=== PATIENT | male | born 1955 | race Caucasian/White ===

== ENCOUNTER 2023-06-17 10:13 | Outpatient (AMB) | payer MEDICARE, SELFPAY ==
[2023-06-17 10:18] VITALS: BP 140/80; O2SAT 84; BMI 25.9
--- NOTE | 2023-06-17 10:18 | A.OFFVIS_ITS ---
Intake Vital Signs 06/17/23 10:18 Height 5 ft 11 in Weight 186 lb BMI 25.9 BP 140/80 H Blood Pressure Location Rt brachial Position Sitting Pulse Oximetry (%) 84 L Oxygen Delivery Method Room Air Intake Visit Reasons: Shortness of breath Intake Note: O2 applied at 2L with O2 saturation returned to 96%. Baler Required: No Meat Packer: Meat Packer offered & declined Accompanied by: Sister Allergies No Known Allergies Allergy (Verified 06/17/23 10:27) Medication List - Last Reconciled 06/17/23 by Raysa Ramirez LPN aspirin 81 mg PO DAILY ropfltjsrj-mbivamhp-qjwhoppujs 160-9-4.8 mcg/actuation (Breztri Aerosphere) 2 inhalations inhalation BID clonazepam 0.25 mg PO BID lisinopril 20 mg PO DAILY metoprolol succinate ER 50 mg PO DAILY quetiapine 50 mg PO BID HPI Shortness of breath HPI Details Freedom is a pleasant 68-year-old male, former smoker quit 3 year ago, 40pyh with underlying COPD on supplemental oxygen, HTN, s/p aortic valve replacement 2022 and h/o hepatitis C. He was referred by PCP for pulmonary evaluation. He has been maintained on Breztri and duoneb PRN with suboptimal control. Of note, he recently came to [place] to stay with sister due to worsening respiratory status, as he lives in [place], so has been without nebulizer. He reports persistent dyspnea on minimal exertion, wheezing and productive cough with tenacious everett sputum. He has been using supplemental oxygen for the past few years, currently using Inogen. He reports at rest on room air, O2 remains around 92, however with ambulation patient uses inogen at 6L and O2 is around 91-92%. He has not used his supplemental O2 at night. He denies any pertinent family history. He denies prior history of asthma. He reports likely occupational exposures to unknown chemicals. He does report history of sleep apnea however unable to use CPAP therapy due to issues with increased pressure. He was evaluated a few months ago with chest CT which reportedly revealed nodules and recommendation for [address] to evaluate was ordered. unfortunately due to difficulites coordinating care, patient was unable to schedule. He has chest CT at [facility] scheduled 06/24/23. Will request this. He also has an upcoming evaluation with cardiology to establish care. [facility] Social History (Updated 06/17/23 @ 10:32 by Raysa Ramirez LPN) Patient Tobacco Use Status: Former Tobacco user Tobacco use type: Cigarette Cigarette Packs Per Day: 1 Years Smoked: 40 Review of Systems Const Denies chills, Denies excessive sweating, Denies fever(s), Denies headache(s) and Denies night sweats Eyes Denies dry eyes, Denies irritation and Denies itchy eyes ENT Reports Normal hearing present, Denies headache(s), Denies nasal congestion, Denies nasal discharge, Denies post nasal drip and Denies sore throat Card Denies chest pain, Denies chest pain at rest, Denies chest pain with activity, Denies claudication, Denies leg edema, Reports dyspnea, Reports dyspnea on exertion, Denies orthopnea and Denies paroxysmal nocturnal dyspnea Resp Denies chest congestion, Reports cough, Denies excessive phlegm production, Denies pain on inspiration, Denies pain with cough, Reports dyspnea, Reports dyspnea on exertion, Denies stridor and Reports wheezing Musc Denies myalgias Neuro Reports Normal hearing present and Denies headache(s) Endo Denies excessive sweating Jessee/Lymph Denies lymphadenopathy Aller/Immun Denies itchy eyes, Denies seasonal rhinorrhea and Reports wheezing Physical Exam Vital Signs: Last Vital Signs BP 140/80 H 06/17/23 10:18 Pulse Ox 84 L 06/17/23 10:18 Oxygen Delivery Method Room Air 06/17/23 10:18 BMI result Body Mass Index 25.9 Const General: cooperative, no acute distress, well developed and alert Orientation/consciousness: patient oriented x3 Limitations: no limitations HEENT Head: Yes normal to inspection, Yes normocephalic and Yes atraumatic Ears: hearing grossly normal bilaterally and external ears normal Eyes General: appearance normal, both eyes and all related structures Eyelids: Yes eyelids normal Sclerae: sclerae normal EOM: EOMs intact bilaterally Neck Neck: Yes normal visual inspection and Yes no lymphadenopathy Lymphatic: no lymphadenopathy noted Chest Chest palpation & inspection: normal inspection of the chest Resp Other: moderate faint expiratory wheezing throughout, mildly improved with duoneb Effort & Inspection: able to speak in complete sentences, no audible wheezes, no cough, no stridor, not tachypneic, no tripod positioning and no use of accessory muscles Auscultation: no crackles, no rales, no rhonchi, wheezes and diminished lung sounds Cardio Jugular venous distension: no JVD Rate: regular rate Rhythm: regular rhythm Skin Other: warm, dry General skin exam: no rashes or lesions noted Neuro General: patient oriented x3 Cranial nerves: Yes Normal hearing present Cognition (Neuro): normal cognition Gait exam (Neuro): Normal gait present Extrem General: Yes normal to inspection, Yes capillary refill normal, Yes no clubbing, cyanosis or edema and Yes no pedal edema Psych Appearance: grossly normal and well kempt Speech and movement: Normal speech and movement present and Clear speech present Affect: normal affect Attitude: cooperative Thought process: Normal thought process present Thought content: Normal thought content present Insight: Good insight present (Psych) Judgement: Good judgement present (Psych) Office Procedures Nebulizer Treatment Nebulizer Treatment 27978-[place]/MDI RX initial, or Nebulizer Subsequent Treatment Office Meds ipratropium 0.5 mg-albuterol 3 mg (2.5 mg base)/3 mL nebulization soln Performing Provider: Cristiana Woodard NP Performing Location: [facility] Administered by: Raysa Ramirez LPN on 06/17/23 11:14 Dose Route Admin Location Dispensed Lot Number Expiration Date [facility] Paper Twister Tender 3 mL inhalation 3 mL [id number] 02/10/25 64164-555-89 [employer] Assessment & Plan Assessment & Plan (1) COPD (chronic obstructive pulmonary disease): Code(s): J44.9 - Chronic obstructive pulmonary disease, unspecified (2) Multiple pulmonary nodules: Code(s): R91.8 - Other nonspecific abnormal finding of lung field (3) Personal history of tobacco use: Code(s): Z87.891 - Personal history of nicotine dependence (4) Nocturnal hypoxemia: Code(s): G47.34 - Idiopathic sleep related nonobstructive alveolar hypoventilation Plan Freedom's symptoms are likely related to underlying COPD previously noted as moderate to severe. Will send for PFT to evaluate. Patient noted prior chest CT from February required 3 month follow-up, unfortunately had to be postponed and will have chest CT performed next week at [facility]. Will have patient sign release to obtain both chest CTs. On exam patient with moderate wheezing, mildly improve after DuoNeb. He also reported productive cough with tenacious everett sputum. Will send in azithromycin for bronchitic symptoms and prednisone. He is aware to call the office if symptoms do not improve. When patient was ambulating from the waiting room to exam room approximately 20 yd, his oxygen saturation was 84% on room air. 2 L of supplemental oxygen was placed and saturation increased to 92%. He does have an Inogen device at home, but does not have a concentrator. Will send in prescription for 2 L of continuous supplemental oxygen to [place], along with nebulizer and DuoNeb. Recommended patient keep oxygen saturation between 92-94%. Patient reports prior sleep studies revealing obstructive sleep apnea, however was unable to use CPAP therapy. Will send for overnight oximetry to assess for nocturnal hypoxemia on room air. All questions were answered and patient is in agreement of plan. Will follow-up in 4 weeks or sooner if needed. Orders: Orders PFT pulmonary function test Today G47.34 - Idiopathic sleep related nonobstructive alveolar hypoventilation AMB Nebulizer Treatment Today J44.9 - Chronic obstructive pulmonary disease, unspecified Overnight Pulse Oximetry Today G47.34 - Idiopathic sleep related nonobstructive alveolar hypoventilation, J44.9 - Chronic obstructive pulmonary disease, unspecified Medications: New azithromycin For 250 mg dose pack: take 500 mg today (day 1), then 250 mg for 4 days (days 2-5) PO 6 tabs 0RF prednisone see taper instructions; 40 mg Daily x3 days, 30 mg daily x3 days, 20 mg daily x3 days, 10 mg daily x3 days 10 mg PO DIRECTED 30 tabs 0RF Coding Level of Care Code New Pt Level 4 (00287) Diagnoses COPD (chronic obstructive pulmonary disease) J44.9 Multiple pulmonary nodules R91.8 Personal history of tobacco use Z87.891 Nocturnal hypoxemia G47.34 CPT Codes Nebulizer Treatment - Nebulizer Treatment, initial or subsequent: 33028- Nebulizer/MDI RX initial, or Nebulizer Subsequent Treatment ([id number])
== END 2023-06-17 11:42 | disposition home or self-care (01) ==
PROVIDERS: PCP Physician Assistant Medical; Visit Provider Nurse Practitioner Family
DX: J44.9 Chronic obstructive pulmonary disease, unspecified (principal); R91.8 Other nonspecific abnormal finding of lung field; Z87.891 Personal history of nicotine dependence; G47.34 Idiopathic sleep related nonobstructive alveolar hypoventilation
CPT/HCPCS: 99204

== ENCOUNTER → 2023-06-17 10:13 | Outpatient (BNVA) | payer MEDICARE, SELFPAY | PROVIDERS: PCP Physician Assistant Medical; Visit Provider Nurse Practitioner Family | DX: J44.9 Chronic obstructive pulmonary disease, unspecified (principal); R91.8 Other nonspecific abnormal finding of lung field; G47.34 Idiopathic sleep related nonobstructive alveolar hypoventilation; Z87.891 Personal history of nicotine dependence | CPT/HCPCS: 94640; 99202 ==

== ENCOUNTER 2023-06-23 14:45 | Outpatient (AMB) | payer MEDICARE, SELFPAY ==
--- NOTE | 2023-06-23 14:50 | MHC.OFFVIS ---
Intake Vital Signs 06/23/23 14:54 Height 5 ft 11 in Weight 181 lb BMI 25.2 BP 171/91 H Blood Pressure Location Lt brachial Position Sitting Pulse 88 Pulse Source Pulse Oximeter Pulse Oximetry (%) 95 Oxygen Delivery Method Room Air Intake Visit Reasons: RT SHOULDER PAIN,BACK PAIN, BILATERAL HIP PAIN Intake Note: Pain today 08/[address] Required: No Accompanied by: Family/Other Allergies No Known Allergies Allergy (Verified 06/23/23 14:54) HPI RT SHOULDER PAIN,BACK PAIN, BILATERAL HIP PAIN HPI Details Patient is a pleasant 68 years old male with prior history of asthma/COPD/emphysema with former smoker 40pyh, on supplemental oxygen, s/p aortic valve replacement 2022, lumbar discectomy, chronic pain syndrome, presents today for initial evaluation chronic right shoulder, bilateral hip and lower back pain. Denies any recent trauma, injury or falls. He is temporary relocated to [place] from [place] to stay with his sister for cardiac rehab following open heart surgery and valve replacement on 09/02/2022 in [place], [place]. Patient denies previous shoulder injections or physical therapy. He states recent x-rays showed significant degeneration and osteoarthritis of his shoulder and lower back. Patient reports multiple back injections in the past at [facility] in [place]. He is on Suboxone for collateral benefit of pain. Patient also takes Tylenol, NSAIDs, and marijuana with continued symptoms. Patient sleeps in recliner due to COPD/emphysema. Pain affects his daily activities, mobility, sleep and quality of life. Patient is unable to participate in formal physical therapy or daily exercise due to COPD/asthma exacerbation with any exertion. Patient establish care with our Pulmonology provider with pending chest CT scan tomorrow and also will be establishing care with [facility] Cardiology provider as well. Patient denies any fever, chills, unintentional weight loss, weakness, bladder or bowel dysfunction, or saddle anesthesia. Location Bilateral hip, back and right shoulder Duration Chronic pain, worsening for 3-4 months for hips/back, 3 month for shoulder Characteristics of symptom or complaint Aching, sharp, stabbing, burning, tiring Aggravating or associated factors Movements, pulling, reaching, walking, weight-bearing Relieving factors Sitting still, heating pad, Suboxone, Tylenol, NSAIDs, marijuana Treatment H/o 4 spinal injections prior back surgery in [facility] Medical History (Updated 06/24/23 @ 20:04 by MARLON Polk) Basal cell carcinoma Vitamin D deficiency Major depressive disorder Alcohol dependence Mixed hyperlipidemia Emphysema/COPD Dupuytren's contracture of both hands Chest pain BPH (benign prostatic hyperplasia) Chronic pain syndrome Asbestos exposure Hepatitis C Sleep apnea Insomnia Hemoptysis Marijuana use Hypertension Osteoarthritis of right shoulder Nocturnal hypoxemia Multiple pulmonary nodules COPD (chronic obstructive pulmonary disease) Surgical History (Updated 06/24/23 @ 20:04 by MARLON Polk) H/O colonoscopy (~2017) History of back surgery (~2007) History of appendectomy History of aortic valve replacement (~08/2022) Social History Patient Tobacco Use Status: Former Tobacco user Tobacco use type: Cigarette Cigarette Packs Per Day: 1 Years Smoked: 40 Review of Systems Const All systems reviewed & are unremarkable except as noted in HPI and below Physical Exam Vital Signs: Last Vital Signs Pulse 88 06/23/23 14:54 BP 171/91 H 06/23/23 14:54 Pulse Ox 95 06/23/23 14:54 Oxygen Delivery Method Room Air 06/23/23 14:54 BMI result Body Mass Index 25.2 General: Appears afebrile. Alert and oriented. Mood and affect appropriate. Follows and participates in conversation appropriately. Respiratory effort is unlabored. No cough. Able to transition from sit to stand unassisted. Ambulates with bilaterally normal heel strike and toe off. Back/Spine/Pelvis Cervical Spine: cervical ROM normal, cervical muscular tenderness and No Cervical spine tenderness Thoracic/Lumbar Spine: thoracic and lumbar spine normal to inspection, Thoracic/lumbar spine scar(s), Lasegue's sign negative, straight leg raise negative bilaterally, pain with thoraco-lumbar ROM, paraspinal muscle tenderness, thoraco-lumbar ROM limited, No thoracic spinal tenderness and lumbar spinal tenderness at L4 and at L5 Sacroiliac joints: bilaterally tender to palpation Extrem General: Yes capillary refill normal, Yes no clubbing, cyanosis or edema and Yes no calf tenderness Right upper extremity: shoulder/upper arm (Limited ROM due to pain. Increased pain with overhead reach activities.) Details: tenderness Location: of the A-C joint and over the subacromial bursa; no swelling, no ecchymosis, no crepitus and no unusual warmth Assessment & Plan Assessment & Plan (1) Chronic right shoulder pain: Code(s): M25.511 - Pain in right shoulder; G89.29 - Other chronic pain (2) Osteoarthritis of right shoulder: Code(s): M19.011 - Primary osteoarthritis, right shoulder (3) Lumbar post-laminectomy syndrome: Code(s): M96.1 - Postlaminectomy syndrome, not elsewhere classified (4) Bilateral hip pain: Code(s): M25.551 - Pain in right hip; M25.552 - Pain in left hip (5) Lumbar degenerative disc disease: Code(s): M51.36 - Other intervertebral disc degeneration, lumbar region (6) Chronic pain syndrome: Code(s): G89.4 - Chronic pain syndrome Plan Medical release request sent to [facility] for recent shoulder, low back and hip xray. Discussed interventional for chronic low back pain, postlaminectomy syndrome, and bilateral hip pain, including diagnostic versus therapeutic injections, neuromodulation with SCS/ITDD trial vs implant, RFA and BVN ablation. Informational pamphlets provided to patient and family. Patient plans to relocate back to [place] this year but reports his plans might change. Patient will notify our office if he is interested in any procedures for his low back and hip pain. Schedule Right intra-articular shoulder steroid injection with local and fluoroscopy. Expectations, risks and benefits were reviewed. Patient is aware he will be contacted to schedule this procedure. All questions were answered and the patient is in agreement of plan. Follow-up after injections and sooner as needed. Justification for interventional therapy: ? Patient with average pain > 6/10 ? Patient has exhausted conservative therapy, Tylenol, NSAIDs, cardiac rehab ? Patient is unable to participate in physical therapy due to significant pain and COPD exacerbation with any exertion The risks, consequences, alternatives, and benefits of various treatment options were discussed with the patient in great detail, including conservative management, injections and procedures. Patient is aware of hyperglycemic effects of steroids. Coding Level of Care Code New Pt Level 4 (80629) Diagnoses Chronic right shoulder pain M25.511; G89.29 Osteoarthritis of right shoulder M19.011 Lumbar post-laminectomy syndrome M96.1 Bilateral hip pain M25.551; M25.552 Lumbar degenerative disc disease M51.36 Chronic pain syndrome G89.4
[2023-06-23 14:54] VITALS: BP 171/91; PULSE 88; O2SAT 95; BMI 25.2
== END 2023-06-23 15:25 | disposition home or self-care (01) ==
PROVIDERS: PCP Physician Assistant Medical; Visit Provider Nurse Practitioner Family
DX: M25.511 Pain in right shoulder (principal); M19.011 Primary osteoarthritis, right shoulder; M96.1 Postlaminectomy syndrome, not elsewhere classified; M25.551 Pain in right hip; M25.552 Pain in left hip; M51.36 Other intervertebral disc degeneration, lumbar region; G89.4 Chronic pain syndrome
CPT/HCPCS: 99204; 99214

== ENCOUNTER → 2023-06-23 14:45 | Outpatient (BNVA) | payer MEDICARE, SELFPAY | PROVIDERS: PCP Physician Assistant Medical; Visit Provider Nurse Practitioner Family | DX: M25.511 Pain in right shoulder (principal); M19.011 Primary osteoarthritis, right shoulder; M96.1 Postlaminectomy syndrome, not elsewhere classified; M25.551 Pain in right hip; M25.552 Pain in left hip; M51.36 Other intervertebral disc degeneration, lumbar region; G89.29 Other chronic pain | CPT/HCPCS: 99202 ==

== ENCOUNTER 2023-06-24 16:04 | Outpatient (REF) | payer SELFPAY | END 2023-06-24 16:05 | disposition home or self-care (01) | LOC: CF 16:04 | DX: Z13.89 Encounter for screening for other disorder (principal) ==

== ENCOUNTER 2023-07-13 13:46 | Outpatient (REF) | payer MEDICARE, SELFPAY ==
[2023-07-13 10:16] VITALS: PULSE 91; RESP 16; O2SAT 96
--- NOTE | 2023-07-13 15:58 | PFT_ITS ---
Indication: COPD Spirometry [FEV1 to FVC 43%; FEV1 0.9 L; FVC 2.3 L. no significant response to bronchodilators noted. Maximum voluntary ventilation 29% predicted] Lung Volumes [Total lung capacity 94% predicted; residual volume 152% predicted] Diffusion Capacity [DLCO 44% predicted] Comparisons [none] Interpretation [There has an obstructive ventilatory defect consistent with very severe COPD. No significant response to bronchodilators noted. Severe decreasing the maximum voluntary ventilation secondary to deconditioning and also worsening dynamic inspiratory capacity. Lung volumes with significant air trapping due to the COPD. The patient does have severe diffusion impairment likely secondary to emphysematous changes and or other parenchymal lung conditions should be considered.] MTDD
== END 2023-07-13 13:47 | disposition home or self-care (01) ==
LOC: HO.RESP 13:46
PROVIDERS: PCP Physician Assistant Medical; Visit Provider Nurse Practitioner Family
DX: G47.34 Idiopathic sleep related nonobstructive alveolar hypoventilation (principal)
CPT/HCPCS: 94010; 94640; 94727; 94729

== ENCOUNTER → 2023-07-13 15:58 | Outpatient (BNV) | payer MEDICARE, SELFPAY | PROVIDERS: PCP Physician Assistant Medical; Visit Provider Hospitalist | DX: J44.9 Chronic obstructive pulmonary disease, unspecified (principal) | CPT/HCPCS: 94060; 94727; 94729 ==

== ENCOUNTER 2023-07-14 07:10 | Outpatient (REF) | payer MEDICARE, SELFPAY ==
--- NOTE | ~2023-07-14 | FL_ITS ---
EXAMINATION: XR FLUOROSCOPY WITH IMAGES CLINICAL INFORMATION: Right shoulder injection; primary osteoarthritis. COMPARISON: None available. TECHNIQUE: Fluoroscopy Supervised By: Dr. Luis Peck. Fluoroscopy Time: 0.2. Cumulative Dose: 1.11 mGy. DAP: 0.303 Gycm2. Images: 2. FINDINGS: The submitted images show an injection needle and injected contrast directed into the upper right glenohumeral joint space. FL/FL guidance in treatment room IMPRESSION: Intraoperative fluoroscopic guidance is provided during right shoulder pain management procedure. Please see the patient's Operative Report for full procedural details.
== END 2023-07-14 07:11 | disposition home or self-care (01) ==
LOC: CF 07:10
PROVIDERS: Visit Provider Anesthesiology
DX: M19.011 Primary osteoarthritis, right shoulder (principal); M96.1 Postlaminectomy syndrome, not elsewhere classified; M25.551 Pain in right hip; M25.552 Pain in left hip; M51.36 Other intervertebral disc degeneration, lumbar region; G89.4 Chronic pain syndrome
CPT/HCPCS: 20610; J2795; J3301; Q9967

== ENCOUNTER 2023-07-14 13:56 | Outpatient (AMB) | payer MEDICARE, SELFPAY ==
[2023-07-14 14:22] VITALS: BP 156/98; PULSE 94; RESP 18; O2SAT 96; BMI 25.2
--- NOTE | 2023-07-14 14:22 | MHC.OFFVIS ---
Intake Vital Signs 07/14/23 14:22 07/14/23 14:23 Height 5 ft 11 in Weight 181 lb BMI 25.2 BP 156/98 H 158/88 H Blood Pressure Location Lt brachial Lt brachial Position Sitting Sitting Respiration 18 18 Pulse 94 86 Pulse Source Pulse Oximeter Pulse Oximeter Pulse Oximetry (%) 96 95 Oxygen Delivery Method Room Air Room Air Comment Pre-Op Post-Op Intake Visit Reasons: RIGHT INTRA-ARTICULAR SHOULDER INJECTION Allergies No Known Allergies Allergy (Verified 06/23/23 14:54) [facility] Medical History (Updated 06/24/23 @ 20:04 by MARLON Polk) Basal cell carcinoma Vitamin D deficiency Major depressive disorder Alcohol dependence Mixed hyperlipidemia Emphysema/COPD Dupuytren's contracture of both hands Chest pain BPH (benign prostatic hyperplasia) Chronic pain syndrome Asbestos exposure Hepatitis C Sleep apnea Insomnia Hemoptysis Marijuana use Hypertension Osteoarthritis of right shoulder Nocturnal hypoxemia Multiple pulmonary nodules COPD (chronic obstructive pulmonary disease) Surgical History (Updated 06/24/23 @ 20:04 by MARLON Polk) H/O colonoscopy (~2017) History of back surgery (~2007) History of appendectomy History of aortic valve replacement (~08/2022) Social History Patient Tobacco Use Status: Former Tobacco user Tobacco use type: Cigarette Cigarette Packs Per Day: 1 Years Smoked: 40 Physical Exam Vital Signs: Last Vital Signs Pulse 86 07/14/23 14:23 Resp 18 07/14/23 14:23 BP 158/88 H 07/14/23 14:23 Pulse Ox 95 07/14/23 14:23 Oxygen Delivery Method Room Air 07/14/23 14:23 BMI result Body Mass Index 25.2 Assessment & Plan Assessment & Plan (1) Chronic right shoulder pain: Code(s): M25.511 - Pain in right shoulder; G89.29 - Other chronic pain Plan: Therapeutic right shoulder glenohumeral joint injection. Informed consent was explained thoroughly to the patient. All questions about benefits and risks for the procedure were answered. Patient came to the operating room and was positioned prone on the operating table with the pillow under the chest and right shoulder. Time-out was performed delineating site and side of the procedure name minute of of the patient. The right shoulder , right side of the neck and right upper back of the patient were prepped with ChloraPrep and draped with sterile utility self adhesive towels. C-arm was brought over the operating field and the picture of patient's glenohumeral joint was demonstrated on the screen. Superior medial portion of the joint was chosen as the target of the injection. Projection of the target to the skin was injected with small amount of lidocaine 2% 2 mL. After that 22 gauge 3 and 1/2 inch needle was driven to the left joint in tunnel vision fashion. When needle entered the joint capsule injection of the contrast was performed demonstrating intra-articular r spread of the contrast. After that 4 cc. of ropivacaine 0.5% mixed with Kenalog 40 mg was injected into the left joint. Upon completion of the injections the needle was removed . Sterile dressing was applied. Upon completion of the injection patient was taken outside of the operating room to the recovery room where recovered uneventfully. (2) Osteoarthritis of right shoulder: Code(s): M19.011 - Primary osteoarthritis, right shoulder (3) Lumbar post-laminectomy syndrome: Code(s): M96.1 - Postlaminectomy syndrome, not elsewhere classified (4) Bilateral hip pain: Code(s): M25.551 - Pain in right hip; M25.552 - Pain in left hip (5) Lumbar degenerative disc disease: Code(s): M51.36 - Other intervertebral disc degeneration, lumbar region (6) Chronic pain syndrome: Code(s): G89.4 - Chronic pain syndrome Plan Medical release request sent to [facility] for recent shoulder, low back and hip xray. Discussed interventional for chronic low back pain, postlaminectomy syndrome, and bilateral hip pain, including diagnostic versus therapeutic injections, neuromodulation with SCS/ITDD trial vs implant, RFA and BVN ablation. Informational pamphlets provided to patient and family. Patient plans to relocate back to [place] this year but reports his plans might change. Patient will notify our office if he is interested in any procedures for his low back and hip pain. Schedule Right intra-articular shoulder steroid injection with local and fluoroscopy. Expectations, risks and benefits were reviewed. Patient is aware he will be contacted to schedule this procedure. All questions were answered and the patient is in agreement of plan. Follow-up after injections and sooner as needed. Justification for interventional therapy: ? Patient with average pain > 6/10 ? Patient has exhausted conservative therapy, Tylenol, NSAIDs, cardiac rehab ? Patient is unable to participate in physical therapy due to significant pain and COPD exacerbation with any exertion The risks, consequences, alternatives, and benefits of various treatment options were discussed with the patient in great detail, including conservative management, injections and procedures. Patient is aware of hyperglycemic effects of steroids. Orders: Orders FL guidance in treatment room Today M19.011 - Primary osteoarthritis, right shoulder Coding Level of Care Code Procedure Only Diagnoses Chronic right shoulder pain M25.511; G89.29 Osteoarthritis of right shoulder M19.011 Lumbar post-laminectomy syndrome M96.1 Bilateral hip pain M25.551; M25.552 Lumbar degenerative disc disease M51.36 Chronic pain syndrome G89.4
[2023-07-14 14:23] VITALS: BP 158/88; PULSE 86; RESP 18; O2SAT 95
== END 2023-07-14 15:01 | disposition home or self-care (01) ==
LOC: HO.PMCPRC 13:56
PROVIDERS: PCP Physician Assistant Medical; Visit Provider Anesthesiology
DX: M25.511 Pain in right shoulder (principal); G89.29 Other chronic pain; M19.011 Primary osteoarthritis, right shoulder; M96.1 Postlaminectomy syndrome, not elsewhere classified; M25.551 Pain in right hip; M25.552 Pain in left hip; M51.36 Other intervertebral disc degeneration, lumbar region; G89.4 Chronic pain syndrome
CPT/HCPCS: 20610; 77002

== ENCOUNTER 2023-07-15 14:46 | Outpatient (AMB) | payer MEDICARE, SELFPAY ==
--- NOTE | 2023-07-15 14:54 | A.OFFVIS_ITS ---
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: Railroad Track Mechanic offered & declined Accompanied by: Self / Same As Patient Allergies No Known Allergies Allergy (Verified 07/15/23 14:56) Medication List - Last Reconciled 07/15/23 by Raysa Ramirez LPN aspirin 81 mg PO DAILY ebidfqjbha-dtxypbab-cixcmjvfva 160-9-4.8 mcg/actuation (Breztri Aerosphere) 2 inhalations inhalation BID buprenorphine-naloxone 4-1 mg 5 mg sublingual DAILY clonazepam 0.25 mg PO BID lisinopril 20 mg PO DAILY metoprolol succinate ER 50 mg PO DAILY quetiapine 50 mg PO BID HPI 4 week f/u/ pft results 2 HPI0 Dilia Loja is a pleasant 68-year-old male, former smoker with 40pyh, quit 3 years ago, with underlying COPD on supplemental oxygen, HTN, s/p aortic valve replacement 2022 and h/o hepatitis C. At the last visit, he was treated for COPD exacerbation with a zpak and prednisone with significant improvement in symptoms. His resting oxygen saturation has maintained >92% on room air and has been using supplemental oxygen with exertion. Although, notes he does not use consistently. He feels symptoms are moderately controlled on Breztri and is awaiting nebulizer. He recently received call that it will be delivered in the next week. He did receive the concentrator and tanks. He continues to report dyspnea with moderate exertion, he does note deconditioning, as he has been more sedentary due to pain and dyspnea. He alsp reports significant improvement in cough since zpak/prednisone. He denies wheezing, chest tightness. Today he presents to review PFT and chest CT. [facility] Medical History (Updated 06/24/23 @ 20:04 by MARLON Polk) Basal cell carcinoma Vitamin D deficiency Major depressive disorder Alcohol dependence Mixed hyperlipidemia Emphysema/COPD Dupuytren's contracture of both hands Chest pain BPH (benign prostatic hyperplasia) Chronic pain syndrome Asbestos exposure Hepatitis C Sleep apnea Insomnia Hemoptysis Marijuana use Hypertension Osteoarthritis of right shoulder Nocturnal hypoxemia Multiple pulmonary nodules COPD (chronic obstructive pulmonary disease) Surgical History (Updated 06/24/23 @ 20:04 by MARLON Polk) H/O colonoscopy (~2017) History of back surgery (~2007) History of appendectomy History of aortic valve replacement (~08/2022) Family History (Updated 07/15/23 @ 14:15 by Elena Tony [facility]) Sister Skin cancer Other Family history of cerebrovascular accident Social History (Updated 07/15/23 @ 15:02 by Raysa Ramirez LPN) Patient Tobacco Use Status: Former Tobacco user Tobacco use type: Cigarette Cigarette Packs Per Day: 1 Years Smoked: 40 Smoked in Last 30 Days: No Review of Systems Const Denies chills, Denies excessive sweating, Denies fever(s), Denies headache(s) and Denies night sweats Eyes Denies dry eyes, Denies irritation and Denies itchy eyes ENT Reports Normal hearing present, Denies headache(s), Denies nasal congestion, Denies nasal discharge, Denies post nasal drip and Denies sore throat Card Denies chest pain, Denies chest pain at rest, Denies chest pain with activity, Denies claudication, Denies leg edema, Denies orthopnea and Denies paroxysmal nocturnal dyspnea Resp Denies chest congestion, Denies excessive phlegm production, Denies pain on inspiration, Denies pain with cough, Denies stridor and Denies wheezing Musc Denies myalgias Neuro Reports Normal hearing present and Denies headache(s) Endo Denies excessive sweating Jessee/Lymph Denies lymphadenopathy Aller/Immun Denies itchy eyes, Denies seasonal rhinorrhea and Denies wheezing Physical Exam Vital Signs: Last Vital Signs Pulse 88 07/15/23 15:00 Pulse Ox 96 07/15/23 15:00 Oxygen Delivery Method Room Air 07/15/23 15:00 BMI result Body Mass Index 26.1 Const General: cooperative, healthy appearing, comfortable, no acute distress, well developed and alert Orientation/consciousness: patient oriented x3 Limitations: no limitations HEENT Head: Yes normal to inspection, Yes normocephalic and Yes atraumatic Ears: hearing grossly normal bilaterally and external ears normal Eyes General: appearance normal, both eyes and all related structures Eyelids: Yes eyelids normal Sclerae: sclerae normal EOM: EOMs intact bilaterally Neck Neck: Yes normal visual inspection and Yes no lymphadenopathy Lymphatic: no lymphadenopathy noted Chest Chest palpation & inspection: normal inspection of the chest Resp Effort & Inspection: normal respiratory effort, able to speak in complete sentences, no audible wheezes, no cough, no stridor, not tachypneic, no tripod positioning and no use of accessory muscles Auscultation: wheezes expiratory wheezes and scattered wheezes and diminished lung sounds Cardio Jugular venous distension: no JVD Rate: regular rate Rhythm: regular rhythm Skin Other: warm, dry General skin exam: no rashes or lesions noted Neuro General: patient oriented x3 Cranial nerves: Yes Normal hearing present Cognition (Neuro): normal cognition Gait exam (Neuro): Normal gait present Extrem General: Yes normal to inspection, Yes capillary refill normal, Yes no clubbing, cyanosis or edema and Yes no pedal edema Psych Appearance: grossly normal and well kempt Speech and movement: Normal speech and movement present and Clear speech present Affect: normal affect Attitude: cooperative Thought process: Normal thought process present Thought content: Normal thought content present Insight: Good insight present (Psych) Judgement: Good judgement present (Psych) Results Reviewed Results Reviewed: Assessment & Plan Assessment & Plan (1) COPD (chronic obstructive pulmonary disease): Code(s): J44.9 - Chronic obstructive pulmonary disease, unspecified (2) Multiple pulmonary nodules: Code(s): R91.8 - Other nonspecific abnormal finding of lung field (3) Personal history of tobacco use: Code(s): Z87.891 - Personal history of nicotine dependence (4) Nocturnal hypoxemia: Code(s): G47.34 - Idiopathic sleep related nonobstructive alveolar hypoventilation Plan Reviewed PFT which revealed an obstructive ventilatory defect consistent with very severe COPD. No significant response to bronchodilators noted. Severe decreasing the maximum voluntary ventilation secondary to deconditioning and also worsening dynamic inspiratory capacity. Lung volumes with significant air trapping due to the COPD. The patient does have severe diffusion impairment likely secondary to emphysematous changes. Reviewed recent chest CT which revealed multiple stable nodules, he will have a repeat chest CT scheduled at [facility], ordered by PCP. On exam patient with mild expiratory wheezes, will send prednisone. Advised patient to continue breztri and start duoneb BID, once he obtains nebulizer. He is aware to call office if symptoms do not improve. Encouraged patient to use supplemental oxygen with exertion at all times. At the last visit order was placed for overnight oximetry to assess for nocturnal hypoxemia on room air. He is awaiting this test. All questions were answered and patient is in agreement of plan. Will follow-up in 3 months or sooner if needed. Medications: New 2 prednisone 40 mg x 5 days then 20 mg x 5 days 40 mg (2 x 20 mg) PO DAILY 10 tabs 0RF ipratropium-albuterol 0.5 mg-3 mg(2.5 mg base)/3 mL 3 mL inhalation BID PRN 180 mL 6RF wheezing Coding Level of Care Code Est Pt Level 4 (62318) Diagnoses COPD (chronic obstructive pulmonary disease) J44.9 Multiple pulmonary nodules R91.8 Personal history of tobacco use Z87.891 Nocturnal hypoxemia G47.34
[2023-07-15 15:00] VITALS: PULSE 88; O2SAT 96; BMI 26.1
== END 2023-07-15 15:31 | disposition home or self-care (01) ==
PROVIDERS: PCP Physician Assistant Medical; Visit Provider Nurse Practitioner Family
DX: J44.9 Chronic obstructive pulmonary disease, unspecified (principal); R91.8 Other nonspecific abnormal finding of lung field; Z87.891 Personal history of nicotine dependence; G47.34 Idiopathic sleep related nonobstructive alveolar hypoventilation
CPT/HCPCS: 99214

== ENCOUNTER → 2023-07-15 14:46 | Outpatient (BNVA) | payer MEDICARE, SELFPAY | PROVIDERS: PCP Physician Assistant Medical; Visit Provider Nurse Practitioner Family | DX: J44.9 Chronic obstructive pulmonary disease, unspecified (principal); R91.8 Other nonspecific abnormal finding of lung field; G47.34 Idiopathic sleep related nonobstructive alveolar hypoventilation; Z87.891 Personal history of nicotine dependence | CPT/HCPCS: 99212 ==

== ENCOUNTER 2023-07-22 12:51 | Outpatient (AMB) | payer MEDICARE, SELFPAY ==
[2023-07-22 12:58] VITALS: BP 160/58; PULSE 98; O2SAT 93; BMI 25.1
--- NOTE | 2023-07-22 12:58 | MHC.OFFVIS ---
Intake Vital Signs 07/22/23 12:58 Height 5 ft 11 in Weight 180 lb 5.41 oz BMI 25.1 BP 160/58 H Blood Pressure Location Rt brachial Position Sitting Pulse 98 Pulse Source Pulse Oximeter Pulse Oximetry (%) 93 Oxygen Delivery Method Room Air Intake Visit Reasons: Elev.RF Intake Note: New pt presents today for consult, referred by pcp Chepe Barker. Patient is originally from [place]. He is recovering from open heart surgery and is staying with his sister. C/o pain in multiple joints. 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 Required: No Accompanied by: Sister Allergies No Known Allergies Allergy (Verified 07/22/23 12:59) Medication List - Last Reconciled 07/22/23 by Trisha Brown MD wzdoepmpoe-pznfneaf-iqhsagxaoh 160-9-4.8 mcg/actuation (Breztri Aerosphere) 2 inhalations inhalation BID buprenorphine-naloxone 4-1 mg 5 mg sublingual DAILY clonazepam 0.25 mg PO BID ipratropium-albuterol 0.5 mg-3 mg(2.5 mg base)/3 mL 3 mL inhalation BID PRN lisinopril 20 mg PO DAILY metoprolol succinate ER 50 mg PO DAILY prednisone 40 mg (2 x 20 mg) PO DAILY quetiapine 25 mg PO BEDTIME HPI HPI Comments History of Present Illness Details This is a 68-year-old male who presents for evaluation of a positive rheumatoid factor. Patient lives in [place] and has been living with his sister in [place] since his aortic valve replacement August of 2022. Patient states that he has neck pain stiffness as well as low back pain and stiffness. He has history of L-spine surgery in the past. States that he has had neck x-rays and it showed degeneration. Most recent x-rays were done over the last few months. He does not recall ever seeing a rail technician. He has history of hepatitis-C was treated with interferon in the past and treated again in 2013. As far as he knows he has cleared the infection. He is unaware of any family history of an autoimmune rheumatic disease. Denies any history of DVT/PE. Denies any new skin rashes. Denies any weight loss. Denies any swollen joints. There is no history suggestive of uveitis. No history suggestive of IBD [facility] Medical History Basal cell carcinoma Vitamin D deficiency Major depressive disorder Alcohol dependence Mixed hyperlipidemia Emphysema/COPD Dupuytren's contracture of both hands Chest pain BPH (benign prostatic hyperplasia) Chronic pain syndrome Asbestos exposure Hepatitis C Sleep apnea Insomnia Hemoptysis Marijuana use Hypertension Osteoarthritis of right shoulder Nocturnal hypoxemia Multiple pulmonary nodules COPD (chronic obstructive pulmonary disease) Surgical History H/O colonoscopy (~2017) History of back surgery (~2007) History of appendectomy History of aortic valve replacement (~08/2022) Family History Sister Skin cancer Mother Arthritis Polio Other Family history of cerebrovascular accident Social History Alcohol intake: current Alcohol intake frequency: a few times a week Patient Tobacco Use Status: Former Tobacco user Tobacco use type: Cigarette Cigarette Packs Per Day: 1 Years Smoked: 40 Review of Systems Const Denies fever(s), Reports headache(s) and Denies weight loss ENT Reports headache(s) GI Reports constipation Skin/Breast Denies new lesions Neuro Reports headache(s) Psych Reports abnormal sleep pattern and Reports anxiety Physical Exam Vital Signs: Last Vital Signs Pulse 98 07/22/23 12:58 BP 160/58 H 07/22/23 12:58 Pulse Ox 93 07/22/23 12:58 Oxygen Delivery Method Room Air 07/22/23 12:58 BMI result Body Mass Index 25.1 Const General: cooperative, healthy appearing and comfortable Nutritional Appearance: average body habitus Orientation/consciousness: patient oriented x3 Limitations: no limitations HEENT Head: Yes normocephalic and Yes atraumatic Mouth: moist mucous membranes Resp Effort & Inspection: normal respiratory effort and able to speak in complete sentences Auscultation: rhonchi, wheezes and diminished lung sounds Cardio Rate: regular rate Skin General skin exam: no rashes or lesions noted Neuro General: patient oriented x3 Extrem Other: Mild osteoarthritic changes of both hands Significant Dupuytren's contracture right ring finger, as well as mild flexion contracture of right hand MCPs Mild left hand Dupuytren's contracture No active synovitis both hands Normal nailfold capillaroscopy Significantly limited range of motion of neck Jesusita test 10-13.1 cm Negative straight leg raise test bilaterally Negative NAMAN test bilaterally Results Reviewed Results Reviewed: Labs 05/2023 CRAIG negative HCV viral load negative Free T4 1.13 normal TSH 1.5 to BMP unremarkable Hepatic function panel unremarkable CBC unremarkable Rheumatoid factor 77 (<14) Hepatitis-C antibody positive ESR 37 Assessment & Plan Assessment & Plan (1) Rheumatoid factor positive: Code(s): R76.8 - Other specified abnormal immunological findings in serum Plan: This is a 68-year-old male who presents for evaluation of a positive rheumatoid factor. This was in the context of diffuse stiffness. On exam he he does not have any peripheral synovitis however patient was just prescribe a prednisone course for COPD by Pulmonary. The majority of his complaints are axial. Given history of treated hepatitis-C as well as COPD/emphysema, he can have a positive rheumatoid factor without rheumatoid arthritis. Patient stated that he had numerous x-rays done over the last few months. Will request records. Will review the x-rays and consider adding further x-rays . Will order comprehensive serology to screen for underlying autoimmune rheumatic disease Follow-up in 6 weeks Plan I spent 48 minutes reviewing patient's chart, evaluating patient, ordering diagnostic workup, counseling patient and documenting in the chart Orders: Orders Complete Blood Count Auto Diff Today M06.9 - Rheumatoid arthritis, unspecified C Reactive Protein Today M06.9 - Rheumatoid arthritis, unspecified Hepatitis A,B,C Profile Today Z11.59 - Encounter for screening for other viral diseases Anti Extractable Nuclear Ag Today M32.9 - Systemic lupus erythematosus, unspecified CRAIG Reflex Titer and Pattern Today M32.9 - Systemic lupus erythematosus, unspecified Anti DNA DS Antibody Today M32.9 - Systemic lupus erythematosus, unspecified DNA Double Stranded-Crithidia Today M32.9 - Systemic lupus erythematosus, unspecified Protein Creatinine Ratio, Ur Today M32.9 - Systemic lupus erythematosus, unspecified UA w Microscopic Today M32.9 - Systemic lupus erythematosus, unspecified Cardiolipin Antibodies Today D68.61 - Antiphospholipid syndrome Lupus Anticoagulant Panel Today D68.61 - Antiphospholipid syndrome Comprehensive Met. Panel Today M06.9 - Rheumatoid arthritis, unspecified Erythrocyte Sedimentation Rate Today M06.9 - Rheumatoid arthritis, unspecified Immunofixation Pnl, Serum Today M06.9 - Rheumatoid arthritis, unspecified T Spot TB Today Z11.7 - Encounter for testing for latent tuberculosis infection Protein Electrophoresis, Serum Today M06.9 - Rheumatoid arthritis, unspecified Cyclic Citrullinated Peptide Today M06.9 - Rheumatoid arthritis, unspecified Complement C3 Today M32.9 - Systemic lupus erythematosus, unspecified Complement C4 Today M32.9 - Systemic lupus erythematosus, unspecified Sjogren's Antibodies Today M32.9 - Systemic lupus erythematosus, unspecified Beta-2 Glycoprotein Antibody Today D68.61 - Antiphospholipid syndrome HLA B27 Today M45.9 - Ankylosing spondylitis of unspecified sites in spine Coding Level of Care Code Est Pt Level 4 (38884) Diagnoses Rheumatoid factor positive R76.8
== END 2023-07-22 13:30 | disposition home or self-care (01) ==
PROVIDERS: PCP Physician Assistant Medical; Visit Provider Student in an Organized Health Care Education/Training Program
DX: R76.8 Other specified abnormal immunological findings in serum (principal)
CPT/HCPCS: 99214

== ENCOUNTER 2023-07-22 12:51 | Outpatient (REF) | payer MEDICARE, SELFPAY ==
[2023-07-22 14:03] LABS: MANUAL DIFF FLAG NO
[2023-07-22 14:29] LABS: Appearance Urine Clear; Color Urine Yellow; Glucose Urine UA Negative (Negative); Leukocyte Esterase Urine Negative (Negative); Nitrite Urine Negative (Negative); PH 5.5 (5.0-9.0); Specific Gravity - Urine 1.025 (1.005-1.025); Urine Blood Negative (Negative); Urine Ketones Negative (Negative); Urine Protein Negative (Neg-Trace)
[2023-07-22 14:31] LABS: Basophils Percent Auto 0.3 % (0-2); Eosinophils Percent Auto 0.2 % (0-4); Hematocrit 42.2 % (42.0-52.0); Hemoglobin 14.5 g/dl (14.0-18.0); Imm Gran Abs Auto 0.11 X10*3/uL (0.00-0.03); Imm Gran Pct Auto 1.7 % (0.0-0.4); Lymphocytes Absolute Auto 1.5 X10*3/uL (1.2-4.9); Lymphocytes Percent Auto 22.7 % (20-40); Mean Corpuscular HGB Conc 34.4 g/dl (31.0-36.0); Mean Corpuscular Hemoglobin 33.6 pg (27.0-33.0); Mean Corpuscular Volume 97.9 fL (80.0-98.0); Mean Platelet Volume 10.3 fL (9.4-12.4); Monocytes Absolute Auto 0.5 X10*3/uL (0.1-1.2); Monocytes Percent Auto 7.9 % (2-11); Neutrophils Absolute Auto 4.3 x10*3/uL (2.0-8.3); Neutrophils Percent Auto 67.2 % (45-73); Platelet Count 184 X10*3/uL (160-400); Red Blood Count 4.31 X10*6/uL (4.60-5.80); Red Cell Distribution Width 13.6 % (11.0-16.0); White Blood Count 6.4 X10*3/uL (4.8-10.8)
[2023-07-22 14:35] LABS: Bacteria Urine None Seen (None Seen); Hyaline Casts Urine 0-2 /LPF (0-2); RBC Urine 0-2 /HPF (0-2); Squamous Epithelial Cell Urine 0-2 /HPF (0-2); WBC Urine 0-5 /HPF (0-5)
[2023-07-22 15:06] LABS: Erythrocyte Sedimentation Rate 8 MM/HR (0-15)
[2023-07-22 15:09] LABS: Alanine Aminotransferase 29 U/L (0-40); Albumin Level 4.4 g/dL (3.5-5.0); Alkaline Phosphatase 69 U/L (39-117); Anion Gap 16 (12-20); Aspartate Amino Transferase 25 U/L (5-37); Bilirubin Total 0.5 mg/dL (0.0-1.0); Blood Urea Nitrogen 35 mg/dL (9-16); C Reactive Protein 0.35 mg/dL (< or = 0.50); Calcium 9.5 mg/dL (8.4-10.2); Carbon Dioxide 26 mmol/L (22-29); Chloride 106 mmol/L (96-108); Estimated Glomerular Filt Rate > 60; Glucose Random 107 mg/dL (60-115); Sodium 144 mmol/L (135-145); Total Protein 7.6 g/dL (6.5-8.0)
[2023-07-22 15:14] LABS: Creatinine Urine 138.94 mg/dL; Protein/Creatinine Ratio, Ur 0.07 (<0.2); Total Protein Urine Random 10 mg/dL (<12)
[2023-07-23 04:57] LABS: HBS Num1 0.59 mIU/mL (0-7.99); HBc Num1 5.59 S/CO (0.00-0.79); HBsAGNum1 0.29 S/CO (0.00-0.99); Hepatitis A Antibody IgM 0.15 Index (0-0.79); Hepatitis B Surface Antigen Negative (Negative); ~HepC Num1 14.53 S/CO (0.00-0.79); ~Hepatitis A Antibody IgM Nonreactive (Nonreactive); ~Hepatitis B Surface Antibody NONREACTIVE (Nonreactive); ~Hepatitis C Antibody Reactive (Nonreactive)
[2023-07-23 06:01] LABS: HBc Num3 5.16 S/CO; Hepatitis B Core Antibody Reactive (Nonreactive)
[2023-07-23 09:28] LABS: Complement C3 93 mg/dL (82-185)
[2023-07-23 14:43] LABS: Cyclic Citrullinated Peptide <16 UNITS
[2023-07-23 20:37] LABS: Anti DNA DS Antibody <1 IU/mL; Antibody to SS-A Antigen <1.0 NEG AI (<1.0 NEG); Antibody to SS-B Antigen <1.0 NEG AI (<1.0 NEG); Cardiolipin IgG Ab <2.0 GPL-U/mL; Cardiolipin IgM Ab 5.1 MPL-U/mL; SM/Ribonucleoprotein Ab <1.0 NEG AI (<1.0 NEG); Smith Protein <1.0 NEG AI (<1.0 NEG)
[2023-07-23 22:08] LABS: Prot Elec - Albumin 4.5 g/dL (3.8-4.8); Prot Elec - Alpha1 0.3 g/dL (0.2-0.3); Prot Elec - Alpha2 0.8 g/dL (0.5-0.9); Prot Elec - Beta 1 0.4 g/dL (0.4-0.6); Prot Elec - Beta 2 0.4 g/dL (0.2-0.5); Prot Elec - Total Protein 7.4 g/dL (6.1-8.1)
[2023-07-24 07:48] LABS: Hepatitis B Core Antibody IgM NON-REACTIVE (NON-REACTIVE)
[2023-07-24 11:34] LABS: IgA 192 mg/dL (70-320); IgG 1034 mg/dL (600-1540); IgM 154 mg/dL (50-300)
[2023-07-24 22:18] LABS: TS Negative Control Passed; TS Panel A 1; TS Panel B 1; TS Positive Control Passed; TSpotTB Negative (Negative)
[2023-07-26 14:58] LABS: HLA B27 Negative (Negative)
[2023-07-26 15:34] LABS: Anti Nuclear Antibody Screen POSITIVE (NEGATIVE); Anti Nuclear Antibody Titer 1:40 titer
[2023-07-26 16:13] LABS: DNAds, Crithidia Antibody Negative (Negative)
[2023-07-26 22:54] LABS: PTT (LAC) Screen 31 sec (<=40)
[2023-07-27 06:13] LABS: Beta-2 Glycoprotein IgA 2.4 U/mL (<20.0); Beta-2 Glycoprotein IgG <2.0 U/mL (<20.0); Beta-2 Glycoprotein IgM 7.9 U/mL (<20.0)
== END 2023-07-22 12:52 | disposition home or self-care (01) ==
LOC: HO.LAB 12:51
PROVIDERS: PCP Physician Assistant Medical; Visit Provider Student in an Organized Health Care Education/Training Program
DX: Z11.7 Encounter for testing for latent tuberculosis infection (principal); Z11.59 Encounter for screening for other viral diseases; M06.9 Rheumatoid arthritis, unspecified; R76.8 Other specified abnormal immunological findings in serum; D68.61 Antiphospholipid syndrome; M32.9 Systemic lupus erythematosus, unspecified; M45.9 Ankylosing spondylitis of unspecified sites in spine; Z72.89 Other problems related to lifestyle
CPT/HCPCS: 36415; 80053; 81001; 82570; 82784; 84156; 84165; 85025; 85597; 85598; 85613; 85652; 85730; 86038; 86039; 86140; 86146; 86147; 86160; 86200; 86225; 86235; 86255; 86334; 86481; 86704; 86705; 86706; 86709; 86803; 86812; 87340; 99212

== ENCOUNTER 2023-08-12 14:11 | Outpatient (AMB) | payer MEDICARE, SELFPAY ==
[2023-08-12 14:15] VITALS: BP 138/80; PULSE 110; O2SAT 93; BMI 25.7
--- NOTE | 2023-08-12 14:15 | MHC.OFFVIS ---
Vital Signs 08/12/23 14:15 Height 5 ft 11 in Weight 184 lb 8 oz BMI 25.7 BP 138/80 Blood Pressure Location Lt brachial Position Sitting Pulse 110 H Pulse Source Pulse Oximeter Pulse Oximetry (%) 93 Oxygen Delivery Method Room Air Intake Visit Reasons: sick visit Allergies No Known Allergies Allergy (Verified 08/12/23 14:17) HPI HPI sick visit: Details: Freedom is a pleasant 68-year-old male, former smoker with 40pyh, quit 3 years ago, with underlying COPD on supplemental oxygen, HTN, s/p aortic valve replacement 2022 and h/o hepatitis C. His resting oxygen saturation has maintained >92% on room air and has been using supplemental oxygen with exertion. He continues to report moderate control on Breztri and is still awaiting nebulizer. Today he presents for an acute visit. He reports three days of worsening dyspnea, productive cough with white sputum, pleuritc chest pain, fever 100.5 and wheezing. He denies any chills or sick contacts. [facility] Medical History Basal cell carcinoma Vitamin D deficiency Major depressive disorder Alcohol dependence Mixed hyperlipidemia Emphysema/COPD Dupuytren's contracture of both hands Chest pain BPH (benign prostatic hyperplasia) Chronic pain syndrome Asbestos exposure Hepatitis C Sleep apnea Insomnia Hemoptysis Marijuana use Hypertension Osteoarthritis of right shoulder Nocturnal hypoxemia Multiple pulmonary nodules COPD (chronic obstructive pulmonary disease) Surgical History H/O colonoscopy (~2017) History of back surgery (~2007) History of appendectomy History of aortic valve replacement (~08/2022) Family History Sister Skin cancer Mother Arthritis Polio Other Family history of cerebrovascular accident Social History Alcohol intake: current Alcohol intake frequency: a few times a week Patient Tobacco Use Status: Former Tobacco user Tobacco use type: Cigarette Cigarette Packs Per Day: 1 Years Smoked: 40 Review of Systems Const Denies chills, Denies excessive sweating, Denies headache(s) and Denies night sweats Eyes Denies dry eyes, Denies irritation and Denies itchy eyes ENT Reports Normal hearing present, Denies headache(s), Denies nasal congestion, Denies nasal discharge, Denies post nasal drip and Denies sore throat Card Denies claudication, Denies leg edema, Reports dyspnea on exertion, Denies orthopnea and Denies paroxysmal nocturnal dyspnea Resp Reports chest congestion, Reports cough, Denies hemoptysis, Denies excessive phlegm production, Denies pain on inspiration, Reports pain with cough, Reports dyspnea on exertion, Denies stridor and Reports wheezing Musc Denies myalgias Neuro Reports Normal hearing present and Denies headache(s) Endo Denies excessive sweating Jessee/Lymph Denies lymphadenopathy Aller/Immun Denies itchy eyes, Denies seasonal rhinorrhea and Reports wheezing Physical Exam Vital Signs: Last Vital Signs Pulse 110 H 08/12/23 14:15 BP 138/80 08/12/23 14:15 Pulse Ox 93 08/12/23 14:15 Oxygen Delivery Method Room Air 08/12/23 14:15 BMI result Body Mass Index 25.7 Const General: cooperative, well developed and alert Orientation/consciousness: patient oriented x3 Limitations: no limitations HEENT Head: Yes normal to inspection, Yes normocephalic and Yes atraumatic Ears: hearing grossly normal bilaterally and external ears normal Eyes General: appearance normal, both eyes and all related structures Eyelids: Yes eyelids normal Sclerae: sclerae normal EOM: EOMs intact bilaterally Neck Neck: Yes normal visual inspection and Yes no lymphadenopathy Lymphatic: no lymphadenopathy noted Chest Chest palpation & inspection: normal inspection of the chest Resp Effort & Inspection: able to speak in complete sentences, audible wheezes, Actively coughing, labored, no stridor, tachypneic, tripod positioning and uses accessory muscles Auscultation: crackles on the left in the lower lung castillo, wheezes expiratory wheezes and throughout and diminished lung sounds Cardio Jugular venous distension: no JVD Rate: regular rate Rhythm: regular rhythm Skin Other: warm, dry General skin exam: no rashes or lesions noted Neuro General: patient oriented x3 Cranial nerves: Yes Normal hearing present Cognition (Neuro): normal cognition Gait exam (Neuro): Normal gait present Extrem General: Yes normal to inspection, Yes capillary refill normal, Yes no clubbing, cyanosis or edema and Yes no pedal edema Psych Appearance: grossly normal and well kempt Speech and movement: Normal speech and movement present and Clear speech present Affect: normal affect Attitude: cooperative Thought process: Normal thought process present Thought content: Normal thought content present Insight: Good insight present (Psych) Judgement: Good judgement present (Psych) Office Procedures Nebulizer Treatment Nebulizer Treatment [id number]/[id number] RX initial, or Nebulizer Subsequent Treatment Office Meds ipratropium 0.5 mg-albuterol 3 mg (2.5 mg base)/3 mL nebulization soln Performing Provider: Cristiana Woodard NP Performing Location: [facility] Administered by: Raysa Ramirez LPN on 08/12/23 14:36 Dose Route Admin Location Dispensed Lot Number Expiration Date ND 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 Assessment & Plan Assessment & Plan (1) COPD (chronic obstructive pulmonary disease): Code(s): J44.9 - Chronic obstructive pulmonary disease, unspecified Category: Medical (2) Multiple pulmonary nodules: Code(s): R91.8 - Other nonspecific abnormal finding of lung field Category: Medical (3) Personal history of tobacco use: Code(s): Z87.891 - Personal history of nicotine dependence Category: Social Hx (4) Nocturnal hypoxemia: Code(s): G47.34 - Idiopathic sleep related nonobstructive alveolar hypoventilation Category: Medical Plan Patient with audible wheezes, diaphoretic, using accessory muscles and breathing in tripod positioning. Nebulizer given in office with minimal improvement. On exam after nebulizer patient with moderate expiratory wheezing throughout and inspiratory crackles of LLL. Symptoms suggestive of pneumonia. Given patient's severity of COPD, lack of response to nebulizer and physical exam, advised to go to ED for further evaluation. Patient was agreeable to this and [facility] notified of patient's anticipated arrival. All questions were answered and patient is in agreement of plan. Will have close follow up after ED discharge. Orders: Orders AMB Nebulizer Treatment Today J44.9 - Chronic obstructive pulmonary disease, unspecified Coding Level of Care Code Est Pt Level 4 (78562) Diagnoses COPD (chronic obstructive pulmonary disease) J44.9 Multiple pulmonary nodules R91.8 Personal history of tobacco use Z87.891 Nocturnal hypoxemia G47.34 CPT Codes Nebulizer Treatment - Nebulizer Treatment, initial or subsequent: [id number]/MDI RX initial, or Nebulizer Subsequent Treatment ([id number])
== END 2023-08-12 14:48 | disposition home or self-care (01) ==
PROVIDERS: PCP Physician Assistant Medical; Visit Provider Nurse Practitioner Family
DX: J44.9 Chronic obstructive pulmonary disease, unspecified (principal); R91.8 Other nonspecific abnormal finding of lung field; Z87.891 Personal history of nicotine dependence; G47.34 Idiopathic sleep related nonobstructive alveolar hypoventilation
CPT/HCPCS: 99214

== ENCOUNTER → 2023-08-12 14:11 | Outpatient (BNVA) | payer MEDICARE, SELFPAY | PROVIDERS: PCP Physician Assistant Medical; Visit Provider Nurse Practitioner Family | DX: J44.9 Chronic obstructive pulmonary disease, unspecified (principal); R91.8 Other nonspecific abnormal finding of lung field; G47.34 Idiopathic sleep related nonobstructive alveolar hypoventilation; Z87.891 Personal history of nicotine dependence; Z99.81 Dependence on supplemental oxygen | CPT/HCPCS: 94640; 99212 ==

== ENCOUNTER 2024-02-19 10:58 | Outpatient (AMB) | payer MEDICARE, SELFPAY ==
--- NOTE | 2024-02-19 11:13 | MHC.OFFVIS ---
Vital Signs 02/19/24 11:16 Height 5 ft 11 in Weight 172 lb 6 oz BMI 24.0 BP 110/68 Blood Pressure Location Lt brachial Position Sitting Pulse 75 Pulse Source Pulse Oximeter Pulse Oximetry (%) 96 Oxygen Delivery Method Room Air Intake Visit Reasons: F/U Allergies No Known Allergies Allergy (Verified 02/19/24 11:22) HPI HPI F/U: Details: Freedom is a pleasant 68-year-old male, former smoker with 40pyh, quit 3 years ago, with underlying severe COPD, HTN, s/p aortic valve replacement 2022 and h/o hepatitis C. Since his last visit, he had moved back to [place] and was admitted x 1 month in October for COPD exacerbation secondary to a viral infection and again in [place] 02/06-02/13 secondary to Haemophilus influenza. He was discharged without requiring supplemental oxygen and prescribed Augmentin and is currently on a prednisone taper. During this admission he did require BiPAP therapy and was recommended to use outpatient. He reports symptoms are back to baseline and has been using both flutter valve and incentive spirometer with good effect. He has been using Breztri as well as DuoNeb and albuterol with good effect. His prior chest CT noted multiple pulmonary nodules, largest measuring 9-10 mm of the right upper lobe and has been stable since 2022. He has a repeat chest CT scheduled for March as there was note of mediastinal lymphadenopathy on prior chest CT in January. [facility] Medical History Basal cell carcinoma Vitamin D deficiency Major depressive disorder Alcohol dependence Mixed hyperlipidemia Emphysema/COPD Dupuytren's contracture of both hands Chest pain BPH (benign prostatic hyperplasia) Chronic pain syndrome Asbestos exposure Hepatitis C Sleep apnea Insomnia Hemoptysis Marijuana use Hypertension Osteoarthritis of right shoulder Nocturnal hypoxemia Multiple pulmonary nodules COPD (chronic obstructive pulmonary disease) Surgical History H/O colonoscopy (~2017) History of back surgery (~2007) History of appendectomy History of aortic valve replacement (~08/2022) Family History Sister Skin cancer Mother Arthritis Polio Other Family history of cerebrovascular accident Social History Alcohol intake: current Alcohol intake frequency: a few times a week Patient Tobacco Use Status: Former Tobacco user Tobacco use type: Cigarette Cigarette Packs Per Day: 1 Years Smoked: 40 Review of Systems Const Denies chills, Denies excessive sweating, Denies headache(s) and Denies night sweats Eyes Denies dry eyes, Denies irritation and Denies itchy eyes ENT Reports Normal hearing present, Denies headache(s), Denies nasal congestion, Denies nasal discharge, Denies post nasal drip and Denies sore throat Card Denies claudication, Denies leg edema, Reports dyspnea on exertion, Denies orthopnea and Denies paroxysmal nocturnal dyspnea Resp Reports chest congestion, Reports cough, Denies hemoptysis, Denies excessive phlegm production, Denies pain on inspiration, Reports pain with cough, Reports dyspnea on exertion, Denies stridor and Reports wheezing Musc Denies myalgias Neuro Reports Normal hearing present and Denies headache(s) Endo Denies excessive sweating Jessee/Lymph Denies lymphadenopathy Aller/Immun Denies itchy eyes, Denies seasonal rhinorrhea and Reports wheezing Physical Exam Vital Signs: Last Vital Signs Pulse 75 02/19/24 11:16 BP 110/68 02/19/24 11:16 Pulse Ox 96 02/19/24 11:16 Oxygen Delivery Method Room Air 02/19/24 11:16 BMI result Body Mass Index 24.0 Const General: cooperative, healthy appearing, comfortable, no acute distress, well developed and alert Orientation/consciousness: patient oriented x3 Limitations: no limitations HEENT Head: Yes normal to inspection, Yes normocephalic and Yes atraumatic Ears: hearing grossly normal bilaterally and external ears normal Eyes General: appearance normal, both eyes and all related structures Eyelids: Yes eyelids normal Sclerae: sclerae normal EOM: EOMs intact bilaterally Neck Neck: Yes normal visual inspection and Yes no lymphadenopathy Lymphatic: no lymphadenopathy noted Chest Chest palpation & inspection: normal inspection of the chest Resp Effort & Inspection: normal respiratory effort, able to speak in complete sentences, no audible wheezes, no cough, no stridor, not tachypneic, no tripod positioning and no use of accessory muscles Auscultation: diminished lung sounds Cardio Jugular venous distension: no JVD Rate: regular rate Rhythm: regular rhythm Skin Other: warm, dry General skin exam: no rashes or lesions noted Neuro General: patient oriented x3 Cranial nerves: Yes Normal hearing present Cognition (Neuro): normal cognition Gait exam (Neuro): Normal gait present Extrem General: Yes normal to inspection, Yes capillary refill normal, Yes no clubbing, cyanosis or edema and Yes no pedal edema Psych Appearance: grossly normal and well kempt Speech and movement: Normal speech and movement present and Clear speech present Affect: normal affect Attitude: cooperative Thought process: Normal thought process present Thought content: Normal thought content present Insight: Good insight present (Psych) Judgement: Good judgement present (Psych) Assessment & Plan Assessment & Plan (1) COPD (chronic obstructive pulmonary disease): Code(s): J44.9 - Chronic obstructive pulmonary disease, unspecified Category: Medical (2) Multiple pulmonary nodules: Code(s): R91.8 - Other nonspecific abnormal finding of lung field Category: Medical (3) Personal history of tobacco use: Code(s): Z87.891 - Personal history of nicotine dependence Category: Social Hx (4) Nocturnal hypoxemia: Code(s): G47.34 - Idiopathic sleep related nonobstructive alveolar hypoventilation Category: Medical Plan At this time Freedom reports moderate control of symptoms on current regimen. Advised to continue, will refill DuoNeb. He is aware to call the office if symptoms worsen as he tapers prednisone. Encouraged continued use of flutter valve and incentive spirometer. Will follow-up after chest CT to review results, or sooner if needed. He did note that his PCP in [place] was CHAYITO Pate phone?[phone] fax [phone]. He is hopeful that he will move back to [place], however given the degree of COPD, he may reside here indefinitely. We did discuss an in lab sleep study to to assess candidacy for BiPAP given severity of COPD however he would like to defer at this time. He currently is not on supplemental oxygen during the day, will send for overnight oximetry to assess for nocturnal hypoxemia. All questions were answered and patient is in agreement of plan. Will follow-up in 4-6 weeks or sooner if needed. Orders: Orders Overnight Pulse Oximetry Today G47.34 - Idiopathic sleep related nonobstructive alveolar hypoventilation Medications: Refilled ipratropium-albuterol 0.5 mg-3 mg(2.5 mg base)/3 mL 3 mL inhalation BID PRN 180 mL 6RF wheezing J44.9 - Chronic obstructive pulmonary disease, unspecified Coding Level of Care Code Est Pt Level 4 (80035) Complex EM visit Add On G2211 Diagnoses COPD (chronic obstructive pulmonary disease) J44.9 Multiple pulmonary nodules R91.8 Personal history of tobacco use Z87.891 Nocturnal hypoxemia G47.34
[2024-02-19 11:16] VITALS: BP 110/68; PULSE 75; O2SAT 96; BMI 24.0
== END 2024-02-19 12:05 | disposition home or self-care (01) ==
PROVIDERS: PCP Physician Assistant Medical; Visit Provider Nurse Practitioner Family
DX: J44.9 Chronic obstructive pulmonary disease, unspecified (principal); R91.8 Other nonspecific abnormal finding of lung field; Z87.891 Personal history of nicotine dependence; G47.34 Idiopathic sleep related nonobstructive alveolar hypoventilation
CPT/HCPCS: 99214; G2211

== ENCOUNTER → 2024-02-19 10:58 | Outpatient (BNVA) | payer MEDICARE, SELFPAY | PROVIDERS: PCP Physician Assistant Medical; Visit Provider Nurse Practitioner Family | DX: J44.9 Chronic obstructive pulmonary disease, unspecified (principal); R91.8 Other nonspecific abnormal finding of lung field; G47.34 Idiopathic sleep related nonobstructive alveolar hypoventilation; Z87.891 Personal history of nicotine dependence | CPT/HCPCS: 99212 ==

== ENCOUNTER 2024-03-03 10:51 | Outpatient (REF) | payer MEDICARE, SELFPAY | END 2024-03-03 10:52 | disposition home or self-care (01) | LOC: CF 10:51 | DX: Z13.89 Encounter for screening for other disorder (principal) ==

== ENCOUNTER 2024-03-31 10:27 | Outpatient (REF) | payer MEDICARE, SELFPAY ==
--- OUTSIDE RECORDS SUMMARY | 2024-03-31 10:31 | XMS_ITS | Patient Health Record ---
Author Organization [facility] Address [address] [address] Care Team Providers Care Permastone Installer Name Role Phone July Unavailable [phone] DAYSI ARREDONDO Unavailable [phone] BRAULIO FITZGERALD Unavailable [phone] Allergies No Known Allergies Results Component Value Reference Range Notes MARIA GUADALUPE w Bilat Lower Extremity Arterial Duplex Reviewed date:09/10/2023 02:03:58 PM Interpretation: Performing Lab: Notes/Report: History: Coronary Artery Disease, Hypertension, Peripheral Vascular Disease, Hyperlipidemia, Former Smoker Procedure: Multiple carter scale, color and Doppler ultrasound was performed of bilateral lower extremity arterial system with multilevel blood pressure determination for ankle brachial index evaluation. Previous: 08/18/23 CTA ABD/PELV ([facility]) Bilateral: Bilateral lower extremity arterial stenoses likely underestimated due to known more proximal iliac disease. Right: 30-49% stenosis of the right common femoral artery and proximal superficial femoral artery. Left: 50-74% stenosis of the left common femoral artery and proximal superficial femoral artery. Conclusions: Peripheral vascular disease. Abnormal ankle brachial indices. FINDINGS History: Coronary Ar damian Disease, Hypertension, Peripheral Vascular Disease, Hyperlipidemia, Former Smoker FINDINGS Procedure: Multiple carter scale, color and Doppler ultrasound was performed of bilateral lower extremity arterial system with multilevel blood pressure determination for ankle brachial index evaluation. FINDINGS Previous: 08/18/23 CTA ABD/PELV ([facility]) FINDINGS Bilateral: Bilateral lower extremity arterial stenoses likely underestimated due to known more proximal iliac disease. FINDINGS See Below For Report FINDINGS Left: 50-74% stenosi s of the left common femoral artery and proximal superficial femoral artery. FINDINGS Conclusions: Periphe ral vascular disease. Abnormal ankle brachial indices. Aorta Iliac Duplex Reviewed date:09/10/2023 02:03:58 PM Interpretation: Performing Lab: Notes/Report: History: Coronary Artery Disease, Hypertension, Peripheral Vascular Disease, Hyperlipidemia, Former Smoker Procedure: Real-time, simpson-scale, and Doppler imaging of the aorta and iliac vessels are obtained. Previous: 08/18/23 CTA ABD PELVIS ([facility]) Aorta: Limited visualization of the abdominal aorta due to heavy bowel gas Right: 30-49% stenosis of the right proximal common iliac artery, internal iliac artery, & proximal external iliac artery Left: 30-49% stenosis of the left proximal & mid common iliac artery and distal external iliac artery Conclusions: Aortoiliac atherosclerosis. FINDINGS History: Coronary Ar damian Disease, Hypertension, Peripheral Vascular Disease, Hyperlipidemia, Former Smoker FINDINGS Procedure: Real-time , simpson-scale, and Doppler imaging of the aorta and iliac vessels are obtained. FINDINGS Previous: 08/18/23 CTA ABD PELVIS ([facility]) FINDINGS Aorta: Limited visua lization of the abdominal aorta due to heavy bowel gas FINDINGS See Below For Report FINDINGS See Below For Report FINDINGS Conclusions: Aortoil iac atherosclerosis. Reason For Referral Reason Severe PAD Diagnosis 1 PAD (peripheral adria ry disease) (I73.9) Referral Organization [facility] Referring Provider First Name LESLI Referring Provider Last Name ART Referring Provider Speciality Cardiology Referred Organization [facility] Referred Provider July Referred Address [address],[place], [place],[address], Referred Provider Specialty Vascular Isabel rene General Notes CHRISTOPHER MCGHEE 08/27 03:29:52 PM >requested CTA images, WILY SANTANA 08/31/2023 07:18:04 AM > no images yetRome Katy 08/31/2023 10:39:34 AM > Patient verified Demos and [facility] 12:10:48 PM > The patient called and wondered if we had everything that we needed in order to schedule him at [facility]. He is anxious to get an appointment because his referring provider stated that this was an urgent matter.ESTHER KAYLIN R 08/31/2023 12:28:50 PM > not sure on getting these images stat can someone review since pt is worried?, WILY SANTANA 09/01/2023 11:23:30 AM > PT IS VERY WORRIED AND DOES NOT WANT TO WAIT FOR LIA. THERE WAS AN OPEN SPOT ON [facility] 09/08. HE IS AWARE TO FAST THAT DAY, Christopher Cruz 09/04/2023 09:52:33 AM > We still do not have images, can we re request?, WILY SANTANA 09/08/2023 08:34:30 AM > we have req a lot of times and no luck. and it would be on disk becuase its an out of state facility. sorry!!, KEITH MAYA 09/10/2023 10:05:53 PM > Incorrect F/U DI orders, Christopher Cruz 09/15/2023 03:53:33 PM > Order corrected. Clinical Notes DUSTIN MAYA 09/01/2023 09:57:44 AM > SCHEDULE MARIA GUADALUPE W BLEA, AORTA ILIAC DUPLEX AND CONSULT WITH DR. FITZGERALD. DI ORDERS IN, TRY AND SCHEDULE APPTS SEPERATELY Referral Priority Stat Reason Abdomen pain, decrea sed appetite and weight loss. We will send progress note once complete. Diagnosis 1 Peripheral vascular disease, unspecified (I73.9) [facility] Referring Provider First Name JULY Referring Provider Last Name PILI Referring Provider Speciality Vascular S urgery Referred Organization [facility] Referred Address [address] [facility] [facility], [place],[address], Referred Provider Specialty Gastroentero logy Referral Priority Routine Medications Medication SIG (Take, Route, Frequency, Duration) Notes Start Date End Date Status QUEtiapine Fumarate 25 MG 1 tablet at be dtime Orally Once a day Active Metoprolol Succinate ER 50 MG 1 tablet Orally Once a day Active Buprenorphine HCl-Naloxone HCl 4-1 MG 1 film under the tongue and allow to dissolve Sublingual Once a day Active Breztri Aerosphere 160-9-4.8 MCG/ACT 2 puffs Inhalation Twice a day Active clonazePAM 0.5 MG 1 tablet Orally Once a day Active Lisinopril 20 MG 1 tablet Orally Once a day Active Crestor Active Aspirin 81 MG 1 tablet Orally Once a day Active Social History Tobacco Use: Social History Observation Description Date Details (start date - stop date) Former Smoker NA - NA Tobacco Use/Smoking Question Answer Notes Are you a former smoker How long has it been since you last smoked? 1-5 years Problems Problem Type SNOMED Code ICD Code Onset Dates Problem Status W/U Status Risk Notes Problem Inflammatory disease of liver (324063874) Unspecified hepatitis (573.3) Active confirmed Problem Major depression, single episode (35376965) Major depressive disorder, single episode, unspecified (F32.9) Active confirmed Problem Sleep apnea (92943654) Sleep apnea, unspecified (G47.30) Active confirmed Problem Essential hypertension (73924258) Essential (primary) hypertension (I10) Active confirmed Problem Atherosclerotic heart disease of [place] coronary artery without angina pectoris (402230467035447) Atherosclerotic heart disease of [place] coronary artery without angina pectoris (I25.10) Active confirmed Problem Peripheral vascular disease (816388058) Peripheral vascular disease, unspecified (I73.9) Active confirmed Problem Chronic obstructive pulmonary disease (20682046) Chronic obstructive pulmonary disease, unspecified (J44.9) Active confirmed Problem Dyspnea (379119366) Dyspnea, unspecified (R06.00) Active confirmed Problem Abnormal findings on diagnostic imaging of heart and coronary circulation (563867030) Abnormal findings on diagnostic imaging of heart and coronary circulation (R93.1) Active confirmed Problem History of heart valve repair with prosthesis (969998411599397) 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) Active confirmed Problem Peripheral vascular disease (350229799) PAD (peripheral artery disease) (I73.9) Active confirmed Vital Signs Heart Rate 95 /min 09/09/2023 Oximetry 90 % 09/09/2023 Blood pressure diastolic 76 mm Hg 09/09/2023 Weight-kg 80.75 kg 09/09/2023 Blood pressure systolic 146 mm Hg 09/09/2023 Encounters Encounter Location Date Provider Diagnosis [facility] [address] [place] [address] 09/04/2023 [facility] [address] [place] [address] 09/09/2023 [facility] [address] [place] [address] 09/09/2023 DAYSI ARREDONDO PAD (peripheral artery disease) I73.9 ; Presence of prosthetic heart valve Z95.2 ; Dyspnea, unspecified R06.00 and Chronic obstructive pulmonary disease, unspecified J44.9 [facility] [address] [place] [address] 09/07/2023July PILI Assessments Encounter Date Diagnosis (ICD Code) Assessment Notes Treatment Notes Treatment Clinical Notes Section Notes 09/09/2023 PAD (peripheral artery disease) (ICD-10 - I73.9) 09/09/2023 Presence of prosthetic heart valve (ICD-10 - Z95.2) 09/09/2023 Dyspnea, unspecified (ICD-10 - R06.00) 09/09/2023 Chronic obstructive pulmonary disease, unspecified (ICD-10 - J44.9) 09/09/2023 Other Patient was seen and examined with Dr. Hunt. Chart, medications, available imaging and records reviewed. Unfortunately patient CTA abdomen pelvis that was done at outside facility was not available for review today. Per read patient with severe iliac disease bilaterally. Aorta iliac done in our office with mild to moderate aortic iliac disease and bilateral lower extremity arterial stenosis likely underestimated due to known more proximal iliac disease. Patient's primary complaint today is his persistent abdominal pain with reported weight loss and no appetite. Additionally primary restriction to his activity is his shortness of breath due to his COPD w/o reports of ischemic rest pain or nonhealing wounds to his lower extremities. Given these findings would like to obtain additional imaging with a CTA abdomen pelvis with runoff to evaluate extent of his atherosclerotic disease. Additionally would like to place a referral to GI for workup of his abdominal pain. Once his imaging is done we will plan to review and call with results. Otherwise, with a 6-month follow-up f/u aortoiliac and bilateral ABIs. Today all questions and concerns were addressed. Patient understands and is in agreement. Patient was instructed to contact our office should additional questions or concerns arise. A total of 46 minutes were spent in consultation with the patient, reviewing films and studies and coordinating care with the patient's other providers. Greater than 50% of that time was spent counseling the patient. Plan Of Treatment Pending Test Test Name Order Date MARIA GUADALUPE With Aorta Iliac Duplex 09/15/2023 CTA ABD/PEL [facility] 09/09/2023 Insurance Providers Payer Name Payer Address Payer Phone Subscriber Number Group Number Insured Name Patient Relationship to Insured Coverage Start Date Coverage End Date [place] [address] [id number] INGRIDAbel DARRIAN Self - patient is the insured Medical (General) History Medical History History ICD Code Peripheral vascular disease, unspecified I73.9 Atherosclerotic heart diseas e of [place] coronary artery without angina pectoris I25.10 Presence of prosthetic heart valve Z95.2 Unspecified hepatitis 573.3 Major depressive disorder, single episod e, unspecified F32.9 Essential (primary) hypertension I10 Sleep apnea, unspecified G47.30 Chronic obstructive pulmonary disease, u nspecified J44.9 Dyspnea, unspecified R06.00 Abnormal findings on diagnostic imaging of heart and coronary circulation R93.1 Surgical History Surgery Date(Month/Year) appendectomy colonoscopy lumbar discectomy MOHS surgery tonsilletomy Open heart surgery
--- OUTSIDE RECORDS SUMMARY | 2024-03-31 10:31 | XMS_ITS ---
Author Organization [facility] Address [address] [facility] [address] [place] [address] Care Team Providers Care Laundry Bag Punch Operator Name Role Phone PILIJuly Unavailable [phone] REASON FOR VISIT Update [employer] Demographics Encounters Encounter Location Date Provider Diagnosis [facility] [address] [place] [address] 09/07/2023July PILI Plan Of Treatment No Information Progress Notes * CALLY DARRIANDOB:1955 (68 yo M)Acc No.[id number]:09/07/2023 Patient:?DARRIAN ALAMO :1955???Age:68 Y???Sex:Male Address:[address], [place] [address] * true * Date:? Generated for Gersoni cecy/Leoncio/eTransmitting on:?03/31/2024 06:31 AM ZEENAT
--- OUTSIDE RECORDS SUMMARY | 2024-03-31 10:31 | XMS_ITS ---
Author Organization [facility] Address [address] [address] Care Team Providers Care Ship'S Engineer Name Role Phone July Unavailable [phone] DAYSI ARREDONDO Unavailable [phone] Allergies No Known Allergies REASON FOR VISIT PAD Medications Medication SIG (Take, Route, Frequency, Duration) [...] Problem Status W/U Status Risk Notes Problem Peripheral vascular disease (550483627) Peripheral vascular disease, unspecified (I73.9) Active confirmed Problem Atherosclerotic heart disease of [place] coronary artery without angina pectoris (119733764350093) Atherosclerotic heart disease of [place] coronary artery without angina pectoris (I25.10) Active confirmed Problem History of heart valve repair with prosthesis (993602306229292) 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) Active confirmed Problem Inflammatory disease of liver (779265464) Unspecified hepatitis (573.3) Active confirmed Problem Major depression, single episode (83442869) Major depressive disorder, single episode, unspecified (F32.9) Active confirmed Problem Essential hypertension (52156073) Essential (primary) hypertension (I10) Active confirmed Problem Sleep apnea (03352733) Sleep apnea, unspecified (G47.30) Active confirmed Problem Chronic obstructive pulmonary disease (64254576) Chronic obstructive pulmonary disease, unspecified (J44.9) Active confirmed Problem Dyspnea (321164596) Dyspnea, unspecified (R06.00) Active confirmed Problem Abnormal findings on diagnostic imaging of heart and coronary circulation (804154314) Abnormal findings on diagnostic imaging of heart and coronary circulation (R93.1) Active confirmed Vital Signs Blood pressure systolic 146 mm Hg 09/09/19 24 Blood pressure diastolic 76 mm Hg 024 Heart Rate 95 /min 09/09/2023 Oximetry 90 % 09/09/2023 Weight-kg 80.75 kg 09/09/2023 Encounters Encounter Location Date Provider Diagnosis [facility] [address] [place] [address] 09/09/2023 DAYSI ARREDONDO PAD (peripheral artery disease) I73.9 ; Presence of prosthetic heart valve Z95.2 ; Dyspnea, unspecified R06.00 and Chronic obstructive pulmonary disease, unspecified J44.9 Assessments Encounter Date Diagnosis (ICD Code) Assessment [...] spent counseling the patient. Plan Of Treatment Treatment Notes Assessment Notes Other Patient was seen and examined with [...] that time was spent counseling the patient. Next Appt Details Follow Up: 6 Months, Reason: Progress Notes * SAROJ ALAMO:1955 (68 yo M)Acc No.[id number]:09/09/2023 Patient:?DARRIAN ALAMO Provider:?DAYSI ARREDONDO PA-C :1955???Age:68 Y???Sex:Male Louie e:09/09/2023 [address]:[place] [address], [place] [facility] Subjective: * Chief Complaints: * ???PAD * HPI: ???Consult:? 68-year-old male being referred to our office by [facility] for consultation and evaluation of peripheral arterial disease. Patient has a past medical history CAD, aortic valve replacement (last year per patient), HTN, COPD, dyspnea. He was recently seen at [facility] 08/25/2023 where he was found to have severe atherosclerotic disease of iliac arteries on CTA abdomen pelvis. His primary concern today is abdominal pain and weight loss with no appetite for the past 2 to 3 months. Otherwise, he states his only limitation with walking is his shortness of breath secondary to his severe COPD. Additionally he reports occasionally his feet will feel cold. Otherwise no ischemic rest pain or nonhealing wounds to his lower extremities/feet. No new onset chest pain, shortness of breath other than baseline, fevers, chills, nausea vomiting. CT abdomen pelvis done at outside facility on 08/18/2023 note severe atherosclerosis of the upper/proximal common iliac arteries through the mid to distal greater than 90% at the proximal right common iliac artery and greater than 75% bilateral narrowing at the mid common iliac arteries, per read. Additionally notes mild to moderate atherosclerosis in the proximal SMA with less than 25% luminal narrowing. Aorta iliac duplex done in our office 09/09/2023 moderate stenosis to right CHRISTINE with peak systolic velocity of 240 cm/s and EIA with peak systolic velocity of 300 cm/s moderate stenosis to the left CHRISTINE peak systolic velocity 276 cm/s and EIA peak systolic velocity 211 cm/s. Bilateral lower extremity arterial duplex with atherosclerotic disease likely underestimated due to known more proximal iliac disease predominantly biphasic waveforms on the right and biphasic to monophasic on the left. ABIs right 0.8 and left 0.64. See reports for full details. Patient takes ASA 81 mg daily and Crestor. He is a former smoker. * ROS:?All Other Systems:?Review of Systems (ROS)?All other systems reviewed and negative except those mentioned in HPI..? * Medical History:? * Surgical History:?appendecto my colonoscopy lumbar discectomy MOHS surgery tonsilletomy Open heart surgery * Hospitalization/Major Diagno stic Procedure:?Denies Past Hospitalization * Social History:?Tobacco Use:?Tobacco Use/Smoking?Are you a?former smoker,?How long has it been since you last smoked??1-5 years.?Drugs/Alcohol:?Do you smoke marijuana?: Denies. Do you drink alcohol?: Daily. * Medications:?TakingAspirin 8 1 MG Tablet Chewable 1 tablet Orally Once a day Crestor Lisinopril 20 MG Tablet 1 tablet Orally Once a day Breztri Aerosphere 160-9-4.8 MCG/ACT Aerosol 2 puffs Inhalation Twice a day Buprenorphine HCl-Naloxone HCl 4- 1 MG Film 1 film under the tongue and allow to dissolve Sublingual Once a day Metoprolol Succinate ER 50 MG Tablet Extended Release 24 Hour 1 tablet Orally Once a day QUEtiapine Fumarate 25 MG Tablet 1 tablet at bedtime Orally Once a day clonazePAM 0.5 MG Tablet 1 tablet Orally Once a day Medication List reviewed and reconciled with the patientTaking Aspirin 81 MG Tablet Chewable 1 tablet Orally Once a day Taking Crestor Taking Lisinopril 20 MG Tablet 1 tablet Orally Once a day Taking Breztri Aerosphere 160-9-4.8 MCG/ACT Aerosol 2 puffs Inhalation Twice a day Taking Buprenorphine HCl-Naloxone HCl 4-1 MG Film 1 film under the tongue and allow to dissolve Sublingual Once a day Taking Metoprolol Succinate ER 50 MG Tablet Extended Release 24 Hour 1 tablet Orally Once a day Taking QUEtiapine Fumarate 25 MG Tablet 1 tablet at bedtime Orally Once a day Taking clonazePAM 0.5 MG Tablet 1 tablet Orally Once a day Medication List reviewed and reconciled with the patient * Allergies:?N.K.D.A.no[Allerg ies Verified] Objective: * Vitals:?HR:95/min, BP RIGHT ARM: 151/77 mm HG, BP LEFT ARM:146/76mm Hg, Wt-k.75 kg, Oxygen sat %:90%. * Examination: ???EXAM: ???General Examination: ?GENERAL APPEARANCE: NAD, alert and oriented, no acute distress. ?HEAD: normocephalic, atraumatic. ?HEART: RRR. ?LUNGS: good air movement without labor. ?ABDOMEN: Soft, nontender, nondistended. ?EXTREMITIES: no visualized clubbing, no cyanosis, no nonhealing wounds. ?NEUROLOGIC: cranial nerves 2-12 grossly intact. ?PSYCH: alert, oriented , cooperative with exam , good eye contact , normal , speech clear. ?SKIN: no suspicious lesions, warm and dry. Assessment: * Assessment: 1.?PAD (peripheral artery di sease) - I73.9 (Primary)?2.?Presence of prosthetic heart valve - Z95.2?3.?Dyspnea, unspecified - R06.00?4.?Chronic obstructive pulmonary disease, unspecified - J44.9? Plan: * Treatment: * Procedure Codes:? * Follow Up:?6 Months * * Sign off status: Completed true * Provider:?DAYSI ARREDONDO PA-C Date: ?09/09/2023 Generated for Luc sam/Leoncio/Leesmitting on:?03/31/2024 06:30 AM AKST History and Physical Notes * Examination Category Sub-Category Detail Notes Category Not es EXAM General Examination: GENERAL APPEARANCE: NAD, alert and oriented, no acute distress. HEAD: normocephalic, atraumatic. HEART: RRR. LUNGS: good air movement without labor. ABDOMEN: Soft, nontender, nondistended. EXTREMITIES: no visualized clubbing, no cyanosis, no nonhealing wounds. NEUROLOGIC: cranial nerves 2-12 grossly intact. PSYCH: alert, oriented , cooperative with exam , good eye contact , normal , speech clear. SKIN: no suspicious lesions, warm and dry.
--- OUTSIDE RECORDS SUMMARY | 2024-03-31 10:31 | XMS_ITS ---
Author Organization [facility] Address [address] [place] [address] Care Team Providers Care Engagement Quality Consultant Name Role Phone PILIJuly Unavailable [phone] REASON FOR VISIT PAD Encounters Encounter Location Date Provider Diagnosis [facility] [address] [place] [address] 09/09/2023 MARGARET ALEJANDRE Plan Of Treatment No Information Progress Notes * DARRIAN ALAMODOB:1955 (68 yo M)Acc No.[id number]:09/09/2023 Aorta Iliac Duplex Patient:?DARRIAN ALAMO Provider:?MARGARET ALEJANDRE MD :1955???Age:68 Y???Sex:Male Louie e:09/09/2023 Address[place] [address] [place] [facility] Subjective: * Chief Complaints: * ???1. PAD. * Medical History:? Objective: * Vitals:? Assessment: Plan: * Treatment: * * Electronic signature of JUANJO ALEJANDRE MD on 03/31/2024 at 06:31 AM AKST Sign off status: Pending * Provider:?MARGARET ALEJANDRE MD Date:?08/12 Generated for Luc sam/Leoncio/eTransmitting on:?03/31/2024 06:31 AM AKST
--- OUTSIDE RECORDS SUMMARY | 2024-03-31 10:32 | XMS_ITS | Clinical Summary ---
Author Organization Unknown Care Team Providers Care Catcher Filter Tip Name Role Phone ROGELIO PATTON DO Unavailable Unavailable DONAVAN PT, LIC# [id number], FRANCI Unavailable Unavailable YANA OT. LIC#[id number], JAMEY Unavailable Unavailable [facility] Unavailable Unavailable Payers Payer Name Policy Type Policy Number Effective Date Expira tion Date MEDICARE CGS - EPISODIC [id number] Problems Condition Name Condition Details Condition Category Status Onset Date Resolution Date Last Treatment Date Treating Clinician Comments ENCNTR FOR SURGICAL AFTCR FOLLOWING SURGERY ON THE CIRC SYS Active 09-19 00:00: 00 PRESENCE OF OTHER HEART-VALVE REPLACEMENT Active 09-19 00:00: 00 ESSENTIAL (PRIMARY) HYPERTENSION Active 09-19 00:00: 00 PNEUMONIA, UNSPECIFIED ORGANISM Active 09-19 00:00: 00 EMPHYSEMA, UNSPECIFIED Active 09-19 00:00: 00 CHRONIC RESPIRATORY FAILURE WITH HYPOXIA Active 09-19 00:00: 00 NUTRITIONAL ANEMIA, UNSPECIFIED Active 09-19 00:00: 00 DEPRESSION, UNSPECIFIED Active 09-19 00:00: 00 ANXIETY DISORDER, UNSPECIFIED Active 09-19 00:00: 00 CHRONIC PAIN SYNDROME Active 09-19 00:00: 00 OPIOID USE, UNSPECIFIED, UNCOMPLICATE D Active 09-19 00:00: 00 SLEEP DISORDER, UNSPECIFIED Active 09-19 00:00: 00 VITAMIN D DEFICIENCY, UNSPECIFIED Active 09-19 00:00: 00 CONSTIPATION , UNSPECIFIED Active 09-19 00:00: 00 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 Active 09-19 00:00: 00 DEPENDENCE ON SUPPLEMENTAL OXYGEN Active 09-19 00:00: 00 GENERAL LABORER (CURRENT) USE OF INHALED STEROIDS Active 09-19 00:00: 00 PERSONAL HISTORY OF NICOTINE DEPENDENCE Active 09-19 00:00: 00 Allergies, Adverse Reactions, Alerts Allergy Name Allergy Type Status Severity Reaction(s) Onset Date Inactive Date Treating Clinician Comments NO KNOWN ALLERGIES Propensity to adverse reactions Inactive 09-17 14:00: 20 9 00:00:00 NO KNOWN ALLERGIES Propensity to adverse reactions Active 09-19 09:41: 57 Medications Ordered Medication Name Filled Medication Name Start Date Stop Date Current Medication? Ordering Clinician Indication Dosage Frequency Signature (SIG) Comments Components lisinopril 20 mg tablet 09-17 00:00: 00 Yes [id number] LOWERS BP 1 tablet ONCE DAILY 1 tablet ONCE DAILY (route: oral) Med Classific ation: Cardiovas cular Therapy Agents Trelegy Ellipta 200 mcg-62.5 mcg-25 mcg powder for inhalation 09-17 00:00: 00 Yes [id number] STOPS COPD EXACERBATIO NS 1 inhalat ion ONCE DAILY 1 inhalation ONCE DAILY (route: inhalation ) Med Classific ation: Respirato ry Therapy Agents buprenorphi ne 4 mg-naloxone 1 mg sublingual film 09-16 00:00: 00 09-26 23:59 :00 No [id number] STOPS NARCOTIC CRAVINGS 0.5 film ONCE DAILY 0.5 film ONCE DAILY (route: sublingual ) Med Classific ation: Chemical Dependenc y, Agents to Treat Acetaminoph en Extra Strength 500 mg tablet 09-19 00:00: 00 Yes [id number] PAIN 2 tablet EVERY 8 HOURS 2 tablet EVERY 8 HOURS (route: oral) Med Classific ation: Analgesic , Anti-infl ammatory or Antipyret ic albuterol sulfate 2.5 mg/3 mL (0.083 %) solution for nebulizatio n 09-19 00:00: 00 Yes [id number] IF SOB OR WHEEZING 3 mL 4 TIMES DAILY 3 mL 4 TIMES DAILY (route: inhalation ) Med Classific ation: Respirato ry Therapy Agents albuterol sulfate HFA 90 mcg/actuati on aerosol inhaler 09-19 00:00: 00 Yes [id number] SHORT OF BREATHE OR WHEEZING 2 puff EVERY 4 HOURS 2 puff EVERY 4 HOURS (route: inhalation ) Med Classific ation: Respirato ry Therapy Agents aspirin 81 mg tablet,susan yed release 09-19 00:00: 00 Yes [id number] BLOOD THINNER 1 tablet ONCE DAILY 1 tablet ONCE DAILY (route: oral) Med Classific ation: Hematolog ical Agents ergocalcife rol (vitamin D2) 1,250 mcg (50,000 unit) capsule 09-19 00:00: 00 Yes [id number] VIT D2 SUPPLEMENT 1 capsule WEEKLY 1 capsule WEEKLY (route: oral) Med Classific ation: Electroly te Balance-N utritiona l Products ferrous sulfate 325 mg (65 mg iron) tablet 09-19 00:00: 00 Yes [id number] IRON 1 tablet ONCE DAILY 1 tablet ONCE DAILY (route: oral) Med Classific ation: Electroly te Balance-N utritiona l Products naloxone 4 mg/actuatio n nasal spray 09-19 00:00: 00 Yes [id number] IF WITH NARCOTIC OD 1 spray DIRECTED 1 spray DIRECTED (route: nasal) Med Classific ation: Antidotes and other Reversal Agents olanzapine 10 mg tablet 09-19 00:00: 00 Yes [id number] HELPS SLEEP 1 tablet AT BEDTIME 1 tablet AT BEDTIME (route: oral) Med Classific ation: Central Nervous System Agents OXYGEN 09-19 00:00: 00 Yes [id number] IF SOB 2 Liter NEEDED 2 Liter A S NEEDED (route: Oxygen) Med Classific ation: Medical Oxygen metoprolol succinate ER 25 mg tablet,exte nded release 24 hr 10-10 00:00: 00 Yes [id number] HEART. LOWER HR 1 tablet ONCE DAILY 1 tablet ONCE DAILY (route: oral) Med Classific ation: Cardiovas cular Therapy Agents Immunizations Ordered Immunization Name Filled Immunization Name Date Status Comments Refusal Reason COVID-19 DOSE 4 (BOOSTER), MRNA 2022-01-22 00:00:00 PNEUMOCOCCAL (PPV), PPV 2020-12-26 00:00:00 Vital Signs Vital Name Observation Time Observation Value Commen ts Temperature 2022-10-17 12:13:00.000 98 [degF] Temperature 2022-10-15 14:32:00.000 97.2 [degF] Temperature 2022-10-10 16:42:00.000 97.9 [degF] Temperature 2022-10-03 12:15:00.000 98 [degF] Temperature 2022-10-01 16:16:00.000 97.8 [degF] Temperature 2022-09-29 13:50:00.000 98.2 [degF] Temperature 2022-09-26 13:27:00.000 98.1 [degF] Temperature 2022-09-25 10:36:00.000 98.1 [degF] Temperature 2022-09-24 11:01:00.000 97.7 [degF] Temperature 2022-09-23 14:50:00.000 98.1 [degF] Temperature 2022-09-19 10:00:00.000 97 [degF] BMI (%) 2022-09-19 10:00:00.000 23 kg/m2 Height 2022-09-19 10:00:00.000 73 [in_us] Pulse 2022-10-17 12:13:00.000 80 /min Pulse 2022-10-15 14:32:00.000 98 /min Pulse 2022-10-10 16:42:00.000 78 /min Pulse 2022-10-03 12:15:00.000 110 /min Pulse 2022-10-01 16:16:00.000 88 /min Pulse 2022-09-29 13:50:00.000 99 /min Pulse 2022-09-26 13:27:00.000 99 /min Pulse 2022-09-25 11:10:00.000 99 /min Pulse 2022-09-24 11:01:00.000 100 /min Pulse 2022-09-23 14:50:00.000 78 /min Pulse 2022-09-19 10:00:00.000 99 /min O2 Saturation (%) 2022-10-17 12:13:00.000 97 % O2 Saturation (%) 2022-10-15 14:32:00.000 99 % O2 Saturation (%) 2022-10-10 16:42:00.000 98 % O2 Saturation (%) 2022-10-03 12:15:00.000 95 % O2 Saturation (%) 2022-10-01 16:16:00.000 96 % O2 Saturation (%) 2022-09-29 13:50:00.000 96 % O2 Saturation (%) 2022-09-26 13:27:00.000 94 % O2 Saturation (%) 2022-09-25 10:36:00.000 98 % O2 Saturation (%) 2022-09-24 11:01:00.000 97 % O2 Saturation (%) 2022-09-23 14:50:00.000 98 % O2 Saturation (%) 2022-09-19 10:02:00.000 93 % Respirations 2022-10-17 12:13:00.000 18 /min Respirations 2022-10-15 14:32:00.000 18 /min Respirations 2022-10-10 16:42:00.000 19 /min Respirations 2022-10-03 12:15:00.000 20 /min Respirations 2022-10-01 16:16:00.000 18 /min Respirations 2022-09-29 13:50:00.000 20 /min Respirations 2022-09-26 13:27:00.000 20 /min Respirations 2022-09-25 10:36:00.000 18 /min Respirations 2022-09-24 11:01:00.000 20 /min Respirations 2022-09-23 14:50:00.000 19 /min Respirations 2022-09-19 10:00:00.000 24 /min Weight (lbs) 2022-10-15 14:34:00.000 173 [lb_av] Weight (lbs) 2022-10-10 16:49:00.000 173.9 [lb_av] Weight (lbs) 2022-10-01 16:16:00.000 173.4 [lb_av] Weight (lbs) 2022-09-26 13:27:00.000 175.2 [lb_av] Weight (lbs) 2022-09-24 11:01:00.000 173.8 [lb_av] Weight (lbs) 2022-09-23 15:25:00.000 175.2 [lb_av] Weight (lbs) 2022-09-19 10:00:00.000 177.8 [lb_av] Systolic Blood Pressure 2022-10-17 12:13:00.000 140 mm [Hg] Systolic Blood Pressure 2022-10-15 14:32:00.000 138 mm [Hg] Systolic Blood Pressure 2022-10-10 16:42:00.000 122 mm [Hg] Systolic Blood Pressure 2022-10-03 12:15:00.000 140 mm [Hg] Systolic Blood Pressure 2022-10-01 16:16:00.000 126 mm [Hg] Systolic Blood Pressure 2022-09-29 13:50:00.000 134 mm [Hg] Systolic Blood Pressure 2022-09-26 13:27:00.000 132 mm [Hg] Systolic Blood Pressure 2022-09-25 11:10:00.000 112 mm [Hg] Systolic Blood Pressure 2022-09-24 11:01:00.000 140 mm [Hg] Systolic Blood Pressure 2022-09-23 14:50:00.000 124 mm [Hg] Systolic Blood Pressure 2022-09-19 10:00:00.000 112 mm [Hg] Diastolic Blood Pressure 2022-10-17 12:13:00.000 84 mm [Hg] Diastolic Blood Pressure 2022-10-15 14:32:00.000 72 mm [Hg] Diastolic Blood Pressure 2022-10-10 16:42:00.000 68 mm [Hg] Diastolic Blood Pressure 2022-10-03 12:15:00.000 80 mm [Hg] Diastolic Blood Pressure 2022-10-01 16:16:00.000 62 mm [Hg] Diastolic Blood Pressure 2022-09-29 13:50:00.000 70 mm [Hg] Diastolic Blood Pressure 2022-09-26 13:27:00.000 72 mm [Hg] Diastolic Blood Pressure 2022-09-25 11:10:00.000 74 mm [Hg] Diastolic Blood Pressure 2022-09-24 11:01:00.000 70 mm [Hg] Diastolic Blood Pressure 2022-09-23 14:50:00.000 80 mm [Hg] Diastolic Blood Pressure 2022-09-19 10:00:00.000 68 mm [Hg] Plan of Treatment Planned Activity Planned Date Details Comments Future Scheduled Test FOR EACH O RDERED, IN-HOME OR TELEHEALTH VISIT, THE PHYSICAL THERAPIST WILL EVALUATE AND TREAT PATIENTS FUNCTIONAL DEFICITS. PHYSICAL THERAPIST WILL ASSESS AND INSTRUCT ON PAIN, FALL PREVENTION AND SAFETY, MENTAL/COGNITIVE/PSYCHOSOCIAL STATUS, MED MANAGEMENT, SKIN INTEGRITY, PRESSURE ULCER PREVENTION, AND INFECTION CONTROL/PREVENTION RELATED TO THE PRIMARY MEDICAL DIAGNOSIS AND ACTIVE CO-MORBIDITIES THAT MAY IMPACT THE PATIENTS OUTCOME. [code = FOR EACH ORDERED, IN-HOME OR TELEHEALTH VISIT, THE PHYSICAL THERAPIST WILL EVALUATE AND TREAT PATIENTS FUNCTIONAL DEFICITS. PHYSICAL THERAPIST WILL ASSESS AND INSTRUCT ON PAIN, FALL PREVENTION AND SAFETY, MENTAL/COGNITIVE/PSYCHOSOCIAL STATUS, MED MANAGEMENT, SKIN INTEGRITY, PRESSURE ULCER PREVENTION, AND INFECTION CONTROL/PREVENTION RELATED TO THE PRIMARY MEDICAL DIAGNOSIS AND ACTIVE CO-MORBIDITIES THAT MAY IMPACT THE PATIENTS OUTCOME.] Future Scheduled Test THE CER TIFYING PHYSICIAN, ASSOCIATED PHYSICIAN, NPP OR PA WITHIN THE SAME GROUP MAY APPROVE AND SIGN THE ORDER (ON ANY PAGE) ATTESTING THAT THE COMPREHENSIVE OUTCOME ASSESSMENTS, EVALUATIONS, AND HOME HEALTH CERTIFICATION PLANS SUPPORT HOMEBOUND STATUS. HOME HEALTH WEB-PORTAL DOCUMENTATION ACCESSED BY THE PHYSICIAN MUST BE INCORPORATED INTO THE MEDICAL RECORD TO CORROBORATE THE PHYSICIAN, NPP, OR PAS F2F ENCOUNTER TO SUPPORT ELIGIBILITY FOR HOME HEALTH SERVICES. [code = THE CERTIFYING PHYSICIAN, ASSOCIATED PHYSICIAN, NPP OR PA WITHIN THE SAME GROUP MAY APPROVE AND SIGN THE ORDER (ON ANY PAGE) ATTESTING THAT THE COMPREHENSIVE OUTCOME ASSESSMENTS, EVALUATIONS, AND HOME HEALTH CERTIFICATION PLANS SUPPORT HOMEBOUND STATUS. HOME HEALTH WEB-PORTAL DOCUMENTATION ACCESSED BY THE PHYSICIAN MUST BE INCORPORATED INTO THE MEDICAL RECORD TO CORROBORATE THE PHYSICIAN, NPP, OR PAS F2F ENCOUNTER TO SUPPORT ELIGIBILITY FOR HOME HEALTH SERVICES.] Future Scheduled Test FOR EACH O RDERED, IN-HOME OR TELEHEALTH VISIT, THE OCCUPATIONAL THERAPIST WILL EVALUATE AND TREAT PATIENT'S FUNCTIONAL DEFICITS. OCCUPATIONAL THERAPIST WILL ASSESS AND INSTRUCT ON PAIN, FALL PREVENTION AND SAFETY, MENTAL/COGNITIVE/PSCHOSOCIAL STATUS, MED MANAGEMENT, SKIN INTEGRITY, PRESSURE ULCER PREVENTION AND INFECTION CONTROL/PREVENTION RELATED TO THE PRIMARY MEDICAL DIAGNOSIS S/P AORTIC VALVE REPLACEMENT AND ACTIVE CO-MORBIDITIES THAT MAY IMPACT THE PATIENT'S OUTCOME. [code = FOR EACH ORDERED, IN-HOME OR TELEHEALTH VISIT, THE OCCUPATIONAL THERAPIST WILL EVALUATE AND TREAT PATIENT'S FUNCTIONAL DEFICITS. OCCUPATIONAL THERAPIST WILL ASSESS AND INSTRUCT ON PAIN, FALL PREVENTION AND SAFETY, MENTAL/COGNITIVE/PSCHOSOCIAL STATUS, MED MANAGEMENT, SKIN INTEGRITY, PRESSURE ULCER PREVENTION AND INFECTION CONTROL/PREVENTION RELATED TO THE PRIMARY MEDICAL DIAGNOSIS S/P AORTIC VALVE REPLACEMENT AND ACTIVE CO-MORBIDITIES THAT MAY IMPACT THE PATIENT'S OUTCOME.] Future Scheduled Test EACH ORDER ED IN-HOME OR TELEHEALTH VISIT, THE SKILLED NURSE WILL CONDUCT A COMPREHENSIVE ASSESSMENT INCLUDING VITAL SIGNS, PAIN, SAFETY, MENTAL/COGNITIVE/PSYCHOSOCIAL STATUS, MED MANAGEMENT, NUTRITION, SKIN INTEGRITY, PRESSURE ULCER PREVENTION, AND PATIENT/CAREGIVER ABILITY TO SUPPORT ORDERED CARE. SKILLED NURSE WILL INSTRUCT ON DISEASE PROCESS, MED MGMT., FALL PREVENTION AND SAFETY, INFECTION CONTROL AND PREVENTION, WARNING SIGNS, ADDRESS RESULTS OUTSIDE OF ORDERED PARAMETERS LISTED ON CARE PLAN, AND COORDINATE DISCHARGE WITH THE TREATING PROVIDER. MAY ACCEPT ORDERS FROM THE FOLLOWING PROVIDER(S) WHO WILL BE CONSULTING ON THE CERTIFIED CARE PLAN: DR ROGELIO PATTON, DARIO WOODS AND CHAYITO LOPEZ, DR Leni LESTER AND ANY/ALL ASSOCIATES INVOLVED IN THIS PATIENT'S CARE. [code = EACH ORDERED IN-HOME OR TELEHEALTH VISIT, THE SKILLED NURSE WILL CONDUCT A COMPREHENSIVE ASSESSMENT INCLUDING VITAL SIGNS, PAIN, SAFETY, MENTAL/COGNITIVE/PSYCHOSOCIAL STATUS, MED MANAGEMENT, NUTRITION, SKIN INTEGRITY, PRESSURE ULCER PREVENTION, AND PATIENT/CAREGIVER ABILITY TO SUPPORT ORDERED CARE. SKILLED NURSE WILL INSTRUCT ON DISEASE PROCESS, MED MGMT., FALL PREVENTION AND SAFETY, INFECTION CONTROL AND PREVENTION, WARNING SIGNS, ADDRESS RESULTS OUTSIDE OF ORDERED PARAMETERS LISTED ON CARE PLAN, AND COORDINATE DISCHARGE WITH THE TREATING PROVIDER. MAY ACCEPT ORDERS FROM THE FOLLOWING PROVIDER(S) WHO WILL BE CONSULTING ON THE CERTIFIED CARE PLAN: DR ROGELIO PATTON, DARIO WOODS AND CHAYITO LOPEZ, DR Leni LESTER AND ANY/ALL ASSOCIATES INVOLVED IN THIS PATIENT'S CARE.] Future Scheduled Test HOME HEALT H NURSE WILL TEACH PATIENT/CAREGIVER ABOUT AORTIC VALVE REPLACEMENT HOW TO TAKE OWN PULSE AND BP TO TRACK ON A LOG, WHAT STRATEGIES TO USE TO AVOID RE-HOSPITALIZATIONS, AND WARNING SIGNS TO CALL THE AGENCY, PHYSICIAN, OR 911. [code = HOME HEALTH NURSE WILL TEACH PATIENT/CAREGIVER ABOUT AORTIC VALVE REPLACEMENT HOW TO TAKE OWN PULSE AND BP TO TRACK ON A LOG, WHAT STRATEGIES TO USE TO AVOID RE-HOSPITALIZATIONS, AND WARNING SIGNS TO CALL THE AGENCY, PHYSICIAN, OR 911.] Future Scheduled Test HOME HEALT H NURSE TO INSTRUCT PATIENT/CAREGIVER AND ADMINISTER WOUND CARE TO STERNAL, UPPER ABOMINAL, RIGHT GROIN CLOSED INCISIONS: DAILY CLEANSE WITH SOAP AND WATER. PAT DRY WITH A CLEAN TOWEL. LEAVE OPEN TO AIR. DISCONTINUE WHEN WOUND IS HEALED. MAY ADD 2 PRN VISITS PER MONTH FOR WOUND COMPLICATIONS SUCH REDNESS, INCREASE IN DRAINAGE AND OR PAIN OR COMPROMISED DRESSING. CAREGIVER MAY PERFORM INCISIONAL AND WOUND CARE, IN ABSENCE OF HOME HEALTH STAFF ONCE ABLE TO ACCURATELY RETURN DEMONSTRATE. PHYSICAL THERAPIST MAY ASSIST WITH WOUND CARE. [code = HOME HEALTH NURSE TO INSTRUCT PATIENT/CAREGIVER AND ADMINISTER WOUND CARE TO STERNAL, UPPER ABOMINAL, RIGHT GROIN CLOSED INCISIONS: DAILY CLEANSE WITH SOAP AND WATER. PAT DRY WITH A CLEAN TOWEL. LEAVE OPEN TO AIR. DISCONTINUE WHEN WOUND IS HEALED. MAY ADD 2 PRN VISITS PER MONTH FOR WOUND COMPLICATIONS SUCH REDNESS, INCREASE IN DRAINAGE AND OR PAIN OR COMPROMISED DRESSING. CAREGIVER MAY PERFORM INCISIONAL AND WOUND CARE, IN ABSENCE OF HOME HEALTH STAFF ONCE ABLE TO ACCURATELY RETURN DEMONSTRATE. PHYSICAL THERAPIST MAY ASSIST WITH WOUND CARE. ] Future Scheduled Test HOME HEALT H NURSE WILL INSTRUCT ABOUT COPD, APPROPRIATE BREATHING TECHNIQUES, STRATEGIES TO MANAGE COPD TO PREVENT EXACERBATIONS, STRATEGIES TO PROMOTE SLEEP, USE OF A COPD ACTION PLAN, AND WARNING SIGNS TO CALL THE AGENCY, TREATING PROVIDER, OR 911. [code = HOME HEALTH NURSE WILL INSTRUCT ABOUT COPD, APPROPRIATE BREATHING TECHNIQUES, STRATEGIES TO MANAGE COPD TO PREVENT EXACERBATIONS, STRATEGIES TO PROMOTE SLEEP, USE OF A COPD ACTION PLAN, AND WARNING SIGNS TO CALL THE AGENCY, TREATING PROVIDER, OR 911.] Future Scheduled Test SKILLED NU RSE TO OBSERVE AND ASSESS PATIENT WITH GENERALIZED DEPRESSION AND TEACH DEPRESSIVE SYMPTOMS. [code = SKILLED NURSE TO OBSERVE AND ASSESS PATIENT WITH GENERALIZED DEPRESSION AND TEACH DEPRESSIVE SYMPTOMS.] Future Scheduled Test SKILLED NU RSE TO ASSESS PATIENT WITH ANXIETY DISORDER AND TEACH SYMPTOMS OF ANXIETY. [code = SKILLED NURSE TO ASSESS PATIENT WITH ANXIETY DISORDER AND TEACH SYMPTOMS OF ANXIETY.] Future Scheduled Test HOME HEALT H NURSE TO INSTRUCT PATIENT/CAREGIVER ON THE TYPE OF OXYGEN SUPPLY SYSTEM, BREATHING DEVICE, OXYGEN SAFETY, CLEANING OF OXYGEN SUPPLIES, EMERGENCY PREPAREDNESS TIPS WHEN MANAGING OXYGEN NEEDS, SIGNS OR SYMPTOMS TO CONTACT THE AGENCY OR PHYSICIAN. [code = HOME HEALTH NURSE TO INSTRUCT PATIENT/CAREGIVER ON THE TYPE OF OXYGEN SUPPLY SYSTEM, BREATHING DEVICE, OXYGEN SAFETY, CLEANING OF OXYGEN SUPPLIES, EMERGENCY PREPAREDNESS TIPS WHEN MANAGING OXYGEN NEEDS, SIGNS OR SYMPTOMS TO CONTACT THE AGENCY OR PHYSICIAN.] Future Scheduled Test SKILLED NU RSE TO INSTRUCT PATIENT/CAREGIVER ON WHAT IS HYPERTENSION, HOW TO CHECK HIS/HER BLOOD PRESSURE, AND STRATEGIES TO USE TO CONTROL BLOOD PRESSURE SUCH MONITORING BP, MONITORING WEIGHTS, ENGAGING IN PHYSICAL ACTIVITY AIMING FOR 150 MINUTES SPREAD THROUGHOUT THE WEEK. [code = SKILLED NURSE TO INSTRUCT PATIENT/CAREGIVER ON WHAT IS HYPERTENSION, HOW TO CHECK HIS/HER BLOOD PRESSURE, AND STRATEGIES TO USE TO CONTROL BLOOD PRESSURE SUCH MONITORING BP, MONITORING WEIGHTS, ENGAGING IN PHYSICAL ACTIVITY AIMING FOR 150 MINUTES SPREAD THROUGHOUT THE WEEK.] Future Scheduled Test HOME HEALT H NURSE WILL ASSESS FOR COMPLICATIONS RELATED TO ANEMIA AND INSTRUCT PATIENT/CAREGIVER ABOUT CAUSES, PRESCRIBED TREATMENT, AND SIGNS/SYMPTOMS TO REPORT. [code = HOME HEALTH NURSE WILL ASSESS FOR COMPLICATIONS RELATED TO ANEMIA AND INSTRUCT PATIENT/CAREGIVER ABOUT CAUSES, PRESCRIBED TREATMENT, AND SIGNS/SYMPTOMS TO REPORT.] Future Scheduled Test HOME HEALT H NURSE WILL ASSESS FOR COMPLICATIONS RELATED TO ANTICOAGULATION/ANTITHROMBOTIC USE AND INSTRUCT PATIENT/CAREGIVER ABOUT PRECAUTIONS TO FOLLOW AND SIGNS/SYMPTOMS TO REPORT. [code = HOME HEALTH NURSE WILL ASSESS FOR COMPLICATIONS RELATED TO ANTICOAGULATION/ANTITHROMBOTIC USE AND INSTRUCT PATIENT/CAREGIVER ABOUT PRECAUTIONS TO FOLLOW AND SIGNS/SYMPTOMS TO REPORT.] Future Scheduled Test FOR EACH O RDERED, IN-HOME OR TELEHEALTH VISIT, THE PHYSICAL THERAPIST WILL EVALUATE AND TREAT PATIENTS FUNCTIONAL DEFICITS. PHYSICAL THERAPIST WILL ASSESS AND INSTRUCT ON PAIN, FALL PREVENTION AND SAFETY, MENTAL/COGNITIVE/PSYCHOSOCIAL STATUS, MED MANAGEMENT, SKIN INTEGRITY, PRESSURE ULCER PREVENTION, AND INFECTION CONTROL/PREVENTION RELATED TO THE PRIMARY MEDICAL DIAGNOSIS AND ACTIVE CO-MORBIDITIES THAT MAY IMPACT THE PATIENTS OUTCOME. PHYSICAL THERAPIST TO DEVELOP AND INSTRUCT ON HOME EXERCISE PROGRAM TO INCLUDE THERAPEUTIC EXERCISES DESIGNED TO RESTORE FUNCTIONAL RANGE OF MOTION, STRENGTH, BALANCE, NEUROMUSCULAR AND SENSORIMOTOR FUNCTION. PHYSICAL THERAPIST WILL INSTRUCT ON FUNCTIONAL TRANSFERS, BED MOBILITY AND FALL RISK REDUCTION STRATEGIES INCLUDING USE OF ADAPTIVE EQUIPMENT AND EDUCATION FOR HOME MODIFICATIONS TO MAXIMIZE SAFETY, IMPROVE FUNCTION AND DECREASE FALL RISK. PHYSICAL THERAPIST TO INSTRUCT ON GAIT TRAINING, BALANCE TRAINING, AND FALL RISK REDUCTION STRATEGIES INCLUDING USE OF ADAPTIVE EQUIPMENT AND EDUCATION FOR HOME MODIFICATIONS TO MAXIMIZE SAFETY, IMPROVE FUNCTION, AND DECREASED FALL RISK. PHYSICAL THERAPIST TO INSTRUCT ON ENERGY CONSERVATION TECHNIQUES INCLUDING STRATEGIES TO MINIMIZE MUSCULAR FATIGUE, JOINT STRESS, CARDIOPUMONARY DEMAND AND/OR PAIN DURING FUNCTIONAL ACTIVITIES. PHYSICAL THERAPIST TO ASSESS AND PROVIDE THERAPEUTIC TREATMENTS ADDRESS CLOSED INCISION/SUTURE LINE AND MAY PERFORM WOUND CARE TO SURGICAL INCISION PER HOME HEALTH RN POC/ORDERS PER CARDIAC SURGEON. [code = FOR EACH ORDERED, IN-HOME OR TELEHEALTH VISIT, THE PHYSICAL THERAPIST WILL EVALUATE AND TREAT PATIENTS FUNCTIONAL DEFICITS. PHYSICAL THERAPIST WILL ASSESS AND INSTRUCT ON PAIN, FALL PREVENTION AND SAFETY, MENTAL/COGNITIVE/PSYCHOSOCIAL STATUS, MED MANAGEMENT, SKIN INTEGRITY, PRESSURE ULCER PREVENTION, AND INFECTION CONTROL/PREVENTION RELATED TO THE PRIMARY MEDICAL DIAGNOSIS AND ACTIVE CO-MORBIDITIES THAT MAY IMPACT THE PATIENTS OUTCOME. PHYSICAL THERAPIST TO DEVELOP AND INSTRUCT ON HOME EXERCISE PROGRAM TO INCLUDE THERAPEUTIC EXERCISES DESIGNED TO RESTORE FUNCTIONAL RANGE OF MOTION, STRENGTH, BALANCE, NEUROMUSCULAR AND SENSORIMOTOR FUNCTION. PHYSICAL THERAPIST WILL INSTRUCT ON FUNCTIONAL TRANSFERS, BED MOBILITY AND FALL RISK REDUCTION STRATEGIES INCLUDING USE OF ADAPTIVE EQUIPMENT AND EDUCATION FOR HOME MODIFICATIONS TO MAXIMIZE SAFETY, IMPROVE FUNCTION AND DECREASE FALL RISK. PHYSICAL THERAPIST TO INSTRUCT ON GAIT TRAINING, BALANCE TRAINING, AND FALL RISK REDUCTION STRATEGIES INCLUDING USE OF ADAPTIVE EQUIPMENT AND EDUCATION FOR HOME MODIFICATIONS TO MAXIMIZE SAFETY, IMPROVE FUNCTION, AND DECREASED FALL RISK. PHYSICAL THERAPIST TO INSTRUCT ON ENERGY CONSERVATION TECHNIQUES INCLUDING STRATEGIES TO MINIMIZE MUSCULAR FATIGUE, JOINT STRESS, CARDIOPUMONARY DEMAND AND/OR PAIN DURING FUNCTIONAL ACTIVITIES. PHYSICAL THERAPIST TO ASSESS AND PROVIDE THERAPEUTIC TREATMENTS ADDRESS CLOSED INCISION/SUTURE LINE AND MAY PERFORM WOUND CARE TO SURGICAL INCISION PER HOME HEALTH RN POC/ORDERS PER CARDIAC SURGEON. ] Goal 2022-10-17 Patient Goal - I WANT TO HEAL UP SO I CAN TRAVEL HOME ([place]) Goal Provider Goal - PHYSICAL THERAPY EVALUATION WILL BE COMPLETED, AND A PLAN OF CARE WILL BE DEVELOPED FOR THE TREATMENT OF PATIENT DEFICITS RELATED TO PRIMARY DIAGNOSIS FOR HOME CARE EPISODE. PATIENT/CAREGIVER TO VERBALIZE AND DEMONSTRATE UNDERSTANDING OF ASSOCIATED DISEASE PROCESSES AND THEIR INFLUENCE ON FUNCTION IN THE HOME ENVIRONMENT AND MINIMIZE RISK OF HOSPITALIZATION. Goal Provider Goal - A PLAN OF CARE WILL BE ESTABLISHED THAT MEETS ALL PATIENT'S NURSING HOME NEEDS AND COUNTER SIGNED BY PHYSICIAN. Goal Provider Goal - OCCUPATIONAL THERAPY EVALUATION WILL BE COMPLETED, AND A PLAN OF CARE WILL BE DEVELOPED FOR THE TREATMENT OF PATIENT DEFICITS RELATED TO PRIMARY DIAGNOSIS FOR HOME CARE EPISODE. PATIENT/CAREGIVER TO VERBALIZE AND DEMONSTRATE UNDERSTANDING OF ASSOCIATED DISEASE PROCESSES AND THEIR INFLUENCE ON FUNCTION IN THE HOME ENVIRONMENT AND MINIMIZE RISK OF HOSPITALIZATION. Goal Provider Goal - PATIENT WILL BE FREE OF FALLS AND HOSPITALIZATIONS THROUGHOUT EPISODE OF CARE. PATIENT/CAREGIVER WILL UNDERSTAND AND ADHERE TO ORDERED DIET. PATIENT/CAREGIVER WILL INDEPENDENTLY MANAGE MEDICATIONS, UNDERSTAND ANY CHANGES, SIDE EFFECTS TO REPORT BY 2 WEEKS. PATIENT WILL BE FREE OF INFECTION AND UNDERSTAND MEASURES OF PREVENTION. PATIENT/CAREGIVER WILL COLLABORATE WITH SKILLED NURSE TO DEVELOP POC AT SOC AND ON AN ONGOING BASIS UPDATES ARE NEEDED. UNDERSTAND PROGRESS MADE/DISCHARGE PLANNING. ADDITIONAL ORDERS WILL BE RECEIVED FROM ALTERNATE PHYSICIANS IN A TIMELY MANNER. Goal Provider Goal - PATIENT/CAREGIVER WILL DEMONSTRATE HOW TO TAKE AND TRACK OWN PULSE AND BLOOD PRESSURE. PATIENT/CAREGIVER WILL VERBALIZE AN UNDERSTANDING OF THE CARDIAC PROCEDURE, WHAT POST-SURGERY STRATEGIES SHOULD BE FOLLOWED TO AVOID COMPLICATIONS, PROPER MD FOLLOW-UP, AND WARNING SIGNS TO CALL THE PHYSICIAN OR 911 BY THE END OF HOME HEALTH SERVICES. Goal Provider Goal - PATIENT/CAREGIVER WILL DEMONSTRATE APPROPRIATE INCISIONAL CARE. INCISION / SUTURE LINE IMPROVE EVIDENCED BY DECREASE IN SIZE / DRAINAGE OF WOUND, NO SIGNS AND SYMPTOMS OF INFECTION, DECREASED PAIN, HEALING IS PROGRESSING BY 2 WEEKS. Goal Provider Goal - PATIENT/CAREGIVER WILL DEMONSTRATE WILLINGNESS TO COLLABORATE AND CREATE A COPD ACTION PLAN, VERBALIZE UNDERSTANDING OF STRATEGIES TO PREVENT EXACERBATIONS, AND VERBALIZE WARNING SIGNS AND WHEN TO CONTACT THE TREATING PROVIDER OR 911 UPON THE END OF HOME HEALTH SERVICES. Goal Provider Goal - PATIENT/CAREGIVER WILL VERBALIZE UNDERSTANDING OF THE CONTRIBUTING FACTORS AND SYMPTOMS OF DEPRESSION. Goal Provider Goal - PATIENT/CAREGIVER WILL VERBALIZE UNDERSTANDING OF THE CONTRIBUTING FACTORS AND SYMPTOMS OF ANXIETY. Goal Provider Goal - PATIENT/CAREGIVER WILL VERBALIZE UNDERSTANDING ON HOW TO CLEAN OXYGEN SUPPLIES, OXYGEN SAFETY, AND KNOW WHEN TO CONTACT THE PHYSICIAN BY THE END OF HOME HEALTH SERVICES. Goal Provider Goal - PATIENT/CAREGIVER WILL INDEPENDENTLY DEMONSTRATE HOW TO CHECK HIS/HER OWN BP AND VERBALIZE WHAT STRATEGIES CAN ASSIST TO CONTROL BLOOD PRESSURE. Goal Provider Goal - PATIENT/CAREGIVER WILL VERBALIZE UNDERSTANDING OF THE CAUSES OF ANEMIA, SIGNS/SYMPTOMS TO REPORT, AND ADHERENCE TO PRESCRIBED TREATMENT BY END OF HOME HEALTH SERVICES. Goal Provider Goal - PATIENT/CAREGIVER WILL VERBALIZE UNDERSTANDING OF THE SIGNS/SYMPTOMS TO REPORT AND PRECAUTIONS TO FOLLOW BY END OF HOME HEALTH SERVICES. Goal Provider Goal - PHYSICAL THERAPY EVALUATION WILL BE COMPLETED, AND A PLAN OF CARE WILL BE DEVELOPED FOR THE TREATMENT OF PATIENT DEFICITS RELATED TO PRIMARY DIAGNOSIS FOR HOME CARE EPISODE. PATIENT/CAREGIVER TO VERBALIZE AND DEMONSTRATE UNDERSTANDING OF ASSOCIATED DISEASE PROCESSES AND THEIR INFLUENCE ON FUNCTION IN THE HOME ENVIRONMENT AND MINIMIZE RISK OF HOSPITALIZATION. PATIENT/CAREGIVER WILL RETURN DEMONSTRATE ACCURATE AND SAFE EXECUTION OF ESTABLISHED HOME EXERCISE PROGRAM TO IMPROVE ABILITY TO AMBULATE AND COMPLETE ADL. PATIENT WILL DEMONSTRATE IMPROVED SAFETY AND ABILITY WITH TRANSFERS AND BED MOBILITY. PATIENT WILL DEMONSTRATE IMPROVED SAFETY AND ABILITY WITH GAIT, BALANCE, AND REDUCED FALL RISK. PATIENT WILL RETURN DEMONSTRATE APPROPRIATE USE OF ENERGY CONSERVATION TECHNIQUES TO FACILITATE IMPROVED FUNCTIONAL INDEPENDENCE AND SAFETY EVIDENCED BY IMPROVED ABILITY TO COMPLETE INDOOR/OUTDOOR FUNCTIONS AND AMBULATION/STAIRS. PATIENT/CAREGIVER WILL DEMONSTRATE APPROPRIATE INCISIONAL CARE. INCISION / SUTURE LINE IMPROVE EVIDENCED BY DECREASE IN SIZE / DRAINAGE OF WOUND, NO SIGNS AND SYMPTOMS OF INFECTION, DECREASED PAIN, HEALING IS PROGRESSING BY END OF EPISODE. Reason for Visit INDEPENDENT IN THE HOME Encounters Start Date/Time End Date/Time Encounter Type Admission Type Attending [facility] Department Encounter ID Discharge Date Discharge Status Discharge Condition Discharge Reason Percent Goals Met 2022-09-19 00:00:00 2022-10-17 00:00:00 Outpatient NEW ADMISSION [facility] [place] [id number] 00:00:00 DISCHARGE TO HOME OR SELF CARE INDEPENDEN T IN THE HOME GOALS MET 67.31
--- OUTSIDE RECORDS SUMMARY | 2024-03-31 10:32 | XMS_ITS | Continuity of Care Document ---
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 Name Role Phone [facility] Unavailable Unavailable Problems Problem Status Onset Date Classification Date Reported Comments Source Chronic obstructive pulmonary disease wi Active 05/30/2021 [facility] Acute hypoxemic respiratory failure Active 2021 05/31/2021 05 [facility] Community acquired pneumonia Active 2021 05/31/[address] [place] [address] Medications Medication Details Route Status Patient Instructions Ordering Provider Order Date Source predniSONE 20 mg oral tablet = 3 Tab, ORAL, DAILY, Take in the morning starting 05/31/2021. Take with food or milk., # 9 Tab, 0 Refill(s), Acute, Pharmacy: [facility], 187.6, cm, 05/29/21 12:21:00 PST, Height/Length (cm), 73.48, kg, 05/29/21 8:38:00 PST, Dose calcu... Active [address] [place] [address] azithromycin 250 mg oral tablet = 2 Tab, ORAL, [id number], Take 2 tabs PO daily at 3PM., # 4 Tab, Indication= COPD exacerbation, 0 Refill(s), Acute, Pharmacy: [facility], 187.6, cm, 05/29/21 12:21:00 PST, Height/Length (cm), 73.48, kg, 05/29/21 8:38:00 PST, Dose c... Active [address] [place] [address] Tamsulosin hydrochloride 0.4 MG Oral Capsule [Flomax] = 1 Cap, ORAL, DAILY, 0 Refill(s), Maintenance Active [address] [place] [address] Albuterol 2 Puff, INH, Q6H, PRN Shortness of breath/wheezin g, 0 Refill(s), Maintenance Active [address] [place] [address] Paroxetine 30 MG Oral Tablet [Paxil] = 1 Tab, ORAL, DAILY, 0 Refill(s), Maintenance Active [facility] lisinopril 10 mg oral tablet = 1 Tab, ORAL, DAILY, 0 Refill(s), Maintenance Active [facility] Trelegy Ellipta 200 mcg-62.5 mcg-25 mcg/inh inhalation powder 1 Puff, INH, DAILY, 0 Refill(s), Maintenance Active 05 [facility] terazosin 2 mg oral capsule = 1 Cap, ORAL, QBedtime, 0 Refill(s), Maintenance Active [facility] Buprenorphine 8 MG / Naloxone 2 MG Oral Strip [Suboxone] 1 film, SUBLING, BID, 0 Refill(s), Maintenance Active [facility] Results Order Name Results Value Reference Range Date Interpretation Comments Source AutoDiff* Auto Neutrophil Percent 71.0 % 05/30 [facility] AutoDiff* Auto Neutrophil Absolute 5.3 K/MM3 2.0 - 7.3 05/30 [facility] AutoDiff* Auto Lymphocyte Percent 16.4 % 05/30 [facility] AutoDiff* Auto Lymphocyte Absolute 1.2 K/MM3 0.9 - 4.8 05/30 [facility] AutoDiff* Auto Monocyte Percent 12.5 % 05/30 [facility] AutoDiff* Auto Monocyte Absolute 0.9 K/MM3 0.2 - 1.0 05/30 [facility] AutoDiff* Auto Eosinophil Percent 0.0 % 05/30 [facility] AutoDiff* Auto Eosinophil Absolute 0.0 K/MM3 0.0 - 0.4 05/30 [facility] AutoDiff* Auto Basophil Percent 0.1 % 05/30 [facility] AutoDiff* Auto Basophil Absolute 0.0 K/MM3 0.0 - 0.1 05/30 [facility] AutoDiff* Sex assigned at Male 05/30 [facility] Sodium Level 141 mmol/L 136 - 144 05/30 NA [facility] Potassium Level 4.5 mmol/L 3.6 - 5.1 05/30 [facility] Chloride Level 102 mmol/L 101 - 111 05/30 [facility] CO2/Carbon Dioxide 30 mmol/L 22 - 32 05/30 [facility] Anion Gap 9 mmol/L 5 - 17 05/30 [facility] Glucose, Random 118 MG/DL 74 - 118 05/30 [facility] BUN 22 MG/DL 7 - 25 05/30 [facility] Creatinine 0.8 MG/DL 0.9 - 1.3 05/30 [facility] BUN/Creat Ratio 27.5 05/30 [facility] Osmolality, Calculated 296 mOsm/L 05/30 [facility] Calcium Level 9.3 MG/DL 8.6 - 10.3 05/30 [facility] GFR - Non 103 mL/min/1.7 3m2 >=60 05/30 NA Impaired kidney function is indicated by a GFR of <60 mL/min/1.73m2 . The equation used has not been validated for use with persons over 70 years of age, women, patients with serious co-morbid conditions, or persons with extremes of body size, muscle mass or nutritional status.This equation is not applicable to persons under 18 years of age. [facility] BMP GFR - 125 mL/min/1.7 3m2 >=60 05/30 [facility] Sex assigned at Male 05/30 [facility] CBC WBC 7.5 K/MM3 4.5 - 10.0 05/30 [facility] CBC RBC 3.59 M/MM3 4.40 - 6.00 05/30 L [facility] CBC HGB 11.2 G/DL 13.4 - 17.4 05/30 [facility] CBC HCT 32.7 % 38.9 - 51.5 05/30 [facility] CBC MCV 91 uM^3 80 - 100 05/30 [facility] CBC MCH 31.1 pg 26.0 - 34.0 05/30 [facility] CBC MCHC 34.2 ZZ 31.0 - 36.0 05/30 [facility] CBC RDW 14.4 % 11.6 - 14.6 05/30 [facility] CBC PLT 198 K/MM3 150 - 400 05/30 [facility] CBC MPV 8.6 uM^3 7.2 - 11.1 05/30 [facility] CBC Sex assigned at Male 05/30 [facility] PCT Procalcitonin Level <0.05 NG/ML 0.05 - 0.50 05/30 Clinical Procalcitonin BacterialDiag nosis Result (ng/ml) Infection No active infection < or = 0.05 Very unlikely----- C OPD and acuteexacerba tion ofchronic bronchitiswit h- Comorbidity (e.g. < 0.1 Very unlikely supplemental O2, 0.1 - 0.25 Possible heart failure)- No comorbidity < 0.25 Unlikely > or = 0.25 Likely------- Acu te bronchitis < 0.25 Unlikelyand no COPD > or = 0.25 Likely------- Pne umonia < 0.5 Unlikely &gt; or = 0.5 Likely------- Sep sis, severe < 0.25 Unlikelysepsi s, sepsis with 0.25 = 0.5 Possiblesepti c shock > 0.5 - 1 Likely > 1 Very LikelyNote: Non-infectiou s causes of an elevation in PCT include:cardi ac surgery, acute myocardial infarction, cardiogenic shock,rosa, and trauma.Procal citonin levels as a guide to duration of antibiotic therapyfor patients with Community-acq uired Pneumonia*:0. 1 - 0.25 ng/ml: Literature supports stopping antibiotic therapy.< 0.1 ng/ml: Continuation of antibiotic therapy strongly discouraged.* Level cut-offs are suggested guidance. Clinical judgement needed.Re-a ssess clinically: re-measure PCT in few hours if suspectbacter ial infection. [facility] PCT Sex assigned at Male 05/30 [facility] Trop Troponin I <0.03 NG/ML 0.00 - 0.04 05/30 NA <0.04ng/mL No evidence of myocardial cell injury (99th percentile upper reference limit at 10% CV). >0.04ng/mL May be associated with myocardial cell injury. A change of >/ .012ng/L (3 standard deviations) for any troponin value below or close to the 99th percentile (.04ng/L) around the initial value may be indicative of acute myocardial injury. [facility] Trop Sex assigned at Male 05/30 [facility] [id number] SARS-CoV-2 Source Melodylisa longoria 05/29 [facility] [id number] Patient From [facility]? No 05/29 [facility] [id number] Health Care Worker? No 05/29 [facility] [id number] SARS-CoV-2 Molecular Negative Negative 05/29 Negative results should be treated as presumptive and, if inconsistent with clinical signs and symptoms or necessary for patient management, should be tested with different authorized or cleared molecular tests. Negative results do not preclude SARS-CoV-2 infection and should not be used as the sole basis for patient management decisions. Negative results should be considered in the context of a patient?s recent exposures, history and the presence of clinical signs and symptoms consistent with COVID-19.Assa y performed by [employer] This test was performed under U.S. Food and Drug Administratio n (FDA) Emergency use Authorization (EUA). This test has been validated but the FDAs independent review of this validation is pending. [facility] [id number] Symptomatic per CDC? Symptomati c/PUI 05/[address] Serial Retesting? Unknown 05/[address] SARS-CoV-2 First test? Unknown 05/[address] SARS-CoV-2 Is the Patient Hospitalized? Unknown 05/[address] SARS-CoV-2 Is the Patient in ICU? Unknown 05/[address] SARS-CoV-2 Is the Patient ? Unknown 05/[address] Sex assigned at Male 05/29 [facility] BGVenLab VBG - pH 7.40 7.32 - 7.43 05/29 [facility]GVen[facility] VBG - pCO2 51 mmHg 41 - 51 05/29 [facility]GVen[facility] VBG - pO2 49 mmHg 38 - 42 05/29 H [facility] BGVenLab VBG - HCO3 31.6 mmol/L 05/29 NA [facility] BGVenLab VBG - BE 5.6 mmol/L 05/29 [facility] BGVenLab VBG - Oxyhemoglobin 80.1 % >=75.0 05/29 [facility] VBG - O2 Sat 82.3 % >=75.0 05/29 [facility]en[facility] VBG - Methemoglobin 0.0 % 05/29 [facility] VBG - Total Hemoglobin 12.3 G/DL 13.5 - 18.0 05/29 L [facility] BGVenLab VBG - O2 Content 13.8 mL/dL 05/29 [facility] BG - Modified Glenn Test N/A 05/29 [facility] BG - Site Vein 05/29 [facility] BG - Pt Temp 37.0 DegF 05/29 [facility] Sex assigned at Male 05/29 [facility] AutoDiff* Auto Neutrophil Percent 67.0 % 05/29 [facility] AutoDiff* Auto Neutrophil Absolute 5.3 K/MM3 2.0 - 7.3 05/29 [facility] AutoDiff* Auto Lymphocyte Percent 17.1 % 05/29 [facility] AutoDiff* Auto Lymphocyte Absolute 1.3 K/MM3 0.9 - 4.8 05/29 [facility] AutoDiff* Auto Monocyte Percent 14.5 % 05/29 [facility] AutoDiff* Auto Monocyte Absolute 1.1 K/MM3 0.2 - 1.0 05/29 H [facility] AutoDiff* Auto Eosinophil Percent 0.9 % 05/29 [facility] AutoDiff* Auto Eosinophil Absolute 0.1 K/MM3 0.0 - 0.4 05/29 [facility] AutoDiff* Auto Basophil Percent 0.5 % 05/29 [facility] AutoDiff* Auto Basophil Absolute 0.0 K/MM3 0.0 - 0.1 05/29 [facility] AutoDiff* Sex assigned at Male 05/29 [facility] BNPep BNP B-Natriuretic Peptide 48 pg/mL 0 - 46 05/29 H [facility] BNPep Sex assigned at Male 05/29 [facility] CBC WBC 7.9 K/MM3 4.5 - 10.0 05/29 [facility] CBC RBC 4.00 M/MM3 4.40 - 6.00 05/29 [facility] CBC HGB 12.3 G/DL 13.4 - 17.4 05/29 [facility] CBC HCT 36.5 % 38.9 - 51.5 05/29 [facility] CBC MCV 91 uM^3 80 - 100 05/29 [facility] CBC MCH 30.8 pg 26.0 - 34.0 05/29 [facility] CBC MCHC 33.7 ZZ 31.0 - 36.0 05/29 [facility] CBC RDW 14.6 % 11.6 - 14.6 05/29 [facility] CBC PLT 218 K/MM3 150 - 400 05/29 [facility] CBC MPV 8.3 uM^3 7.2 - 11.1 05/29 [facility] CBC Sex assigned at Male 05/29 [facility] CMP Sodium Level 137 mmol/L 136 - 144 05/29 [facility] CMP Potassium Level 3.7 mmol/L 3.6 - 5.1 05/29 [facility] CMP Chloride Level 98 mmol/L 101 - 111 05/29 [facility] CMP CO2/Carbon Dioxide 31 mmol/L 22 - 32 05/29 [facility] CMP Anion Gap 8 mmol/L 5 - 17 05/29 [facility] CMP Glucose, Random 99 MG/DL 74 - 118 05/29 [facility] CMP BUN 27 MG/DL 7 - 25 05/29 H [facility] CMP Creatinine 1.3 MG/DL 0.9 - 1.3 05/29 [facility] CMP BUN/Creat Ratio 20.8 05/29 [facility] CMP Osmolality, Calculated 289 mOsm/L 05/29 [facility] CMP Calcium Level 9.9 MG/DL 8.6 - 10.3 05/29 [facility] CMP Total Protein 7.5 G/DL 6.0 - 8.0 05/29 [facility] CMP Albumin Level 4.1 G/DL 3.5 - 5.0 05/29 [facility] CMP Globulin Level 3.4 G/DL 2.1 - 3.9 05/29 [facility] CMP A/G Ratio 1.21 1.00 - 2.50 05/29 [facility] CMP ALP 78 Units/L 38 - 126 05/29 [facility] CMP ALT 18 Units/L 8 - 40 05/29 [facility] CMP AST 27 Units/L 15 - 41 05/29 [facility] CMP Bilirubin, Total 0.4 MG/DL 0.3 - 1.2 05/29 [facility] CMP GFR - Non 59 mL/min/1.7 3m2 >=60 05/29 L Impaired kidney function is indicated by a GFR of <60 mL/min/1.73m2 . The equation used has not been validated for use with persons over 70 years of age, women, patients with serious co-morbid conditions, or persons with extremes of body size, muscle mass or nutritional status.This equation is not applicable to persons under 18 years of age. [facility] CMP GFR - 71 mL/min/1.7 3m2 >=60 05/29 [facility] CMP Sex assigned at Male 05/29 [facility] Trop Troponin I <0.03 NG/ML 0.00 - 0.04 05/29 NA <0.04ng/mL No evidence of myocardial cell injury (99th percentile upper reference limit at 10% CV). >0.04ng/mL May be associated with myocardial cell injury. A change of >/ .012ng/L (3 standard deviations) for any troponin value below or close to the 99th percentile (.04ng/L) around the initial value may be indicative of acute myocardial injury. [facility] Trop Sex assigned at Male 05/29 NA [facility] Diagnostic Reports Report Value Date Source CT Angio Chest W WO Contrast PROCEDURE: CT Angio Chest W WO Contrast REASON FOR EXAM: Shortness of breath TECHNIQUE: Following the uneventful intravenous administration of low osmolality contrast, thin section helical CT angiogram of the chest was performed from the lung apex through the lung bases during maximum pulmonary arterial opacification. Data was reconstructed into 2 mm contiguous axial sections for review. Source data was sent to an independent workstation and 3-D angiographic 3 mm MIP and MPR reconstructions were performed in bilateral oblique and coronal projections. Automated exposure control (CARE Dose) was used to minimize patient radiation dose. COMPARISON: None FINDINGS: Thoracic aorta: Normal in diameter. Pulmonary arteries: Normal. Heart: Normal. Lymph nodes: No significantly enlarged lymph nodes. Lungs: Interstitial and airspace opacities in the lingula and left lower lobe superimposed on centrilobular emphysema and chronic bronchitis. Pleura: No pleural effusion, thickening, or pneumothorax. Chest wall: Normal. Upper abdomen: Normal. IMPRESSION: 1. No evidence of pulmonary embolism. 2. Interstitial and airspace opacities lingula and left lower lobe. Viral pneumonia not excluded. 3. Underlying centrilobular emphysema, and chronic bronchitis. 2021 [facility] Chest 1 Vw Portable PROCEDURE: CHEST RAD IOGRAPH, 1 VIEW REASON FOR EXAM: Dyspnea. COMPARISON: None. TECHNIQUE: AP view of the chest was obtained. FINDINGS: There are mild pulmonary opacities in the left upper lobe and left lung base, concerning for pneumonia. There is a small right pleural effusion. Heart size is within normal limits. Thoracic aortic is atherosclerotic. There is no pneumothorax. IMPRESSION: Mild pulmonary opacities in the left upper lobe and left lung base, concerning for pneumonia. Small right pleural effusion. 2021 [facility] Consultation Notes Results Value Date Source Progress Note Patient: DARRIAN ALAMO Age: 66 years Legal Sex: Male : 1955 Author: MD Nicolas, Maurice Carias Discharge summary dictated with dictation number [id number] Male 05/31/2021 [facility] ED Physician Notes Patient: DARRIAN ALAMO Age: 66 years Legal Sex: Male : 1955 Author: MD Rob, Dalton Chaney Procedure Critical care note Total time: 35 minutes spent engaged in work directly related to patient care and/ or available for direct patient care. Critical condition(s) addressed for impending deterioration include: respiratory, cardiovascular, metabolic. Associated risk factors: hypoxia, dehydration, infection. Management: bedside assessment, Interpretation (chest x-ray, blood gases, electrocardiogram, blood pressure), Interventions (hemodynamic management, vascular access, Antibiotics, IV fluid, Oxygen), Case review (center medical specialist, nursing), Alternate history emergency medical services. Treatment response: Improved. Performed by: self. Notes: This time excludes time spent performing procedures but includes time spent on direct patient care, history retrieval, review of the chart, and discussions with patient, family, and senior application security consultant(s). . [id number] Male 2021 [facility] ED Physician Notes Patient: GIOVANY ALAMO Age: 66 years Legal Sex: MALE : 1955 Chief Complaint PT BIB[place] fro [place] for SOB on airplane. Upon EMS arrival pt tachypneic @ 40, 90% RA, wheezy. Pt able to self transfer in room, but visibly labored w/ exertion. Nebx2 and 10mg PO Dex enroute. PMH of COPD, HTN, Anxiety. Mode of Arrival [facility] History of Present Illness 66-year-old male reported history of COPD traveling from [place] to [place] presents from the airport with shortness of breath. Patient reports he developed difficulty breathing earlier this morning which continued on the plane flight from [place]. Has associated wheezing. Denies any cough, fever, chest pain, palpitations, passing out, leg swelling, or abdominal pain. EMS reports providing dexamethasone 10 mg orally in addition to bronchodilator. Review of Systems Constitutional: no generalized weakness, no fever Neck: no neck pain Respiratory: no cough, no shortness of breath Cardiovascular: no chest pain, no syncope Gastrointestinal: no vomiting, no abdominal pain Genitourinary: no dysuria, no hematuria Neurologic: no headaches Heme/Lymph: no history of blood clots All other review of systems were reviewed and are negative. Physical Exam Triage Vital Signs T: 97.9 F HR: 96 RR: 20 BP: 146/78 SPO2: 97% O2 Delivery: Nasal cannula O2 flow: 2 L/min WT: 73.48 kg(Dose Calc Wt.) WT: 73.48 kg Constitutional: mild acute distress. Not ill appearing. Head: No bleeding wounds. No bruising. Mouth: Moist oral mucosa. Eyes: EOMI. Neck: Supple. Nonpainful neck movement. Cardiovascular: Regular rate and regular rhythm. Equal 2+ radial pulses. No edema. Respiratory: Mildly tachypnea on arrival this improved with treatment. No stridor. Symmetrical chest rise. Scattered wheezes. No Rales. Gastrointestinal: Nondistended. Soft. Nontender. Musculoskeletal: No gross deformity. Neurological: Awake, alert, and oriented to person, place, time, situation. Able to hold a conversation. Answered questions appropriately. No dysarthria. No facial asymmetry. Moves extremities symmetrically. Skin: Warm. Dry. No cyanosis. Psychiatric: Calm and cooperative. ED Course Orders Augmentin 875 mg oral tablet, 1 Tab, ORAL, ONCE Lactated Ringers bolus, 1,000 mL, IV, ONCE doxycycline, 100 mg, 1 Cap, ORAL, ONCE Diagnostics General Diagnostic Result Type: Chest 1 Vw Portable Result Date: 2021 08:06 PST Reason For Exam: Dyspnea REPORT: PROCEDURE: CHEST RADIOGRAPH, 1 VIEWREASON FOR EXAM: Dyspnea.COMPARISON: None.TECHNIQUE: AP view of the chest was obtained. FINDINGS: There are mild pulmonary opacities in the left upper lobe and left lung base, concerning for pneumonia. There is a small right pleural effusion. Heart size is within normal limits. Thoracic aortic is atherosclerotic. There is no pneumothorax. IMPRESSION: Mild pulmonary opacities in the left upper lobe and left lung base, concerning for pneumonia. Small right pleural effusion. Computerized Tomography Result Type: CT Angio Chest W WO Contrast Result Date: 2021 10:51 PST Reason For Exam: Pulmonary Embolism REPORT: PROCEDURE: CT Angio Chest W WO ContrastREASON FOR EXAM: Shortness of breath TECHNIQUE: Following the uneventful intravenous administration of low osmolality contrast, thin section helical CT angiogram of the chest was performed from the lung apex through the lung bases during maximum pulmonary arterial opacification. Data was reconstructed into 2 mm contiguous axial sections for review. Source data was sent to an independent workstation and 3-D angiographic 3 mm MIP and MPR reconstructions were performed in bilateral oblique and coronal projections. Automated exposure control (CARE Dose) was used to minimize patient radiation dose.COMPARISON: None FINDINGS: Thoracic aorta: Normal in diameter.Pulmonary arteries: Normal.Heart: Normal.Lymph nodes: No significantly enlarged lymph nodes.Lungs: Interstitial and airspace opacities in the lingula and left lower lobe superimposed on centrilobular emphysema and chronic bronchitis. Pleura: No pleural effusion, thickening, or pneumothorax.Chest wall: Normal.Upper abdomen: Normal. IMPRESSION: 1. No evidence of pulmonary embolism.2. Interstitial and airspace opacities lingula and left lower lobe. Viral pneumonia not excluded.3. Underlying centrilobular emphysema, and chronic bronchitis. Order Name: ECG 12 Lead - CV (ED) Date Performed: 2021 08:04:00 PST Status: Signed Impression: SINUS RHYTHM RIGHT ATRIAL ENLARGEMENT POSSIBLE RIGHT VENTRICULAR CONDUCTION DELAY LEFT ANTERIOR FASCICULAR BLOCK ABNORMAL ECG Electronic Signature: MD Elen, Jaden 2021 08:14:28 Medical Decision Making I performed a review of nursing notes No records identified on chart review at [facility] Patient reports being from [place] with a known history of COPD DARRIAN ALAMO is a 66 Years old patient who presents for evaluation of difficulty breathing from the airport Vital signs reviewed by myself and are significant for the following: Afebrile, hypertensive on arrival, without significant tachycardia, patient was on oxygen when he presented via EMS however as well as turned off and he had appropriate oxygen saturation although this decompensated throughout visit when patient attempted to move and his oxygen dropped into the mid 80s The patient is well appearing overall The examination is pertinent for pulmonary wheezing EKG reviewed by myself shows sinus rhythm without significant ST changes Laboratory studies reviewed by myself shows: PH 7.4 without significant CO2 retention at 51, no leukocytosis, slight anemia likely not clinically significant, elevation and BUN with elevation in serum creatinine which may reflect of dehydration versus chronic kidney disease, no significant electrolyte disturbance, no liver enzyme or bilirubin elevation, and a troponin elevation, no significant BNP elevation at 48 Chest x-ray reviewed by myself concerning for pneumonia CT angiography of the chest shows no evidence of pulmonary embolism I have considered the following diagnoses and believe they are of lower likelihood based on this current presentation and evaluation: Pneumothorax, acute coronary syndrome, pulmonary embolism, acute heart failure with pulmonary edema The presentation is most concerning for COPD exacerbation with possibility of concomitant community-acquired pneumonia The patient was treated with bronchodilators EMS provided 10 mg of dexamethasone Also initiated antibiotics in the ER Oxygen provided for acute hypoxemia The hospitalist court collections officer was consulted and agreed to accept patient for admission and further management of acute hypoxemic respiratory failure including bronchodilators and oxygen I spent time with the patient at bedside providing feedback on testing and treatment, in addition to responding to their needs at this visit 2021 08:33 PST Oxygenation is normal on room air Without significant respiratory distress X-ray of chest shows concern for pneumonia, oral antibiotics ordered We'll continue bronchodilation 2021 10:10 PST Attempted ambulation trial with patient Patient went to put on his shoes and had oxygen desaturation to 87% with significant difficulty breathing I believe patient warrants admission at this time Discussed with patient and he is in agreement I believe the patient warrants admission for further management I had a discussion with Dr. Capone who has agreed to admit the patient for further medical management and continuity of care Diagnosis Acute hypoxemic respiratory failure (Acute respiratory failure with hypoxia, J96.01) Community acquired pneumonia (Pneumonia, unspecified organism, J18.9) Dehydration Condition Stable Disposition Admit MSEI Information JUSTICEI /AREA OPERATIONS MANAGER/PA Time Patient Seen face to face: Date and time 2021 07:37:26 Past Medical History COPD Past Surgical History Denies surgeries within the past 3 months Allergies No Known Medication Allergies Home Medications Albuterol Social History *Alcohol Screen How often do you have a drink containing alcohol? Monthly or less (1). How many standard drinks containing alcohol do you have on a typical day? Never (0). Previous treatment: None. *Substance Abuse Screen Do you have concerns about substance abuse for yourself or in your household? No. Current or past use? Never. *Tobacco Use Screen Is there a smoker in the household? No. Do you have concerns about tobacco use in household? No. Over the past 30 days, what and how much have you smoked? Former smoker, quit more than 30 days ago. Over the past 30 days, what has been your smokeless tobacco use? Never. Lab Results Labs All 24H Lab Results Date GFR - Non 59 mL/min/1.73m2 (LOW) 05/29/21 07:43 PST GFR - 71 mL/min/1.73m2 05/29/21 07:43 PST Auto Neutrophil Percent 67.0 % 05/29/21 07:43 PST Auto Neutrophil Absolute 5.3 K/mm3 05/29/21 07:43 PST Auto Lymphocyte Percent 17.1 % 05/29/21 07:43 PST Auto Lymphocyte Absolute 1.3 K/mm3 05/29/21 07:43 PST Auto Monocyte Percent 14.5 % 05/29/21 07:43 PST Auto Monocyte Absolute 1.1 K/mm3 (HIGH) 05/29/21 07:43 PST Auto Basophil Percent 0.5 % 05/29/21 07:43 PST Auto Basophil Absolute 0.0 K/mm3 05/29/21 07:43 PST Auto Eosinophil Percent 0.9 % 05/29/21 07:43 PST Auto Eosinophil Absolute 0.1 K/mm3 05/29/21 07:43 PST SARS-CoV-2 Molecular Negative 05/29/21 08:21 PST SARS-CoV-2 Source Nasopharyngeal 05/29/21 08:21 PST Health Care Worker? No 05/29/21 08:21 PST Patient From Congregate Area? No 05/29/21 08:21 PST Symptomatic per CDC? Symptomatic/PUI 05/29/21 08:21 PST SARS-CoV-2 First test? Unknown 05/29/21 08:21 PST SARS-CoV-2 Is the Patient Hosp Unknown 05/29/21 08:21 PST SARS-CoV-2 Is the Patient Preg Unknown 05/29/21 08:21 PST SARS-CoV-2 Is the Patient in I Unknown 05/29/21 08:21 PST BG - Modified Glenn Test N/A - 05/29/21 08:05 PST VBG - Total Hemoglobin 12.3 gm/dL (LOW) 05/29/21 08:05 PST VBG - O2 Content 13.8 mL/dL 05/29/21 08:05 PST VBG - Oxyhemoglobin 80.1 % 05/29/21 08:05 PST VBG - Methemoglobin 0.0 % 05/29/21 08:05 PST WBC 7.9 K/mm3 05/29/21 07:43 PST RBC 4.00 M/mm3 (LOW) 05/29/21 07:43 PST HGB 12.3 gm/dL (LOW) 05/29/21 07:43 PST HCT 36.5 % (LOW) 05/29/21 07:43 PST MCV 91 fL 05/29/21 07:43 PST MCH 30.8 pg 05/29/21 07:43 PST MCHC 33.7 g/dL (calc) 05/29/21 07:43 PST RDW 14.6 % 05/29/21 07:43 PST PLT 218 K/mm3 05/29/21 07:43 PST MPV 8.3 fL 05/29/21 07:43 PST VBG - pH 7.40 - 05/29/21 08:05 PST VBG - pCO2 51 mmHg 05/29/21 08:05 PST VBG - pO2 49 mmHg (HIGH) 05/29/21 08:05 PST VBG - HCO3 31.6 mmol/L 05/29/21 08:05 PST VBG - BE 5.6 mmol/L 05/29/21 08:05 PST VBG - O2 Sat 82.3 % 05/29/21 08:05 PST BG - Site Vein 05/29/21 08:05 PST BG - Pt Temp 37.0 DegF 05/29/21 08:05 PST Sodium Level 137 mmol/L 05/29/21 07:43 PST Potassium Level 3.7 mmol/L 05/29/21 07:43 PST Chloride Level 98 mmol/L (LOW) 05/29/21 07:43 PST CO2/Carbon Dioxide 31 mmol/L 05/29/21 07:43 PST Anion Gap 8 mmol/L 05/29/21 07:43 PST Glucose, Random 99 mg/dL 05/29/21 07:43 PST BUN 27 mg/dL (HIGH) 05/29/21 07:43 PST Creatinine 1.3 mg/dL 05/29/21 07:43 PST BUN/Creat Ratio 20.8 05/29/21 07:43 PST Osmolality, Calculated 289 mOsm/L 05/29/21 07:43 PST Calcium Level 9.9 mg/dL 05/29/21 07:43 PST Total Protein 7.5 gm/dL 05/29/21 07:43 PST Albumin Level 4.1 gm/dL 05/29/21 07:43 PST Globulin Level 3.4 gm/dL 05/29/21 07:43 PST A/G Ratio 1.21 05/29/21 07:43 PST Bilirubin, Total 0.4 mg/dL 05/29/21 07:43 PST AST 27 units/L 05/29/21 07:43 PST ALT 18 units/L 05/29/21 07:43 PST ALP 78 units/L 05/29/21 07:43 PST Troponin I <0.03 ng/mL 05/29/21 07:43 PST BNP B-Natriuretic Peptide 48 pg/mL (HIGH) 05/29/21 07:43 PST [id number] Male 2021 [facility] Discharge Summaries Results Value Date Source Discharge Summary DATE OF ADMISSION: 2021 DATE OF DISCHARGE: 05/30/2021 PRIMARY CARE PROVIDER: Zion Atkins DNP, DOOR PANELER-BC, ANDREW-BC, of the [facility], phone number is [phone], fax number is [phone]. ATTENDING PROVIDERS: 1. Nico Capone MD 2. Maurice Valenzuela MD PRIMARY DIAGNOSES: 1. Acute hypoxemic respiratory failure. 2. Chronic obstructive pulmonary disease, with exacerbation, leading to above. 3. Normocytic anemia. 4. Chronic opiate-dependent pain, on Suboxone. 5. Acute kidney injury, present on admission. PERTINENT DIAGNOSTICS: ECG on presentation with sinus rhythm, with right atrial enlargement, possible right ventricular conduction delay, left anterior fascicular block, rate of 97, QTc 395. Chest x-ray showing mild pulmonary opacities in the left upper lobe and left lung base, concerning for pneumonia, small right pleural effusion. A CT angiogram chest with and without contrast showing no evidence of pulmonary embolism, interstitial and airspace opacity in the lingula and left lower lobe, viral pneumonia not excluded, underlying centrilobular emphysema and chronic bronchitis. CBC on presentation notable for hemoglobin of 12.3, otherwise unremarkable. Chemistry at presentation with chloride 98, BUN 27, creatinine 1.3. Troponin less than 0.03. BNP of 48, otherwise unremarkable. Negative for COVID. On discharge, CBC again unremarkable, except for mild anemia with hemoglobin 11.2. Chemistry at discharge with BUN decreasing to 22, creatinine to 0.8. Repeat troponin less than 0.03. Procalcitonin less than 0.05. HOSPITAL SUMMARY: Please see the history and physical examination for further details. Briefly, this is a 66-year-old gentleman who was traveling from his home in [place] to [place], with onset of shortness of breath during flight, improved by oxygen. In the hospital, he was found to become hypoxemic with minimal activity. Patient had reported a new cough, productive of creamy thick sputum, which is unusual for him, and this was a recent development. Patient was treated with nebulizers, antibiotics, including Augmentin, azithromycin, doxycycline in the emergency department and started on systemic steroids with prednisone 60 mg by mouth. Patient was continued on his home inhaler of Trelegy Ellipta. On the day of discharge, the patient was doing much better. Patient underwent exercise oximetry during hospitalization that showed desaturation to 89% on room air while walking 450 feet. This was done the evening prior to discharge and patient was feeling better on the day of discharge and had not required supplemental oxygen overnight. Patient stated he was feeling much better and agreed with plan to discharge with continued azithromycin and prednisone, to complete a 3-day course of azithromycin 500 mg daily, and to complete a 5-day course of prednisone 60 mg by mouth daily. Patient stated he had albuterol inhalers and his Trelegy Ellipta with him, and did not need refills of these. DISCHARGE MEDICATIONS: Start new medications: 1. Azithromycin 500 mg by mouth daily for 2 days, starting 05/30/2021 at 3:00 p.m. Repeat in 24 hours to complete course. 2. Prednisone 60 mg by mouth daily for 3 more days, starting the morning of 05/31/2021. Continue prior home medications as follows: 1. Albuterol 90 mcg per inhalation 2 puffs inhaled every 6 hours as needed for shortness of breath or wheezing. 2. Tamsulosin 0.4 mg by mouth daily. 3. Buprenorphine/naloxone 8 mg/2 mg sublingual film, 1 film sublingual b.i.d. This was not prescribed or dispensed at the time of discharge. 4. Fluticasone/umeclidinium/vilant julian 200/62.5/25 mcg per inhalation 1 puff inhaled daily. 5. Lisinopril 10 mg by mouth daily. 6. Paroxetine 30 mg by mouth daily. 7. Terazosin 2 mg by mouth at bedtime. DISCHARGE PLAN: DIET: Sodium-restricted diet. ACTIVITY: As tolerated. WOUND CARE: None. DISCHARGE: To prior situation (traveling). Patient provided with a note to show to the airline that he had been in the hospital, and was cleared to continue his travels. FOLLOWUP: With primary care provider as soon as available. Follow up with urgent care during travels if worsening shortness of breath, fevers, or other signs of infection. CODE STATUS: Full code Greater than 30 minutes were spent on this discharge and patient care the day of discharge. The patient was seen and examined by me on the day of discharge and found to be improving compared to prior documentation. Patient is in agreement with plan for discharge at this time, and questions answered at the time of discharge. MD Lynne Bowden [facility],05/30/2021 21:02:17 PST. Conf # [id number] ,05/30/2021 21:31:26 PST. Dictation ID [id number] Male 05/31/2021 [facility] History and Physicals Results Value Date Source History and Physical Examination 2021 [facility] History and Physical Admit Date: 022 DATE OF ADMISSION: 2021. TIME OF ADMISSION: 12:33 p.m. He is seen on date and time of admission as per the usual custom. CHIEF COMPLAINT: Shortness of breath, dyspnea on exertion. HISTORY OF PRESENT ILLNESS: Mr. Alamo is a pleasant 66-year-old gentleman with a history of chronic bronchitis/COPD who is now tobacco free and has never been hospitalized for respiratory illness specifically previously. He is from [place], [place] and was traveling through [place] on his way to [place] as today is his birthday. This is the first leg in an extended trip. 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 He acknowledges being pretty significantly fatigued yesterday and last night with poor p.o. intake and decreased appetite. He is diffusely fatigued, not focally weak. In the emergency room, he is found to deoxygenate with really any activity. He is thought to have bronchitis versus pneumonia and is referred for admission. Mr. Alamo was having trouble on the plane and felt substantially better with supplemental oxygen provided by the flight crew. He has not had such severe dyspnea on exertion previously. He has had no known COVID exposures. He has had escalating cough last night and today, it is now productive of creamy, thick sputum. This is not the usual state for him. He has not had any chest pain, confusion, palpitations. He does get lightheaded with exertion now. He acknowledges some depressive symptoms as his partner of over 30 years and dog in the last 18 months. That said, he has maintained his independence and did have weight loss after his partner in 2019, but his weight has stabilized in the last 8 or 10 months and he is less worried about it. REVIEW OF SYSTEMS: His complete review of systems otherwise negative except as per HPI above. ALLERGIES: NO KNOWN DRUG ALLERGIES. FAMILY HISTORY: Reviewed and noncontributory. SOCIAL HISTORY: Previously, he did smoke tobacco but is tobacco free. He does not have a history of IV or recreational drug use, but he does participate in the Suboxone service as noted below. He drinks alcohol only very rarely. His prior spouse/partner and he were together for over 30 years before she from metastatic cancer in 2019. He was on his way to visit [place] briefly, but then a few other parts of the country to visit his grandsons and granddaughters, all the way in [place] for example, so he has extended duration and extent of travel planned in the weeks to come. PAST MEDICAL HISTORY: Includes: 1. COPD/chronic bronchitis with unknown spirometry, without prior hospitalizations. 2. Appendectomy. 3. TNA. 4. Multiple back surgeries, sounds like 4, with previously chronic opiate-dependent pain. 5. Many years ago, he transitioned to Suboxone and has been free of prescription opiates otherwise since that time. 6. 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 7. Degenerative disease of the cervical spine and he suspects potential osteoporosis, but no definitive diagnosis. MEDICATIONS: Include: 1. Terazosin 2 mg at bedtime. 2. Tamsulosin 0.4 mg daily. 3. Paroxetine 30 mg daily. 4. Lisinopril 10 mg a day. 5. Trelegy Ellipta 1 puff daily. 6. Suboxone 8 mg sublingual b.i.d. 7. Albuterol HFA p.r.n. OBJECTIVE DATA: SARS-CoV-2 PCR is negative. Venous blood gas shows a pH of 7.4, pCO2 of 50, pO2 of 49. White count of 7.9, hemoglobin of 12.3, MCV 91, platelets of 218, 67% neutrophils. BNP is 48. Troponins undetectable. Sodium 137, potassium .7, chloride 98, bicarb 31, BUN 27, creatinine 1.3 with unknown baseline creatinine. Calcium is 7.5, albumin of 4.1, bilirubin 0.4, alk phos 78, ALT 18, AST is 27. Urinalysis not collected. Toxicology not collected. A chest x-ray shows debatable left upper lobe changes, which are not robust. There is flattening and attenuation of the diaphragms bilaterally, diminutive left effusion. EKG shows a sinus rhythm without ST segment derangement, does meet RVH criteria. There is left anterior fascicular block. A CT scan does not show any evidence of pulmonary embolus. He does have some lingular and left lower lobe inflammatory change, not really consistent with edema. There is some emphysema and there is certainly substantial bronchiolar thickening that is much more diffuse. PHYSICAL EXAMINATION: VITAL SIGNS: Temperature is 97.9, pulse 96, respirations 20, blood pressure 146/78, saturating 97% on 2 L, saturating currently 91% on room air at the time of my interview and exam. GENERAL: Mr. Alamo is an underweight appearing gentleman who is calm, cooperative, oriented to person, place, time, reason for being here. Memory and insight appear entirely intact. His rate and pattern of speech is entirely normal. No psychomotor activation or delay. HEENT: Shows marked bitemporal wasting, severely sunken supraclavicular fossae, and intercostal wasting is evident. LUNGS: Show escalated work of breathing. He has crackles on the left more so than the right but clear at the apices. CARDIOVASCULAR: Shows regular rate and rhythm, no obvious rub or gallop. Radial pulses are 2+ and brisk. ABDOMEN: Thin but not scaphoid, soft, nontender with detectable bowel sounds. EXTREMITIES: Show robust bulk, strength and tone in upper extremities, especially no true clubbing, no cyanosis, not even trace edema. Nontender to palpation. NEUROLOGIC: No discoordination, dysmetria. Moves around without substantial difficulty with the exception of his breathlessness. No focal sensory or motor deficits are able to be elicited. SKIN: Shows evidence of a pale or hypopigmented right cheek skin graft, scarring over his right lateral neck, which is operative. Abdominal scars are diminutive and faded. No other concerning suspicious lesions or nevi are noted. IMPRESSION: Mr. Alamo is a 66-year-old gentleman with chronic obstructive pulmonary disease/chronic bronchitis and now a qualitative and quantitative sputum change, associated with worsening hypoxia that was further exacerbated by airline travel and decreased partial pressures of oxygen. He does not have overt sepsis, is hemodynamically, neurocognitively and neuromotor-oliveira in good condition. That said, he may require oxygen at the time of discharge, which remains to be seen. Certainly, his exertional hypoxia in the low 80s in the emergency room is concerning. PROBLEMS: 1. Chronic obstructive pulmonary disease with exacerbation thereof, unknown spirometry. 2. Hypoxia, predominantly exertional. 3. Normocytic anemia, mild. 4. Chronic opiate-dependent pain, but not particularly painful or dysregulated in recent years. 5. Creatinine 1.3 at the upper limits of normal, not immediately a concerning and no severe NSAID exposure. 6. No clear evidence of congestive heart failure. 7. Suspected pulmonary hypertension but not objectively confirmed. He does report having had a CT of his chest 05/15 as well as echocardiography earlier in 2020. He reports was followed up by cardiac MRI, which was unremarkable and did not require further followup. I will not repeat his echocardiogram but instead, will seek records. 8. Mechanical deep venous thrombosis prophylaxis. 9. Qualify for home oxygen tomorrow, at least repeat the assessment. 10. Torsades de pointes flutter, empiric azithromycin and a tincture of time. No questions were answered for Mr. Alamo. Sixty minutes were spent at the time of admission. Nico Capone MD D DML, 2021 15:06:41 PST. Conf # [id number] , 2021 16:30:17 PST. Dictation ID [id number] Male 2021 [facility] Vital Signs Vital Sign Value Date Comments Source Oxygen delivery Room air (05/30/21 3:41 PM) 05/30/2021 05 [facility] Temperature (F) 98.3 [degF] 05/30/2021 05 [facility] Peripheral Pulse Rate 95 bpm 05/30/2021 05 [facility] Peripheral pulse site Non-invasive BP device (05/30/21 3:41 PM) 05/30/2021 05 [facility] Respiratory rate 14 br/min 05/30/2021 05 [facility] Systolic BP 120 mm[Hg] 05/30/2021 05 [facility] Diastolic BP 67 mm[Hg] 05/30/2021 05 [facility] Blood Pressure Method Automatic (05/30/21 3:41 PM) 05/30/2021 05 [facility] Pulse Oximetry 95 % 05/30/2021 05 [facility] Oxygen delivery Room air (05/30/21 11:33 AM) 05/30/2021 05 [facility] Temperature (F) 98.4 [degF] 05/30/2021 05 [facility] Peripheral Pulse Rate 82 bpm 05/30/2021 05 [facility] Peripheral pulse site Non-invasive BP device (05/30/21 11:33 AM) 05/30/2021 05 [facility] Respiratory rate 16 br/min 05/30/2021 05 [facility] Systolic BP 114 mm[Hg] 05/30/2021 05 [facility] Diastolic BP 53 mm[Hg] 05/30/2021 05 [facility] Blood Pressure Method Automatic (05/30/21 11:33 AM) 05/30/2021 05 [facility] Pulse Oximetry 92 % 05/30/2021 05 [facility] Respiratory rate 21 br/min 05/30/2021 05 [facility] Peripheral Pulse Rate 78 bpm 05/30/2021 05 [facility] Pulse Oximetry 92 % 05/30/2021 05 [facility] Oxygen delivery Room air (05/30/21 9:00 AM) 05/30/2021 05 [facility] Neurological norm WDL (05/30/21 9:00 AM) 05/30/2021 05 [facility] Temperature (F) 98.1 [degF] 05/30/2021 05 [facility] Peripheral pulse site Non-invasive BP device (05/30/21 8:07 AM) 05/30/2021 05 [facility] Systolic BP 134 mm[Hg] 05/30/2021 05 [facility] Diastolic BP 62 mm[Hg] 05/30/2021 05 [facility] Blood Pressure Method Automatic (05/30/21 8:07 AM) 05/30/2021 05 [facility] Neurological norm No change from previous assessment (05/30/21 3:29 AM) 05/30/2021 05 [facility] Neurological norm No change from previous assessment (05/30/21 12:46 AM) 05/30/2021 05 [facility] Oxygen FiO2 21 % 05/30/2021 05 [facility] HeightLength (cm) 187.6 cm [address] [facility] HeightLength method Stated (05/29/21 12:2 0 PM) 2021 05 [facility] Weight measured method Standing scale (05/29/21 12:20 PM) 2021 05 [facility] Body Mass Index 0 kg/m2 2021 05 [facility] Weight (kg) 72.57 kg 2021 05 [facility] Heart Rate Monitored 98 bpm 2021 05 [facility] Mean BP 106 mm[Hg] 2021 05 [facility] Heart Rate Monitored 87 bpm 2021 05 [facility] Mean BP 95 mm[Hg] 2021 05 [facility] Oxygen flow 0 L/min 2021 05 [facility] Oxygen flow 0 L/min 2021 05 [facility] Heart Rate Monitored 98 bpm 2021 05 [facility] Mean BP 85 mm[Hg] 2021 05 [facility] Oxygen flow 1 L/min 2021 05 [facility] Weight (kg) 73.48 kg 2021 05 [facility] Dose calculation weight (kg) 73.48 kg 2021 05 [facility] Encounters Location Location Details Encounter Type Encounter Number Reason For Visit Attending Provider ADM Date DC Date Status Source 08 15 [facility] Observation [id number] Acute Hypoxemi c Respirat ory Failure, Communit y Acquired Pneumoni a Nico Capone 05/[address] [facility] Social History Social History Date Source Social History TypeResponse Smoking Status Is there a smoker in the household? No; *Do you have concerns about tobacco use in household? No; Former smoker, quit more than 30 days ago; Never; *Are you ready to quit? Yes entered on: 05/29/21 Sex Male [address] [place] [address] Social History TypeResponse Smoking Status Is there a smoker in the household? No; *Do you have concerns about tobacco use in household? No; Former smoker, quit more than 30 days ago; Never; *Are you ready to quit? Yes entered on: 05/29/21 Sex Male 05 [facility] Social History TypeResponse Smoking Status Is there a smoker in the household? No; *Do you have concerns about tobacco use in household? No; Former smoker, quit more than 30 days ago; Never; *Are you ready to quit? Yes entered on: 05/29/21 Sex Male [address] [place] [address]
--- OUTSIDE RECORDS SUMMARY | 2024-03-31 10:32 | XMS_ITS | Data Portability ---
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 on same regimen. I will forward this note to his Hazel Smyth DNP for review since he manages his suboxone program. He is encourag ed to f/u with me in one month and sooner if needed. pt is happy with this plan Stop Reason: Changed Not Available [facility] 3 14:25:26 Acute exacerba tion of chronic obstruct heriberto pulmonar y disease 622373003 Active 2021 COPD w/exacer bation Last Assessme nt: 02/19/20 22: Comment only - Liliana Mann PAC - COPD exacerba tion x 1 day, improved w predniso ne started yesterda y. Pt tested negative for flu and covid today. He will be travelin g to [place] next week. Rx predniso ne 40 mg qd x 5 days and z-pack plus an addition al course to have on hand while travelin g for emergenc ies. RTC with new, worsenin g or persiste nt symptoms . Not Available [facility] 3 14:25:28 Viral screenin g Completed 202106/23/2022 Encounte r for screenin g for COVID-19 Stop Reason: Removed Not Available [facility] 3 14:25:28 Wheezing 96823060 Completed 202106/23/2022 Wheezing Stop Reason: Removed Not Available [facility] 3 14:25:29 Chronic alcoholi sm in [facility] n 708767853 Active 2021 Alcohol use, unspecif ied, in [facility] Last Assessme nt: 03/18/20 22: Comment only - Zion Smyth DNP, ANP - Juwan meets DSM criteria for MDD mod recurren t in [facility], insomnia which is worsened by depressi ve episodes but not dependen t on depressi ve episodes , OUD in [facility], and AUD in [facility]. Currentl y his only trigger for etoh use is his sleep. He did well with zyprexa, feels depressi on is well controll ed and not currentl y problema tic but I educated him on the signs of recurren t episodes and when to seek care early. The zyprexa and improved sleep may help with depressi ve episodes . He is off SSRI's since medicait ons lost in [place] and did not experien ce w/d from ssri, likley d/t being out of suboxone and experien cing mild w/d with this. I have refilled his suboxone for TID to alleviat e stressor s while on vacation . I have also sent him with zyprexa and lisinorp ril from the clinic to get him through his trip. I would like him to consider going back on somethin g for depressi on but at this time he declines . If contineu s to be averse to medicait ons may consider transcra nial magnetic stimulat ion. I will see him when he returns from his trip to f/u on OUD and depressi on. Discusse d limitati ons of confiden raiza alarcon safety of patient and others. Discusse d document ation of visit. Discusse d medicati on side effects, adverse reaction s, safe use and storage, black box warnings when applicab le, and off label use of medicati ons. Discusse d appropri ate follow up and when to seek urgent, emergent care. Given crisis numbers when applicab le. The majority of this visit spent in direct face to face consulta tion with the patient and/or guardian , and review of records. Not Available [facility] 3 14:25:29 Moderate recurren t major depressi on 91555470 Active 2021 Major depressi on, recurren t, moderate Last Assessme nt: 12/06/20 22: Comment only - Zion Smyth DNP, ANP - Juwan meets DSM criteria for MDD mod recurren t in remissio n, insomnia which is worsened by depressi ve episodes but not dependen t on depressi ve episodes , OUD in remissio n, and AUD in remissio n. Currentl y his only trigger for etoh use is his sleep. He did well with zyprexa, feels depressi on is well controll ed and not currentl y problema tic but I educated him on the signs of recurren t episodes and when to seek care early. The zyprexa and improved sleep may help with depressi ve episodes . He is off SSRI's since medicait ons lost in [place] and did not experien ce w/d from ssri, likley d/t being out of suboxone and experien cing mild w/d with this. I have refilled his suboxone for TID to alleviat e stressor s while on vacation . I have also sent him with zyprexa and lisinorp chaitanya from the clinic to get him through his trip. I would like him to consider going back on somethin g for depressi on but at this time he declines . If contineu s to be averse to medicait ons may consider transcra nial magnetic stimulat ion. I will see him when he returns from his trip to f/u on OUD and depressi on. Discusse d limitati ons of giancarlo alarcon safety of patient and others. Discusse d document ation of visit. Discusse d medicati on side effects, adverse reaction s, safe use and storage, black box warnings when applicab le, and off label use of medicati ons. Discusse d appropri ate follow up and when to seek urgent, emergent care. Given crisis numbers when applicab le. The majority of this visit spent in direct face to face consulta tion with the patient and/or guardian , and review of records. Not Available [facility] 14:25:29 Insomnia 609155660 Active 2022 Dario Cabral PA-C [address], [place], [address] , [facility] [place] 3 17:40:47 Alcoholi sm 2099669 Active 2022 Dario Cabral PA-C [address] [place] [address], [place], [address] , [facility] [place] 3 17:57:26 Chronic insomnia 326948935 Active 2022 Dario Cabral PA-C [address] [address], [place], [address] , [facility] [place] 3 13:38:09 [facility] 77585530 Active 2022 Dario Cabral PA-C [address] [place] [address], [place], [address] , [facility] [place] 3 14:02:00 Mixed anxiety and depressi ve disorder 214614004 Active 2022 Dario Cabral PA-C [address] [address], [place], [address] , [facility] [place] 3 13:42:07 Multiple nodules of lung 400565533 Active 2023 Dario Cabral PA-C [address] [address], [place], [address] , [facility] [place] 4 13:27:19 Coronary arterios clerosis 45156673 Active 2023 Dario Cabral PA-C [address], [place], [address] , [facility] [place] 4 19:08:45 Severe chronic obstruct heriberto pulmonar y disease 141894063 Active 2023 Dario Cabral PA-C [address] [place] [address], [place], [address] , [facility] [place] 4 10:49:10 Coronary atherosc lerosis 407474210 Active 2023 Dario Cabral PA-C [address], [place], [address] , [facility] [place] 4 10:50:43 Depressi ve disorder 74940549 Active 2023 Dario Cabral PA-C [address], [place], [address] , [facility] [place] 4 10:54:14 Dyspnea 415920126 Active 2021 Shortnes s of breath Last Assessme nt: 05/08/19 22: Comment only - Dario Cabral PAC - Discusscat beltran findings and suggest increase use of albutero l to four times daily Start Doxycycl ine 100mg twice daily start predniso ne two tabs once daily for 7 days covid negative today on exam call if problems or concerns Stop Reason: Removed Radha Orozco LPN, CFCS [address], [place], [address] , [facility] [place] 4 20:34:06 Problem Notes None recorded. Procedures Surgical History Date Name Laterality Status Provider Name and Address Organization Details Recorded Time 09/03/19 23 replacement of aortic valve completed Dario Cabral PA-C [address], [place], [address], [facility] [place] 11/12/2022 17:19:20 Imaging Results Imaging Date Name Status LastModified by Organ [facility] Details LastModified Time 06/24/2023 CT, chest, w/ contrast completed [facility] [address], [place], [address], 06/26/2023 17:33:17 06/24/2023 CT, chest, w/ contrast completed [email or web address] [facility] [address] [place], [address], 06/29/2023 15:30:48 07/13/2023 PFT, complete completed [email or web address] [facility] (Medical Records) [address] [facility], [place], [address], 07/22/2023 15:32:50 08/18/2023 CT, abdomen + pelvis, w/ contrast completed [facility] [address], [place], [address], 08/20/2023 14:44:56 12/09/2023 CT, angiogram, chest, w/wo contrast completed [email or web address] [facility] [place] [address] [place] [address], [place], [address], 12/10/2023 17:32:27 Procedure Notes None recorded. Medical Equipment None Reported. Allergies Allergen ID Allergen Name Allergen Category Reaction Reaction Severity Criticality Documentation Date Start Date Code Code System Note Provider Name and Address Organization Details Recorded Time 26163 aspirin medicatio n Not available Not available Not available 03/11/20222022 1191 RxNorm React ion: recur rrent noseb sofie - Moder ate Categ ory: Drug [place] - [facility] [place] 13:09:31 Medications Name Sig Start Date Stop Date Status Note LastModified by Organization Details LastModified Time quetiapin e 25 mg tablet TAKE 1 TABLET BY MOUTH EVERYDAY AT BEDTIME 2023 active LAST OV- 08/27/23 (INSOMNI A/MED REVIEW)N EXT OV-0LAST LABS- 06/20/22 CBC W/DIFF, CMP, LIPID, TSH, VIT DLAST RX- 06/04/23 #90 X 0 Not Available Not Available Not Available cyclobenz aprine 10 mg tablet one tablet by mouth as needed every 8 hours for muscle spasm 05/12 completed Comments : Regimen complete d Stop Date: 05/12/19 20 Stop Reason: Regimen Complete d Not Available Not Available Not Available amoxicill in 500 mg capsule 06/11 completed Not Available Not Available Not Available prednison e 10 mg tablet 2 tablets by mouth daily for 5 days 01/07 completed Not Available Not Available Not Available ipratropi um 0.5 mg-albute rol 3 mg (2.5 mg base)/3 mL nebulizat ion soln Inhale 1 as needed 02/27 completed Comments : Completi on of Therapy Stop Date: 02/28/20 Stop Reason: Other Not Available Not Available Not Available Centrum Silver tablet 1 tablet by mouth once a day 07/05 completed Comments : Regimen complete d Stop Date: 07/06/19 14 Stop Reason: Regimen Complete d Not Available Not Available Not Available albuterol sulfate 2.5 mg/3 mL (0.083 %) solution for nebulizat ion Inhale 1 vial using nebulize r every four to six hours 11/12 completed Last labs-04/13 01/02(Iro n/HCV/Vi t B12/ T4 Free/PSA /Vit D/ T3Free)L ast OV-(SOB)L ast RX- for 30 x1 Not Available Not Available Not Available azithromy omar 250 mg tablet 2 tabs PO day 1, then 1 tab pO day 2-5 01/07 completed Not Available Not Available Not Available metoprolo l succinate ER 50 mg tablet,ex tended release 24 hr Take 1 tablet every day by oral route. 2023 active Not Available Not Available Not Avai lable Lipitor 80 mg tablet 1 PO QHS 06/26 completed Comments : Regimen complete d Stop Date: 06/27/19 Stop Reason: Regimen Complete d Not Available Not Available Not Available lisinopri l 20 mg tablet Take one tablet by mouth daily 01/07 completed Not Available Not Available Not Available prednison e 20 mg tablet Take 2 tablets by mouth once a day for 5 days to treat shortnes s of breath. Note increase d risk of infectio ns for 1 month. 06/13 completed Comments : Regimen complete d Stop Date: 06/14/19 Stop Reason: Regimen Complete d Not Available Not Available Not Available clonazepa m 0.5 mg tablet 1/2 PO BID PRN panic/an xiety may increase to 1 PO BID PRN anxiety/ panic 2023 active Not Available Not Available Not Avai lable gabapenti n 400 mg capsule Take 1 capsule by mouth three times a day 06/11 completed Not Available Not Available Not Available olanzapin e 10 mg tablet Take 1/2-1 tablet by mouth at bedtime as needed 05/05 completed pt states he got the jitters Not Available Not Available Not Available metronida zole 500 mg tablet 06/11 completed Not Available Not Available Not Available acetamino phen 300 mg-codein e 30 mg tablet 06/11 completed Not Available Not Available Not Available amlodipin e 5 mg tablet Take 1 tablet every day by oral route. 2023 active Not Available Not Available Not Avai lable aspirin 81 mg tablet,de layed release TAKE ONE TABLET BY MOUTH DAILY 01/07 completed Not Available Not Available Not Available guaifenes in 100 mg/5 mL oral liquid Take 10 ml by mouth every four to six hours 07/05 completed Comments : Completi on of Therapy Stop Date: 07/06/19 Stop Reason: Other Not Available Not Available Not Available amoxicill in 875 mg tablet Take 1 tablet twice a day 04/28 completed Stop Date: 04/28/19 Not Available Not Available Not Available alprazola m 0.25 mg tablet TAKE ONE (1) TABLET BY MOUTH EVERY 8 HOURS IF NEEDED FOR ANXIETY. MAX DAILY AMOUNT 0.75 MG 03/24 completed Not Available Not Available Not Available lorazepam 0.5 mg tablet Take 1 tablet by mouth twice a day 02/06 completed Comments : Completi on of Therapy Stop Date: 02/07/20 Stop Reason: Other Not Available Not Available Not Available Lipitor 40 mg tablet Take 1 tablet by mouth every night 02/06 completed Comments : Completi on of Therapy Stop Date: 02/07/20 Stop Reason: Other Not Available Not Available Not Available terazosin 2 mg capsule TAKE ONE CAPSULE BY MOUTH ONCE NIGHTLY 06/11 completed Comments : Started a new med per [place] [facility] Stop Date: 06/12/19 Stop Reason: Other Not Available Not Available Not Available tamsulosi n 0.4 mg capsule Take 1 capsule by mouth every night per [place] [facility] 02/06 completed Comments : Completi on of Therapy Stop Date: 02/07/20 Stop Reason: Other Not Available Not Available Not Available doxycycli ne monohydra te 100 mg capsule Take one (1) tablet by mouth twice daily for 10 days 10/13 completed Comments : Regimen complete d Stop Date: 10/14/19 Stop Reason: Regimen Complete d Not Available Not Available Not Available cephalexi n 500 mg capsule Take 1 capsule three times a day to treat infectio n. 11/08 completed Stop Date: 11/09/19 11 Not Available Not Available Not Available paroxetin e 30 mg tablet TAKE ONE TABLET BY MOUTH ONCE DAILY 06/11 completed Not Available Not Available Not Available lisinopri l 10 mg tablet Take 1 tablet by mouth once a day 2023 active Not Available Not Available Not Avai lable prednison e 50 mg tablet 1 qd x 5 days 05/25 completed Comments : Other Stop Date: 05/25/19 Stop Reason: Other Not Available Not Available Not Available Longs Adult Low Strength ASA 81 mg tablet,de layed release Take 1 tablet every day by oral route. 01/07 completed Not Available Not Available Not Available furosemid e 20 mg tablet 01/07 completed Not Available Not Available Not Available metoprolo l succinate ER 25 mg tablet,ex tended release 24 hr Take 1 tablet every day by oral route. 01/07 completed Not Available Not Available Not Available ergocalci ferol (vitamin D2) 1,250 mcg (50,000 unit) capsule TAKE 1 CAPSULE BY MOUTH ONCE A WEEK FOR 4 DOSES 01/07 completed Not Available Not Available Not Available levofloxa omar 750 mg tablet Take 1 tablet by mouth once a day 01/07 completed Not Available Not Available Not Available albuterol sulfate HFA 90 mcg/actua tion aerosol inhaler Inhale 2 puff using inhaler every six hours as needed active Not Available Not Available No t Available fluoxetin e 20 mg capsule Take 1 capsule by mouth once a day 06/11 completed Not Available Not Available Not Available cholecalc iferol (vitamin D3) 125 mcg (5,000 unit) capsule 02/06 completed Comments : Completi on of Therapy Stop Date: 02/07/20 22 Stop Reason: Other Not Available Not Available Not Available doxycycli ne hyclate 100 mg tablet one tablet by mouth twice a day for 10 days 11/26 completed Comments : Regimen complete d Stop Date: 11/27/19 17 Stop Reason: Regimen Complete d Not Available Not Available Not Available diazepam 5 mg tablet 06/11 completed Not Available Not Available Not Available amoxicill in 875 mg-potass ium clavulana te 125 mg tablet Take one tablet by mouth twice a day for 10 days 01/07 completed Not Available Not Available Not Available Asprin Ec Low Dose 81 mg tablet,de layed release Take 1 tablet every day by oral route. active Not Available Not Available No t Available Crestor 20 mg tablet Take 1 tablet every day by oral route. 2023 active Not Available Not Available Not Avai lable Spiriva with HandiHale r 18 mcg and inhalatio n capsules Inhale 1 capsule using inhaler once a day 03/20 completed Comments : Completi on of Therapy Stop Date: 03/20/20 21 Stop Reason: Other Not Available Not Available Not Available coenzyme Q10 Take 1 100mg tab po qd 02/06 completed Comments : Completi on of Therapy Stop Date: 02/07/20 22 Stop Reason: Other Not Available Not Available Not Available FeroSul 325 mg (65 mg iron) tablet TAKE ONE TABLET BY MOUTH DAILY with breakfas t. 01/07 completed Not Available Not Available Not Available Laxative PEG 3350 17 gram/dose oral powder mix 1 packet in liquid and drink by mouth twice daily 2023 active Please write from clinic provider for 3 bears pick upScript written by Kaity Coates MD @ [facility] Not Available Not Available Not Available Suboxone 8 mg-2 mg sublingua l film Take 1 strip under tongue twice a day 11/11 completed LAST OV: 06/11/22NE XT OV: 09/11/22LA ST REFILL: 06/11/22 - #56LAST UDS: 02/06/22 Not Available Not Available Not Available Vitamin D3 50 mcg (2,000 unit) capsule 1 tablet by mouth once a day 07/05 completed Comments : Regimen complete d Stop Date: 07/06/19 14 Stop Reason: Regimen Complete d Not Available Not Available Not Available Centrum Silver 0.4 mg-300 mcg-250 mcg tablet active Not Available Not Available Not Available buprenorp mo 4 mg-naloxo ne 1 mg sublingua l film Place 1 film every day by sublingu al route. 2023 active [facility] - [facility] - DUE 07/2023LA ST REFILL FOR 8-2MG - 06/04/19 24 - #28 X 0 Not Available Not Available Not Available Zubsolv 5.7 mg-1.4 mg sublingua l tablet one tab SL twice a day. PAMELA: [id number] 12/10 completed Comments : Regimen complete d Stop Date: 12/11/19 18 Stop Reason: Regimen Complete d Not Available Not Available Not Available Breo Ellipta 200 mcg-25 mcg/dose powder for inhalatio n INHALE 1 PUFF INTO THE LUNGS DAILY 06/11 completed Not Available Not Available Not Available buprenorp mo 16 mg-naloxo ne 4 [address] l film Place by sublingu al route. 11/12 completed Not Available Not Available Not Available Breztri Aerospher e 160 mcg-9mcg- 4.8mcg/ac tuation HFA aerosol inhaler Inhale 2 puffs twice a day by inhalati on route. 2023 active Not Available Not Available Not Avai lable Trelegy Ellipta 200 mcg-62.5 mcg-25 mcg powder for inhalatio n INHALE ONE PUFF BY MOUTH DAILY 03/27 completed Not Available Not Available Not Available Vitals Date Recorded Body height Respiratory rate Body mass index (BMI) Body weight Body temperature Heart rate Oxygen saturation Oxygen saturation in Arterial blood by Pulse oximetry Systolic blood pressure Diastolic blood pressure Provider Name and Address Organization Details Last Updated DateTime 4 182.88 cm 18 /min 25.3 kg/m2 53170.9 g 96.8 [degF] 97 /min 87 % 87 % 142 mm[Hg] 74 mm[Hg] Carmen Aragon [facility] [place] 4 18:33:25 Date Recorded Body height Body mass index (BMI) Body weight Oxygen saturation Oxygen saturation in Arterial blood by Pulse oximetry Heart rate Systolic blood pressure Diastolic blood pressure Provider Name and Address Organization Details Last Updated DateTime 3 182.88 cm 23.7 kg/m2 57475.6 6 g 95 % 95 % 113 /min 167 mm[Hg] 97 mm[Hg] Aurelio Ritter [facility] [place] 3 18:38:12 Date Recorded Body height Oxygen saturation Oxygen saturation in Arterial blood by Pulse oximetry Inhaled oxygen flow rate Heart rate Provider Name and Address Organization Details Last Updated DateTime 03/27/2023 182.88 cm 92 % 92 % 3 L/min 88 /min Yessenia Helms [facility] [place] 3 13:13:27 Date Recorded Body height Body mass index (BMI) Body weight Provider Name and Address Organization Details Last Updated DateTime 04/22/2023 182.88 cm 23.7 kg/m2 90211.66 g Casandra Duenas [facility] [place] 04/22/2023 14:58:26 Date Recorded Body height Oxygen saturation Oxygen saturation in Arterial blood by Pulse oximetry Heart rate Body mass index (BMI) Body weight Systolic blood pressure Diastolic blood pressure Provider Name and Address Organization Details Last Updated DateTime 4 182.88 cm 93 % 93 % 80 /min 23.7 kg/m2 24315.6 6 g 154 mm[Hg] 90 mm[Hg] Wendy Norton [facility] [place] 4 13:07:40 Social History Question Answer Notes LastModified by Organizat ion Details LastModified Time Tobacco Smoking Status Former Smoker quit 3 years [facility]/11[facility] 15:28:46 What Is Your Level Of Alcohol Consumption? Occasional Information not available 11/11/2022 How Many Times Per Week Do You Consume Alcohol? Less Than 1 Time Per Week Information not available 11/11/2022 When Did You Quit Smoking? 6-10yearssince robin medina Information not available 11/12/2022 Are You Or ? No Information not available 11/11/2022 What Is Your Housing Situation Today? I Have Housing Information not available 11/11/2022 What Is Your Current Work Situation? Unemployed Information not available 11/11/2022 In The Past Year Have You Or Any Family Members You Live With Been Unable To Get Food When It Was Really Needed? No Information not available 11/11/2022 In The Past Year Have You Or Any Family Members You Live With Been Unable To Get Clothing When It Was Really Needed? No Information n ot available 11/11/2022 In The Past Year Have You Or Any Family Members You Live With Been Unable To Get Utilities When It Was Really Needed? No Information n ot available 11/11/2022 In The Past Year Have You Or Any Family Members You Live With Been Unable To Get Coloring Checker When It Was Really Needed? No Information n ot available 11/11/2022 In The Past Year Have You Or Any Family Members You Live With Been Unable To Get Medicine Or Any Healthcare When It Was Really Needed? No Information n ot available 11/11/2022 In The Past Year Have You Or Any Family Members You Live With Been Unable To Get Phone When It Was Really Needed? No Information not available 11/11/2022 Has Lack Of Transportation Kept You From Medical Appointments? No Information not available 11/11/2022 Has Lack Of Transportation Kept You From Non-medical Appointments Or Meeting Or Work Or From Getting Things You Need? No Information not available 11/11/2022 How Often Do You See Or Talk To People That You Care About And Feel Close To? (For Example: Talking To Friends On The Phone, Visiting Friends Or Family, Going To Mandaeism Or Club Meetings) 3 To 5 Times A Week Information not available 11/11/2022 Stress Is When Someone Feels Tense, Nervous, Anxious, Or Can? t Sleep At Night Because Their Mind Is Troubled. How Stressed Are You? A Little Bit Information no t available 11/11/2022 In The Past Year, Have You Spent More Than 2 Nights In A Row In A Senior Care, Retirement, Nursing Home Center, Or Juvenile Correctional Facility? No Information not available 11/11/2022 Are You A Refugee? No Inform ation not available 11/11/2022 Do You Feel Physically And Emotionally Safe Where You Currently Live? Yes Information not available 11/11/2022 In The Past Year, Have You Been Afraid Of Your Partner Or Ex-partner? No Information not available 11/11/2022 Are You Worried About Losing Your Housing? No Information not available 11/11/2022 What Was The Date Of Your Most Recent Tobacco Screening? 08/27/2023 [email or web address] Information not available 08/27/2023 Have You Ever Been Counseled For Unhealthy Alcohol Use? No Information not available 11/11/2022 Do You Use Any Illicit Or Recreational Drugs? No [email or web address] Information not available 11/26/2022 Have You Used IV Drugs? No Information not available 11/11/2022 Do You Or Have You Ever Used Any Other Forms Of Tobacco Or Nicotine? No Information not available 11/11/2022 Sex: Male Functional Status None recorded. Mental Status None recorded. Family History Relationship Description Onset Age of this Age Resolved Age Notes LastModified by Organization Details LastModified Time Mother Family history of heart failure Mother : grew up in an orphan age, marrie d 3 times. Polio; DV; at 54 of MS. Not available 03/11/2022 23:34:43 Notes:Mother - Family Histor y of Heart Disease Comments: Mother: grew up in an orphanage, 3 times. Polio; DV; at 54 of MS. - Entered On: 04/18/2015 Father: 7 times. at 62 of CVA Mother: of MS in her 50s One biological sister: of MS at 50 (2009) 7 step siblings 2 suicide, youngest: MVA with head injury; suicide, Oldest: Drug-related suicide Children: 3 2 sons: Youngest: lives in [place] Oldest lives in [place]: granddaughter Shira he cared for he found out that girl was not biological child of his son (tried to adopt her but couldn't). Adriane Zuniga born 10/24 after son new girl Granddaughter [place] born 03/30 Eldest: arrested for making meth.; going to [facility]. on 03/05/12 was sentenced to 6 years in alf Entered On: 02/07/2022 Mother - Family History of Heart Disease Comments: Mother: grew up in an orphanage, 3 times. Polio; DV; at 54 of MS. - Entered On: 04/18/2015 Father: 7 times. at 62 of CVA Mother: of MS in her 50s One biological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
[2024-03-31 14:46] LABS: Blood Urea Nitrogen 20 mg/dL (9-16); Estimated Glomerular Filt Rate > 60
== END 2024-03-31 10:28 | disposition home or self-care (01) ==
LOC: HO.WFDLDS 10:27
PROVIDERS: Visit Provider Nurse Practitioner Family
DX: Z01.818 Encounter for other preprocedural examination (principal)
CPT/HCPCS: 36415; 82565; 84520

== ENCOUNTER 2024-04-08 11:16 | Outpatient (AMB) | payer MEDICARE, SELFPAY ==
--- OUTSIDE RECORDS SUMMARY | 2024-04-08 11:18 | XMS_ITS ---
Author Organization [facility] Address [address] [facility] [address] [place] [address] Care Team Providers Care Costume Technician Name Role Phone PILIJuly Unavailable [phone] REASON FOR VISIT Update [employer] Dem[employer] Encounters Encounter Location Date Provider Diagnosis [facility] [address] [place] [address] 09/07/2023July PILI Plan Of Treatment No Information Progress Notes * CALLY DARRIANDOB:1955 (68 yo M)Acc No.[id number]:09/07/2023 Patient:?DARRIAN ALAMO :1955???Age:68 Y???Sex:Male Address:[address], [place] [address] * true * Date:? Generated for Gersoni cecy/Leoncio/eTransmitting on:?04/08/2024 07:18 AM ZEENAT
--- OUTSIDE RECORDS SUMMARY | 2024-04-08 11:18 | XMS_ITS ---
Author Organization [facility] Address [address] [facility] [address] [place] [address] Care Team Providers Care Microeconomics Professor Name Role Phone PILIJuly Unavailable [phone] REASON FOR VISIT PAD Encounters Encounter Location Date Provider Diagnosis [facility] [address] [place] [address] 09/09/2023 MARGARET ALEJANDRE Plan Of Treatment No Information Progress Notes * DARRIAN ALAMODOB:1955 (68 yo M)Acc No.[id number]:09/09/2023 Aorta Iliac Duplex Patient:?DARRIAN ALAMO Provider:?MARGARET ALEJANDRE MD :1955???Age:68 Y???Sex:Male Louie e:09/09/2023 Address: [address], [place] [facility] Subjective: * Chief Complaints: * ???1. PAD. * Medical History:? Objective: * Vitals:? Assessment: Plan: * Treatment: * * Electronic signature of JUANJO ALEJANDRE MD on 04/08/2024 at 07:18 AM AKST Sign off status: Pending * Provider:?MARGARET ALEJANDRE MD Date:?08/12 Generated for Luc sam/Leoncio/eTransmitting on:?04/08/2024 07:18 AM AKST
--- OUTSIDE RECORDS SUMMARY | 2024-04-08 11:19 | XMS_ITS | Continuity of Care Document ---
Author Name [facility] Care Team Providers Care Utilization Specialist Name Role Phone [facility] Unavailable Unavailable Problems Problem Status Onset Date Classification Date Reported Comments Source Chronic obstructive pulmonary disease wi Active 05/30/2021 [facility] Acute hypoxemic respiratory failure Active 2021 05/31/2021 05 [facility] Community acquired pneumonia Active 2021 05/31/[address] [place] [address] Medications Medication Details Route Status Patient Instructions Ordering Provider Order Date Source predniSONE 20 mg oral tablet = 3 Tab, ORAL, DAILY, Take in the morning starting 05/31/2021. Take with food or milk., # 9 Tab, 0 Refill(s), Acute, Pharmacy: [facility], 187.6, cm, 05/29/21 12:21:00 PST, Height/Length (cm), 73.48, kg, 05/29/21 8:38:00 PST, Dose calcu... Active [address] [place] [address] azithromycin 250 mg oral tablet = 2 Tab, ORAL, [id number], Take 2 tabs PO daily at 3PM., # 4 Tab, Indication= COPD exacerbation, 0 Refill(s), Acute, Pharmacy: [facility], 187.6, cm, 05/29/21 12:21:00 PST, Height/Length (cm), 73.48, kg, 05/29/21 8:38:00 PST, Dose c... Active [address] [place] [address] Tamsulosin hydrochloride 0.4 MG Oral Capsule [Flomax] = 1 Cap, ORAL, DAILY, 0 Refill(s), Maintenance Active [address] [place] [address] Albuterol 2 Puff, INH, Q6H, PRN Shortness of breath/wheezin g, 0 Refill(s), Maintenance Active [address] [place] [address] Paroxetine 30 MG Oral Tablet [Paxil] = 1 Tab, ORAL, DAILY, 0 Refill(s), Maintenance Active [facility] lisinopril 10 mg oral tablet = 1 Tab, ORAL, DAILY, 0 Refill(s), Maintenance Active [facility] Trelegy Ellipta 200 mcg-62.5 mcg-25 mcg/inh inhalation powder 1 Puff, INH, DAILY, 0 Refill(s), Maintenance Active 05 [facility] terazosin 2 mg oral capsule = 1 Cap, ORAL, QBedtime, 0 Refill(s), Maintenance Active [facility] Buprenorphine 8 MG / Naloxone 2 MG Oral Strip [Suboxone] 1 film, SUBLING, BID, 0 Refill(s), Maintenance Active [facility] Results Order Name Results Value Reference Range Date Interpretation Comments Source AutoDiff* Auto Neutrophil Percent 71.0 % 05/30 [facility] AutoDiff* Auto Neutrophil Absolute 5.3 K/MM3 2.0 - 7.3 05/30 [facility] AutoDiff* Auto Lymphocyte Percent 16.4 % 05/30 [facility] AutoDiff* Auto Lymphocyte Absolute 1.2 K/MM3 0.9 - 4.8 05/30 [facility] AutoDiff* Auto Monocyte Percent 12.5 % 05/30 [facility] AutoDiff* Auto Monocyte Absolute 0.9 K/MM3 0.2 - 1.0 05/30 [facility] AutoDiff* Auto Eosinophil Percent 0.0 % 05/30 [facility] AutoDiff* Auto Eosinophil Absolute 0.0 K/MM3 0.0 - 0.4 05/30 [facility] AutoDiff* Auto Basophil Percent 0.1 % 05/30 [facility] AutoDiff* Auto Basophil Absolute 0.0 K/MM3 0.0 - 0.1 05/30 [facility] AutoDiff* Sex assigned at Male 05/30 [facility] Sodium Level 141 mmol/L 136 - 144 05/30 NA [facility] Potassium Level 4.5 mmol/L 3.6 - 5.1 05/30 [facility] Chloride Level 102 mmol/L 101 - 111 05/30 [facility] CO2/Carbon Dioxide 30 mmol/L 22 - 32 05/30 [facility] Anion Gap 9 mmol/L 5 - 17 05/30 [facility] Glucose, Random 118 MG/DL 74 - 118 05/30 [facility] BUN 22 MG/DL 7 - 25 05/30 [facility] Creatinine 0.8 MG/DL 0.9 - 1.3 05/30 [facility] BUN/Creat Ratio 27.5 05/30 [facility] Osmolality, Calculated 296 mOsm/L 05/30 [facility] Calcium Level 9.3 MG/DL 8.6 - 10.3 05/30 [facility] GFR - Non 103 mL/min/1.7 3m2 >=60 [...] to persons under 18 years of age. [facility] BMP GFR - 125 mL/min/1.7 3m2 >=60 05/30 [facility] Sex assigned at Male 05/30 [facility] CBC WBC 7.5 K/MM3 4.5 - 10.0 05/30 [facility] CBC RBC 3.59 M/MM3 4.40 - 6.00 05/30 L [facility] CBC HGB 11.2 G/DL 13.4 - 17.4 05/30 [facility] CBC HCT 32.7 % 38.9 - 51.5 05/30 [facility] CBC MCV 91 uM^3 80 - 100 05/30 [facility] CBC MCH 31.1 pg 26.0 - 34.0 05/30 [facility] CBC MCHC 34.2 ZZ 31.0 - 36.0 05/30 [facility] CBC RDW 14.4 % 11.6 - 14.6 05/30 [facility] CBC PLT 198 K/MM3 150 - 400 05/30 [facility] CBC MPV 8.6 uM^3 7.2 - 11.1 05/30 [facility] CBC Sex assigned at Male 05/30 [facility] PCT Procalcitonin Level <0.05 NG/ML 0.05 - [...] in few hours if suspectbacter ial infection. [facility] PCT Sex assigned at Male 05/30 [facility] Trop Troponin I <0.03 NG/ML 0.00 - [...] may be indicative of acute myocardial injury. [facility] Trop Sex assigned at Male 05/30 [facility] [id number] SARS-CoV-2 Source Melodylisa longoria 05/29 [facility] [id number] Patient From [facility]? No 05/29 [facility] [id number] Health Care Worker? No 05/29 [facility] [id number] SARS-CoV-2 Molecular Negative Negative 05/29 Negative results [...] independent review of this validation is pending. [facility] [id number] Symptomatic per CDC? Symptomati c/PUI 05/[address] Serial Retesting? Unknown 05/[address] SARS-CoV-2 First test? Unknown 05/[address] SARS-CoV-2 Is the Patient Hospitalized? Unknown 05/[address] SARS-CoV-2 Is the Patient in ICU? Unknown 05/[address] SARS-CoV-2 Is the Patient ? Unknown 05/[address] Sex assigned at Male 05/29 [facility] BGVenLab VBG - pH 7.40 7.32 - 7.43 05/29 [facility] BGVenLab VBG - pCO2 51 mmHg 41 - 51 05/29 [facility] BGVenLab VBG - pO2 49 mmHg 38 - 42 05/29 H [facility] BGVenLab VBG - HCO3 31.6 mmol/L 05/29 NA [facility] BGVenLab VBG - BE 5.6 mmol/L 05/29 [facility] BGVenLab VBG - Oxyhemoglobin 80.1 % >=75.0 05/29 [facility] BGVenLab VBG - O2 Sat 82.3 % >=75.0 05/29 [facility] BGVenLab VBG - Methemoglobin 0.0 % 05/29 [facility] BGVenLab VBG - Total Hemoglobin 12.3 G/DL 13.5 - 18.0 05/29 L [facility] BGVenLab VBG - O2 Content 13.8 mL/dL 05/29 [facility] BGVenLab BG - Modified Glenn Test N/A 05/29 [facility] BG - Site Vein 05/29 [facility]GVen[facility] BG - Pt Temp 37.0 DegF 05/29 [facility] Sex assigned at Male 05/29 [facility] AutoDiff* Auto Neutrophil Percent 67.0 % 05/29 [facility] AutoDiff* Auto Neutrophil Absolute 5.3 K/MM3 2.0 - 7.3 05/29 [facility] AutoDiff* Auto Lymphocyte Percent 17.1 % 05/29 [facility] AutoDiff* Auto Lymphocyte Absolute 1.3 K/MM3 0.9 - 4.8 05/29 [facility] AutoDiff* Auto Monocyte Percent 14.5 % 05/29 [facility] AutoDiff* Auto Monocyte Absolute 1.1 K/MM3 0.2 - 1.0 05/29 H [facility] AutoDiff* Auto Eosinophil Percent 0.9 % 05/29 [facility] AutoDiff* Auto Eosinophil Absolute 0.1 K/MM3 0.0 - 0.4 05/29 [facility] AutoDiff* Auto Basophil Percent 0.5 % 05/29 [facility] AutoDiff* Auto Basophil Absolute 0.0 K/MM3 0.0 - 0.1 05/29 [facility] AutoDiff* Sex assigned at Male 05/29 [facility] BNPep BNP B-Natriuretic Peptide 48 pg/mL 0 - 46 05/29 H [facility] BNPep Sex assigned at Male 05/29 [facility] CBC WBC 7.9 K/MM3 4.5 - 10.0 05/29 [facility] CBC RBC 4.00 M/MM3 4.40 - 6.00 05/29 [facility] CBC HGB 12.3 G/DL 13.4 - 17.4 05/29 [facility] CBC HCT 36.5 % 38.9 - 51.5 05/29 [facility] CBC MCV 91 uM^3 80 - 100 05/29 [facility] CBC MCH 30.8 pg 26.0 - 34.0 05/29 [facility] CBC MCHC 33.7 ZZ 31.0 - 36.0 05/29 [facility] CBC RDW 14.6 % 11.6 - 14.6 05/29 [facility] CBC PLT 218 K/MM3 150 - 400 05/29 [facility] CBC MPV 8.3 uM^3 7.2 - 11.1 05/29 [facility] CBC Sex assigned at Male 05/29 [facility] CMP Sodium Level 137 mmol/L 136 - 144 05/29 [facility] CMP Potassium Level 3.7 mmol/L 3.6 - 5.1 05/29 [facility] CMP Chloride Level 98 mmol/L 101 - 111 05/29 [facility] CMP CO2/Carbon Dioxide 31 mmol/L 22 - 32 05/29 [facility] CMP Anion Gap 8 mmol/L 5 - 17 05/29 [facility] CMP Glucose, Random 99 MG/DL 74 - 118 05/29 [facility] CMP BUN 27 MG/DL 7 - 25 05/29 H [facility] CMP Creatinine 1.3 MG/DL 0.9 - 1.3 05/29 [facility] CMP BUN/Creat Ratio 20.8 05/29 [facility] CMP Osmolality, Calculated 289 mOsm/L 05/29 [facility] CMP Calcium Level 9.9 MG/DL 8.6 - 10.3 05/29 [facility] CMP Total Protein 7.5 G/DL 6.0 - 8.0 05/29 [facility] CMP Albumin Level 4.1 G/DL 3.5 - 5.0 05/29 [facility] CMP Globulin Level 3.4 G/DL 2.1 - 3.9 05/29 [facility] CMP A/G Ratio 1.21 1.00 - 2.50 05/29 [facility] CMP ALP 78 Units/L 38 - 126 05/29 [facility] CMP ALT 18 Units/L 8 - 40 05/29 [facility] CMP AST 27 Units/L 15 - 41 05/29 [facility] CMP Bilirubin, Total 0.4 MG/DL 0.3 - 1.2 05/29 [facility] CMP GFR - Non 59 mL/min/1.7 3m2 [...] to persons under 18 years of age. [facility] CMP GFR - 71 mL/min/1.7 3m2 >=60 05/29 [facility] CMP Sex assigned at Male 05/29 [facility] Trop Troponin I <0.03 NG/ML 0.00 - [...] may be indicative of acute myocardial injury. [facility] Trop Sex assigned at Male 05/29 NA [facility] Diagnostic Reports Report Value Date Source [...] Underlying centrilobular emphysema, and chronic bronchitis. 2021 [facility] Chest 1 Vw Portable PROCEDURE: CHEST [...] for pneumonia. Small right pleural effusion. 2021 [facility] Consultation Notes Results Value Date Source Progress Note Patient: DARRIAN ALAMO Age: 66 years Legal Sex: Male : 1955 Author: MD Nicolas, Maurice Carias Discharge summary dictated with dictation number [id number] Male 05/31/2021 [facility] ED Physician Notes Patient: DARRIAN ALAMO [...] access, Antibiotics, IV fluid, Oxygen), Case review (medical aide, nursing), Alternate history emergency medical services. Treatment response: Improved. Performed by: self. Notes: This time excludes time spent performing procedures but includes time spent on direct patient care, history retrieval, review of the chart, and discussions with patient, family, and systems consultant(s). . [id number] Male 2021 [facility] ED Physician Notes Patient: GIOVANY ALAMO [...] male reported history of COPD traveling from [place] to [place] presents from the airport with shortness of breath. Patient reports he developed difficulty breathing earlier this morning which continued on the plane flight from [place]. Has associated wheezing. Denies any cough, fever, [...] No records identified on chart review at [facility] Patient reports being from [place] with a known history of COPD DARRIAN [...] Oxygen provided for acute hypoxemia The hospitalist manufacturing plant controller was consulted and agreed to accept patient [...] Condition Stable Disposition Admit MSEI Information JUSTICEI /TECHNICAL ASST/PA Time Patient Seen face to face: Date [...] Peptide 48 pg/mL (HIGH) 05/29/21 07:43 PST [id number] Male 2021 [facility] Discharge Summaries Results Value Date Source Discharge Summary DATE OF ADMISSION: 2021 DATE OF DISCHARGE: 05/30/2021 PRIMARY CARE PROVIDER: Zion Atkins DNP, PHYSICAL EDUCATION SPECIALIST-BC, ANDREW-BC, of the [facility], phone number is [phone], fax number is [phone]. ATTENDING PROVIDERS: 1. Nico Capone MD 2. [...] who was traveling from his home in [place] to [place], with onset of shortness of breath during [...] the time of discharge. MD Lynne Bowden [facility],05/30/2021 21:02:17 PST. Conf # [id number] ,05/30/2021 21:31:26 PST. Dictation ID [id number] Male 05/31/2021 [facility] History and Physicals Results Value Date Source History and Physical Examination 2021 [facility] History and Physical Admit Date: 022 [...] respiratory illness specifically previously. He is from [place], [place] and was traveling through [place] on his way to [place] as today is his birthday. This is the first leg in an extended trip. 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 He acknowledges being pretty significantly fatigued yesterday [...] He was on his way to visit [place] briefly, but then a few other parts of the country to visit his grandsons and granddaughters, all the way in [place] for example, so he has extended duration [...] rounds of Mohs surgery and finally a [id number] graft. 7. Degenerative disease of the cervical [...] D DML, 2021 15:06:41 PST. Conf # [id number] , 2021 16:30:17 PST. Dictation ID [id number] Male 2021 [facility] Vital Signs Vital Sign Value Date Comments Source Oxygen delivery Room air (05/30/21 3:41 PM) 05/30/2021 05 [facility] Temperature (F) 98.3 [degF] 05/30/[facility] Peripheral Pulse Rate 95 bpm 05/30/2021 05 [facility] Peripheral pulse site Non-invasive BP device (05/30/21 3:41 PM) 05/30/2021 05 [facility] Respiratory rate 14 br/min 05/30/2021 05 [facility] Systolic BP 120 mm[Hg] 05/30/2021 05 [facility] Diastolic BP 67 mm[Hg] 05/30/2021 05 [facility] Blood Pressure Method Automatic (05/30/21 3:41 PM) 05/30/2021 05 [facility] Pulse Oximetry 95 % 05/30/2021 05 [facility] Oxygen delivery Room air (05/30/21 11:33 AM) 05/30/2021 05 [facility] Temperature (F) 98.4 [degF] 05/30/2021 05 [facility] Peripheral Pulse Rate 82 bpm 05/30/2021 05 [facility] Peripheral pulse site Non-invasive BP device (05/30/21 11:33 AM) 05/30/2021 05 [facility] Respiratory rate 16 br/min 05/30/2021 05 [facility] Systolic BP 114 mm[Hg] 05/30/2021 05 [facility] Diastolic BP 53 mm[Hg] 05/30/2021 05 [facility] Blood Pressure Method Automatic (05/30/21 11:33 AM) 05/30/2021 05 [facility] Pulse Oximetry 92 % 05/30/2021 05 [facility] Respiratory rate 21 br/min 05/30/2021 05 [facility] Peripheral Pulse Rate 78 bpm 05/30/2021 05 [facility] Pulse Oximetry 92 % 05/30/2021 05 [facility] Oxygen delivery Room air (05/30/21 9:00 AM) 05/30/2021 05 [facility] Neurological norm WDL (05/30/21 9:00 AM) 05/30/2021 05 [facility] Temperature (F) 98.1 [degF] 05/30/2021 05 [facility] Peripheral pulse site Non-invasive BP device (05/30/21 8:07 AM) 05/30/2021 05 [facility] Systolic BP 134 mm[Hg] 05/30/2021 05 [facility] Diastolic BP 62 mm[Hg] 05/30/2021 05 [facility] Blood Pressure Method Automatic (05/30/21 8:07 AM) 05/30/2021 05 [facility] Neurological norm No change from previous assessment (05/30/21 3:29 AM) 05/30/2021 05 [facility] Neurological norm No change from previous assessment (05/30/21 12:46 AM) 05/30/2021 05 [facility] Oxygen FiO2 21 % 05/30/2021 05 [facility] HeightLength (cm) 187.6 cm 2021 05 [facility] HeightLength method Stated (05/29/21 12:2 0 PM) 2021 05 [facility] Weight measured method Standing scale (05/29/21 12:20 PM) 2021 05 [facility] Body Mass Index 0 kg/m2 2021 05 [facility] Weight (kg) 72.57 kg 2021 05 [facility] Heart Rate Monitored 98 bpm 2021 05 [facility] Mean BP 106 mm[Hg] [address] [facility] Heart Rate Monitored 87 bpm 2021 05 [facility] Mean BP 95 mm[Hg] [address] [facility] Oxygen flow 0 L/min 2021 05 [facility] Oxygen flow 0 L/min 2021 05 [facility] Heart Rate Monitored 98 bpm 2021 05 [facility] Mean BP 85 mm[Hg] [address] [facility] Oxygen flow 1 L/min 2021 05 [facility] Weight (kg) 73.48 kg 2021 05 [facility] Dose calculation weight (kg) 73.48 kg 2021 05 [facility] Encounters Location Location Details Encounter Type Encounter Number Reason For Visit Attending Provider ADM Date DC Date Status Source 08 15 [facility] Observation [id number] Acute Hypoxemi c Respirat ory Failure, Communit y Acquired Pneumoni a Nico Capone 05/29 Active [facility] Social History Social History Date Source Social History TypeResponse Smoking Status Is there a smoker in the household? No; *Do you have concerns about tobacco use in household? No; Former smoker, quit more than 30 days ago; Never; *Are you ready to quit? Yes entered on: 05/29/21 Sex Male [address] [place] [address] Social History TypeResponse Smoking Status Is there a smoker in the household? No; *Do you have concerns about tobacco use in household? No; Former smoker, quit more than 30 days ago; Never; *Are you ready to quit? Yes entered on: 05/29/21 Sex Male 05 [facility] Social History TypeResponse Smoking Status Is there a smoker in the household? No; *Do you have concerns about tobacco use in household? No; Former smoker, quit more than 30 days ago; Never; *Are you ready to quit? Yes entered on: 05/29/21 Sex Male [address] [place] [address]
--- OUTSIDE RECORDS SUMMARY | 2024-04-08 11:19 | XMS_ITS | Patient Health Record ---
Author Organization [facility] Address [address] [address] Care Team Providers Care Major Account Manager Name Role Phone July Unavailable [phone] DAYSI ARREDONDO Unavailable [phone] BRAULIO FITZGERALD Unavailable [phone] Allergies No Known Allergies Results Component Value [...] brachial index evaluation. Previous: 08/18/23 CTA ABD/PELV ([facility]) Bilateral: Bilateral lower extremity [...] index evaluation. FINDINGS Previous: 08/18/23 CTA ABD/PELV ([facility]) FINDINGS Bilateral: Bilateral lower [...] are obtained. Previous: 08/18/23 CTA ABD PELVIS ([facility]) Aorta: Limited visualization of [...] obtained. FINDINGS Previous: 08/18/23 CTA ABD PELVIS ([facility]) FINDINGS Aorta: Limited visua lization of the abdominal aorta due to heavy bowel gas FINDINGS See Below For Report FINDINGS See Below For Report FINDINGS Conclusions: Aortoil iac atherosclerosis. Reason For Referral Reason Severe PAD Diagnosis 1 PAD (peripheral adria ry disease) (I73.9) Referral Organization [facility] TUTE Kori GRADY Referring Provider First Name LESLI Referring Provider Last Name ART Referring Provider Speciality Cardiology Referred Organization [facility] MIGUEL A Referred Provider July Referred Address [address],[place], [place],[address], Referred Provider Specialty Vascular Isabel rene General Notes CHRISTOPHER MCGHEE 08/27 03:29:52 PM >requested CTA images, WILY SANTANA 08/31/2023 07:18:04 AM > no images yetRome Katy 08/31/2023 10:39:34 AM > Patient verified Demos and [facility]/31/2023 12:10:48 PM > The patient called and wondered if we had everything that we needed in order to schedule him at [facility]. He is anxious to get an appointment because his referring provider stated that this was an urgent matter.ESTHER KAYLIN R 08/31/2023 12:28:50 PM > not sure on getting these images stat can someone review since pt is worried?, WILY SANTANA 09/01/2023 11:23:30 AM > PT IS VERY WORRIED AND DOES NOT WANT TO WAIT FOR LIA. THERE WAS AN OPEN SPOT ON [facility] DAY 09/08. HE IS AWARE TO [...] Peripheral vascular disease, unspecified (I73.9) [facility] Referring Provider First Name JULY Referring Provider Last Name PILI Referring Provider Speciality Vascular S urgery Referred Organization [facility] Referred Address [address],[place], [place],[address], Referred Provider Specialty Gastroentero logy Referral Priority [...] Risk Notes Problem Inflammatory disease of liver (195819867) Unspecified hepatitis (573.3) Active confirmed Problem Major depression, single episode (40363994) Major depressive disorder, single episode, unspecified (F32.9) Active confirmed Problem Sleep apnea (76906645) Sleep apnea, unspecified (G47.30) Active confirmed Problem Essential hypertension (06021591) Essential (primary) hypertension (I10) Active confirmed Problem 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 (173296089645396) 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 (I25.10) Active confirmed Problem Peripheral vascular disease (273807714) Peripheral vascular disease, unspecified (I73.9) Active confirmed Problem Chronic obstructive pulmonary disease (02849726) Chronic obstructive pulmonary disease, unspecified (J44.9) Active confirmed Problem Dyspnea (512024561) Dyspnea, unspecified (R06.00) Active confirmed Problem Abnormal findings on diagnostic imaging of heart and coronary circulation (696671682) Abnormal findings on diagnostic imaging of heart and coronary circulation (R93.1) Active confirmed Problem History of heart valve repair with prosthesis (144105283691507) 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) Active confirmed Problem Peripheral vascular disease (357325971) PAD (peripheral artery disease) (I73.9) Active confirmed Vital Signs Heart Rate 95 /min 09/09/2023 Oximetry 90 % 09/09/2023 Blood pressure diastolic 76 mm Hg 09/09/2023 Weight-kg 80.75 kg 09/09/2023 Blood pressure systolic 146 mm Hg 09/09/2023 Encounters Encounter Location Date Provider Diagnosis [facility] [address] [place] [id number] 09/04/2023 [facility] [address] [place] [id number] 09/09/2023 [facility] [address] [place] [address] 09/09/2023 DAYSI ARREDONDO PAD (peripheral artery disease) I73.9 ; Presence of prosthetic heart valve Z95.2 ; Dyspnea, unspecified R06.00 and Chronic obstructive pulmonary disease, unspecified J44.9 [facility] [address] [place] [address] 09/07/2023July PILI Assessments Encounter Date Diagnosis (ICD [...] OF [place] [address] [id number] INGRIDAbel DARRIAN Self - patient is the insured Medical (General) History Medical History History ICD Code Peripheral vascular disease, unspecified I73.9 Atherosclerotic heart diseas e of squax[place] coronary artery without angina pectoris I25.10 Presence [...]
--- OUTSIDE RECORDS SUMMARY | 2024-04-08 11:19 | XMS_ITS | Clinical Summary ---
Author Organization Unknown Care Team Providers Care Patrol Commander Name Role Phone ROGELIO PATTON DO Unavailable Unavailable DONAVAN PT, LIC# [id number], FRANCI Unavailable Unavailable YANA OT. 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 Active 09-19 [...] 20 mg tablet 09-17 00:00: 00 Yes [id number] LOWERS BP 1 tablet ONCE DAILY 1 tablet ONCE DAILY (route: oral) Med Classific ation: Cardiovas cular Therapy Agents Trelegy Ellipta 200 mcg-62.5 mcg-25 mcg powder for inhalation 09-17 00:00: 00 Yes [id number] STOPS COPD EXACERBATIO NS 1 inhalat ion ONCE DAILY 1 inhalation ONCE DAILY (route: inhalation ) Med Classific ation: Respirato ry Therapy Agents buprenorphi ne 4 mg-naloxone 1 mg sublingual film 09-16 00:00: 00 09-26 23:59 :00 No [id number] STOPS NARCOTIC CRAVINGS 0.5 film ONCE DAILY 0.5 film ONCE DAILY (route: sublingual ) Med Classific ation: Chemical Dependenc y, Agents to Treat Acetaminoph en Extra Strength 500 mg tablet 09-19 00:00: 00 Yes [id number] PAIN 2 tablet EVERY 8 HOURS 2 tablet EVERY 8 HOURS (route: oral) Med Classific ation: Analgesic , Anti-infl ammatory or Antipyret ic albuterol sulfate 2.5 mg/3 mL (0.083 %) solution for nebulizatio n 09-19 00:00: 00 Yes [id number] IF SOB OR WHEEZING 3 mL 4 TIMES DAILY 3 mL 4 TIMES DAILY (route: inhalation ) Med Classific ation: Respirato ry Therapy Agents albuterol sulfate HFA 90 mcg/actuati on aerosol inhaler 09-19 00:00: 00 Yes [id number] SHORT OF BREATHE OR WHEEZING 2 puff EVERY 4 HOURS 2 puff EVERY 4 HOURS (route: inhalation ) Med Classific ation: Respirato ry Therapy Agents aspirin 81 mg tablet,susan yed release 09-19 00:00: 00 Yes [id number] BLOOD THINNER 1 tablet ONCE DAILY 1 tablet ONCE DAILY (route: oral) Med Classific ation: Hematolog ical Agents ergocalcife rol (vitamin D2) 1,250 mcg (50,000 unit) capsule 09-19 00:00: 00 Yes [id number] VIT D2 SUPPLEMENT 1 capsule WEEKLY 1 capsule WEEKLY (route: oral) Med Classific ation: Electroly te Balance-N utritiona l Products ferrous sulfate 325 mg (65 mg iron) tablet 09-19 00:00: 00 Yes [id number] IRON 1 tablet ONCE DAILY 1 tablet ONCE DAILY (route: oral) Med Classific ation: Electroly te Balance-N utritiona l Products naloxone 4 mg/actuatio n nasal spray 09-19 00:00: 00 Yes [id number] IF WITH NARCOTIC OD 1 spray DIRECTED 1 spray DIRECTED (route: nasal) Med Classific ation: Antidotes and other Reversal Agents olanzapine 10 mg tablet 09-19 00:00: 00 Yes [id number] HELPS SLEEP 1 tablet AT BEDTIME 1 tablet AT BEDTIME (route: oral) Med Classific ation: Central Nervous System Agents OXYGEN 09-19 00:00: 00 Yes [id number] IF SOB 2 Liter NEEDED 2 Liter A S NEEDED (route: Oxygen) Med Classific ation: Medical Oxygen metoprolol succinate ER 25 mg tablet,exte nded release 24 hr 10-10 00:00: 00 Yes [id number] HEART. LOWER HR 1 tablet ONCE DAILY [...] HEAL UP SO I CAN TRAVEL HOME ([place]) Goal Provider Goal - PHYSICAL THERAPY EVALUATION [...] WILL BE ESTABLISHED THAT MEETS ALL PATIENT'S SENIOR CARE NEEDS AND COUNTER SIGNED BY PHYSICIAN. Goal [...] End Date/Time Encounter Type Admission Type Attending [facility] Department Encounter ID Discharge Date Discharge Status Discharge Condition Discharge Reason Percent Goals Met 2022-09-19 00:00:00 2022-10-17 00:00:00 Outpatient NEW ADMISSION [place] [facility] [id number] 00:00:00 DISCHARGE TO HOME OR SELF CARE INDEPENDEN T IN THE HOME GOALS MET 67.31
--- OUTSIDE RECORDS SUMMARY | 2024-04-08 11:19 | XMS_ITS | Data Portability ---
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 Based on CV risk calculator an estimated 10 year risk of AK or stroke of 14.5%, the patient should be taking a statin. He is already taking a baby aspirin. Suggest: 1. Agree with baby aspirin. 2. Begin atorvastatin 80 mg daily. 3. Patient will monitor and record blood pressures at home for the next 2 weeks. [facility] and if necessary I would suggest starting him on an antihypertensive such as either lisinopril or amlodipine. Total time spent evaluating the patient, reviewing data, examined the patient, counseling the patient was 35 minutes with greater than 50% of time spent in direct patient counseling and coordinating care. Note dictated with voice recognition software. Any errors must be taken in context. Not available 04/15/2019 18:15:45 Plan of Treatment Reminders Order Date Submit Date Provider Last Modified By Organization Details Last Modified Time Details Appointments None recorded. Lab None recorded. Referral None recorded. Procedures None recorded. Surgeries None recorded. Imaging electrocar diogram 2019 020 [email or web address] [facility], [address], [address], [place], [address], 14:40:32 electrocar diogram 2022 023 [email or web address] In-Office Order, Internal Use Only DO Not Attach Compendium DO Not Attach Compendium, Do Not Delete/merge, [id number] 18:04:32 Medication Orders atorvastat in 80 mg tablet 2019 020 [facility] [id number], [address] [facility] [address], [place], [id number], 17:10:51 Patient TargetsNo targets recorded. Patient Instructions Encounter Date Encounter Id Patient Instructions Last Modified By Organization Details Last Modified Time 04/15/2019 [id number] high blood pressure: care instructions Not available 04/15/2019 18:17:12 learning about high blood pressure Not available 04/15/2019 18:17:12 high cholesterol : care instructions Not available 04/15/2019 18:17:12 12/16/2022 [id number] high blood pressure: care instructions fyounas Not available 12/16/2022 17:31:07 learning about high blood pressure fyounas Not available 12/16/2022 17:31:07 high cholesterol : care instructions fyounas Not available 12/16/2022 17:31:07 chronic obstructive pulmonary disease (COPD): care instructions fyounas Not available 12/16/2022 17:31:07 learning about copd and how to prevent lung infections fyounas Not available 12/16/2022 17:31:07 Reason for Referral None Reported. Results Created Date Observation Date Name Description Value Unit Range Abnormal Flag Note LastModifiedBy Organization Detail LastModifiedTime 04/14/1904/20/2018 pulmo nary funct ion test* No observ ation record ed. [facility] Not Available 2019 14:41:52 04/18/19 20 04/15/2019 elect rocsiomara murciagr am No observ ation record ed. BAR[facility] [address], [place], [address], 04/18/2019 14:45:29 12/09/19 23 11/05/2021 elect rocar diogr am No observ ation record ed. Not Available 2022 17:20:53 12/09/19 23 11/05/2021 elect rocar diogr am No observ ation record ed. Not Available 2022 17:22:10 12/17/19 23 12/16/2022 elect rocar diogr am No observ ation record ed. [place] In-Office Order Internal Use Only DO Not Attach Compendium DO Not Attach Compendium, Do Not Delete/merge, [id number] 12/17/2022 18:10:26 12/17/19 elect rocar diogr am No observ ation record ed. [place] In-Office Order Internal Use Only DO Not Attach Compendium DO Not Attach Compendium, Do Not Delete/merge, [id number] 12/16/2022 17:29:39 02/18/20 23 12/16/2022 CT, chest , w/o contr ast No observ ation record ed. [email or web address] Not Available 2022 14:21:24 02/18/20 23 12/21/2022 XR, chest No observ ation record ed. [email or web address] Not Available 2022 14:22:08 02/18/20 23 12/21/2022 elect rocar diogr am No observ ation record ed. [email or web address] Not Available 2022 14:32:36 11/05/19 24 10/28/2023 , [facility] ardio gram No observ ation record ed. [email or web address] Not Available 2023 14:01:54 Result Notes None recorded. Problems Name Problem SNOMED Code Status Onset Date Resolution Date Notes Provider Name and Address Organization Details Recorded Time Chronic obstructive pulmonary disease 96027189 Active 2022 MD Lenin Rodriguez [address], [place], [address] , [facility] 3 17:30:00 Essential hypertension 16642532 Active 2022 Walt Young MD [address], [place], [address], [facility] 3 17:30:11 Hyperlipidemia 68363363 Active 2022 Walt Young MD [address], [place], [address], [facility] 3 17:30:17 Notes:Some problems listed i n Document: #[id number] could not be added to this patient's chart. Please review this document and add these problems to the patient's chart manually as needed. Problem Notes None recorded. Procedures Surgical History Date Name Laterality Status Provider Name and Address Organization Details Recorded Time 09/03/19 23 Replacement of aortic valve completed Lynnette Carranza [facility] 12/08/2022 17:14:50 04/13/19 09 excision of lumbar intervertebral disc completed Lynnette Carranza [facility] 12/08/2022 17:15:11 Appendectomy completed Flaca Barrett NP [address], [place], [address], [facility] 04/14/2019 19:12:57 excision of basal cell carcinoma completed Lynnette Carranza [facility] 12/08/2022 17:15:25 Tonsillectomy completed Lynnette Carranza [facility] 12/08/2022 17:15:34 Imaging Results Imaging Date Name Status LastModified by Organization Details LastModified Time 04/20/2018 pulmonary function test* completed [facility] Information not available 04/14/2019 14:41:52 04/15/2019 electrocardiogram completed [facility] [address], [place], [address], 04/18/2019 14:45:29 11/05/2021 electrocardiogram completed Informa tion not available 12/08/2022 17:20:53 11/05/2021 electrocardiogram completed Informa tion not available 12/08/2022 17:22:10 12/16/2022 electrocardiogram completed [place] In-Offi ce Order Internal Use Only DO Not Attach Compendium DO Not Attach Compendium, Do Not Delete/merge, [id number] 12/17/2022 18:10:26 12/16/2022 electrocardiogram completed [place] In-Offi ce Order Internal Use Only DO Not Attach Compendium DO Not Attach Compendium, Do Not Delete/merge, [id number] 12/16/2022 17:29:39 12/16/2022 CT, chest, w/o contrast completed Information not available 02/17/2023 14:21:24 12/21/2022 XR, chest completed Information no t available 02/17/2023 14:22:08 12/21/2022 electrocardiogram completed Informa tion not available 02/17/2023 14:32:36 10/28/2023 US, echocardiogram completed Inform ation not available 11/05/2023 14:01:54 Procedure Notes None recorded. Medical Equipment None Reported. Allergies No known drug allergies Medications Name Sig Start Date Stop Date Status Note LastModified by Organization Details LastModified Time cyclobenzap rine 10 mg tablet Take 1 tablet 3 times a day by oral route. 04/15 completed Not Available Not Available Not Available atorvastati n 80 mg tablet Take 1 tablet every day by oral route. 12/08 completed Not Available Not Available Not Available albuterol sulfate 2.5 mg/3 mL (0.083 %) solution for nebulizatio n Inhale 3 mL 3 times a day by nebulizat ion route. 12/08 completed Not Available Not Available Not Available metoprolol succinate ER 50 mg tablet,exte nded release 24 hr Take 1 tablet every day by oral route. active Not Available Not Available No t Available lisinopril 20 mg tablet Take 1 tablet every day by oral route. active Not Available Not Available No t Available olanzapine 10 mg tablet Take 1 tablet every day by oral route as needed. active Not Available Not Available No t Available terazosin 1 mg capsule Take 1 capsule every day by oral route. 12/08 completed Not Available Not Available Not Available aspirin 81 mg tablet,susan yed release Take 1 tablet every day by oral route. active Not Available Not Available No t Available DuoNeb 0.5 mg-3 mg(2.5 mg base)/3 mL solution for nebulizatio n Inhale 3 mL 4 times a day by nebulizat ion route. 12/08 completed Not Available Not Available Not Available paroxetine 20 mg tablet Take 1 tablet every day by oral route. 12/08 completed Not Available Not Available Not Available lisinopril 10 mg tablet Take 1 tablet every day by oral route. 12/16 completed Not Available Not Available Not Available metoprolol succinate ER 25 mg tablet,exte nded release 24 hr Take 1 tablet every day by oral route. 12/16 completed Not Available Not Available Not Available Spiriva with HandiHaler 18 mcg and inhalation capsules Inhale 1 capsule every day by inhalatio n route. 12/08 completed Not Available Not Available Not Available ProAir HFA 90 mcg/actuati on aerosol inhaler Inhale 2 puffs every 4 hours by inhalatio n route. 12/08 completed Not Available Not Available Not Available Suboxone 8 mg-[address] 1 film every day by sublingua l route. 04/15 completed Not Available Not Available Not Available Centrum Silver 0.4 mg-300 mcg-250 mcg tablet Take 1 tablet every day by oral route. 12/16 completed Not Available Not Available Not Available Vitamin D2 12/08 completed Not Available Not Available Not Available Breo Ellipta 200 mcg-25 mcg/dose powder for inhalation Inhale 1 puff every day by inhalatio n route. 12/08 completed Not Available Not Available Not Available Trelegy Ellipta 200 mcg-62.5 mcg-25 mcg powder for inhalation Inhale 1 puff every day by inhalatio n route. active Not Available Not Available No t Available Vitals Date Recorded Body height Body mass index (BMI) Body weight Heart rate Respiratory rate Oxygen saturation Oxygen saturation in Arterial blood by Pulse oximetry Systolic blood pressure Diastolic blood pressure Provider Name and Address Organization Details Last Updated DateTime 0 187.96 cm 25 kg/m2 50743.5 1 g 71 /min 18 /min 95 % 95 % 162 mm[Hg] 78 mm[Hg] Brad Ceballos RN [facility] 0 17:30:59 Date Recorded Body weight Body mass index (BMI) Body height Body temperature Oxygen saturation Oxygen saturation in Arterial blood by Pulse oximetry Heart rate Systolic blood pressure Diastolic blood pressure Provider Name and Address Organization Details Last Updated DateTime 3 61242.8 8 g 23.5 kg/m2 185.42 cm 98.2 [degF] 92 % 92 % 92 /min 148 mm[Hg] 84 mm[Hg] Lynnette Carranza CMA [facility] 3 17:01:21 Social History Question Answer Notes LastModified by Organizat ion Details LastModified Time Tobacco Smoking Status Former Smoker Lynnette Carranza CMA null, [facility] 12/16/2022 17:03:04 Do You Have An Advance Directive? Yes Information not available 12/16/2022 What Is Your Level Of Alcohol Consumption? Occasional Information not available 12/08/2022 How Many Times Per Week Do You Consume Alcohol? 5-7 Times Per Week Couple Beers Rachel Information not available 12/16/2022 What Is Your Level Of Caffeine Consumption? Moderate 2 Cups Coffee Per Day Information not available 12/16/2022 What Type Of Diet Are You Following? REGULAR Information not available 12/16/2022 Which Illicit Or Recreational Drugs Have You Used? Cannabis Information not available 12/08/2022 When Did You Quit Smoking? 1-5yearssince robin QUIT 2019. Uses Nicotine Gum Information not available 12/16/2022 Live Alone Or With Others? With Others [email or web address] Information not available 04/14/2019 Marital Status [email or web address] Informatio n not available 04/14/2019 What Was The Date Of Your Most Recent Tobacco Screening? 12/16/2022 Information not available 12/16/2022 How Many Children Do You Have? 2 Information not available 12/16/2022 What Is Your Relationship Status? Single Information not available 12/16/2022 Do You Use Any Illicit Or Recreational Drugs? No Information not available 12/16/2022 How Many Years Have You Smoked Tobacco? 40 Information not available 04/15/2019 Have You Recently Traveled Abroad? No Information not available 12/16/2022 Have You Used IV Drugs? No Information not available 12/08/2022 Do You Or Have You Ever Used Any Other Forms Of Tobacco Or Nicotine? No Information not available 12/08/2022 Sex: Unknown Functional Status Question Answer Note LastModified by Organizat ion Details LastModified Time What is your exercise level? Occasional Information not available 12/16/2022 Mental Status None recorded. Family History Relationship Description Onset Age of this Age Resolved Age Notes LastModified by Organization Details LastModified Time Father Cerebrovascu lar accident 62 [email or web address] Not available 05/2019 19:09:44 Mother Myocardial infarction 50 [email or web address] Not available 04/14 19:10:29 Sister Myocardial infarction Not available 12/16 17:02:33 Medical History Condition Response SLEEP DISORDER/SLEEP APNEA Y ONCOLOGY Y CARDIO/VASCULAR DISEASE Y BEHAVIORAL HEALTH/PSYCH Y PULMONARY Y ORTHOPEDIC/MUSCUOLSKELETAL Y Immunizations Vaccine Type Date Status Note Provider Nam e and Address Organization Details Recorded Time Influenza, high-dose, quadrivalent, PF 2 completed Ling John CMA null, [facility] 12/16/2022 12:46:42 Influenza, high-dose, quadrivalent, PF 0 completed Ling John CMA null, [facility] 12/16/2022 12:46:42 Influenza, adjuvanted, quadrivalent, PF 1 completed Ling John CMA null, [facility] 12/16/2022 12:46:42 COVID-19, mRNA, LNP-S, PF, 100 mcg/0.5mL dose or 50 mcg/0.25mL dose 1 completed Ling John CMA null, [facility] 12/16/2022 12:46:42 COVID-19, mRNA, LNP-S, PF, 100 mcg/0.5mL dose or 50 mcg/0.25mL dose 1 completed Ling John [employer] null, [place] [facility] [place] 12/16/2022 12:46:42 COVID-19, mRNA, LNP-S, PF, 100 mcg/0.5mL dose or 50 mcg/0.25mL dose 2 completed Ling John [employer] null, [place] [facility] [place] 12/16/2022 12:46:42 COVID-19, mRNA, LNP-S, PF, 100 mcg/0.5mL dose or 50 mcg/0.25mL dose 1 completed Ling John [employer] null, [place] [facility] [place] 12/16/2022 12:46:42 COVID-19, mRNA, LNP-S, bivalent, PF, 50 mcg/0.5 mL or 25mcg/0.25 mL dose 2 completed Ling John [employer] null, [place] [facility] [place] 12/16/2022 12:46:42 pneumococcal polysaccharide PPV23 7 completed Ling John [employer] null, [place] [facility] [place] 12/16/2022 12:46:42 pneumococcal polysaccharide PPV23 1 completed Ling John [employer] null, [place] [facility] [place] 12/16/2022 12:46:43 pneumococcal polysaccharide PPV23 6 completed Ling John [employer] null, [place] [facility] [place] 12/16/2022 12:46:43 influenza, unspecified formulation 8 completed Ling John [employer] null, [place] [facility] [place] 12/16/2022 12:46:43 influenza, unspecified formulation 0 completed Ling John [employer] null, [place] [facility] [place] 12/16/2022 12:46:43 influenza, unspecified formulation 9 completed Ling John [employer] null, [place] [facility] [place] 12/16/2022 12:46:43 influenza, unspecified formulation 2 completed Ling John [employer] null, [place] [facility] [place] 12/16/2022 12:46:43 influenza, unspecified formulation 6 completed Ling John [employer] null, [place] [facility] [place] 12/16/2022 12:46:43 Td(adult) unspecified formulation 1 completed Ling John [employer] null, [place] [facility] [place] 12/16/2022 12:46:43 Td(adult) unspecified formulation 4 completed Ling John [employer] null, [place] [facility] [place] 12/16/2022 12:46:43 Tdap 4 completed Ling John [employer] null, [place] [facility] [place] 12/16/2022 12:46:43 Tdap 6 completed Ling John [employer] null, [place] [facility] [place] 12/16/2022 12:46:43 Pneumococcal conjugate PCV 13 0 completed Ling John [employer] null, [place] [facility] [place] 12/16/2022 12:46:43 Influenza, split virus, trivalent, preservative 4 completed Ling John [employer] null[place] [facility] [place] 12/16/2022 12:46:43 Influenza, split virus, trivalent, preservative 5 completed Ling John [employer] null, [place] [facility] [place] 12/16/2022 12:46:43 Influenza, split virus, trivalent, preservative 4 completed Ling John [employer] null[place] [facility] [place] 12/16/2022 12:46:43 Novel [id number] 0 completed Ling John [employer] null, [place] [facility] [place] 12/16/2022 12:46:43 Influenza, split virus, quadrivalent, PF 7 completed Ling Bennetts, [employer] null, [place] [facility] [place] 12/16/2022 12:46:43 Hep A, unspecified formulation 8 completed Ling John, [employer] null[place] [facility] [place] 12/16/2022 12:46:43 Hep A, unspecified formulation 8 completed Ling John, [employer] null, [place] [facility] 12/16/2022 12:46:43 Influenza, MDCK, trivalent, PF 9 completed Ling John, [employer] null, [place] [facility] [place] 12/16/2022 12:46:43 Past Encounters Encounter ID Performer Location Encounter Start Date Encounter Closed Date Diagnosis/Indication Diagnosis SNOMED-CT Code Diagnosis ICD10 Code [id number] Gerri Lawson MD [facility] [address] [place] [address] 04/15/2019 17:19:34 04/18/2019 14:16:36 Hyperlipidemia 94359108 E78.5 Essential hypertension 92117109 I10 [id number] Walt Young MD [facility] [address] [place] [address] 12/16/2022 16:27:03 12/16/2022 17:41:50 History of aortic valve replacement 7128681615 100 Z95.4 Chronic ob structive pulmonary disease 37208442 J44.9 Essential hypertension 55082028 I10 Hyperlipidemia 77818076 E78.5 Health Concerns Section Related Observation LastModified by Organization Detai ls LastModified Time None Recorded Concern Status LastModified by Organization Details LastModified Time None Recorded Advance Directives Directive Y: Payers Encounter Date Sequence Insurance Name Policy Number Policy Li Covered Member ID Li Member ID Guarantor Name 04/15/2019 1 [place] [facility] [employer] [id number] [employer] 12/16/2022 1 [place] [id number] [id number] [employer] Notes Date Note Type Note Provider Name and Address Organization Details Recorded Time 04/15/2019 text/html 63-year-old mony linda referred here to discuss cardiac risk reduction. Patient has multiple medical problems including untreated hypertension, COPD, hepatitis-C, history of opioid dependence in remission, history of alcohol use, and ex cigarette smoking. He has a strong family history of early coronary disease including a sister who of an AK at 50, mother who of an AK at 54, and father who of a stroke at 64. the patient plays golf for exercise; he walks the course. He also occasionally hunts and fishes. All of this is done without chest pain. He is limited by his severe COPD which was documented on recent pulmonary function testing. EKG in the office today shows sinus rhythm at 60 without acute changes PACs noted. Patient takes a baby aspirin. He is on no significant antihypertensive ( only takes terazosin 1 mg For prostate). Because of the patient's family history, he wanted to discuss risk reduction. I do see a lipid panel from March with total cholesterol 259, triglycerides 84, HDL 60, and LDL 182. Based on CV risk calculator, the patient's 10 year risk of AK or stroke is at least 14.5%. Gerri Lawson MD [facility], [facility] 04/15/2019 18:17:43 12/16/2022 text/html With medical his tory /clinical course as listed below; here for follow-up after aortic valve replacement in July 2022 in [place], [place]. Complains dyspnea, cough and phlegm. Have had fever over the weekend. Denies chest pain, pressure tightness. Denies orthopnea or PND. Denies palpitations, lightheadedness, dizziness. Denies syncope or presyncope. EKG showed normal sinus rhythm, nonspecific ST T wave changes. PAST MEDICAL HISTORY/CLINICAL COURSE:Patient has multiple medical problems including untreated hypertension, COPD, hepatitis-C, history of opioid dependence in remission, history of alcohol use, and ex cigarette smoking. He has a strong family history of early coronary disease including a sister who of an AK at 50, mother who of an AK at 54, and father who of a stroke at 64. the patient plays golf for exercise; he walks the course. He also occasionally hunts and fishes. All of this is done without chest pain. He is limited by his severe COPD which was documented on recent pulmonary function testing. EKG in the office today shows sinus rhythm at 60 without acute changes PACs noted. Walt Young MD [address], [place], [address], [facility] 12/16/2022 17:31:10
--- OUTSIDE RECORDS SUMMARY | 2024-04-08 11:19 | XMS_ITS | Data Portability ---
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 times. Polio; DV; at 55 of [place]. Not available 03/11/2022 23:34:43 Notes:Mother - Family Histor y of Heart Disease Comments: Mother: grew up in an orphanage, 3 times. Polio; DV; at 54 of [place]. - Entered On: 04/18/2015 Father: 7 times. at 62 of CVA Mother: of [place] in her 50s One biological sister: of [place] at 50 (2009) 7 step siblings 2 suicide, youngest: MVA with head injury; suicide, Oldest: Drug-related suicide Children: 3 2 sons: Youngest: lives in [place] Oldest lives in [place]: granddaughter Hsira he cared for he found out that girl was not biological child of his son (tried to adopt her but couldn't). Adriane Zuniga born 10/24 after son new girl Granddaughter [place] born 03/30 Eldest: arrested for making meth.; going to [facility]. on 03/05/12 was sentenced to 6 years in usp Entered On: 02/07/2022 Mother - Family History of Heart Disease Comments: Mother: grew up in an orphanage, 3 times. Polio; DV; at 54 of [place]. - Entered On: 04/18/2015 Father: 7 times. at 62 of CVA Mother: of [place] in her 50s One biological sister: of [place] at 50 (2009) 7 step siblings 2 suicide, youngest: MVA with head injury; suicide, Oldest: Drug-related suicide Children: 3 2 sons: Youngest: lives in [place] Oldest lives in [place]: granddaughter Shira he cared for he found out that girl was not biological child of his son (tried to adopt her but couldn't). Adriane Zuniga born 10/24 after son new girl Granddaughter Nic born 03/30 Eldest: arrested for making meth.; going to [employer]. on 03/05/12 was sentenced to 6 years in usp Entered On: 03/18/2022 Medical History No medical history recorded. Immunizations Vaccine Type Date Status Note Provider Nam e and Address Organization Details Recorded Time pneumococcal polysaccharide PPV23 6 completed Not Available [facility] 09/10/2022 20:09:12 pneumococcal polysaccharide PPV23 1 completed Not Available [facility] 09/10/2022 20:09:12 Hep A, unspecified formulation 8 completed Not Available [facility] 09/10/2022 20:09:13 Hep A, unspecified formulation 8 completed Not Available [facility] 09/10/2022 20:09:13 influenza, unspecified formulation 9 completed Not Available [facility] 09/10/2022 20:09:12 influenza, unspecified formulation 6 completed Not Available [facility] 09/10/2022 20:09:12 influenza, unspecified formulation 0 completed Not Available [facility] 09/10/2022 20:09:12 influenza, unspecified formulation 2 completed Not Available [facility] 09/10/2022 20:09:12 Influenza, split virus, trivalent, preservative 4 completed Not Available [facility] 09/10/2022 20:09:12 Influenza, split virus, trivalent, preservative 4 completed Not Available [facility] 09/10/2022 20:09:13 Influenza, split virus, trivalent, preservative 5 completed Not Available [facility] 09/10/2022 20:09:12 Tdap 6 completed Not Available [facility] 09/10/2022 20:09:12 Td(adult) unspecified formulation 1 completed Not Available [facility] 09/10/2022 20:09:12 Td(adult) unspecified formulation 4 completed Not Available [facility] 09/10/2022 20:09:12 pneumococcal polysaccharide PPV23 7 completed Not Available [facility] 09/10/2022 20:09:12 Influenza, split virus, quadrivalent, PF 7 completed Not Available [facility] 09/10/2022 20:09:13 Influenza, MDCK, trivalent, PF 9 completed Not Available [facility] 09/10/2022 20:09:13 Pneumococcal conjugate PCV 13 0 completed Not Available [facility] 09/10/2022 20:09:12 Influenza, high-dose, quadrivalent, PF 0 completed Not Available [facility] 09/10/2022 20:09:12 influenza, unspecified formulation 8 completed Not Available [facility] 09/10/2022 20:09:12 Influenza, adjuvanted, quadrivalent, PF 1 completed Not Available [facility] 09/10/2022 20:09:12 COVID-19, mRNA, LNP-S, PF, 100 mcg/0.5mL dose or 50 mcg/0.25mL dose 1 completed Not Available [facility] 09/10/2022 20:09:12 COVID-19, mRNA, LNP-S, PF, 100 mcg/0.5mL dose or 50 mcg/0.25mL dose 1 completed Not Available [facility] 09/10/2022 20:09:12 COVID-19, mRNA, LNP-S, PF, 100 mcg/0.5mL dose or 50 mcg/0.25mL dose 2 completed Not Available [facility] 09/10/2022 20:09:12 COVID-19, mRNA, LNP-S, PF, 100 mcg/0.5mL dose or 50 mcg/0.25mL dose 1 completed Not Available [facility] 09/10/2022 20:09:12 Influenza, high-dose, quadrivalent, PF 2 completed Not Available [facility] 09/10/2022 20:09:12 COVID-19, mRNA, LNP-S, bivalent, PF, 50 mcg/0.5 mL or 25mcg/0.25 mL dose 2 completed Not Available [facility] 09/10/2022 20:09:12 Tdap 4 completed Not Available [facility] 11/12/2022 16:52:24 Novel [id number] 0 completed Not Available [facility] 11/12/2022 16:52:24 Pneumococcal conjugate PCV15, polysaccharide VXM967 conjugate, adjuvant, PF 3 completed Not Available [facility] 01/07/2023 18:32:30 Past Encounters Encounter ID Performer Location Encounter Start Date Encounter Closed Date Diagnosis/Indication Diagnosis SNOMED-CT Code Diagnosis ICD10 Code [id number] TIM Bautista [facility] [address] [facility] [place] [address] 06/11/2022 16:55:03 06/11/2022 17:30:00 Hypertensive disorder 42454807 I10 Mild recur rent major depression 75820548 F33.0 Disorder in remission 76 7154962 F11.91 Alcohol abuse 47775035 F 10.99 [id number] TIM Bautista [place] [address] [place] [address] [place] [address] 06/20/2022 13:47:52 06/20/2022 14:10:49 Hypertensive disorder 62255717 I10 Alcohol abuse 88955483 F 10.99 [id number] Dario Cabral PA-C [place] [address] [place] [address] 07/04/2022 16:52:10 07/04/2022 17:35:20 Chronic obstructive pulmonary disease 41030621 J44.9 Insomnia 479020337 G47.0 0 Alcoholism 1388891 F10.2 0 [id number] Dario Cabral PA-C [place] [address] [place] [address] [place] [address] 07/18/2022 16:59:49 07/18/2022 19:12:55 Chronic obstructive pulmonary disease 24312750 J44.9 [id number] Dario Cabral PA-C [place] [address] [place] [address] [place] [address] 07/29/2022 12:55:51 07/29/2022 16:17:16 Chronic insomnia 738729396 F51.04 Essential hypertension 09714916 I10 Chronic ob structive pulmonary disease 23598873 J44.9 [id number] Zion Smyth, TIM [facility] [address] [place] [id number] 11/11/2022 15:23:25 11/11/2022 15:58:43 Opioid dependence in remission 349169857 F11.21 Chronic insomnia 6097450 04 F51.04 Moderate r ecurrent major depression 89596077 F33.1 [id number] Dario Cabral PA-C [place] [address] [place] [address] [place] [address] 11/12/2022 16:51:13 11/12/2022 17:32:53 History of aortic valve replacement 8838953125 100 Z95.4 Insomnia 800435089 G47.0 0 Essential hypertension 86693690 I10 [id number] Dario Cabral PA-C [place] [address] [place] [address] [place] [address] 11/26/2022 17:13:17 11/26/2022 18:01:06 Essential hypertension 48274539 I10 [id number] Dario Cabral PA-C [place] [address] [place] [address] [place] [address] 01/07/2023 18:29:24 01/07/2023 20:58:29 Acute exacerbation of chronic obstructive pulmonary disease 738312016 J44.1 Alcoholism 9390695 F10.2 0 [id number] Zion Smyth, TIM [facility] [address] [place] [address], [place] [address] 03/24/2023 18:27:43 03/24/2023 19:05:13 Moderate recurrent major depression 14219557 F33.1 [id number] Dario Cabral PA-C [place] [address] [place] [address] [place] [address] 03/27/2023 13:06:40 03/27/2023 15:28:10 Chronic insomnia 923669034 F51.04 Mixed anxi ety and depressive disorder 469738023 F41.8 Chronic ob structive pulmonary disease 58825287 J44.9 [id number] TIM Bautista [facility] [id number] [place] [address], [place] [address] 04/22/2023 14:55:54 04/22/2023 15:44:38 Moderate recurrent major depression 15057778 F33.1 Acute exac erbation of chronic obstructive pulmonary disease 184727758 J44.1 [id number] Dario Cabral PA-C [place] [address] [place] [address] [place] [address] 05/05/2023 13:01:56 05/05/2023 13:53:14 Chronic obstructive pulmonary disease 27312771 J44.9 Essential hypertension 55272990 I10 [id number] Dario Cabral PA-C [place] [address] [place] [address] [place] [address] 08/27/2023 18:24:26 08/27/2023 19:08:31 Acute exacerbation of chronic obstructive pulmonary disease 264418782 J44.1 Coronary arteriosclerosis 68955136 I25.10 Hypertensive disorder 38 337623 I10 Severe chr onic obstructive pulmonary disease 389537247 J44.9 Coronary atherosclerosis 733096857 I25.10 Chronic al coholism in remission 616761293 F10.21 Depressive disorder 3548 9007 F32.A Health Concerns Section Related Observation LastModified by Organization Detai ls LastModified Time None Recorded Concern Status LastModified by Organization Details LastModified Time None Recorded Advance Directives Directive None Recorded Payers Encounter Date Sequence Insurance Name Policy Number Policy Li Covered Member ID Li Member ID Guarantor Name 03/24/2023 2 MEDICARE B-[place]: [employer] [id number] [employer] 03/27/2023 2 MEDICARE B-[place]: [employer] [id number] [employer] 04/22/2023 2 MEDICARE B-[place]: [employer] [id number] [employer] 05/05/2023 2 MEDICARE B-[place]: [employer] [id number] [employer] 08/27/2023 1 [employer] N[employer] - MEDICARE-[place] - PART A - [facility] (MEDICARE) Freedom Paz [id number] [employer] Notes Date Note Type Note Provider Name and Address Organization Details Recorded Time 03/24/2023 text/html Juwan presents fo r suboxone management. His breathing has gotten bad d/t needing her oxygen, he is currently at his sisters [place] and is working on moving to [place] and is working on getting a specialist in [place] before his move and has already set [...] with them and jittery. Zion Smyth, ANP [address] [place], [address], [facility] [place] 03/24/2023 19:10:18 03/27/2023 text/html Patient has verbally consented to this visit via telehealth. Patient is located at home. This visit was performed using HIPAA compliant video via [employer].tri rating from aortic valve repair on September 02, 2022. Living in [facility], (Anitha Hogan have there names on chart to discuss pt health status).pt is currently living with sister. Currently on home O2.[facility] pharmacy fax [phone] located [facility].Had a telehealth appt with Wilbert L[place], was placed on clonazepam with no relief of insomnia current etoh use is limited to two beers/day. HE has been advised to stop by railroad commissioner Dario Cabral PA-C [address], [place], [address], [facility] [place] 03/27/2023 13:59:21 04/22/2023 text/html Juwan presents [...] the loop as well. Zion Smyth, TIM [address], [place], [address], [facility] [place] 04/22/2023 16:42:23 05/05/2023 text/html Patient has verbally consented to this visit via telehealth. Patient is located at home. This visit was performed using HIPAA compliant video via [employer]. Venita BOURNE needs refill of medication , has been having more [place] and SOB. Is fine when on nasal cannula with pulse ox at 96% but quickly desats when doing any walking. Needs refill of BP meds Dario Cabral PA-C [address], [place], [address], [facility] [place] 05/11/2023 14:57:24 08/27/2023 text/html [place] retur[place] d to [place] nd seen by cardiology in [place] on [place] chest follow up for pulmonary nodules being monitored. He understood that he had blockages and was to be seen next by vasculature surgeon. HE was seen by director design and was placed on amlodipine and crestor. [...] when he moves back to [facility] where he spent his winter.when asked on [...] live with his brother. Dario Cabral PA-C [address], [place], [address], [facility] [place] 08/28/2023 11:10:55
[2024-04-08 11:20] VITALS: BP 138/76; PULSE 82; O2SAT 95; BMI 24.7
--- NOTE | 2024-04-08 11:20 | A.OFFVIS_ITS ---
Vital Signs 3 04/08/24 11:20 Height 5 ft 11 in Weight 177 lb 2 oz BMI 24.7 BP 138/76 Blood Pressure Location Rt brachial Position Sitting Pulse 82 Pulse Source Pulse Oximeter Pulse Oximetry (%) 95 Oxygen Delivery Method Room Air Intake Visit Reasons: F/U Allergies No Known Allergies Allergy (Verified 04/08/24 11:24) HPI HPI F/U: Details: Freedom is a pleasant 68-year-old male, former smoker with 40pyh, quit 3 years ago, with underlying severe COPD, HTN, s/p aortic valve replacement 2022 and h/o hepatitis C. He was admitted on two occasions over the last few months with COPD exacerbations secondary to a viral infections. It was recommended he use BiPAP therapy outpatient however he continues to decline. He has been using Breztrii, DuoNeb, and albuterol MDI, with moderate effect. He does have a flutter valve and incentive spirometer however uses infrequently. Prior chest CT noted multiple pulmonary nodules, largest measuring 9-10 mm of the right upper lobe and has been stable since 2022. He was scheduled for repeat chest CT scheduled for March as there was note of mediastinal lymphadenopathy on prior chest CT in January and presents today to review results. He does note that over the last few weeks has felt more chest congestion and more frequent productive cough. He has been checking oxygen saturation, which reportedly has been maintaining >92%. He denies fevers or chills. He denies any visits to urgent care or hospitalizations related to respiratory distress since the last visit. Of note, an order for overnight oximetry was placed at the last visit and this has yet to be performed. [facility] Medical History Basal cell carcinoma Vitamin D deficiency Major depressive disorder Alcohol dependence Mixed hyperlipidemia Emphysema/COPD Dupuytren's contracture of both hands Chest pain BPH (benign prostatic hyperplasia) Chronic pain syndrome Asbestos exposure Hepatitis C Sleep apnea Insomnia Hemoptysis Marijuana use Hypertension Osteoarthritis of right shoulder Nocturnal hypoxemia Multiple pulmonary nodules COPD (chronic obstructive pulmonary disease) Surgical History H/O colonoscopy (~2017) History of back surgery (~2007) History of appendectomy History of aortic valve replacement (~08/2022) Family History Sister Skin cancer Mother Arthritis Polio Other Family history of cerebrovascular accident Social History Alcohol intake: current Alcohol intake frequency: a few times a week Patient Tobacco Use Status: Former Tobacco user Tobacco use type: Cigarette Cigarette Packs Per Day: 1 Years Smoked: 40 Review of Systems Const Denies chills, Denies excessive sweating, Denies headache(s) and Denies night sweats Eyes Denies dry eyes, Denies irritation and Denies itchy eyes ENT Reports Normal hearing present, Denies headache(s), Denies nasal congestion, Denies nasal discharge, Denies post nasal drip and Denies sore throat Card Denies claudication, Denies leg edema, Reports dyspnea on exertion, Denies orthopnea and Denies paroxysmal nocturnal dyspnea Resp Reports chest congestion, Reports cough, Denies hemoptysis, Denies excessive phlegm production, Denies pain on inspiration, Reports pain with cough, Reports dyspnea on exertion, Denies stridor and Reports wheezing Musc Denies myalgias Neuro Reports Normal hearing present and Denies headache(s) Endo Denies excessive sweating [place]/Lymph Denies lymphadenopathy Aller/Immun Denies itchy eyes, Denies seasonal rhinorrhea and Reports wheezing Physical Exam Vital Signs: Last Vital Signs Pulse 82 04/08/24 11:20 BP 138/76 04/08/24 11:20 Pulse Ox 95 04/08/24 11:20 Oxygen Delivery Method Room Air 04/08/24 11:20 BMI result Body Mass Index 24.7 Const General: cooperative, comfortable, no acute distress, well developed and alert Orientation/consciousness: patient oriented x3 Limitations: no limitations HEENT Head: Yes normal to inspection, Yes normocephalic and Yes atraumatic Ears: hearing grossly normal bilaterally and external ears normal Eyes General: appearance normal, both eyes and all related structures Eyelids: Yes eyelids normal Sclerae: sclerae normal EOM: EOMs intact bilaterally Neck Neck: Yes normal visual inspection and Yes no lymphadenopathy Lymphatic: no lymphadenopathy noted Chest Chest palpation & inspection: normal inspection of the chest Resp Effort & Inspection: normal respiratory effort, able to speak in complete sentences, audible wheezes, no cough, no stridor, not tachypneic, no tripod positioning and no use of accessory muscles Auscultation: no crackles, no rales, no rhonchi, wheezes expiratory wheezes and throughout and diminished lung sounds Cardio Jugular venous distension: no JVD Rate: regular rate Rhythm: regular rhythm Skin Other: warm, dry General skin exam: no rashes or lesions noted Neuro General: patient oriented x3 Cranial nerves: Yes Normal hearing present Cognition (Neuro): normal cognition Gait exam (Neuro): Normal gait present Extrem General: Yes normal to inspection, Yes capillary refill normal, Yes no clubbing, cyanosis or edema and Yes no pedal edema Psych Appearance: grossly normal and well kempt Speech and movement: Normal speech and movement present and Clear speech present Affect: normal affect Attitude: cooperative Thought process: Normal thought process present Thought content: Normal thought content present Insight: Good insight present (Psych) Judgement: Good judgement present (Psych) Results Reviewed Results Reviewed: Assessment & Plan Assessment & Plan (1) COPD (chronic obstructive pulmonary disease): Code(s): J44.9 - Chronic obstructive pulmonary disease, unspecified Category: Medical (2) Multiple pulmonary nodules: Code(s): R91.8 - Other nonspecific abnormal finding of lung field Category: Medical (3) Personal history of tobacco use: Code(s): Z87.891 - Personal history of nicotine dependence Category: Social Hx (4) Nocturnal hypoxemia: Code(s): G47.34 - Idiopathic sleep related nonobstructive alveolar hypoventilation Category: Medical Plan Reviewed chest CT which revealed multifocal bronchopneumonia and on exam patient with expiratory wheezes throughout. Will treat with doxycycline and prednisone. He is aware if symptoms do not improve will call office and was given a sputum cup for sample. If patient is improving will send for repeat chest CT in 6-8 weeks to assess for resolution of infectious process. He is requesting this to be performed at [place]. Encouraged continued use of flutter valve and incentive spirometer. He currently is not on supplemental oxygen during the day, will look into prior order for overnight oximetry to assess for nocturnal hypoxemia. All questions were answered and patient is in agreement of plan. Will follow-up in 2-4 weeks or sooner if needed. Orders: Orders 2 CT chest wo IV con 8 Weeks Z87.01 - Personal history of pneumonia (recurrent) Sputum Cult + Gram stain Today R05.9 - Cough, unspecified Medications: New 2 inhalational spacing device (Aerochamber Plus Z Stat spacer) As directed 1 ea 0RF doxycycline hyclate 100 mg PO BID 20 caps 0RF prednisone see taper instructions;Take 4 pills daily for 5 days, then go down by 1 pill every 5 days; 20 days 50 tabs 0RF 10 mg PO DIRECTED 50 tabs 0RF Refilled 2 ipratropium-albuterol 0.5 mg-3 mg(2.5 mg base)/3 mL 3 mL inhalation BID PRN 180 mL 6RF wheezing J44.9 - Chronic obstructive pulmonary disease, unspecified burumwlclk-nyyvdqqp-sbsfvjhifo 160-9-4.8 mcg/actuation (Breztri Aerosphere) 2 inhalations inhalation BID 1 ea 6RF Coding Level of Care Code Est Pt Level 4 (89080) Complex EM visit Add On G2211 Diagnoses COPD (chronic obstructive pulmonary disease) J44.9 Multiple pulmonary nodules R91.8 Personal history of tobacco use Z87.891 Nocturnal hypoxemia G47.34
--- OUTSIDE RECORDS SUMMARY | 2024-04-08 11:20 | XMS_ITS | Clinical Summary ---
Author Organization Unknown Care Team Providers Care Power Equipment Technology Instructor Name Role Phone ROGELIO PATTON DO Unavailable Unavailable DONAVAN PT, LIC# [id number], FRANCI Unavailable Unavailable YANA OT. LIC#[id number], JAMEY Unavailable Unavailable LEISA REGISTERED NURSECOLE Unavailable Unavailable Payers Payer Name Policy Type Policy Number Effective Date Expira tion Date MEDICARE CGS - EPISODIC [id number] Problems Condition Name Condition Details Condition Category [...] CONSTIPATION , UNSPECIFIED Active 09-19 00:00: 00 SHED BOSS (CURRENT) USE OF ASPIRIN Active 09-19 00:00: 00 DEPENDENCE ON SUPPLEMENTAL OXYGEN Active 09-19 00:00: 00 SHED BOSS (CURRENT) USE OF INHALED STEROIDS Active 09-19 [...] 20 mg tablet 09-17 00:00: 00 Yes [id number] LOWERS BP 1 tablet ONCE DAILY 1 tablet ONCE DAILY (route: oral) Med Classific ation: Cardiovas cular Therapy Agents Trelegy Ellipta 200 mcg-62.5 mcg-25 mcg powder for inhalation 09-17 00:00: 00 Yes [id number] STOPS COPD EXACERBATIO NS 1 inhalat ion ONCE DAILY 1 inhalation ONCE DAILY (route: inhalation ) Med Classific ation: Respirato ry Therapy Agents buprenorphi ne 4 mg-naloxone 1 mg sublingual film 09-16 00:00: 00 09-26 23:59 :00 No [id number] STOPS NARCOTIC CRAVINGS 0.5 film ONCE DAILY 0.5 film ONCE DAILY (route: sublingual ) Med Classific ation: Chemical Dependenc y, Agents to Treat Acetaminoph en Extra Strength 500 mg tablet 09-19 00:00: 00 Yes [id number] PAIN 2 tablet EVERY 8 HOURS 2 tablet EVERY 8 HOURS (route: oral) Med Classific ation: Analgesic , Anti-infl ammatory or Antipyret ic albuterol sulfate 2.5 mg/3 mL (0.083 %) solution for nebulizatio n 09-19 00:00: 00 Yes [id number] IF SOB OR WHEEZING 3 mL 4 TIMES DAILY 3 mL 4 TIMES DAILY (route: inhalation ) Med Classific ation: Respirato ry Therapy Agents albuterol sulfate HFA 90 mcg/actuati on aerosol inhaler 09-19 00:00: 00 Yes [id number] SHORT OF BREATHE OR WHEEZING 2 puff EVERY 4 HOURS 2 puff EVERY 4 HOURS (route: inhalation ) Med Classific ation: Respirato ry Therapy Agents aspirin 81 mg tablet,susan yed release 09-19 00:00: 00 Yes [id number] BLOOD THINNER 1 tablet ONCE DAILY 1 tablet ONCE DAILY (route: oral) Med Classific ation: Hematolog ical Agents ergocalcife rol (vitamin D2) 1,250 mcg (50,000 unit) capsule 09-19 00:00: 00 Yes [id number] VIT D2 SUPPLEMENT 1 capsule WEEKLY 1 capsule WEEKLY (route: oral) Med Classific ation: Electroly te Balance-N utritiona l Products ferrous sulfate 325 mg (65 mg iron) tablet 09-19 00:00: 00 Yes [id number] IRON 1 tablet ONCE DAILY 1 tablet ONCE DAILY (route: oral) Med Classific ation: Electroly te Balance-N utritiona l Products naloxone 4 mg/actuatio n nasal spray 09-19 00:00: 00 Yes [id number] IF WITH NARCOTIC OD 1 spray DIRECTED 1 spray DIRECTED (route: nasal) Med Classific ation: Antidotes and other Reversal Agents olanzapine 10 mg tablet 09-19 00:00: 00 Yes [id number] HELPS SLEEP 1 tablet AT BEDTIME 1 tablet AT BEDTIME (route: oral) Med Classific ation: Central Nervous System Agents OXYGEN 09-19 00:00: 00 Yes [id number] IF SOB 2 Liter NEEDED 2 Liter A S NEEDED (route: Oxygen) Med Classific ation: Medical Oxygen metoprolol succinate ER 25 mg tablet,exte nded release 24 hr 10-10 00:00: 00 Yes [id number] HEART. LOWER HR 1 tablet ONCE DAILY [...] HEAL UP SO I CAN TRAVEL HOME ([place]) Goal Provider Goal - PHYSICAL THERAPY EVALUATION [...] WILL BE ESTABLISHED THAT MEETS ALL PATIENT'S GROUP HOME NEEDS AND COUNTER SIGNED BY PHYSICIAN. [...] End Date/Time Encounter Type Admission Type Attending [facility] Department Encounter ID Discharge Date Discharge Status Discharge Condition Discharge Reason Percent Goals Met 2022-09-19 00:00:00 2022-10-17 00:00:00 Outpatient NEW ADMISSION [facility] [id number] 00:00:00 DISCHARGE TO HOME OR SELF CARE INDEPENDEN T IN THE HOME GOALS MET 67.31
--- OUTSIDE RECORDS SUMMARY | 2024-04-08 11:20 | XMS_ITS ---
Author Name [facility] Organization Unknown Results Test Name/Text Value Interpretation Date Range Source HCoV OC43 RNA Nph Ql RAYO+non-probe Not Detected Normal [id number] [facility] HPIV1 RNA Nph Ql RAYO+non-probe Not Detected Normal [id number] 116270 [facility] B pert.PT Prmt Nph Ql RAYO+non-probe Not Detected Normal [id number] [facility] B parap BC4839 DNA Nph Ql RAYO+non-probe Not Detected Normal [id number] [facility] SARS-CoV-2 RNA Nph Ql RAYO+non-probe Not Detected Normal [id number] [facility] FLUAV H3 RNA Nph Ql RAYO+non-probe Not Detected Normal [id number] [facility] HPIV2 RNA Nph Ql RAYO+non-probe Not Detected Normal [id number] 030271 [facility] HCoV HKU1 RNA Nph Ql RAYO+non-probe Not Detected Normal [id number] [facility] FLUAV RNA Nph Ql RAYO+non-probe Not Detected Normal [id number] 104686 [facility] FLUAV H1 2009 schmitz RNA Nph RAYO+non-probe Not Detected Normal [id number] [facility] HCoV 229E RNA Nph Ql RAYO+non-probe Not Detected Normal [id number] [facility] HPIV3 RNA Nph Ql RAYO+non-probe Not Detected Normal [id number] 910415 [facility] HAdV DNA Nph Ql RAOY+non-probe Not Detected Normal [id number] 84514 [facility] FLUBV RNA Nph Ql RAYO+non-probe Not Detected Normal 361600 153105 [facility] C pneum DNA Nph Ql RAYO+non-probe Not Detected Normal [id number] [facility] HCoV NL63 RNA Nph Ql RAYO+non-probe Not Detected Normal [id number] [facility] HPIV4 RNA Nph Ql RAYO+non-probe Not Detected Normal [id number] 686041 [facility] hMPV RNA Nph Ql RAYO+non-probe Not Detected Normal [id number] 44904 [facility] RV+EV RNA Nph Ql RAYO+non-probe Not Detected Normal [id number] 246719 [facility] FLUAV H1 RNA Nph Ql RAYO+non-probe Not Detected Normal [id number] [facility] RESPIRATORY PATHOGENS PANEL NAAT Negative Normal [id number] [facility] RSV RNA Nph Ql RAYO+non-probe Not Detected Normal [id number] [id number] [facility] M pneumo DNA Nph Ql RAYO+non-probe Not Detected Normal [id number] [facility] History of Medication Use Medication Directions Dispensed Refills Start Date End Date Status Prevacid 30 MG OR CPDR Prevacid 30 MG Or al Capsule Delayed Release QTY: 0 not specified Days: 30 Refills: 0 Written: 12/16/07 Patient Instructions: 024 completed PARoxetine HCl 10 MG OR TABS PARoxetine HCl 10 MG Oral Tablet QTY: 0 tablet Days: 0 Refills: 0 Written: 08/23/13 Patient Instructions: DOSAGE UNKNOWN 024 completed Sovaldi 400 MG OR TABS Sovaldi 400 MG Or al Tablet QTY: 0 tablet Days: 0 Refills: 0 Written: 12/05/13 Patient Instructions: 024 aborted Aspirin 81 MG OR CHEW Aspirin 81 MG Oral Tablet Chewable QTY: 0 not specified Days: 0 Refills: 0 Written: 09/22/07 Patient Instructions: 024 active Paxil CR 25 MG OR TB24 Paxil CR 25 MG Or al Tablet Extended Release 24 Hour QTY: 0 not specified Days: 0 Refills: 0 Written: 09/22/07 Patient Instructions: 024 aborted Terazosin HCl 1 MG OR CAPS Terazosin HCl 1 MG Oral Capsule QTY: 0 capsule Days: 0 Refills: 0 Written: 10/11/13 Patient Instructions: 024 active Suboxone 12-3 MG SL FILM Suboxone 12-3 MG Sublingual Film QTY: 0 Days: 0 Refills: 0 Written: 08/23/13 Patient Instructions: DOSAGE UNKNOWN 024 active hydroCHLOROthiazide 25 MG TABS hydroCHLOROthiazide 25 MG Oral Tablet QTY: 0 not specified Days: 0 Refills: 0 Written: 09/22/07 Patient Instructions: 024 aborted Paxil 20 MG OR TABS Paxil 20 MG Oral Tablet QTY: 0 tablet Days: 0 Refills: 0 Written: 10/11/13 Patient Instructions: aborted Zestril 10 MG OR TABS Zestril 10 MG Oral Tablet QTY: 0 not specified Days: 0 Refills: 0 Written: 09/22/07 Patient Instructions: aborted PARoxetine HCl 20MG Oral Tablet PARoxetine HCl 20 MG Oral Tablet QTY: 0 tablet Days: 0 Refills: 0 Written: 05/25/17 Patient Instructions: active Multivitamins OR CAPS Multivitamins Oral Capsule QTY: 0 capsule Days: 0 Refills: 0 Written: 08/23/13 Patient Instructions: active Crestor 20 mg tablet Take 1 tablet every day by oral route. Take 1 tablet every day by oral route. completed Seroquel 25 mg tablet Take 1 tablet by mouth at bedtime Take 1 tablet by mouth at bedtime completed amlodipine 5 mg tablet Take 1 tablet every day by oral route. Take 1 tablet every day by oral route. completed (AMLODIPINE BESYLATE) 5 MG TABS Take 1 tablet by mouth once a day active BREZTRI AEROSPHERE (CKDVRIC-TETSFTLPWYW-E ORMOTEROL) 160-9-4.8 MCG/ACT AERO Breztri Aerosphere 160 mcg-9mcg-4.8mcg/actuat ion HFA aerosol inhaler active METOPROLOL SUCCINATE ER (METOPROLOL SUCCINATE) 50 MG [id number] metoprolol succinate ER 50 mg tablet,extended release 24 hr active (BUPRENORPHINE HCL-NALOXONE HCL) 4-1 MG FILM buprenorphine 4 mg-naloxone 1 mg sublingual film active ASPIRIN LOW DOSE (ASPIRIN) 81 MG TBEC Take 1 tablet by mouth once a day active CRESTOR (ROSUVASTATIN CALCIUM) 20 MG TABS Take 1 tablet by mouth once a day active (QUETIAPINE FUMARATE) 25 MG TABS quetiapine 25 mg tablet active (CLONAZEPAM) 0.5 MG TABS clonazepam 0.5 mg tablet 05/16/2 024 active (LISINOPRIL) 20 MG TABS lisinopril 20 mg tablet 024 active Suboxone 8 mg-2 mg sublingual film Take 1 strip under tongue twice a day Take 1 strip under tongue twice a day 024 completed albuterol sulfate 2.5 mg/3 mL (0.083 %) solution for nebulization Inhale 1 vial using nebulizer every four to six hours Inhale 1 vial using nebulizer every four to six hours 024 completed Centrum Silver 0.4 mg-300 mcg-250 mcg tablet Centrum Silver 0.4 mg-300 mcg-250 mcg tablet 023 completed lisinopril 10 mg tablet Take 1 tablet by mouth once a day Take 1 tablet by mouth once a day 023 completed olanzapine 10 mg tablet Take 1/2-1 tablet by mouth at bedtime as needed Take 1/2-1 tablet by mouth at bedtime as needed 023 completed buprenorphine 4 mg-naloxone [address] 1 film every day by sublingual route. Place 1 film every day by sublingual route. 023 completed Breztri Aerosphere 160 mcg-9mcg-4.8mcg/actuat ion HFA aerosol inhaler Inhale 2 puffs twice a day by inhalation route. Inhale 2 puffs twice a day by inhalation route. 023 completed albuterol sulfate HFA 90 mcg/actuation aerosol inhaler albuterol sulfate HFA 90 mcg/actuation aerosol inhaler 023 completed Trelegy Ellipta 200 mcg-62.5 mcg-25 mcg powder for inhalation INHALE ONE PUFF BY MOUTH DAILY INHALE ONE PUFF BY MOUTH DAILY 023 completed alprazolam 0.25 mg tablet TAKE ONE (1) TABLET BY MOUTH EVERY 8 HOURS IF NEEDED FOR ANXIETY. MAX DAILY AMOUNT 0.75 MG TAKE ONE (1) TABLET BY MOUTH EVERY 8 HOURS IF NEEDED FOR ANXIETY. MAX DAILY AMOUNT 0.75 MG 023 completed buprenorphine 4 mg-naloxone [address] 1 film every day by sublingual route. Place 1 film every day by sublingual route. 023 completed metoprolol succinate ER 50 mg tablet,extended release 24 hr Take 1 tablet every day by oral route. Take 1 tablet every day by oral route. 023 completed metoprolol succinate ER 50 mg tablet,extended release 24 hr Take 1 tablet every day by oral route. Take 1 tablet every day by oral route. 023 completed Seroquel 25 mg tablet Take 1 tablet by oral route at bedtime. Take 1 tablet by oral route at bedtime. 023 completed clonazepam 0.5 mg tablet 1/2 PO BID PRN panic/anxiety may increase to 1 PO BID PRN anxiety/panic 1/2 PO BID PRN panic/anxiety may increase to 1 PO BID PRN anxiety/panic 023 completed Asprin Ec Low Dose 81 mg tablet,delayed release Take 1 tablet every day by oral route. Take 1 tablet every day by oral route. 023 completed Allergies Allergen Reaction Severity Comment Documented Date Source Statu s ASPIRIN [facility] Problems Problem Status Onset Date Problem Type Date of Resoluti on Source Multiple nodules of lung active 2023-06-04 [facility]Act [facility] Chronic obstructive lung disease active 2008-07-19 [facility]Act [facility] Hypertensive disorder active 2010-02-07 [facility]Act [facility] Exposure to asbestos active 2018-03-17 [facility]Act [facility] Hemoptysis active 2022-02-06 [facility]Act [facility] Alcoholism active 2022-07-04 [facility]Act [facility] Coronary arteriosclerosis active 2023-08-27 [facility]Act [facility] Moderate recurrent major depression active 2021-08-23 [facility]Act [facility] Disorder in remission active 2022-06-11 [facility]Act [facility] Sleep apnea active 2018-02-26 ProblemAct [facility] Insomnia active 2022-07-04 ProblemAct [facility] Mixed anxiety and depressive disorder active 2023-03-27 ProblemAct [facility] Hepatitis C carrier active 2007-09-03 ProblemAct [facility] Chest pain active 2022-02-06 ProblemAct [facility] Essential hypertension active 2022-07-29 ProblemAct [facility] Chronic insomnia active 2022-07-29 ProblemAct [facility] Family history of cardiac disorder active 2019-03-30 ProblemAct [facility] Depressive disorder active 2023-08-28 [facility]Act [facility] Chronic alcoholism in remission active 2021-10-09 ProblemAct [facility] History of clinical finding in subject active 2021-07-10 ProblemAct [facility] Large prostate active 2021-02-27 ProblemAct [facility] Cannabis abuse active 2010-10-07 ProblemAct [facility] Mixed hyperlipidemia active 2004-10-11 ProblemAct [facility] Coronary atherosclerosis active 2023-08-28 ProblemAct [facility] Acute exacerbation of chronic obstructive airways disease active 2022-02-18 ProblemAct [facility] Severe chronic obstructive pulmonary disease active 2023-08-28 ProblemAct [facility] Vitamin D deficiency active 2011-11-03 ProblemAct [facility] Finding related to sleep active 2021-08-23 ProblemAct [facility] Dupuytren's disease of palm active 2014-07-20 ProblemAct [facility] Immunizations Vaccine Date Source Lot Number Status COVID-19, mRNA, LNP-S, PF, 1 00 mcg/0.5 mL dose (Moderna) 05/17/2020 [facility] completed Hep B 11/03/2007 [facility] [id number] completed influenza, seasonal, injectable 01/16/2015 [facility] [id number] completed COVID-19, mRNA, LNP-S, PF, 1 00 mcg/0.5 mL dose (Moderna) 02/04/2021 [facility] completed Hep A, unspecified formulation 09/14/2007 [facility] completed Td(adult) unspecified formulation 05/23/2010 [facility] [id number] completed influenza, unspecified formulation 01/12/2009 [facility] [id number] completed Tdap 04/11/2006 [facility] completed Tdap 10/07/2013 [facility] [id number] completed pneumococcal conjugate PCV 13 06/27/2019 [facility] [id number] completed influenza, injectable, quadr ivalent, preservative free 01/26/2017 [facility] [id number] completed influenza, unspecified formulation 12/30/2017 [facility] completed novel [id number] 05/03/2009 [facility] [id number] ompleted pneumococcal polysaccharide PPV23 04/11/2006 [facility] completed influenza, seasonal, injectable 10/07/2013 [facility] [id number] [id number] completed Influenza vaccine, quadrivalent, adjuvanted 01/16/2021 [facility] [id number] completed influenza, unspecified formulation 04/11/2006 [facility] completed influenza, high-dose, quadrivalent 02/27/2020 [facility] U [id number] completed COVID-19, mRNA, LNP-S, PF, 1 00 mcg/0.5 mL dose (Moderna) 08/07/2021 [facility] [id number] completed influenza, unspecified formulation 02/11/2012 [facility] a [id number] completed Pneumococcal conjugate PCV15 , polysaccharide [id number] conjugate, adjuvant, PF - ML 12/27/2022 [facility] [id number] completed COVID-19, mRNA, LNP-S, PF, 1 00 mcg/0.5 mL dose (Moderna) 06/14/2020 [facility] completed pneumococcal polysaccharide PPV23 05/23/2010 [facility] 12 [id number] completed Hep A, unspecified formulation 04/11/2008 [facility] ahavb [id number] completed influenza, seasonal, injectable 02/07/2014 [facility] UI19 [id number] completed COVID-19, mRNA, LNP-S, bival ent, PF, 50 mcg/0.5 mL dose (Moderna) 02/07/2022 [facility] [id number] comple adrián Td(adult) unspecified formulation 10/07/2013 [facility] 7K 9N7 completed influenza, unspecified formulation 01/04/2010 [facility] U [id number] completed Influenza, injectable, MDCK, preservative free 01/13/2019 [facility] [id number] completed pneumococcal polysaccharide PPV23 04/23/2016 [facility] [id number] completed influenza, high-dose, quadrivalent 02/07/2022 [facility] U [id number] completed
== END 2024-04-08 12:06 | disposition home or self-care (01) ==
PROVIDERS: PCP Physician Assistant Medical; Visit Provider Nurse Practitioner Family
DX: J44.9 Chronic obstructive pulmonary disease, unspecified (principal); R91.8 Other nonspecific abnormal finding of lung field; Z87.891 Personal history of nicotine dependence; G47.34 Idiopathic sleep related nonobstructive alveolar hypoventilation
CPT/HCPCS: 99214; G2211

== ENCOUNTER → 2024-04-08 11:16 | Outpatient (BNVA) | payer MEDICARE, SELFPAY | PROVIDERS: PCP Physician Assistant Medical; Visit Provider Nurse Practitioner Family | DX: J44.9 Chronic obstructive pulmonary disease, unspecified (principal); I10 Essential (primary) hypertension; R91.8 Other nonspecific abnormal finding of lung field; G47.34 Idiopathic sleep related nonobstructive alveolar hypoventilation; Z95.2 Presence of prosthetic heart valve; Z87.891 Personal history of nicotine dependence | CPT/HCPCS: 99212 ==

== ENCOUNTER 2024-04-13 23:00 | Outpatient (REF) | payer MEDICARE, SELFPAY ==
--- OUTSIDE RECORDS SUMMARY | 2024-04-14 12:25 | XMS_ITS ---
Author Organization [facility] Address [address] [address] Care Team Providers Care Operations Examiner Name Role Phone July Unavailable [phone] DAYSI ARREDONDO Unavailable [phone] Allergies No Known Allergies REASON FOR VISIT [...] Status Risk Notes Problem Peripheral vascular disease (470522783) Peripheral vascular disease, unspecified (I73.9) Active confirmed Problem Atherosclerotic heart disease of [place] coronary artery without angina pectoris (063437116329980) Atherosclerotic heart disease of [place] coronary artery without angina pectoris (I25.10) Active confirmed Problem History of heart valve repair with prosthesis (014609547980932) 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) Active confirmed Problem Inflammatory disease of liver (326602912) Unspecified hepatitis (573.3) Active confirmed Problem Major depression, single episode (09722804) Major depressive disorder, single episode, unspecified (F32.9) Active confirmed Problem Essential hypertension (39563287) Essential (primary) hypertension (I10) Active confirmed Problem Sleep apnea (96508331) Sleep apnea, unspecified (G47.30) Active confirmed Problem Chronic obstructive pulmonary disease (67524653) Chronic obstructive pulmonary disease, unspecified (J44.9) Active confirmed Problem Dyspnea (704268255) Dyspnea, unspecified (R06.00) Active confirmed Problem Abnormal findings on diagnostic imaging of heart and coronary circulation (705276538) Abnormal findings on diagnostic imaging of heart and coronary circulation (R93.1) Active confirmed Vital Signs Blood pressure systolic 146 mm Hg 09/09/19 24 Blood pressure diastolic 76 mm Hg 024 Heart Rate 95 /min 09/09/2023 Oximetry 90 % 09/09/2023 Weight-kg 80.75 kg 09/09/2023 Encounters Encounter Location Date Provider Diagnosis [facility] [address] [place] [address] 09/09/2023 DAYSI ARREDONDO PAD (peripheral artery disease) [...] Notes * SAROJ ALAMO:1955 (68 yo M)Acc No.[id number]:09/09/2023 Patient:?DARRIAN ALAMO Provider:?DAYSI ARREDONDO PA-C :1955???Age:68 Y???Sex:Male Louie e:09/09/2023 [address] [address], [place] [facility] Subjective: * Chief Complaints: * ???PAD * HPI: ???Consult:? 68-year-old male being referred to our office by [facility] for consultation and evaluation of peripheral arterial disease. Patient has a past medical history CAD, aortic valve replacement (last year per patient), HTN, COPD, dyspnea. He was recently seen at [facility] 08/25/2023 where he was found [...] PA-C Date: ?09/09/2023 Generated for Luc sam/Leoncio/Leesmitting on:?04/14/2024 08:25 AM [facility] History and Physical Notes * [...]
--- OUTSIDE RECORDS SUMMARY | 2024-04-14 12:25 | XMS_ITS ---
Author Organization [facility] Address [address] [facility] [address] [place] [address] Care Team Providers Care Final Inspector Shuttle Name Role Phone PILIJuly Unavailable [phone] REASON FOR VISIT PAD Encounters Encounter Location Date Provider Diagnosis [facility] [address] [place] [address] 09/09/2023 MARGARET ALEJANDRE Plan Of Treatment No Information Progress Notes * DARRIAN ALAMODOB:1955 (68 yo M)Acc No.[id number]:09/09/2023 Aorta Iliac Duplex Patient:?DARRIAN ALAMO Provider:?MARGARET ALEJANDRE MD :1955???Age:68 Y???Sex:Male Louie e:09/09/2023 Address: [address] [place] [facility] Subjective: * Chief Complaints: * ???1. PAD. * Medical History:? Objective: * Vitals:? Assessment: Plan: * Treatment: * * Electronic signature of JUANJO ALEJANDRE MD on 04/14/2024 at 08:25 AM AKST Sign off status: Pending * Provider:?MARGARET ALEJANDRE MD Date:?08/12 Generated for Luc sam/Leoncio/eTruddysmitting on:?04/14/2024 08:25 AM AKST
--- OUTSIDE RECORDS SUMMARY | 2024-04-14 12:26 | XMS_ITS | Patient Health Record ---
Author Organization [facility] Address [address] [address] Care Team Providers Care Bolt Maker Name Role Phone July Unavailable [phone] DAYSI ARREDONDO Unavailable [phone] BRAULIO FITZGERALD Unavailable [phone] Allergies No Known Allergies Results Component Value [...] brachial index evaluation. Previous: 08/18/23 CTA ABD/PELV ([facility]) Bilateral: Bilateral lower extremity arterial stenoses likely [...] index evaluation. FINDINGS Previous: 08/18/23 CTA ABD/PELV ([facility]) FINDINGS Bilateral: Bilateral lower extremity arterial stenoses [...] are obtained. Previous: 08/18/23 CTA ABD PELVIS ([facility]) Aorta: Limited visualization of the abdominal aorta [...] obtained. FINDINGS Previous: 08/18/23 CTA ABD PELVIS ([facility]) FINDINGS Aorta: Limited visua lization of the abdominal aorta due to heavy bowel gas FINDINGS See Below For Report FINDINGS See Below For Report FINDINGS Conclusions: Aortoil iac atherosclerosis. Reason For Referral Reason Severe PAD Diagnosis 1 PAD (peripheral adria ry disease) (I73.9) Referral Organization [facility] T[facility] Kori GRADY Referring Provider First Name LESLI Referring Provider Last Name ART Referring Provider Speciality Cardiology Referred Organization [facility] Referred Provider July Referred Address [address] [facility],[place], [place],[address], Referred Provider Specialty Vascular Isabel rene General Notes CHRISTOPHER MCGHEE 08/27 03:29:52 PM >requested CTA images, WILY SANTANA 08/31/2023 07:18:04 AM > no images yetRome Katy 08/31/2023 10:39:34 AM > Patient verified Demos and [facility] 08/31/2023 12:10:48 PM > The patient called and wondered if we had everything that we needed in order to schedule him at [facility]. He is anxious to get an appointment because his referring provider stated that this was an urgent matter.ESTHER KAYLIN R 08/31/2023 12:28:50 PM > not sure on getting these images stat can someone review since pt is worried?, WILY SANTANA 09/01/2023 11:23:30 AM > PT IS VERY WORRIED AND DOES NOT WANT TO WAIT FOR LIA. THERE WAS AN OPEN SPOT ON [facility] DAY 09/08. HE IS AWARE TO [...] Peripheral vascular disease, unspecified (I73.9) [facility] Referring Provider First Name JULY Referring Provider Last Name PILI Referring Provider Speciality Vascular S urgery Referred Organization [facility] Referred Address [address] [facility],[place], [place],[address], Referred Provider Specialty Gastroentero logy Referral Priority [...] Risk Notes Problem Inflammatory disease of liver (637916791) Unspecified hepatitis (573.3) Active confirmed Problem Major depression, single episode (38555304) Major depressive disorder, single episode, unspecified (F32.9) Active confirmed Problem Sleep apnea (69722584) Sleep apnea, unspecified (G47.30) Active confirmed Problem Essential hypertension (65142760) Essential (primary) hypertension (I10) Active confirmed Problem Atherosclerotic heart disease of [place] coronary artery without angina pectoris (838203887564340) Atherosclerotic heart disease of [place] coronary artery without angina pectoris (I25.10) Active confirmed Problem Peripheral vascular disease (027905575) Peripheral vascular disease, unspecified (I73.9) Active confirmed Problem Chronic obstructive pulmonary disease (96980302) Chronic obstructive pulmonary disease, unspecified (J44.9) Active confirmed Problem Dyspnea (052628002) Dyspnea, unspecified (R06.00) Active confirmed Problem Abnormal findings on diagnostic imaging of heart and coronary circulation (589215486) Abnormal findings on diagnostic imaging of heart and coronary circulation (R93.1) Active confirmed Problem History of heart valve repair with prosthesis (234724359610536) 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) Active confirmed Problem Peripheral vascular disease (168354294) PAD (peripheral artery disease) (I73.9) Active confirmed Vital Signs Heart Rate 95 /min 09/09/2023 Oximetry 90 % 09/09/2023 Blood pressure diastolic 76 mm Hg 09/09/2023 Weight-kg 80.75 kg 09/09/2023 Blood pressure systolic 146 mm Hg 09/09/2023 Encounters Encounter Location Date Provider Diagnosis [facility] [address] [place] [address] 09/04/2023 [facility] [address] [place] [address] 09/09/2023 [facility] [address] [place] [address] 09/09/2023 DAYSI ARREDONDO PAD (peripheral artery disease) I73.9 ; Presence of prosthetic heart valve Z95.2 ; Dyspnea, unspecified R06.00 and Chronic obstructive pulmonary disease, unspecified J44.9 [facility] [address] [place] [address] 09/07/2023July PILI Assessments Encounter Date Diagnosis (ICD [...] OF [place] [address] [id number] [id number] INGRIDAbel DARRIAN Self - patient is the insured Medical (General) History Medical History History ICD Code Peripheral vascular disease, unspecified I73.9 Atherosclerotic heart diseas e of [place] coronary artery without angina pectoris I25.10 Presence [...]
--- OUTSIDE RECORDS SUMMARY | 2024-04-14 12:26 | XMS_ITS ---
Author Organization [facility] Address [address] [facility] [address] [place] [address] Care Team Providers Care Assembly Person Name Role Phone PILIJuly Unavailable [phone] REASON FOR VISIT Update [employer] Demographics Encounters Encounter Location Date Provider Diagnosis [facility] [address] [place] [address] 09/07/2023July PILI Plan Of Treatment No Information Progress Notes * INGRIDAbel DARRIANDOB:1955 (68 yo M)Acc No.[id number]:09/07/2023 Patient:?DARRIAN ALAMO :1955???Age:68 Y???Sex:Male Address:[address], [place] [address] * true * Date:? Generated for Gersoni cecy/Leoncio/eTransmitting on:?04/14/2024 08:25 AM ZEENAT
--- OUTSIDE RECORDS SUMMARY | 2024-04-14 12:27 | XMS_ITS | Clinical Summary ---
Author Organization Unknown Care Team Providers Care Engineering Assistant Name Role Phone ROGELIO PATTON DO Unavailable Unavailable DONAVAN PT, LIC# [id number], FRANCI Unavailable Unavailable YANA OT. LIC#[id number], JAMEY Unavailable Unavailable LEISA REGISTERED NURSECOLE Unavailable Unavailable Payers Payer Name Policy Type Policy Number Effective Date Expira tion Date MEDICARE CGS - EPISODIC [id number] Problems Condition Name Condition Details Condition Category [...] CONSTIPATION , UNSPECIFIED Active 09-19 00:00: 00 CREATIVE SPECIALIST (CURRENT) USE OF ASPIRIN Active 09-19 00:00: 00 DEPENDENCE ON SUPPLEMENTAL OXYGEN Active 09-19 00:00: 00 CREATIVE SPECIALIST (CURRENT) USE OF INHALED STEROIDS Active 09-19 [...] 20 mg tablet 09-17 00:00: 00 Yes [id number] LOWERS BP 1 tablet ONCE DAILY 1 tablet ONCE DAILY (route: oral) Med Classific ation: Cardiovas cular Therapy Agents Trelegy Ellipta 200 mcg-62.5 mcg-25 mcg powder for inhalation 09-17 00:00: 00 Yes [id number] STOPS COPD EXACERBATIO NS 1 inhalat ion ONCE DAILY 1 inhalation ONCE DAILY (route: inhalation ) Med Classific ation: Respirato ry Therapy Agents buprenorphi ne 4 mg-naloxone 1 mg sublingual film 09-16 00:00: 00 09-26 23:59 :00 No [id number] STOPS NARCOTIC CRAVINGS 0.5 film ONCE DAILY 0.5 film ONCE DAILY (route: sublingual ) Med Classific ation: Chemical Dependenc y, Agents to Treat Acetaminoph en Extra Strength 500 mg tablet 09-19 00:00: 00 Yes [id number] PAIN 2 tablet EVERY 8 HOURS 2 tablet EVERY 8 HOURS (route: oral) Med Classific ation: Analgesic , Anti-infl ammatory or Antipyret ic albuterol sulfate 2.5 mg/3 mL (0.083 %) solution for nebulizatio n 09-19 00:00: 00 Yes [id number] IF SOB OR WHEEZING 3 mL 4 TIMES DAILY 3 mL 4 TIMES DAILY (route: inhalation ) Med Classific ation: Respirato ry Therapy Agents albuterol sulfate HFA 90 mcg/actuati on aerosol inhaler 09-19 00:00: 00 Yes [id number] SHORT OF BREATHE OR WHEEZING 2 puff EVERY 4 HOURS 2 puff EVERY 4 HOURS (route: inhalation ) Med Classific ation: Respirato ry Therapy Agents aspirin 81 mg tablet,susan yed release 09-19 00:00: 00 Yes [id number] BLOOD THINNER 1 tablet ONCE DAILY 1 tablet ONCE DAILY (route: oral) Med Classific ation: Hematolog ical Agents ergocalcife rol (vitamin D2) 1,250 mcg (50,000 unit) capsule 09-19 00:00: 00 Yes [id number] VIT D2 SUPPLEMENT 1 capsule WEEKLY 1 capsule WEEKLY (route: oral) Med Classific ation: Electroly te Balance-N utritiona l Products ferrous sulfate 325 mg (65 mg iron) tablet 09-19 00:00: 00 Yes [id number] IRON 1 tablet ONCE DAILY 1 tablet ONCE DAILY (route: oral) Med Classific ation: Electroly te Balance-N utritiona l Products naloxone 4 mg/actuatio n nasal spray 09-19 00:00: 00 Yes [id number] IF WITH NARCOTIC OD 1 spray DIRECTED 1 spray DIRECTED (route: nasal) Med Classific ation: Antidotes and other Reversal Agents olanzapine 10 mg tablet 09-19 00:00: 00 Yes [id number] HELPS SLEEP 1 tablet AT BEDTIME 1 tablet AT BEDTIME (route: oral) Med Classific ation: Central Nervous System Agents OXYGEN 09-19 00:00: 00 Yes [id number] IF SOB 2 Liter NEEDED 2 Liter A S NEEDED (route: Oxygen) Med Classific ation: Medical Oxygen metoprolol succinate ER 25 mg tablet,exte nded release 24 hr 10-10 00:00: 00 Yes [id number] HEART. LOWER HR 1 tablet ONCE DAILY [...] HEAL UP SO I CAN TRAVEL HOME ([place]) Goal Provider Goal - PHYSICAL THERAPY EVALUATION [...] WILL BE ESTABLISHED THAT MEETS ALL PATIENT'S FPC NEEDS AND COUNTER SIGNED BY PHYSICIAN. Goal [...] End Date/Time Encounter Type Admission Type Attending Rust Department Encounter ID Discharge Date Discharge Status Discharge Condition Discharge Reason Percent Goals Met 2022-09-19 00:00:00 2022-10-17 00:00:00 Outpatient NEW ADMISSION [facility] [id number] 7710-07-07 00:00:00 DISCHARGE TO HOME OR SELF CARE INDEPENDEN T IN THE HOME GOALS MET 67.31
--- OUTSIDE RECORDS SUMMARY | 2024-04-14 12:27 | XMS_ITS | Continuity of Care Document ---
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 Role Phone [facility] Unavailable Unavailable Problems Problem Status Onset Date Classification Date Reported Comments Source Chronic obstructive pulmonary disease wi Active 05/30/2021 [facility] Acute hypoxemic respiratory failure Active 2021 05/31/2021 05 [facility] Community acquired pneumonia Active 2021 05/31/[address] [place] [address] Medications Medication Details Route Status Patient Instructions Ordering Provider Order Date Source predniSONE 20 mg oral tablet = 3 Tab, ORAL, DAILY, Take in the morning starting 05/31/2021. Take with food or milk., # 9 Tab, 0 Refill(s), Acute, Pharmacy: [facility], 187.6, cm, 05/29/21 12:21:00 PST, Height/Length (cm), 73.48, kg, 05/29/21 8:38:00 PST, Dose calcu... Active [address] [place] [address] azithromycin 250 mg oral tablet = 2 Tab, ORAL, [id number], Take 2 tabs PO daily at 3PM., # 4 Tab, Indication= COPD exacerbation, 0 Refill(s), Acute, Pharmacy: [facility], 187.6, cm, 05/29/21 12:21:00 PST, Height/Length (cm), 73.48, kg, 05/29/21 8:38:00 PST, Dose c... Active [address] [place] [address] Tamsulosin hydrochloride 0.4 MG Oral Capsule [Flomax] = 1 Cap, ORAL, DAILY, 0 Refill(s), Maintenance Active [address] [place] [address] Albuterol 2 Puff, INH, Q6H, PRN Shortness of breath/wheezin g, 0 Refill(s), Maintenance Active [address] [place] [address] Paroxetine 30 MG Oral Tablet [Paxil] = 1 Tab, ORAL, DAILY, 0 Refill(s), Maintenance Active [facility] lisinopril 10 mg oral tablet = 1 Tab, ORAL, DAILY, 0 Refill(s), Maintenance Active [facility] Trelegy Ellipta 200 mcg-62.5 mcg-25 mcg/inh inhalation powder 1 Puff, INH, DAILY, 0 Refill(s), Maintenance Active 05 [facility] terazosin 2 mg oral capsule = 1 Cap, ORAL, QBedtime, 0 Refill(s), Maintenance Active [facility] Buprenorphine 8 MG / Naloxone 2 MG Oral Strip [Suboxone] 1 film, SUBLING, BID, 0 Refill(s), Maintenance Active [facility] Results Order Name Results Value Reference Range Date Interpretation Comments Source AutoDiff* Auto Neutrophil Percent 71.0 % 05/30 [facility] AutoDiff* Auto Neutrophil Absolute 5.3 K/MM3 2.0 - 7.3 05/30 [facility] AutoDiff* Auto Lymphocyte Percent 16.4 % 05/30 [facility] AutoDiff* Auto Lymphocyte Absolute 1.2 K/MM3 0.9 - 4.8 05/30 [facility] AutoDiff* Auto Monocyte Percent 12.5 % 05/30 [facility] AutoDiff* Auto Monocyte Absolute 0.9 K/MM3 0.2 - 1.0 05/30 [facility] AutoDiff* Auto Eosinophil Percent 0.0 % 05/30 [facility] AutoDiff* Auto Eosinophil Absolute 0.0 K/MM3 0.0 - 0.4 05/30 [facility] AutoDiff* Auto Basophil Percent 0.1 % 05/30 [facility] AutoDiff* Auto Basophil Absolute 0.0 K/MM3 0.0 - 0.1 05/30 [facility] AutoDiff* Sex assigned at Male 05/30 [facility] Sodium Level 141 mmol/L 136 - 144 05/30 NA [facility] Potassium Level 4.5 mmol/L 3.6 - 5.1 05/30 [facility] Chloride Level 102 mmol/L 101 - 111 05/30 [facility] CO2/Carbon Dioxide 30 mmol/L 22 - 32 05/30 [facility] Anion Gap 9 mmol/L 5 - 17 05/30 [facility] Glucose, Random 118 MG/DL 74 - 118 05/30 [facility] BUN 22 MG/DL 7 - 25 05/30 [facility] Creatinine 0.8 MG/DL 0.9 - 1.3 05/30 [facility] BUN/Creat Ratio 27.5 05/30 [facility] Osmolality, Calculated 296 mOsm/L 05/30 [facility] Calcium Level 9.3 MG/DL 8.6 - 10.3 05/30 [facility] GFR - Non 103 mL/min/1.7 3m2 >=60 [...] to persons under 18 years of age. [facility] BMP GFR - 125 mL/min/1.7 3m2 >=60 05/30 [facility] Sex assigned at Male 05/30 [facility] CBC WBC 7.5 K/MM3 4.5 - 10.0 05/30 [facility] CBC RBC 3.59 M/MM3 4.40 - 6.00 05/30 L [facility] CBC HGB 11.2 G/DL 13.4 - 17.4 05/30 [facility] CBC HCT 32.7 % 38.9 - 51.5 05/30 [facility] CBC MCV 91 uM^3 80 - 100 05/30 [facility] CBC MCH 31.1 pg 26.0 - 34.0 05/30 [facility] CBC MCHC 34.2 ZZ 31.0 - 36.0 05/30 [facility] CBC RDW 14.4 % 11.6 - 14.6 05/30 [facility] CBC PLT 198 K/MM3 150 - 400 05/30 [facility] CBC MPV 8.6 uM^3 7.2 - 11.1 05/30 [facility] CBC Sex assigned at Male 05/30 [facility] PCT Procalcitonin Level <0.05 NG/ML 0.05 - [...] in few hours if suspectbacter ial infection. [facility] PCT Sex assigned at Male 05/30 [facility] Trop Troponin I <0.03 NG/ML 0.00 - [...] may be indicative of acute myocardial injury. [facility] Trop Sex assigned at Male 05/30 [facility] [id number] SARS-CoV-2 Source Melodylisa longoria 05/29 [facility] [id number] Patient From [facility]? No 05/29 [facility] [id number] Health Care Worker? No 05/29 [facility] [id number] SARS-CoV-2 Molecular Negative Negative 05/29 Negative results [...] independent review of this validation is pending. [facility] [id number] Symptomatic per CDC? Symptomati c/PUI 05/[address] Serial Retesting? Unknown 05/[address] SARS-CoV-2 First test? Unknown 05/[address] SARS-CoV-2 Is the Patient Hospitalized? Unknown 05/[address] SARS-CoV-2 Is the Patient in ICU? Unknown 05/[address] SARS-CoV-2 Is the Patient ? Unknown 05/[address] Sex assigned at Male 05/29 [facility] BGVenLab VBG - pH 7.40 7.32 - 7.43 05/29 [facility] BGVenLab VBG - pCO2 51 mmHg 41 - 51 05/29 [facility] BGVenLab VBG - pO2 49 mmHg 38 - 42 05/29 H [facility] BGVenLab VBG - HCO3 31.6 mmol/L 05/29 NA [facility] BGVenLab VBG - BE 5.6 mmol/L 05/29 [facility] BGVenLab VBG - Oxyhemoglobin 80.1 % >=75.0 05/29 [facility]GVenLab VBG - O2 Sat 82.3 % >=75.0 05/29 [facility]GVenLab VBG - Methemoglobin 0.0 % 05/29 [facility] BGVenLab VBG - Total Hemoglobin 12.3 G/DL 13.5 - 18.0 05/29 L [facility] BGVenLab VBG - O2 Content 13.8 mL/dL 05/29 [facility] BG - Modified Glenn Test N/A 05/29 [facility] BG - Site Vein 05/29 [facility] BG - Pt Temp 37.0 DegF 05/29 [facility] Sex assigned at Male 05/29 [facility] AutoDiff* Auto Neutrophil Percent 67.0 % 05/29 [facility] AutoDiff* Auto Neutrophil Absolute 5.3 K/MM3 2.0 - 7.3 05/29 [facility] AutoDiff* Auto Lymphocyte Percent 17.1 % 05/29 [facility] AutoDiff* Auto Lymphocyte Absolute 1.3 K/MM3 0.9 - 4.8 05/29 [facility] AutoDiff* Auto Monocyte Percent 14.5 % 05/29 [facility] AutoDiff* Auto Monocyte Absolute 1.1 K/MM3 0.2 - 1.0 05/29 H [facility] AutoDiff* Auto Eosinophil Percent 0.9 % 05/29 [facility] AutoDiff* Auto Eosinophil Absolute 0.1 K/MM3 0.0 - 0.4 05/29 [facility] AutoDiff* Auto Basophil Percent 0.5 % 05/29 [facility] AutoDiff* Auto Basophil Absolute 0.0 K/MM3 0.0 - 0.1 05/29 [facility] AutoDiff* Sex assigned at Male 05/29 [facility] BNPep BNP B-Natriuretic Peptide 48 pg/mL 0 - 46 05/29 H [facility] BNPep Sex assigned at Male 05/29 [facility] CBC WBC 7.9 K/MM3 4.5 - 10.0 05/29 [facility] CBC RBC 4.00 M/MM3 4.40 - 6.00 05/29 [facility] CBC HGB 12.3 G/DL 13.4 - 17.4 05/29 [facility] CBC HCT 36.5 % 38.9 - 51.5 05/29 [facility] CBC MCV 91 uM^3 80 - 100 05/29 [facility] CBC MCH 30.8 pg 26.0 - 34.0 05/29 [facility] CBC MCHC 33.7 ZZ 31.0 - 36.0 05/29 [facility] CBC RDW 14.6 % 11.6 - 14.6 05/29 [facility] CBC PLT 218 K/MM3 150 - 400 05/29 [facility] CBC MPV 8.3 uM^3 7.2 - 11.1 05/29 [facility] CBC Sex assigned at Male 05/29 [facility] CMP Sodium Level 137 mmol/L 136 - 144 05/29 [facility] CMP Potassium Level 3.7 mmol/L 3.6 - 5.1 05/29 [facility] CMP Chloride Level 98 mmol/L 101 - 111 05/29 [facility] CMP CO2/Carbon Dioxide 31 mmol/L 22 - 32 05/29 [facility] CMP Anion Gap 8 mmol/L 5 - 17 05/29 [facility] CMP Glucose, Random 99 MG/DL 74 - 118 05/29 [facility] CMP BUN 27 MG/DL 7 - 25 05/29 H [facility] CMP Creatinine 1.3 MG/DL 0.9 - 1.3 05/29 [facility] CMP BUN/Creat Ratio 20.8 05/29 [facility] CMP Osmolality, Calculated 289 mOsm/L 05/29 [facility] CMP Calcium Level 9.9 MG/DL 8.6 - 10.3 05/29 [facility] CMP Total Protein 7.5 G/DL 6.0 - 8.0 05/29 [facility] CMP Albumin Level 4.1 G/DL 3.5 - 5.0 05/29 [facility] CMP Globulin Level 3.4 G/DL 2.1 - 3.9 05/29 [facility] CMP A/G Ratio 1.21 1.00 - 2.50 05/29 [facility] CMP ALP 78 Units/L 38 - 126 05/29 [facility] CMP ALT 18 Units/L 8 - 40 05/29 [facility] CMP AST 27 Units/L 15 - 41 05/29 [facility] CMP Bilirubin, Total 0.4 MG/DL 0.3 - 1.2 05/29 [facility] CMP GFR - Non 59 mL/min/1.7 3m2 [...] to persons under 18 years of age. [facility] CMP GFR - 71 mL/min/1.7 3m2 >=60 05/29 [facility] CMP Sex assigned at Male 05/29 [facility] Trop Troponin I <0.03 NG/ML 0.00 - [...] may be indicative of acute myocardial injury. [facility] Trop Sex assigned at Male 05/29 NA [facility] Diagnostic Reports Report Value Date Source CT [...] Underlying centrilobular emphysema, and chronic bronchitis. 2021 [facility] Chest 1 Vw Portable PROCEDURE: CHEST RAD [...] for pneumonia. Small right pleural effusion. 2021 [facility] Consultation Notes Results Value Date Source Progress Note Patient: DARRIAN ALAMO Age: 66 years Legal Sex: Male : 1955 Author: MD Nicolas, Maurice Carias Discharge summary dictated with dictation number [id number] Male 05/31/2021 [facility] ED Physician Notes Patient: DARRIAN ALAMO Age: [...] Antibiotics, IV fluid, Oxygen), Case review (medical reviewer, nursing), Alternate history emergency medical services. Treatment response: Improved. Performed by: self. Notes: This time excludes time spent performing procedures but includes time spent on direct patient care, history retrieval, review of the chart, and discussions with patient, family, and talent acquisition consultant(s). . [id number] Male 2021 [facility] ED Physician Notes Patient: GIOVANY ALAMO Age: [...] male reported history of COPD traveling from [place] to [place] presents from the airport with shortness of breath. Patient reports he developed difficulty breathing earlier this morning which continued on the plane flight from [place]. Has associated wheezing. Denies any cough, fever, [...] No records identified on chart review at [facility] Patient reports being from [place] with a known history of COPD DARRIAN [...] Oxygen provided for acute hypoxemia The hospitalist national coverage specialist was consulted and agreed to accept patient [...] Condition Stable Disposition Admit MSEI Information JUSTICEI /DUCT MAKER/PA Time Patient Seen face to face: Date [...] Peptide 48 pg/mL (HIGH) 05/29/21 07:43 PST [id number] Male 2021 [facility] Discharge Summaries Results Value Date Source Discharge Summary DATE OF ADMISSION: 2021 DATE OF DISCHARGE: 05/30/2021 PRIMARY CARE PROVIDER: Zion Atkins DNP, SMOKING TOBACCO PACKING MACHINE HAND-BC, ANDREW-BC, of the [facility], phone number is [phone], fax number is [phone]. ATTENDING PROVIDERS: 1. Nico Capone MD 2. [...] who was traveling from his home in [place] to [place], with onset of shortness of breath during [...] the time of discharge. MD Lynne Bowden [facility],05/30/2021 21:02:17 PST. Conf # [id number] ,05/30/2021 21:31:26 PST. Dictation ID [id number] Male 05/31/2021 [facility] History and Physicals Results Value Date Source History and Physical Examination 2021 [facility] History and Physical Admit Date: 022 DATE [...] respiratory illness specifically previously. He is from [place], [place] and was traveling through [place] on his way to [place] as today is his birthday. This is the first leg in an extended trip. He was a bit more dyspneic last night and this morning, but had spent the last day and a half plowing and then snow blowing quite a bit and prepping his residence for an extended stay without a boiler house inspector in the winter in [place]. He acknowledges being pretty significantly fatigued yesterday [...] He was on his way to visit [place] briefly, but then a few other parts [...] rounds of Mohs surgery and finally a [id number] graft. 7. Degenerative disease of the cervical [...] D DML, 2021 15:06:41 PST. Conf # [id number] , 2021 16:30:17 PST. Dictation ID [id number] Male 2021 [facility] Vital Signs Vital Sign Value Date Comments Source Oxygen delivery Room air (05/30/21 3:41 PM) 05/30/2021 05 [facility] Temperature (F) 98.3 [degF] 05/30/20[facility] Peripheral Pulse Rate 95 bpm 05/30/2021 05 [facility] Peripheral pulse site Non-invasive BP device (05/30/21 3:41 PM) 05/30/2021 05 [facility] Respiratory rate 14 br/min 05/30/2021 05 [facility] Systolic BP 120 mm[Hg] 05/30/2021 05 [facility] Diastolic BP 67 mm[Hg] 05/30/2021 05 [facility] Blood Pressure Method Automatic (05/30/21 3:41 PM) 05/30/2021 05 [facility] Pulse Oximetry 95 % 05/30/2021 05 [facility] Oxygen delivery Room air (05/30/21 11:33 AM) 05/30/2021 05 [facility] Temperature (F) 98.4 [degF] 05/30/2021 05 [facility] Peripheral Pulse Rate 82 bpm 05/30/2021 05 [facility] Peripheral pulse site Non-invasive BP device (05/30/21 11:33 AM) 05/30/2021 05 [facility] Respiratory rate 16 br/min 05/30/2021 05 [facility] Systolic BP 114 mm[Hg] 05/30/2021 05 [facility] Diastolic BP 53 mm[Hg] 05/30/2021 05 [facility] Blood Pressure Method Automatic (05/30/21 11:33 AM) 05/30/2021 05 [facility] Pulse Oximetry 92 % 05/30/2021 05 [facility] Respiratory rate 21 br/min 05/30/2021 05 [facility] Peripheral Pulse Rate 78 bpm 05/30/2021 05 [facility] Pulse Oximetry 92 % 05/30/2021 05 [facility] Oxygen delivery Room air (05/30/21 9:00 AM) 05/30/2021 05 [facility] Neurological norm WDL (05/30/21 9:00 AM) 05/30/2021 05 [facility] Temperature (F) 98.1 [degF] 05/30/2021 05 [facility] Peripheral pulse site Non-invasive BP device (05/30/21 8:07 AM) 05/30/2021 05 [facility] Systolic BP 134 mm[Hg] 05/30/2021 05 [facility] Diastolic BP 62 mm[Hg] 05/30/2021 05 [facility] Blood Pressure Method Automatic (05/30/21 8:07 AM) 05/30/2021 05 [facility] Neurological norm No change from previous assessment (05/30/21 3:29 AM) 05/30/2021 05 [facility] Neurological norm No change from previous assessment (05/30/21 12:46 AM) 05/30/2021 05 [facility] Oxygen FiO2 21 % 05/30/2021 05 [facility] HeightLength (cm) 187.6 cm 2021 05 [facility] HeightLength method Stated (05/29/21 12:2 0 PM) 2021 05 [facility] Weight measured method Standing scale (05/29/21 12:20 PM) 2021 05 [facility] Body Mass Index 0 kg/m2 [address] [facility] Weight (kg) 72.57 kg 2021 05 [facility] Heart Rate Monitored 98 bpm 2021 05 [facility] Mean BP 106 mm[Hg] 2021 05 [facility] Heart Rate Monitored 87 bpm 2021 05 A [facility] Mean BP 95 mm[Hg] 2021 05 [facility] Oxygen flow 0 L/min 2021 05 [facility] Oxygen flow 0 L/min 2021 05 [facility] Heart Rate Monitored 98 bpm 2021 05 A [facility] Mean BP 85 mm[Hg] 2021 05 [facility] Oxygen flow 1 L/min 2021 05 [facility] Weight (kg) 73.48 kg 2021 05 [facility] Dose calculation weight (kg) 73.48 kg 2021 05 [facility] Encounters Location Location Details Encounter Type Encounter Number Reason For Visit Attending Provider ADM Date DC Date Status Source 08 15 [facility] Observation [id number] Acute Hypoxemi c Respirat ory Failure, Communit y Acquired Pneumoni a Nico Capone 05/29 Active [facility] Social History Social History Date Source Social History TypeResponse Smoking Status Is there a smoker in the household? No; *Do you have concerns about tobacco use in household? No; Former smoker, quit more than 30 days ago; Never; *Are you ready to quit? Yes entered on: 05/29/[address] Sex Male [address] [place] [address] Social History TypeResponse Smoking Status Is there a smoker in the household? No; *Do you have concerns about tobacco use in household? No; Former smoker, quit more than 30 days ago; Never; *Are you ready to quit? Yes entered on: 05/29/21 Sex Male 05 [facility] Social History TypeResponse Smoking Status Is there a smoker in the household? No; *Do you have concerns about tobacco use in household? No; Former smoker, quit more than 30 days ago; Never; *Are you ready to quit? Yes entered on: 05/29/21 Sex Male [address] [place] [address]
--- OUTSIDE RECORDS SUMMARY | 2024-04-14 12:27 | XMS_ITS ---
[facility] Name [facility] Organization Unknown Results Test Name/Text Value Interpretation Date Range Source HCoV OC43 RNA Nph Ql RAYO+non-probe Not Detected Normal [id number] [facility] HPIV1 RNA Nph Ql RAYO+non-probe Not Detected Normal [id number] [facility] B pert.PT Prmt Nph Ql RAYO+non-probe Not Detected Normal [id number] [facility] B parap [id number] DNA Nph Ql RAYO+non-probe Not Detected Normal [id number] [facility] SARS-CoV-2 RNA Nph Ql RAYO+non-probe Not Detected Normal [id number] [facility] FLUAV H3 RNA Nph Ql RAYO+non-probe Not Detected Normal [id number] [facility] HPIV2 RNA Nph Ql RAYO+non-probe Not Detected Normal [id number] [facility] HCoV HKU1 RNA Nph Ql RAYO+non-probe Not Detected Normal [id number] [facility] FLUAV RNA Nph Ql RAYO+non-probe Not Detected Normal [id number] [facility] FLUAV H1 2009 schmitz RNA Nph RAYO+non-probe Not Detected Normal [id number] [facility] HCoV 229E RNA Nph Ql RAYO+non-probe Not Detected Normal [id number] [facility] HPIV3 RNA Nph Ql RAYO+non-probe Not Detected Normal [id number] [facility] HAdV DNA Nph Ql RAYO+non-probe Not Detected Normal [id number] [id number] [facility] FLUBV RNA Nph Ql RAYO+non-probe Not Detected Normal 761267 [id number] [facility] C pneum DNA Nph Ql RAYO+non-probe Not Detected Normal [id number] [facility] HCoV NL63 RNA Nph Ql RAYO+non-probe Not Detected Normal [id number] [facility] HPIV4 RNA Nph Ql RAYO+non-probe Not Detected Normal [id number] 803578 [facility] hMPV RNA Nph Ql RAYO+non-probe Not Detected Normal [id number] 80521 [facility] RV+EV RNA Nph Ql RAYO+non-probe Not Detected Normal [id number] [facility] FLUAV H1 RNA Nph Ql RAYO+non-probe Not Detected Normal [id number] [facility] RESPIRATORY PATHOGENS PANEL NAAT Negative Normal [id number] [facility] RSV RNA Nph Ql RAYO+non-probe Not Detected Normal [id number] [facility] M pneumo DNA Nph Ql RAYO+non-probe Not Detected Normal [id number] [facility] History of Medication Use Medication Directions Dispensed [...] mouth once a day active BREZTRI AEROSPHERE (DZLAYSE-ZZFLZNECUVL-O ORMOTEROL) 160-9-4.8 MCG/ACT AERO Breztri Aerosphere 160 mcg-9mcg-4.8mcg/actuat ion HFA aerosol inhaler active METOPROLOL SUCCINATE ER (METOPROLOL SUCCINATE) 50 MG [id number] metoprolol succinate ER 50 mg tablet,extended release [...] Problem Type Date of Resoluti on Source Chest pain active 2022-02-06 [facility] Mixed anxiety and depressive disorder active 2023-03-27 [facility] Hepatitis C carrier active 2007-09-03 [facility] Coronary atherosclerosis active 2023-08-28 [facility] Moderate recurrent major depression active 2021-08-23 [facility] Sleep apnea active 2018-02-26 [facility] Insomnia active 2022-07-04 [facility] Finding related to sleep active 2021-08-23 [facility] Multiple nodules of lung active 2023-06-04 [facility] Essential hypertension active 2022-07-29 [facility] Chronic insomnia active 2022-07-29 [facility] Depressive disorder active 2023-08-28 [facility] Chronic alcoholism in remission active 2021-10-09 [facility] Chronic obstructive lung disease active 2008-07-19 [facility] Hypertensive disorder active 2010-02-07 [facility] History of clinical finding in subject active 2021-07-10 [facility] Exposure to asbestos active 2018-03-17 [facility] Hemoptysis active 2022-02-06 [facility] Large prostate active 2021-02-27 ProblemAct [facility] Alcoholism active 2022-07-04 ProblemAct [facility] Cannabis abuse active 2010-10-07 ProblemAct [facility] Coronary arteriosclerosis active 2023-08-27 ProblemAct [facility] Family history of cardiac disorder active 2019-03-30 ProblemAct [facility] Vitamin D deficiency active 2011-11-03 ProblemAct [facility] Disorder in remission active 2022-06-11 ProblemAct [facility] Dupuytren's disease of palm active 2014-07-20 ProblemAct [facility] Acute exacerbation of chronic obstructive airways disease active 2022-02-18 ProblemAct [facility] Severe chronic obstructive pulmonary disease active 2023-08-28 ProblemAct [facility] Mixed hyperlipidemia active 2004-10-11 ProblemAct [facility] Immunizations Vaccine Date Source Lot Number Status Hep B 11/03/2007 [facility] [id number] completed Influenza, injectable, MDCK, preservative free 01/13/2019 [facility] [id number] completed COVID-19, mRNA, LNP-S, bival ent, PF, 50 mcg/0.5 mL dose (Moderna) 02/07/2022 [facility] [id number] comple adrián Td(adult) unspecified formulation 05/23/2010 [facility] ac [id number] completed influenza, unspecified formulation 01/12/2009 [facility] u [id number] completed Tdap 04/11/2006 [facility] completed Tdap 10/07/2013 [facility] [id number] completed novel [id number] 05/03/2009 [facility] [id number] ompleted pneumococcal polysaccharide PPV23 04/11/2006 [facility] completed influenza, seasonal, injectable 10/07/2013 [facility] [id number] completed Influenza vaccine, quadrivalent, adjuvanted 01/16/2021 [facility] [id number] completed COVID-19, mRNA, LNP-S, PF, 1 00 mcg/0.5 mL dose (Moderna) 08/07/2021 [facility] [id number] completed Pneumococcal conjugate PCV15 , polysaccharide [id number] conjugate, adjuvant, PF - ML 12/27/2022 [facility] [id number] completed COVID-19, mRNA, LNP-S, PF, 1 00 mcg/0.5 mL dose (Moderna) 06/14/2020 [facility] completed influenza, seasonal, injectable 01/16/2015 [facility] [id number] completed influenza, unspecified formulation 01/04/2010 [facility] U [id number] completed influenza, injectable, quadr ivalent, preservative free 01/26/2017 [facility] [id number] completed Td(adult) unspecified formulation 10/07/2013 [facility] [id number] [id number] completed COVID-19, mRNA, LNP-S, PF, 1 00 mcg/0.5 mL dose (Moderna) 02/04/2021 [facility] completed Hep A, unspecified formulation 09/14/2007 [facility] completed influenza, seasonal, injectable 02/07/2014 [facility] [id number] [id number] completed pneumococcal polysaccharide PPV23 05/23/2010 [facility] 12 [id number] completed Hep A, unspecified formulation 04/11/2008 [facility] [id number] completed COVID-19, mRNA, LNP-S, PF, 1 00 mcg/0.5 mL dose (Moderna) 05/17/2020 [facility] completed pneumococcal conjugate PCV 13 06/27/2019 [facility] [id number] completed influenza, unspecified formulation 12/30/2017 [facility] completed pneumococcal polysaccharide PPV23 04/23/2016 [facility] [id number] completed influenza, unspecified formulation 04/11/2006 [facility] completed influenza, high-dose, quadrivalent 02/27/2020 [facility] U [id number] completed influenza, unspecified formulation 02/11/2012 [facility] a [id number] completed influenza, high-dose, quadrivalent 02/07/2022 [facility] U [id number] completed
--- OUTSIDE RECORDS SUMMARY | 2024-04-14 12:27 | XMS_ITS | Clinical Summary ---
Author Organization Unknown Care Team Providers Care Internal Audit Senior Manager Name Role Phone ROGELIO PATTON DO Unavailable Unavailable DONAVAN PT, LIC# [id number], FRANCI Unavailable Unavailable YANA OT. LIC#[id number], JAMEY Unavailable Unavailable [facility]ISTER[facility]URSE[facility] Unavailable Unavailable Payers Payer Name Policy Type Policy Number Effective Date Expira tion Date MEDICARE CGS - EPISODIC [id number] Problems Condition Name Condition Details Condition Category [...] CONSTIPATION , UNSPECIFIED Active 09-19 00:00: 00 TREE KILLER (CURRENT) USE OF ASPIRIN Active 09-19 00:00: 00 DEPENDENCE ON SUPPLEMENTAL OXYGEN Active 09-19 00:00: 00 TREE KILLER (CURRENT) USE OF INHALED STEROIDS Active 09-19 [...] 20 mg tablet 09-17 00:00: 00 Yes [id number] LOWERS BP 1 tablet ONCE DAILY 1 tablet ONCE DAILY (route: oral) Med Classific ation: Cardiovas cular Therapy Agents Trelegy Ellipta 200 mcg-62.5 mcg-25 mcg powder for inhalation 09-17 00:00: 00 Yes [id number] STOPS COPD EXACERBATIO NS 1 inhalat ion ONCE DAILY 1 inhalation ONCE DAILY (route: inhalation ) Med Classific ation: Respirato ry Therapy Agents buprenorphi ne 4 mg-naloxone 1 mg sublingual film 09-16 00:00: 00 09-26 23:59 :00 No [id number] STOPS NARCOTIC CRAVINGS 0.5 film ONCE DAILY 0.5 film ONCE DAILY (route: sublingual ) Med Classific ation: Chemical Dependenc y, Agents to Treat Acetaminoph en Extra Strength 500 mg tablet 09-19 00:00: 00 Yes [id number] PAIN 2 tablet EVERY 8 HOURS 2 tablet EVERY 8 HOURS (route: oral) Med Classific ation: Analgesic , Anti-infl ammatory or Antipyret ic albuterol sulfate 2.5 mg/3 mL (0.083 %) solution for nebulizatio n 09-19 00:00: 00 Yes [id number] IF SOB OR WHEEZING 3 mL 4 TIMES DAILY 3 mL 4 TIMES DAILY (route: inhalation ) Med Classific ation: Respirato ry Therapy Agents albuterol sulfate HFA 90 mcg/actuati on aerosol inhaler 09-19 00:00: 00 Yes [id number] SHORT OF BREATHE OR WHEEZING 2 puff EVERY 4 HOURS 2 puff EVERY 4 HOURS (route: inhalation ) Med Classific ation: Respirato ry Therapy Agents aspirin 81 mg tablet,susan yed release 09-19 00:00: 00 Yes [id number] BLOOD THINNER 1 tablet ONCE DAILY 1 tablet ONCE DAILY (route: oral) Med Classific ation: Hematolog ical Agents ergocalcife rol (vitamin D2) 1,250 mcg (50,000 unit) capsule 09-19 00:00: 00 Yes [id number] VIT D2 SUPPLEMENT 1 capsule WEEKLY 1 capsule WEEKLY (route: oral) Med Classific ation: Electroly te Balance-N utritiona l Products ferrous sulfate 325 mg (65 mg iron) tablet 09-19 00:00: 00 Yes [id number] IRON 1 tablet ONCE DAILY 1 tablet ONCE DAILY (route: oral) Med Classific ation: Electroly te Balance-N utritiona l Products naloxone 4 mg/actuatio n nasal spray 09-19 00:00: 00 Yes [id number] IF WITH NARCOTIC OD 1 spray DIRECTED 1 spray DIRECTED (route: nasal) Med Classific ation: Antidotes and other Reversal Agents olanzapine 10 mg tablet 09-19 00:00: 00 Yes [id number] HELPS SLEEP 1 tablet AT BEDTIME 1 tablet AT BEDTIME (route: oral) Med Classific ation: Central Nervous System Agents OXYGEN 09-19 00:00: 00 Yes [id number] IF SOB 2 Liter NEEDED 2 Liter A S NEEDED (route: Oxygen) Med Classific ation: Medical Oxygen metoprolol succinate ER 25 mg tablet,exte nded release 24 hr 10-10 00:00: 00 Yes [id number] HEART. LOWER HR 1 tablet ONCE DAILY [...] HEAL UP SO I CAN TRAVEL HOME ([place]) Goal Provider Goal - PHYSICAL THERAPY EVALUATION [...] End Date/Time Encounter Type Admission Type Attending [facility] Department Encounter ID Discharge Date Discharge Status Discharge Condition Discharge Reason Percent Goals Met 2022-09-19 00:00:00 2022-10-17 00:00:00 Outpatient NEW ADMISSION [place] [facility] [id number] 00:00:00 DISCHARGE TO HOME OR SELF CARE INDEPENDEN T IN THE HOME GOALS MET 67.31
--- OUTSIDE RECORDS SUMMARY | 2024-04-14 12:27 | XMS_ITS | Data Portability ---
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 head injury; suicide, Oldest: Drug-related suicide Children: 3 2 sons: Youngest: lives in [place] Oldest lives in [place]: granddaughter Shira he cared for he found out that girl was not biological child of his son (tried to adopt her but couldn't). Adriane Zuniga born 10/24 after son new girl Granddaughter [place] born 03/30 Eldest: arrested for making meth.; going to [facility]. on 03/05/12 was sentenced to 6 years in long term Entered On: 02/07/2022 Mother - Family History of Heart Disease Comments: Mother: grew up in an orphanage, 3 times. Polio; DV; at 54 of ID. - Entered On: 04/18/2015 Father: 7 times. at 62 of CVA Mother: of ID in her 50s One biological sister: of ID at 50 (2009) 7 step siblings 2 suicide, youngest: MVA with head injury; suicide, Oldest: Drug-related suicide Children: 3 2 sons: Youngest: lives in [place] Oldest lives in [place]: granddaughter Shira he cared for he found out that girl was not biological child of his son (tried to adopt her but couldn't). Adriane Zuniga born 10/24 after son new girl Granddaughter Nic born 03/30 Eldest: arrested for making meth.; going to [employer]. on 03/05/12 was sentenced to 6 years in long term Entered On: 03/18/2022 Medical History No medical history recorded. Immunizations Vaccine Type Date Status Note Provider Nam e and Address Organization Details Recorded Time pneumococcal polysaccharide PPV23 6 completed Not Available [facility] 09/10/2022 20:09:12 pneumococcal polysaccharide PPV23 1 completed Not Available [facility] 09/10/2022 20:09:12 Hep A, unspecified formulation 8 completed Not Available [facility] 09/10/2022 20:09:13 Hep A, unspecified formulation 8 completed Not Available [facility] 09/10/2022 20:09:13 influenza, unspecified formulation 9 completed Not Available [facility] 09/10/2022 20:09:12 influenza, unspecified formulation 6 completed Not Available [facility] 09/10/2022 20:09:12 influenza, unspecified formulation 0 completed Not Available [facility] 09/10/2022 20:09:12 influenza, unspecified formulation 2 completed Not Available [facility] 09/10/2022 20:09:12 Influenza, split virus, trivalent, preservative 4 completed Not Available [facility] 09/10/2022 20:09:12 Influenza, split virus, trivalent, preservative 4 completed Not Available [facility] 09/10/2022 20:09:13 Influenza, split virus, trivalent, preservative 5 completed Not Available [facility] 09/10/2022 20:09:12 Tdap 6 completed Not Available [facility] 09/10/2022 20:09:12 Td(adult) unspecified formulation 1 completed Not Available [facility] 09/10/2022 20:09:12 Td(adult) unspecified formulation 4 completed Not Available [facility] 09/10/2022 20:09:12 pneumococcal polysaccharide PPV23 7 completed Not Available [facility] 09/10/2022 20:09:12 Influenza, split virus, quadrivalent, PF 7 completed Not Available [facility] 09/10/2022 20:09:13 Influenza, MDCK, trivalent, PF 9 completed Not Available [facility] 09/10/2022 20:09:13 Pneumococcal conjugate PCV 13 0 completed Not Available [facility] 09/10/2022 20:09:12 Influenza, high-dose, quadrivalent, PF 0 completed Not Available [facility] 09/10/2022 20:09:12 influenza, unspecified formulation 8 completed Not Available [facility] 09/10/2022 20:09:12 Influenza, adjuvanted, quadrivalent, PF 1 completed Not Available [facility] 09/10/2022 20:09:12 COVID-19, mRNA, LNP-S, PF, 100 mcg/0.5mL dose or 50 mcg/0.25mL dose 1 completed Not Available [facility] 09/10/2022 20:09:12 COVID-19, mRNA, LNP-S, PF, 100 mcg/0.5mL dose or 50 mcg/0.25mL dose 1 completed Not Available [facility] 09/10/2022 20:09:12 COVID-19, mRNA, LNP-S, PF, 100 mcg/0.5mL dose or 50 mcg/0.25mL dose 2 completed Not Available [facility] 09/10/2022 20:09:12 COVID-19, mRNA, LNP-S, PF, 100 mcg/0.5mL dose or 50 mcg/0.25mL dose 1 completed Not Available [facility] 09/10/2022 20:09:12 Influenza, high-dose, quadrivalent, PF 2 completed Not Available [facility] 09/10/2022 20:09:12 COVID-19, mRNA, LNP-S, bivalent, PF, 50 mcg/0.5 mL or 25mcg/0.25 mL dose 2 completed Not Available [facility] 09/10/2022 20:09:12 Tdap 4 completed Not Available [facility] 11/12/2022 16:52:24 Novel [id number] 0 completed Not Available [facility] 11/12/2022 16:52:24 Pneumococcal conjugate PCV15, polysaccharide UPU543 conjugate, adjuvant, PF 3 completed Not Available [facility] 01/07/2023 18:32:30 Past Encounters Encounter ID Performer Location Encounter Start Date Encounter Closed Date Diagnosis/Indication Diagnosis SNOMED-CT Code Diagnosis ICD10 Code [id number] TIM Bautista [facility] [address] [facility] [place] [address] 06/11/2022 16:55:03 06/11/2022 17:30:00 Hypertensive disorder 67299986 I10 Mild recur rent major depression 74888411 F33.0 Disorder in remission 76 1885845 F11.91 Alcohol abuse 33200224 F 10.99 [id number] TIM Bautista [place] [address] [place] [address] [place] [address] 06/20/2022 13:47:52 06/20/2022 14:10:49 Hypertensive disorder 05454342 I10 Alcohol abuse 60994504 F 10.99 [id number] Dario Cabral PA-C [place] [address] [place] [address] [address] [place] [address] 07/04/2022 16:52:10 07/04/2022 17:35:20 Chronic obstructive pulmonary disease 53308525 J44.9 Insomnia 978223301 G47.0 0 Alcoholism 1274641 F10.2 0 [id number] Dario Cabral PA-C [place] [address] [place] [address] [address] [place] [address] 07/18/2022 16:59:49 07/18/2022 19:12:55 Chronic obstructive pulmonary disease 20682621 J44.9 [id number] Dario Cabral PA-C [place] [address] [place] [address] [address] [place] [address] 07/29/2022 12:55:51 07/29/2022 16:17:16 Chronic insomnia 140065558 F51.04 Essential hypertension 70992524 I10 Chronic ob structive pulmonary disease 13492350 J44.9 [id number] Zion Smyth, TIM [facility] [address] [place] [id number] 11/11/2022 15:23:25 11/11/2022 15:58:43 Opioid dependence in remission 234663813 F11.21 Chronic insomnia 0253936 04 F51.04 Moderate r ecurrent major depression 75553500 F33.1 [id number] Dario Cabral PA-C [place] [address] [place] [address] [address] [place] [address] 11/12/2022 16:51:13 11/12/2022 17:32:53 History of aortic valve replacement 7411226003 100 Z95.4 Insomnia 914158666 G47.0 0 Essential hypertension 69669217 I10 [id number] Dario Cabral PA-C [place] [address] [place] [address] [address] [place] [address] 11/26/2022 17:13:17 11/26/2022 18:01:06 Essential hypertension 37868872 I10 [id number] Dario Cabral PA-C [place] [address] [place] [address] [address] [place] [address] 01/07/2023 18:29:24 01/07/2023 20:58:29 Acute exacerbation of chronic obstructive pulmonary disease 244869223 J44.1 Alcoholism 9593706 F10.2 0 [id number] Zion Smyth, TIM [facility] [address] [place] [address], [place] [address] 03/24/2023 18:27:43 03/24/2023 19:05:13 Moderate recurrent major depression 65130270 F33.1 [id number] Dario Cabral PA-C [place] [address] [place] [address] [address] [place] [address] 03/27/2023 13:06:40 03/27/2023 15:28:10 Chronic insomnia 491417032 F51.04 Mixed anxi ety and depressive disorder 262949748 F41.8 Chronic ob structive pulmonary disease 18212051 J44.9 [id number] TIM Bautista [facility] [address] [place] [address], [place] [address] 04/22/2023 14:55:54 04/22/2023 15:44:38 Moderate recurrent major depression 59422739 F33.1 Acute exac erbation of chronic obstructive pulmonary disease 232536026 J44.1 [id number] Dario Cabral PA-C [place] [address] [place] [address] [address] [place] [address] 05/05/2023 13:01:56 05/05/2023 13:53:14 Chronic obstructive pulmonary disease 30961016 J44.9 Essential hypertension 00421442 I10 [id number] Dario Cabral PA-C [place] [address] [place] [address] [address] [place] [address] 08/27/2023 18:24:26 08/27/2023 19:08:31 Acute exacerbation of chronic obstructive pulmonary disease 809860771 J44.1 Coronary arteriosclerosis 98527824 I25.10 Hypertensive disorder 38 564752 I10 Severe chr onic obstructive pulmonary disease 421338113 J44.9 Coronary atherosclerosis 262741418 I25.10 Chronic al coholism in remission 469274488 F10.21 Depressive disorder 3548 9007 F32.A Health Concerns Section Related Observation LastModified by Organization Detai ls LastModified Time None Recorded Concern Status LastModified by Organization Details LastModified Time None Recorded Advance Directives Directive None Recorded Payers Encounter Date Sequence Insurance Name Policy Number Policy Li Covered Member ID Li Member ID Guarantor Name 03/24/2023 2 MEDICARE [place]: [employer] Freedom Paz [id number] Freedom Paz 03/27/2023 2 MEDICARE [place]: [employer] Freedom Willsona [id number] Freedom Willsona 04/22/2023 2 MEDICARE [place]: [employer] Freedom Paz [id number] Freedom Paz 05/05/2023 2 MEDICARE [place]: [employer] Freedom Willsona [id number] Freedom Willsona 08/27/2023 1 [employer] - [place] - PART A - [facility] (MEDICARE) Freedom Paz [id number] Freedom Paz Notes Date Note Type Note Provider Name and Address Organization Details Recorded Time 03/24/2023 text/html Juwan presents fo r suboxone management. His breathing has gotten bad d/t needing her oxygen, he is currently at his sisters [place] and is working on moving to [place] and is working on getting a specialist in [place] before his move and has already set [...] with them and jittery. Zion Smyth, ANP [address] [place], [address], [facility] [place] 03/24/2023 19:10:18 03/27/2023 text/html Patient has verbally consented to this visit via telehealth. Patient is located at home. This visit was performed using HIPAA compliant video via [employer].tri rating from aortic valve repair on September 02, 2022. Living in [facility], (Anitha Hogan have there names on chart to discuss pt health status).pt is currently living with sister. Currently on home O2.[facility] pharmacy fax [phone] located [facility].Had a telehealth appt with Wilbert LOUIS, was placed on clonazepam with no relief of insomnia current etoh use is limited to two beers/day. HE has been advised to stop by adzing and boring machine feeder Dario Cabral PA-C [address], [place], [address], [facility] [place] 03/27/2023 13:59:21 04/22/2023 text/html Juwan presents [...] the loop as well. Zion Smyth, TIM [address], [place], [address], [facility] [place] 04/22/2023 16:42:23 05/05/2023 text/html Patient has verbally consented to this visit via telehealth. Patient is located at home. This visit was performed using HIPAA compliant video via [employer]PO[employer]. Venita BOURNE needs refill of medication , has been having more JOHNSTON and SOB. Is fine when on nasal cannula with pulse ox at 96% but quickly desats when doing any walking. Needs refill of BP meds Dario Cabral PA-C [address], [place], [address], [facility] [place] 05/11/2023 14:57:24 08/27/2023 text/html [place] retur[place] d to [place] nd [place]ology [place] on [place] chest follow up for pulmonary nodules being monitored. He understood that he had blockages and was to be seen next by vasculature surgeon. HE was seen by top lift scourer and was placed on amlodipine and crestor. [...] most support when he moves back to [facility] where he spent his winter.when asked on [...] live with his brother. Dario Cabral PA-C [address], [place], [address], [facility] [place] 08/28/2023 11:10:55
== END 2024-04-13 23:01 ==
LOC: HO.LNP 23:00
PROVIDERS: Visit Provider Nurse Practitioner Family
DX: R05.9 Cough, unspecified (principal)
CPT/HCPCS: 87070; 87185; 87205

== ENCOUNTER 2024-05-06 14:52 | Outpatient (AMB) | payer MEDICARE, SELFPAY ==
--- NOTE | 2024-05-06 13:08 | MHC.OFFVIS ---
Vital Signs 05/06/24 15:01 Height 5 ft 11 in Weight 166 lb BMI 23.1 BP 126/70 Blood Pressure Location Rt brachial Pulse 108 H Pulse Source Pulse Oximeter Pulse Oximetry (%) 93 Oxygen Delivery Method Room Air Intake Visit Reasons: F/U Oil Heaterman Required: No Patrol Police Sergeant: Patrol Police Sergeant offered & declined Accompanied by: Brother Allergies No Known Allergies Allergy (Verified 05/06/24 15:02) Medication List - Last Reconciled 05/06/24 by Raysa Ramirez LPN albuterol sulfate 90 mcg/actuation 2 puffs inhalation Q6H PRN [id number]-[id number]-gchiivkufm 160-9-4.8 mcg/actuation (Breztri Aerosphere) 2 inhalations inhalation BID buprenorphine-naloxone 4-1 mg 5 mg sublingual DAILY clonazepam 0.25 mg PO BID inhalational spacing device (Aerochamber MV spacer) As directed ipratropium-albuterol 0.5 mg-3 mg(2.5 mg base)/3 mL 3 mL inhalation BID PRN lisinopril 20 mg PO DAILY metoprolol succinate ER 50 mg PO DAILY quetiapine 25 mg PO BEDTIME HPI HPI F/U: Details: Freedom is a pleasant 68-year-old male, former smoker with 40pyh, quit 3 years ago, with underlying severe COPD, HTN, s/p aortic valve replacement 2022 and h/o hepatitis C. He was admitted on two occasions over the last few months with COPD exacerbations secondary to a viral infections. It was recommended he use BiPAP therapy outpatient however he continues to decline. He has been using Breztrii, DuoNeb, and albuterol MDI, with moderate effect. He does have a flutter valve and incentive spirometer however uses infrequently. Prior chest CT noted multiple pulmonary nodules, largest measuring 9-10 mm of the right upper lobe and has been stable since 2022. He underwent chest CT in March as there was note of mediastinal lymphadenopathy on prior chest CT in January which revealed multifocal PNA, sputum + for H.Flu. He was treated with Augmentin, doxycycline and prednisone. Since then he reports overall improvements continues with infrequent productive cough with whitish simpson sputum, dyspnea at baseline and wheezing. He has been checking oxygen saturation, which reportedly has been maintaining >92%. He denies fevers or chills. He denies any visits to urgent care or hospitalizations related to respiratory distress since the last visit. Of note, an order for overnight oximetry was placed at the last visit and this has yet to be performed. [facility] Medical History Basal cell carcinoma Vitamin D deficiency Major depressive disorder Alcohol dependence Mixed hyperlipidemia Emphysema/COPD Dupuytren's contracture of both hands Chest pain BPH (benign prostatic hyperplasia) Chronic pain syndrome Asbestos exposure Hepatitis C Sleep apnea Insomnia Hemoptysis Marijuana use Hypertension Osteoarthritis of right shoulder Nocturnal hypoxemia Multiple pulmonary nodules COPD (chronic obstructive pulmonary disease) Surgical History H/O colonoscopy (~2017) History of back surgery (~2007) History of appendectomy History of aortic valve replacement (~08/2022) Family History Sister Skin cancer Mother Arthritis Polio Other Family history of cerebrovascular accident Social History Alcohol intake: current Alcohol intake frequency: a few times a week Patient Tobacco Use Status: Former Tobacco user Tobacco use type: Cigarette Cigarette Packs Per Day: 1 Years Smoked: 40 Review of Systems Const Denies chills, Denies excessive sweating, Denies headache(s) and Denies night sweats Eyes Denies dry eyes, Denies irritation and Denies itchy eyes ENT Reports Normal hearing present, Denies headache(s), Denies nasal congestion, Denies nasal discharge, Denies post nasal drip and Denies sore throat Card Denies claudication, Denies leg edema, Reports dyspnea on exertion, Denies orthopnea and Denies paroxysmal nocturnal dyspnea Resp Denies chest congestion, Reports cough, Denies hemoptysis, Denies excessive phlegm production, Denies pain on inspiration, Denies pain with cough, Reports dyspnea on exertion, Denies stridor and Reports wheezing Musc Denies myalgias Neuro Reports Normal hearing present and Denies headache(s) Endo Denies excessive sweating Jessee/Lymph Denies lymphadenopathy Aller/Immun Denies itchy eyes, Denies seasonal rhinorrhea and Reports wheezing Physical Exam Vital Signs: Last Vital Signs Pulse 108 H 05/06/24 15:01 BP 126/70 05/06/24 15:01 Pulse Ox 93 05/06/24 15:01 Oxygen Delivery Method Room Air 05/06/24 15:01 BMI result Body Mass Index 23.1 Neuro Cranial nerves: Yes Normal hearing present Assessment & Plan Assessment & Plan (1) COPD (chronic obstructive pulmonary disease): Code(s): J44.9 - Chronic obstructive pulmonary disease, unspecified Category: Medical (2) Multiple pulmonary nodules: Code(s): R91.8 - Other nonspecific abnormal finding of lung field Category: Medical (3) Personal history of tobacco use: Code(s): Z87.891 - Personal history of nicotine dependence Category: Social Hx (4) Nocturnal hypoxemia: Code(s): G47.34 - Idiopathic sleep related nonobstructive alveolar hypoventilation Category: Medical Plan Prior chest CT from March revealed multifocal bronchopneumonia and on exam patient with expiratory wheezes throughout. He was treated with doxycycline augmentin and prednisone with improvements in cough however continues with wheezing. Will send longer course of prednisone. He is aware if symptoms do not improve will call office or seek emergent care if symptoms worsen. Order placed for repeat chest CT in 4 weeks to assess for resolution of infectious process. He is requesting this to be performed at [place]. Encouraged continued use of flutter valve and incentive spirometer. Order previously placed for overnight oximetry to assess for nocturnal hypoxemia, will ensure this order is processed. He did have a change in address which may have delayed receiving device. Will update in system. All questions were answered and patient is in agreement of plan. Will follow-up in 4-6 weeks or sooner if needed. Medications: New prednisone see taper instructions Take 4 pills daily for 5 days, then go down by 1 pill every 5 days; 20 days 50 tabs 10 mg PO DIRECTED 50 tabs 0RF Coding Level of Care Code Est Pt Level 4 (76462) Complex EM visit Add On G2211 Diagnoses COPD (chronic obstructive pulmonary disease) J44.9 Multiple pulmonary nodules R91.8 Personal history of tobacco use Z87.891 Nocturnal hypoxemia G47.34
[2024-05-06 15:01] VITALS: BP 126/70; PULSE 108; O2SAT 93; BMI 23.1
--- OUTSIDE RECORDS SUMMARY | 2024-05-06 16:14 | XMS_ITS ---
Author Organization [facility] Address [address] [address] Care Team Providers Care Coating Supervisor Name Role Phone July Unavailable [phone] DAYSI ARREDONDO Unavailable [phone] Allergies No Known Allergies REASON FOR VISIT [...] Status Risk Notes Problem Peripheral vascular disease (983670954) Peripheral vascular disease, unspecified (I73.9) Active confirmed Problem Atherosclerotic heart disease of [place] coronary artery without angina pectoris (171288644749046) Atherosclerotic heart disease of [place] coronary artery without angina pectoris (I25.10) Active confirmed Problem History of heart valve repair with prosthesis (813339296567602) 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) Active confirmed Problem Inflammatory disease of liver (693792375) Unspecified hepatitis (573.3) Active confirmed Problem Major depression, single episode (83081302) Major depressive disorder, single episode, unspecified (F32.9) Active confirmed Problem Essential hypertension (17964187) Essential (primary) hypertension (I10) Active confirmed Problem Sleep apnea (76239891) Sleep apnea, unspecified (G47.30) Active confirmed Problem Chronic obstructive pulmonary disease (39181179) Chronic obstructive pulmonary disease, unspecified (J44.9) Active confirmed Problem Dyspnea (815506530) Dyspnea, unspecified (R06.00) Active confirmed Problem Abnormal findings on diagnostic imaging of heart and coronary circulation (597020835) Abnormal findings on diagnostic imaging of heart and coronary circulation (R93.1) Active confirmed Vital Signs Blood pressure systolic 146 mm Hg 09/09/19 24 Blood pressure diastolic 76 mm Hg 024 Heart Rate 95 /min 09/09/2023 Oximetry 90 % 09/09/2023 Weight-kg 80.75 kg 09/09/2023 Encounters Encounter Location Date Provider Diagnosis [facility] [address] [place] [address] 09/09/2023 DAYSI ARREDONDO PAD (peripheral artery disease) [...] Notes * SAROJ ALAMO:1955 (68 yo M)Acc No.[id number]:09/09/2023 Patient:?DARRIAN ALAMO Provider:?DAYSI ARREDONDO PA-C :1955???Age:68 Y???Sex:Male Louie e:09/09/2023 Address:[place] [address], [place] [facility] Subjective: * Chief Complaints: * ???PAD * HPI: ???Consult:? 68-year-old male being referred to our office by [facility] for consultation and evaluation of peripheral arterial [...] ARREDONDO PA-C Date: ?09/09/2023 Generated for Luc sam/Leoncio/eTruddysmitting on:?05/06/2024 12:14 PM AKST History and Physical Notes * Examination [...]
--- OUTSIDE RECORDS SUMMARY | 2024-05-06 16:14 | XMS_ITS | Patient Health Record ---
Author Organization [facility] Address [address] [address] Care Team Providers Care [employer] Team Member Name Role Phone July Unavailable [phone] DAYSI ARREDONDO Unavailable [phone] BRAULIO FITZGERALD Unavailable [phone] Allergies No Known Allergies Results Component Value [...] brachial index evaluation. Previous: 08/18/23 CTA ABD/PELV ([facility]) Bilateral: Bilateral lower extremity arterial [...] index evaluation. FINDINGS Previous: 08/18/23 CTA ABD/PELV ([facility]) FINDINGS Bilateral: Bilateral lower extremity [...] are obtained. Previous: 08/18/23 CTA ABD PELVIS ([facility]) Aorta: Limited visualization of the [...] obtained. FINDINGS Previous: 08/18/23 CTA ABD PELVIS ([facility]) FINDINGS Aorta: Limited visua lization of the abdominal aorta due to heavy bowel gas FINDINGS See Below For Report FINDINGS See Below For Report FINDINGS Conclusions: Aortoil iac atherosclerosis. Reason For Referral Reason Severe PAD Diagnosis 1 PAD (peripheral adria ry disease) (I73.9) Referral Organization [facility] TUTE Kori GRADY Referring Provider First Name LESLI Referring Provider Last Name ART Referring Provider Speciality Cardiology Referred Organization [facility] Referred Provider July Referred Address [address],[place], [place],[address], Referred Provider Specialty Vascular Isabel rene General Notes CHRISTOPHER MCGHEE 08/27 03:29:52 PM >requested CTA images, WILY SANTANA 08/31/2023 07:18:04 AM > no images yetRome Katy 08/31/2023 10:39:34 AM > Patient verified [facility] and [facility] 08/31/2023 12:10:48 PM > The patient called and wondered if we had everything that we needed in order to schedule him at [facility]. He is anxious to get an appointment because his referring provider stated that this was an urgent matter.ESTHER KAYLIN R 08/31/2023 12:28:50 PM > not sure on getting these images stat can someone review since pt is worried?, WILY SANTANA 09/01/2023 11:23:30 AM > PT IS VERY WORRIED AND DOES NOT WANT TO WAIT FOR LIA. THERE WAS AN OPEN SPOT ON [facility] DAY 09/08. HE IS AWARE [...] Peripheral vascular disease, unspecified (I73.9) [facility] Referring Provider First Name JULY Referring Provider Last Name PILI Referring Provider [facility] Referred Organization [facility] Referred Address [address],[place], [place],[address], Referred Provider Specialty Gastroentero logy Referral Priority [...] Risk Notes Problem Inflammatory disease of liver (515499754) Unspecified hepatitis (573.3) Active confirmed Problem Major depression, single episode (04798855) Major depressive disorder, single episode, unspecified (F32.9) Active confirmed Problem Sleep apnea (29506434) Sleep apnea, unspecified (G47.30) Active confirmed Problem Essential hypertension (28787899) Essential (primary) hypertension (I10) Active confirmed Problem Atherosclerotic heart disease of [place] coronary artery without angina pectoris (188459868412989) Atherosclerotic heart disease of [place] coronary artery without angina pectoris (I25.10) Active confirmed Problem Peripheral vascular disease (729625747) Peripheral vascular disease, unspecified (I73.9) Active confirmed Problem Chronic obstructive pulmonary disease (16095562) Chronic obstructive pulmonary disease, unspecified (J44.9) Active confirmed Problem Dyspnea (126364681) Dyspnea, unspecified (R06.00) Active confirmed Problem Abnormal findings on diagnostic imaging of heart and coronary circulation (936184742) Abnormal findings on diagnostic imaging of heart and coronary circulation (R93.1) Active confirmed Problem History of heart valve repair with prosthesis (241757901242236) 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) Active confirmed Problem Peripheral vascular disease (131645214) PAD (peripheral artery disease) (I73.9) Active confirmed Vital Signs Heart Rate 95 /min 09/09/2023 Oximetry 90 % 09/09/2023 Blood pressure diastolic 76 mm Hg 09/09/2023 Weight-kg 80.75 kg 09/09/2023 Blood pressure systolic 146 mm Hg 09/09/2023 Encounters Encounter Location Date Provider Diagnosis [facility] [address] [place] [address] 09/04/2023 [facility] [address] [place] [address] 09/09/2023 [facility] [address] [place] [address] 09/09/2023 DAYSI ARREDONDO PAD (peripheral artery disease) I73.9 ; Presence of prosthetic heart valve Z95.2 ; Dyspnea, unspecified R06.00 and Chronic obstructive pulmonary disease, unspecified J44.9 [facility] [address] [place] [address] 09/07/2023July PILI Assessments Encounter Date Diagnosis (ICD [...] OF [place] [address] [address] [id number] INGRIDAbel DARRIAN Self - patient is the insured Medical (General) History Medical History History ICD Code Peripheral vascular disease, unspecified I73.9 Atherosclerotic heart diseas e of [place] coronary artery without angina pectoris I25.10 Presence [...]
--- OUTSIDE RECORDS SUMMARY | 2024-05-06 16:15 | XMS_ITS | Continuity of Care Document ---
Author Name [facility] Care Team Providers Care Forming Roll Operator Name Role Phone [facility] Unavailable Unavailable Problems Problem Status Onset Date Classification Date Reported Comments Source Chronic obstructive pulmonary disease wi Active 05/30/2021 [facility] Acute hypoxemic respiratory failure Active 2021 05/31/2021 05 [facility] Community acquired pneumonia Active 2021 05/31/[address] [place] [address] Medications Medication Details Route Status Patient Instructions Ordering Provider Order Date Source predniSONE 20 mg oral tablet = 3 Tab, ORAL, DAILY, Take in the morning starting 05/31/2021. Take with food or milk., # 9 Tab, 0 Refill(s), Acute, Pharmacy: [facility], 187.6, cm, 05/29/21 12:21:00 PST, Height/Length (cm), 73.48, kg, 05/29/21 8:38:00 PST, Dose calcu... Active [address] [place] [address] azithromycin 250 mg oral tablet = 2 Tab, ORAL, [id number], Take 2 tabs PO daily at 3PM., # 4 Tab, Indication= COPD exacerbation, 0 Refill(s), Acute, Pharmacy: [facility], 187.6, cm, 05/29/21 12:21:00 PST, Height/Length (cm), 73.48, kg, 05/29/21 8:38:00 PST, Dose c... Active [address] [place] [address] Tamsulosin hydrochloride 0.4 MG Oral Capsule [Flomax] = 1 Cap, ORAL, DAILY, 0 Refill(s), Maintenance Active [address] [place] [address] Albuterol 2 Puff, INH, Q6H, PRN Shortness of breath/wheezin g, 0 Refill(s), Maintenance Active [address] [place] [address] Paroxetine 30 MG Oral Tablet [Paxil] = 1 Tab, ORAL, DAILY, 0 Refill(s), Maintenance Active [facility] lisinopril 10 mg oral tablet = 1 Tab, ORAL, DAILY, 0 Refill(s), Maintenance Active [facility] Trelegy Ellipta 200 mcg-62.5 mcg-25 mcg/inh inhalation powder 1 Puff, INH, DAILY, 0 Refill(s), Maintenance Active 05 [facility] terazosin 2 mg oral capsule = 1 Cap, ORAL, QBedtime, 0 Refill(s), Maintenance Active [facility] Buprenorphine 8 MG / Naloxone 2 MG Oral Strip [Suboxone] 1 film, SUBLING, BID, 0 Refill(s), Maintenance Active [facility] Results Order Name Results Value Reference Range Date Interpretation Comments Source AutoDiff* Auto Neutrophil Percent 71.0 % 05/30 [facility] AutoDiff* Auto Neutrophil Absolute 5.3 K/MM3 2.0 - 7.3 05/30 [facility] AutoDiff* Auto Lymphocyte Percent 16.4 % 05/30 [facility] AutoDiff* Auto Lymphocyte Absolute 1.2 K/MM3 0.9 - 4.8 05/30 [facility] AutoDiff* Auto Monocyte Percent 12.5 % 05/30 [facility] AutoDiff* Auto Monocyte Absolute 0.9 K/MM3 0.2 - 1.0 05/30 [facility] AutoDiff* Auto Eosinophil Percent 0.0 % 05/30 [facility] AutoDiff* Auto Eosinophil Absolute 0.0 K/MM3 0.0 - 0.4 05/30 [facility] AutoDiff* Auto Basophil Percent 0.1 % 05/30 [facility] AutoDiff* Auto Basophil Absolute 0.0 K/MM3 0.0 - 0.1 05/30 [facility] AutoDiff* Sex assigned at Male 05/30 [facility] Sodium Level 141 mmol/L 136 - 144 05/30 NA [facility] Potassium Level 4.5 mmol/L 3.6 - 5.1 05/30 [facility] Chloride Level 102 mmol/L 101 - 111 05/30 [facility] CO2/Carbon Dioxide 30 mmol/L 22 - 32 05/30 [facility] Anion Gap 9 mmol/L 5 - 17 05/30 [facility] Glucose, Random 118 MG/DL 74 - 118 05/30 [facility] BUN 22 MG/DL 7 - 25 05/30 [facility] Creatinine 0.8 MG/DL 0.9 - 1.3 05/30 [facility] BUN/Creat Ratio 27.5 05/30 [facility] Osmolality, Calculated 296 mOsm/L 05/30 [facility] Calcium Level 9.3 MG/DL 8.6 - 10.3 05/30 [facility] GFR - Non 103 mL/min/1.7 3m2 [...] to persons under 18 years of age. [facility] BMP GFR - 125 mL/min/1.7 3m2 >=60 05/30 [facility] Sex assigned at Male 05/30 [facility] CBC WBC 7.5 K/MM3 4.5 - 10.0 05/30 [facility] CBC RBC 3.59 M/MM3 4.40 - 6.00 05/30 L [facility] CBC HGB 11.2 G/DL 13.4 - 17.4 05/30 [facility] CBC HCT 32.7 % 38.9 - 51.5 05/30 [facility] CBC MCV 91 uM^3 80 - 100 05/30 [facility] CBC MCH 31.1 pg 26.0 - 34.0 05/30 [facility] CBC MCHC 34.2 ZZ 31.0 - 36.0 05/30 [facility] CBC RDW 14.4 % 11.6 - 14.6 05/30 [facility] CBC PLT 198 K/MM3 150 - 400 05/30 [facility] CBC MPV 8.6 uM^3 7.2 - 11.1 05/30 [facility] CBC Sex assigned at Male 05/30 [facility] PCT Procalcitonin Level <0.05 NG/ML 0.05 [...] in few hours if suspectbacter ial infection. [facility] PCT Sex assigned at Male 05/30 [facility] Trop Troponin I <0.03 NG/ML 0.00 [...] may be indicative of acute myocardial injury. [facility] Trop Sex assigned at Male 05/30 [facility] [id number] SARS-CoV-2 Source Melodylisa longoria 05/29 [facility] [id number] Patient From [facility]? No 05/29 [facility] [id number] Health Care Worker? No 05/29 [facility] [id number] SARS-CoV-2 Molecular Negative Negative 05/29 Negative results [...] independent review of this validation is pending. [facility] [id number] Symptomatic per CDC? Symptomati c/PUI 05/[address] Serial Retesting? Unknown 05/[address] SARS-CoV-2 First test? Unknown 05/[address] SARS-CoV-2 Is the Patient Hospitalized? Unknown 05/[address] SARS-CoV-2 Is the Patient in ICU? Unknown 05/[address] SARS-CoV-2 Is the Patient ? Unknown 05/[address] Sex assigned at Male 05/29 [facility] BGVenLab VBG - pH 7.40 7.32 - 7.43 05/29 [facility] BGVenLab VBG - pCO2 51 mmHg 41 - 51 05/29 [facility] BGVenLab VBG - pO2 49 mmHg 38 - 42 05/29 H [facility] BGVenLab VBG - HCO3 31.6 mmol/L 05/29 NA [facility] BGVenLab VBG - BE 5.6 mmol/L 05/29 [facility] BGVenLab VBG - Oxyhemoglobin 80.1 % >=75.0 05/29 [facility]GVenLab VBG - O2 Sat 82.3 % >=75.0 05/29 [facility]GVenLab VBG - Methemoglobin 0.0 % 05/29 [facility]enLab VBG - Total Hemoglobin 12.3 G/DL 13.5 - 18.0 05/29 L [facility] BGVenLab VBG - O2 Content 13.8 mL/dL 05/29 [facility]en[facility] BG - Modified Glenn Test N/A 05/29 [facility] BG - Site Vein 05/29 [facility] BG - Pt Temp 37.0 DegF 05/29 [facility] Sex assigned at Male 05/29 [facility] AutoDiff* Auto Neutrophil Percent 67.0 % 05/29 [facility] AutoDiff* Auto Neutrophil Absolute 5.3 K/MM3 2.0 - 7.3 05/29 [facility] AutoDiff* Auto Lymphocyte Percent 17.1 % 05/29 [facility] AutoDiff* Auto Lymphocyte Absolute 1.3 K/MM3 0.9 - 4.8 05/29 [facility] AutoDiff* Auto Monocyte Percent 14.5 % 05/29 [facility] AutoDiff* Auto Monocyte Absolute 1.1 K/MM3 0.2 - 1.0 05/29 H [facility] AutoDiff* Auto Eosinophil Percent 0.9 % 05/29 [facility] AutoDiff* Auto Eosinophil Absolute 0.1 K/MM3 0.0 - 0.4 05/29 [facility] AutoDiff* Auto Basophil Percent 0.5 % 05/29 [facility] AutoDiff* Auto Basophil Absolute 0.0 K/MM3 0.0 - 0.1 05/29 [facility] AutoDiff* Sex assigned at Male 05/29 [facility] BNPep BNP B-Natriuretic Peptide 48 pg/mL 0 - 46 05/29 H [facility] BNPep Sex assigned at Male 05/29 [facility] CBC WBC 7.9 K/MM3 4.5 - 10.0 05/29 [facility] CBC RBC 4.00 M/MM3 4.40 - 6.00 05/29 [facility] CBC HGB 12.3 G/DL 13.4 - 17.4 05/29 [facility] CBC HCT 36.5 % 38.9 - 51.5 05/29 [facility] CBC MCV 91 uM^3 80 - 100 05/29 [facility] CBC MCH 30.8 pg 26.0 - 34.0 05/29 [facility] CBC MCHC 33.7 ZZ 31.0 - 36.0 05/29 [facility] CBC RDW 14.6 % 11.6 - 14.6 05/29 [facility] CBC PLT 218 K/MM3 150 - 400 05/29 [facility] CBC MPV 8.3 uM^3 7.2 - 11.1 05/29 [facility] CBC Sex assigned at Male 05/29 [facility] CMP Sodium Level 137 mmol/L 136 - 144 05/29 [facility] CMP Potassium Level 3.7 mmol/L 3.6 - 5.1 05/29 [facility] CMP Chloride Level 98 mmol/L 101 - 111 05/29 [facility] CMP CO2/Carbon Dioxide 31 mmol/L 22 - 32 05/29 [facility] CMP Anion Gap 8 mmol/L 5 - 17 05/29 [facility] CMP Glucose, Random 99 MG/DL 74 - 118 05/29 [facility] CMP BUN 27 MG/DL 7 - 25 05/29 H [facility] CMP Creatinine 1.3 MG/DL 0.9 - 1.3 05/29 [facility] CMP BUN/Creat Ratio 20.8 05/29 [facility] CMP Osmolality, Calculated 289 mOsm/L 05/29 [facility] CMP Calcium Level 9.9 MG/DL 8.6 - 10.3 05/29 [facility] CMP Total Protein 7.5 G/DL 6.0 - 8.0 05/29 [facility] CMP Albumin Level 4.1 G/DL 3.5 - 5.0 05/29 [facility] CMP Globulin Level 3.4 G/DL 2.1 - 3.9 05/29 [facility] CMP A/G Ratio 1.21 1.00 - 2.50 05/29 [facility] CMP ALP 78 Units/L 38 - 126 05/29 [facility] CMP ALT 18 Units/L 8 - 40 05/29 [facility] CMP AST 27 Units/L 15 - 41 05/29 [facility] CMP Bilirubin, Total 0.4 MG/DL 0.3 - 1.2 05/29 [facility] CMP GFR - Non 59 mL/min/1.7 [...] to persons under 18 years of age. [facility] CMP GFR - 71 mL/min/1.7 3m2 >=60 05/29 [facility] CMP Sex assigned at Male 05/29 [facility] Trop Troponin I <0.03 NG/ML 0.00 [...] may be indicative of acute myocardial injury. [facility] Trop Sex assigned at Male 05/29 NA [facility] Diagnostic Reports Report Value Date Source CT [...] Underlying centrilobular emphysema, and chronic bronchitis. 2021 [facility] Chest 1 Vw Portable PROCEDURE: CHEST RAD [...] for pneumonia. Small right pleural effusion. 2021 [facility] Consultation Notes Results Value Date Source Progress Note Patient: DARRIAN ALAMO Age: 66 years Legal Sex: Male : 1955 Author: MD Nicolas, Maurice Carias Discharge summary dictated with dictation number [id number] Male 05/31/2021 [facility] ED Physician Notes Patient: DARRIAN ALAMO Age: [...] access, Antibiotics, IV fluid, Oxygen), Case review (director of medical education, nursing), Alternate history emergency medical services. Treatment response: Improved. Performed by: self. Notes: This time excludes time spent performing procedures but includes time spent on direct patient care, history retrieval, review of the chart, and discussions with patient, family, and linux consultant(s). . [id number] Male 2021 [facility] ED Physician Notes Patient: GIOVANY ALAMO Age: [...] male reported history of COPD traveling from [place] to [place] presents from the airport with shortness of breath. Patient reports he developed difficulty breathing earlier this morning which continued on the plane flight from [place]. Has associated wheezing. 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 ATTENDING PROVIDERS: 1. Nico Capone MD 2. [...] who was traveling from his home in [place] to [place], with onset of shortness of breath during [...] the time of discharge. MD Lynne Bowden [facility],05/30/2021 21:02:17 PST. Conf # [id number] ,05/30/2021 21:31:26 PST. Dictation ID [id number] Male 05/31/2021 [facility] History and Physicals Results Value Date Source History and Physical Examination 2021 [facility] History and Physical Admit Date: 022 DATE [...] respiratory illness specifically previously. He is from [place], [place] and was traveling through [place] on his way to [place] as today is his birthday. This is the first leg in an extended trip. He was a bit more dyspneic last night and this morning, but had spent the last day and a half plowing and then snow blowing quite a bit and prepping his residence for an extended stay without a rooming house operator in the winter in [place]. He acknowledges being pretty significantly fatigued yesterday [...] He was on his way to visit [place] briefly, but then a few other parts of the country to visit his grandsons and granddaughters, all the way in [place] for example, so he has extended duration [...] rounds of Mohs surgery and finally a [id number] graft. 7. Degenerative disease of the cervical [...] D DML, 2021 15:06:41 PST. Conf # [id number] , 2021 16:30:17 PST. Dictation ID [id number] Male 2021 [facility] Vital Signs Vital Sign Value Date Comments Source Oxygen delivery Room air (05/30/21 3:41 PM) 05/30/2021 05 [facility] Temperature (F) 98.3 [degF] 05/30/20[facility] Peripheral Pulse Rate 95 bpm 05/30/2021 05 [facility] Peripheral pulse site Non-invasive BP device (05/30/21 3:41 PM) 05/30/2021 05 [facility] Respiratory rate 14 br/min 05/30/2021 05 [facility] Systolic BP 120 mm[Hg] 05/30/2021 05 [facility] Diastolic BP 67 mm[Hg] 05/30/2021 05 [facility] Blood Pressure Method Automatic (05/30/21 3:41 PM) 05/30/2021 05 [facility] Pulse Oximetry 95 % 05/30/2021 05 [facility] Oxygen delivery Room air (05/30/21 11:33 AM) 05/30/2021 05 [facility] Temperature (F) 98.4 [degF] 05/30/2021 05 [facility] Peripheral Pulse Rate 82 bpm 05/30/2021 05 [facility] Peripheral pulse site Non-invasive BP device (05/30/21 11:33 AM) 05/30/2021 05 [facility] Respiratory rate 16 br/min 05/30/2021 05 [facility] Systolic BP 114 mm[Hg] 05/30/2021 05 [facility] Diastolic BP 53 mm[Hg] 05/30/2021 05 [facility] Blood Pressure Method Automatic (05/30/21 11:33 AM) 05/30/2021 05 [facility] Pulse Oximetry 92 % 05/30/2021 05 [facility] Respiratory rate 21 br/min 05/30/2021 05 [facility] Peripheral Pulse Rate 78 bpm 05/30/2021 05 [facility] Pulse Oximetry 92 % 05/30/2021 05 [facility] Oxygen delivery Room air (05/30/21 9:00 AM) 05/30/2021 05 [facility] Neurological norm WDL (05/30/21 9:00 AM) 05/30/2021 05 [facility] Temperature (F) 98.1 [degF] 05/30/2021 05 [facility] Peripheral pulse site Non-invasive BP device (05/30/21 8:07 AM) 05/30/2021 05 [facility] Systolic BP 134 mm[Hg] 05/30/2021 05 [facility] Diastolic BP 62 mm[Hg] 05/30/2021 05 [facility] Blood Pressure Method Automatic (05/30/21 8:07 AM) 05/30/2021 05 [facility] Neurological norm No change from previous assessment (05/30/21 3:29 AM) 05/30/2021 05 [facility] Neurological norm No change from previous assessment (05/30/21 12:46 AM) 05/30/2021 05 [facility] Oxygen FiO2 21 % 05/30/2021 05 [facility] HeightLength (cm) 187.6 cm 2021 05 [facility] HeightLength method Stated (05/29/21 12:2 0 PM) 2021 05 [facility] Weight measured method Standing scale (05/29/21 12:20 PM) 2021 05 [facility] Body Mass Index 0 kg/m2 2021 05 [facility] Weight (kg) 72.57 kg 2021 05 [facility] Heart Rate Monitored 98 bpm 2021 05 [facility] Mean BP 106 mm[Hg] 2021 05 [facility] Heart Rate Monitored 87 bpm 2021 05 [facility] Mean BP 95 mm[Hg] 2021 05 [facility] Oxygen flow 0 L/min 2021 05 [facility] Oxygen flow 0 L/min 2021 05 [facility] Heart Rate Monitored 98 bpm 2021 05 [facility] Mean BP 85 mm[Hg] 2021 05 [facility] Oxygen flow 1 L/min 2021 05 [facility] Weight (kg) 73.48 kg 2021 05 [facility] Dose calculation weight (kg) 73.48 kg 2021 05 [facility] Encounters Location Location Details Encounter Type Encounter Number Reason For Visit Attending Provider ADM Date DC Date Status Source 08 15 [facility] Observation [id number] Acute Hypoxemi c Respirat ory Failure, Communit y Acquired Pneumoni a Nico Capone 05/29 Active [facility] Social History Social History Date Source Social History TypeResponse Smoking Status Is there a smoker in the household? No; *Do you have concerns about tobacco use in household? No; Former smoker, quit more than 30 days ago; Never; *Are you ready to quit? Yes entered on: 05/29/21 Sex Male [address] [place] [address] Social History TypeResponse Smoking Status Is there a smoker in the household? No; *Do you have concerns about tobacco use in household? No; Former smoker, quit more than 30 days ago; Never; *Are you ready to quit? Yes entered on: 05/29/21 Sex Male 05 [facility] Social History TypeResponse Smoking Status Is there a smoker in the household? No; *Do you have concerns about tobacco use in household? No; Former smoker, quit more than 30 days ago; Never; *Are you ready to quit? Yes entered on: 05/29/21 Sex Male [address] [place] [address]
--- OUTSIDE RECORDS SUMMARY | 2024-05-06 16:15 | XMS_ITS ---
Author Organization [facility] Address [address] [place] [address] Care Team Providers Care Cottrell Blower Name Role Phone PILIJuly Unavailable [phone] REASON FOR VISIT PAD Encounters Encounter Location Date Provider Diagnosis [facility] [address] [place] [address] 09/09/2023 MARGARET ALEJANDRE Plan Of Treatment No Information Progress Notes * DARRIAN ALAMODOB:1955 (68 yo M)Acc No.[id number]:09/09/2023 Aorta Iliac Duplex Patient:?DARRIAN ALAMO Provider:?MARGARET ALEJANDRE MD :1955???Age:68 Y???Sex:Male Louie e:09/09/2023 Address: [address], [place] [address] [facility] Subjective: * Chief Complaints: * ???1. PAD. * Medical History:? Objective: * Vitals:? Assessment: Plan: * Treatment: * * Electronic signature of JUANJO ALEJANDRE MD on 05/06/2024 at 12:15 PM AKST Sign off status: Pending * Provider:?MARGARET ALEJANDRE MD Date:?08/12 Generated for Luc sam/Leoncio/eTransmitting on:?05/06/2024 12:15 PM AKST
--- OUTSIDE RECORDS SUMMARY | 2024-05-06 16:15 | XMS_ITS | Data Portability ---
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 He is already taking a baby aspirin. Suggest: 1. Agree with baby aspirin. 2. Begin atorvastatin 80 mg daily. 3. Patient will monitor and record blood pressures at home for the next 2 weeks. He will come back to the [facility] with his blood pressure log and [...] recorded. Imaging electrocar diogram 2019 020 [email or web address] [facility], [address], [address], [place], [address], 14:40:32 electrocar diogram 2022 023 [email or web address] In-Office Order, Internal Use Only DO Not Attach Compendium DO Not Attach Compendium, Do Not Delete/merge, [id number] 18:04:32 Medication Orders atorvastat in 80 mg tablet 2019 020 [facility] [id number], [address] [facility], [place], [address], 17:10:51 Patient TargetsNo targets recorded. Patient Instructions Encounter Date Encounter Id Patient Instructions Last Modified By Organization Details Last Modified Time 04/15/2019 [id number] high blood pressure: care instructions Not available 04/15/2019 18:17:12 learning about high blood pressure Not available 04/15/2019 18:17:12 high cholesterol : care instructions Not available 04/15/2019 18:17:12 12/16/2022 [id number] high blood pressure: care instructions [email or web address] Not [...] am No observ ation record ed. [facility] [address], [place], [address], 04/18/2019 14:45:29 12/09/19 23 11/05/2021 elect rocar diogr am No observ ation record ed. Not Available 2022 17:20:53 12/09/19 23 11/05/2021 elect rocar diogr am No observ ation record ed. Not Available 2022 17:22:10 12/17/19 23 12/16/2022 elect rocar diogr am No observ ation record ed. [place] In-Office Order Internal Use Only DO Not Attach Compendium DO Not Attach Compendium, Do Not Delete/merge, [id number] 12/17/2022 18:10:26 12/17/19 elect rocar diogr am No observ ation record ed. [place] In-Office Order Internal Use Only DO Not Attach Compendium DO Not Attach Compendium, Do Not Delete/merge, [id number] 12/16/2022 17:29:39 02/18/20 23 12/16/2022 CT, chest , w/o contr ast No observ ation record ed. [email or web address] Not Available 2022 14:21:24 02/18/20 23 12/21/2022 XR, chest No observ ation record ed. [email or web address] Not Available 2022 14:22:08 02/18/20 23 12/21/2022 elect rocar diogr am No observ ation record ed. [email or web address] Not Available 2022 14:32:36 11/05/19 24 10/28/2023 , [facility] ardio gram No observ ation record ed. [email or web address] Not Available 2023 14:01:54 Result Notes None recorded. Problems Name Problem SNOMED Code Status Onset Date Resolution Date Notes Provider Name and Address Organization Details Recorded Time Chronic obstructive pulmonary disease 94360432 Active 2022 MD Lenin Rodriguez [address], [place], [address] , [facility] 3 17:30:00 Essential hypertension 34077313 Active 2022 Walt Young MD [address], [place], [address], [facility] 3 17:30:11 Hyperlipidemia 28651010 Active 2022 Walt Young MD [address], [place], [address], [facility] 3 17:30:17 Notes:Some problems listed i n Document: #[id number] could not be added to this patient's chart. Please review this document and add these problems to the patient's chart manually as needed. Problem Notes None recorded. Procedures Surgical History Date Name Laterality Status Provider Name and Address Organization Details Recorded Time 09/03/19 23 Replacement of aortic valve completed Lynnette Carranza [facility] 12/08/2022 17:14:50 04/13/19 09 excision of lumbar intervertebral disc completed Lynnette Carranza [facility] 12/08/2022 17:15:11 Appendectomy completed Flaca Barrett NP [address], [place], [address], [facility] 04/14/2019 19:12:57 excision of basal cell carcinoma completed Lynnette Carranza [facility] 12/08/2022 17:15:25 Tonsillectomy completed Lynnette Carranza [facility] 12/08/2022 17:15:34 Imaging Results Imaging Date Name Status LastModified by Organization Details LastModified Time 04/20/2018 pulmonary function test* completed [facility] Information not available 04/14/2019 14:41:52 04/15/[address] [facility] [address], [place], [address], 04/18/2019 14:45:29 11/05/2021 electrocardiogram completed Informa tion not available 12/08/2022 17:20:53 11/05/2021 electrocardiogram completed Informa tion not available 12/08/2022 17:22:10 12/16/2022 electrocardiogram completed [place] In-Offi ce Order Internal Use Only DO Not Attach Compendium DO Not Attach Compendium, Do Not Delete/merge, [id number] 12/17/2022 18:10:26 12/16/2022 electrocardiogram completed [place] In-Offi ce Order Internal Use Only DO Not Attach Compendium DO Not Attach Compendium, Do Not Delete/merge, [id number] 12/16/2022 17:29:39 12/16/2022 CT, chest, w/o contrast [...] Updated DateTime 0 187.96 cm 25 kg/m2 56731.5 1 g 71 /min 18 /min 95 % 95 % 162 mm[Hg] 78 mm[Hg] Brad Ceballos RN [facility] 0 17:30:59 Date Recorded Body weight Body mass index (BMI) Body height Body temperature Oxygen saturation Oxygen saturation in Arterial blood by Pulse oximetry Heart rate Systolic blood pressure Diastolic blood pressure Provider Name and Address Organization Details Last Updated DateTime 3 75885.8 8 g 23.5 kg/m2 185.42 cm 98.2 [degF] 92 % 92 % 92 /min 148 mm[Hg] 84 mm[Hg] Lynnette Carranza CMA [facility] 3 17:01:21 Social History Question Answer Notes LastModified by Organizat ion Details LastModified Time Tobacco Smoking Status Former Smoker Lynnette Carranza CMA null, [facility] 12/16/2022 17:03:04 Do You Have An Advance [...] Live Alone Or With Others? With Others Information not available 04/14/2019 Marital Status [email or web address] Informatio n not available 04/14/2019 What Was [...] LastModified Time Father Cerebrovascu lar accident 62 Not available 05/2019 19:09:44 Mother Myocardial infarction 50 [email or web address] Not available 04/14 19:10:29 Sister Myocardial infarction Not available 12/16 17:02:33 Medical History Condition Response CARDIO/VASCULAR DISEASE Y BEHAVIORAL HEALTH/PSYCH Y SLEEP DISORDER/SLEEP APNEA Y ONCOLOGY Y PULMONARY Y ORTHOPEDIC/MUSCUOLSKELETAL Y Immunizations Vaccine Type Date Status Note Provider Nam e and Address Organization Details Recorded Time Influenza, high-dose, quadrivalent, PF 2 completed Ling John CMA null, [facility] 12/16/2022 12:46:42 Influenza, high-dose, quadrivalent, PF 0 completed Ling John CMA null, [facility] 12/16/2022 12:46:42 Influenza, adjuvanted, quadrivalent, PF 1 completed Ling John CMA null, [facility] 12/16/2022 12:46:42 COVID-19, mRNA, LNP-S, PF, 100 mcg/0.5mL dose or 50 mcg/0.25mL dose 1 completed Ling John CMA null, [facility] 12/16/2022 12:46:42 COVID-19, mRNA, LNP-S, PF, 100 mcg/0.5mL dose or 50 mcg/0.25mL dose 1 completed Ling John [employer] null, [place] [facility] 12/16/2022 12:46:42 COVID-19, mRNA, LNP-S, PF, 100 mcg/0.5mL dose or 50 mcg/0.25mL dose 2 completed Ling John [employer] [place], [place] [facility] 12/16/2022 12:46:42 COVID-19, mRNA, LNP-S, PF, 100 mcg/0.5mL dose or 50 mcg/0.25mL dose 1 completed Ling John [employer] [place], [place] [facility] 12/16/2022 12:46:42 COVID-19, mRNA, LNP-S, bivalent, PF, 50 mcg/0.5 mL or 25mcg/0.25 mL dose 2 completed Ling John [employer] [place], [place] [facility] 12/16/2022 12:46:42 pneumococcal polysaccharide PPV23 7 completed Ling John [employer] [place], [place] [facility] 12/16/2022 12:46:42 pneumococcal polysaccharide PPV23 1 completed Ling John [employer] [place], [place] [facility] 12/16/2022 12:46:43 pneumococcal polysaccharide PPV23 6 completed Ling John [employer] [place], [place] [facility] 12/16/2022 12:46:43 influenza, unspecified formulation 8 completed Ling John [employer] [place], [place] [facility] 12/16/2022 12:46:43 influenza, unspecified formulation 0 completed Ling John [employer] [place], [place] [facility] 12/16/2022 12:46:43 influenza, unspecified formulation 9 completed Ling John [employer] [place], [place] [facility] 12/16/2022 12:46:43 influenza, unspecified formulation 2 completed Ling John [employer] [place], [place] [facility] 12/16/2022 12:46:43 influenza, unspecified formulation 6 completed Ling John [employer] [place], [place] [facility] 12/16/2022 12:46:43 Td(adult) unspecified formulation 1 completed Ling John [employer] null, [place] [facility] [place] 12/16/2022 12:46:43 Td(adult) unspecified formulation 4 completed Ling John [employer] [place], [place] [facility] 12/16/2022 12:46:43 Tdap 4 completed Ling John [employer] [place], [place] [facility] 12/16/2022 12:46:43 Tdap 6 completed Ling John [employer] [place], [place] [facility] 12/16/2022 12:46:43 Pneumococcal conjugate PCV 13 0 completed Ling John [employer] [place], [place] [facility] 12/16/2022 12:46:43 Influenza, split virus, trivalent, preservative 4 completed Ling John [employer] [place], [place] [facility] 12/16/2022 12:46:43 Influenza, split virus, trivalent, preservative 5 completed Ling John [employer] [place], [place] [facility] 12/16/2022 12:46:43 Influenza, split virus, trivalent, preservative 4 completed Ling John [employer] [place], [place] [facility] 12/16/2022 12:46:43 Novel [id number] 0 completed Ling John [employer] [place], [place] [facility] 12/16/2022 12:46:43 Influenza, split virus, quadrivalent, PF 7 completed Ling Bennetts, [employer] null, [place] [facility] 12/16/2022 12:46:43 Hep A, unspecified formulation 8 completed Ling John, [employer] [place], [place] [facility] 12/16/2022 12:46:43 Hep A, unspecified formulation 8 completed Ling John, [employer] null, [place] - [facility] 12/16/2022 12:46:43 Influenza, MDCK, trivalent, PF 9 completed Ling John, [employer] null, [place] [facility] [facility] 12/16/2022 12:46:43 Past Encounters Encounter ID Performer Location Encounter Start Date Encounter Closed Date Diagnosis/Indication Diagnosis SNOMED-CT Code Diagnosis ICD10 Code Diagnosis Note [id number] Gerri Lawson MD [facility] [address] [place] [address] 04/15/2019 17:19:34 04/18/2019 14:16:36 Hyperlipidemia 09204313 E78.5 Essential hypertension 85592740 I10 [id number] Walt Young MD [facility] [address] [place] [address] 12/16/2022 16:27:03 12/16/2022 17:41:50 History of aortic valve replacement 3318738026 100 Z95.4 STATUS POST SURGICAL AVR IN JULY 2022. HEMODYNAMI SHAHNAZ STABLE BUT PRESENTS WITH SYMPTOMS SUGGESTING PNEUMONIA AND/OR COPD EXCESSIVE AGENT. HE IS SENT TO THE ER FOR FURTHER WORKUP. Chronic ob structive pulmonary disease 26591517 J44.9 SYMPTOMS SUGGESTING PNEUMONIA AND/OR COPD EXCESSIVE AGENT. HE IS SENT TO THE ER FOR FURTHER WORKUP. 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 Gerri Lawson MD [facility] 04/15/2019 18:17:43 12/16/2022 text/html With medical his tory /clinical course as listed below; here for follow-up after aortic valve replacement in July 2022 in [place], [place]. Complains dyspnea, cough and phlegm. Have [...] disease including a sister who of an HI at 50, mother who of an HI at 54, and father who of a [...] acute changes PACs noted. Walt Young MD [facility] [address], [place], [address], [facility] 12/16/2022 17:31:10
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
--- OUTSIDE RECORDS SUMMARY | 2024-05-06 16:15 | XMS_ITS ---
Author Organization [facility] Address [address] [facility] [address] [place] [address] Care Team Providers Care Noodle Maker Name Role Phone PILIJuly Unavailable [phone] REASON FOR VISIT Update Kiosk Demographics Encounters Encounter Location Date Provider Diagnosis [facility] [address] [place] [address] 09/07/2023July PILI Plan Of Treatment No Information Progress Notes * INGRIDDARRIAN RomanDOB:1955 (68 yo M)Acc No.[id number]:09/07/2023 Patient:?DARRIAN ALAMO :1955???Age:68 Y???Sex:Male Address:[address], [place] [address] * true * Date:? Generated for Gersoni cecy/Leoncio/eTransmitting on:?05/06/2024 12:15 PM ZEENAT
== END 2024-05-06 15:45 | disposition home or self-care (01) ==
PROVIDERS: PCP Physician Assistant Medical; Visit Provider Nurse Practitioner Family
DX: J44.9 Chronic obstructive pulmonary disease, unspecified (principal); R91.8 Other nonspecific abnormal finding of lung field; Z87.891 Personal history of nicotine dependence; G47.34 Idiopathic sleep related nonobstructive alveolar hypoventilation
CPT/HCPCS: 99214; G2211

== ENCOUNTER → 2024-05-06 14:52 | Outpatient (BNVA) | payer MEDICARE, SELFPAY | PROVIDERS: PCP Physician Assistant Medical; Visit Provider Nurse Practitioner Family | DX: J44.9 Chronic obstructive pulmonary disease, unspecified (principal); R91.8 Other nonspecific abnormal finding of lung field; G47.34 Idiopathic sleep related nonobstructive alveolar hypoventilation; Z87.891 Personal history of nicotine dependence | CPT/HCPCS: 99212 ==

== ENCOUNTER 2024-06-24 13:05 | Outpatient (AMB) | payer MEDICARE, SELFPAY ==
--- NOTE | 2024-06-24 12:26 | A.OFFVIS_ITS ---
Vital Signs 06/24/24 13:10 Height 5 ft 11 in BP 110/64 Blood Pressure Location Lt brachial Position Sitting Pulse 86 Pulse Source Pulse Oximeter Pulse Oximetry (%) 95 Oxygen Delivery Method Nasal Cannula Oxygen Flow Rate 2 Intake Visit Reasons: F/U Irrigator Valve Pipe Required: No Electric Meter Repairer Apprentice: Electric Meter Repairer Apprentice offered & declined Accompanied by: Sister Allergies No Known Allergies Allergy (Verified 06/24/24 13:14) Medication List - Last Reconciled 06/24/24 by Raysa Ramirez LPN albuterol sulfate 90 mcg/actuation 2 puffs inhalation Q6H PRN pwgzttyxdh-clkbwldm-btoeggyzxw 160-9-4.8 mcg/actuation (Breztri Aerosphere) 2 inhalations inhalation BID buprenorphine-naloxone 4-1 mg 5 mg sublingual DAILY clonazepam 0.25 mg PO BID inhalational spacing device (Aerochamber MV spacer) As directed ipratropium-albuterol 0.5 mg-3 mg(2.5 mg base)/3 mL 3 mL inhalation BID PRN lisinopril 20 mg PO DAILY metoprolol succinate ER 50 mg PO DAILY quetiapine 25 mg PO BEDTIME HPI HPI F/U: Details: Freedom is a pleasant 69-year-old male, former smoker with 40pyh, quit 3 years ago, with underlying severe COPD, HTN, s/p aortic valve replacement 2022 and h/o hepatitis C. He has had multiple hospital admissions at [facility] and out of state over the last few months with acute respiratory failure with hypoxia secondary to COPD exacerbations as well as pneumonias. It was recommended he use BiPAP therapy outpatient however he continues to decline. He has been using Breztrii, DuoNeb, and albuterol MDI, with moderate effect however once patient contracts URI symptoms are not controlled requiring inpatient treatment. He does have a flutter valve and incentive spirometer however uses infrequently. Prior chest CT noted multiple pulmonary nodules, largest measuring 9-10 mm of the right upper lobe and has been stable since 2022. Since his last visit he was admitted to [facility] 05/19-05/25 for acute respiratory failure with hypoxia secondary to H.Flu, coronavirus (not COVID19) and acute PE. He was treated with abx, IV steroids and supplemental oxygen as well as eliquis and sent to SNF. During this stay patient dx with LLL PNA on 06/13 started Levaquin however developed respiratory distress ultimately admitted to [facility] 06/13-06/20. Cultures negative for MRSA and MSSA, thought to be likely CAP vs. atypical pneumonia or viral pneumonia. Negative urine Legionella and strep antigens. Blood cultures 06/13 negative at 48 hours. He was discharge on 06/20 after completing Augmentin, Azithromycin and prednisone, instructed to use supplemental oxygen 2L NC continuously, per pulm rehab. Since then he reports overall improvements continues with infrequent productive cough with whitish sputum, dyspnea at baseline, denies wheezing or chest tightness. He has been checking oxygen saturation, which reportedly has been maintaining >92% using 2L supplemental oxygen, 2L NOC. He denies fevers or chills. Today he is accompanied by sister and requesting referral to be evaluated for [place] valve. [facility] Medical History Basal cell carcinoma Vitamin D deficiency Major depressive disorder Alcohol dependence Mixed hyperlipidemia Emphysema/COPD Dupuytren's contracture of both hands Chest pain BPH (benign prostatic hyperplasia) Chronic pain syndrome Asbestos exposure Hepatitis C Sleep apnea Insomnia Hemoptysis Marijuana use Hypertension Osteoarthritis of right shoulder Nocturnal hypoxemia Multiple pulmonary nodules COPD (chronic obstructive pulmonary disease) Surgical History H/O colonoscopy (~2017) History of back surgery (~2007) History of appendectomy History of aortic valve replacement (~08/2022) Family History Sister Skin cancer Mother Arthritis Polio Other Family history of cerebrovascular accident Social History Alcohol intake: current Alcohol intake frequency: a few times a week Patient Tobacco Use Status: Former Tobacco user Tobacco use type: Cigarette Cigarette Packs Per Day: 1 Years Smoked: 40 Review of Systems Const Denies chills, Denies excessive sweating, Denies headache(s) and Denies night sweats Eyes Denies dry eyes, Denies irritation and Denies itchy eyes ENT Reports Normal hearing present, Denies headache(s), Denies nasal congestion, Denies nasal discharge, Denies post nasal drip and Denies sore throat Card Denies claudication, Denies leg edema, Reports dyspnea on exertion, Denies orthopnea and Denies paroxysmal nocturnal dyspnea Resp Denies chest congestion, Reports cough, Denies hemoptysis, Denies excessive phlegm production, Denies pain on inspiration, Denies pain with cough, Reports dyspnea on exertion and Denies stridor Musc Denies myalgias Neuro Reports Normal hearing present and Denies headache(s) Endo Denies excessive sweating [place]/Lymph Denies lymphadenopathy Aller/Immun Denies itchy eyes and Denies seasonal rhinorrhea Physical Exam Vital Signs: Last Vital Signs Pulse 86 06/24/24 13:10 BP 110/64 06/24/24 13:10 Pulse Ox 95 06/24/24 13:10 Oxygen Delivery Method Nasal Cannula 06/24/24 13:10 Oxygen Flow Rate 2 06/24/24 13:10 Const General: cooperative, comfortable, no acute distress, well developed and alert Orientation/consciousness: patient oriented x3 Limitations: no limitations HEENT Head: Yes normal to inspection, Yes normocephalic and Yes atraumatic Ears: hearing grossly normal bilaterally and external ears normal Eyes General: appearance normal, both eyes and all related structures Eyelids: Yes eyelids normal Sclerae: sclerae normal EOM: EOMs intact bilaterally Neck Neck: Yes normal visual inspection and Yes no lymphadenopathy Lymphatic: no lymphadenopathy noted Chest Chest palpation & inspection: normal inspection of the chest Resp Effort & Inspection: normal respiratory effort, able to speak in complete sentences, audible wheezes, no cough, no stridor, not tachypneic, no tripod positioning and no use of accessory muscles Auscultation: no crackles, no rales, no rhonchi and diminished lung sounds Cardio Jugular venous distension: no JVD Rate: regular rate Rhythm: regular rhythm Skin Other: warm, dry General skin exam: no rashes or lesions noted Neuro General: patient oriented x3 Cranial nerves: Yes Normal hearing present Cognition (Neuro): normal cognition Gait exam (Neuro): Normal gait present Extrem General: Yes normal to inspection, Yes capillary refill normal, Yes no clubbing, cyanosis or edema and Yes no pedal edema Psych Appearance: grossly normal and well kempt Speech and movement: Normal speech and movement present and Clear speech present Affect: normal affect Attitude: cooperative Thought process: Normal thought process present Thought content: Normal thought content present Insight: Good insight present (Psych) Judgement: Good judgement present (Psych) Assessment & Plan Assessment & Plan (1) COPD (chronic obstructive pulmonary disease): Code(s): J44.9 - Chronic obstructive pulmonary disease, unspecified Category: Medical (2) Multiple pulmonary nodules: Code(s): R91.8 - Other nonspecific abnormal finding of lung field Category: Medical (3) Personal history of tobacco use: Code(s): Z87.891 - Personal history of nicotine dependence Category: Social Hx (4) Nocturnal hypoxemia: Code(s): G47.34 - Idiopathic sleep related nonobstructive alveolar hypoventilation Category: Medical Plan At this time Freedom reports moderate control of respiratory symptoms, will send in Trelegy in place of Breztri and advised to continue nebuzlied therapy with flutter valve and incentive spirometer. Will send for baseline kidney and liver function as we discussed starting daliresp vs Ohtuvayre at the next visit. Patient requesting referral for [place] valve, will enter order. Order placed for repeat CXR in 6 weeks to assess for resolution of infectious process. He is requesting this to be performed at [facility]. Order previously placed for overnight oximetry to assess for nocturnal hypoxemia, will resend order, to be performed on 2L O2. ll questions were answered and patient is in agreement of plan. Will follow-up in 4-6 weeks or sooner if needed. Orders: Orders Blood Urea Nitrogen Today Z01.818 - Encounter for other preprocedural examination Creatinine Today Z01.818 - Encounter for other preprocedural examination Liver Panel Today Z01.818 - Encounter for other preprocedural examination XR chest 2V 6 Weeks R05.9 - Cough, unspecified Overnight Pulse Oximetry Today G47.34 - Idiopathic sleep related nonobstructive alveolar hypoventilation Referrals Pulmonology Referral J44.9 - Chronic obstructive pulmonary disease, unspecified Medications: New kcrvmakaqfa-hzodqxjon-icgyptnh 200-62.5-25 mcg (Trelegy Ellipta) 1 inh inhalation DAILY 60 ea 6RF Coding Level of Care Code Est Pt Level 4 (05451) Complex EM visit Add On G2211 Diagnoses COPD (chronic obstructive pulmonary disease) J44.9 Multiple pulmonary nodules R91.8 Personal history of tobacco use Z87.891 Nocturnal hypoxemia G47.34
[2024-06-24 13:10] VITALS: BP 110/64; PULSE 86; O2SAT 95
--- OUTSIDE RECORDS SUMMARY | 2024-06-24 14:39 | XMS_ITS | Continuity of Care Document ---
Author Name [facility] Care Team Providers Care Graphics Manager Name Role Phone [facility] Unavailable Unavailable Problems Problem Status Onset Date Classification Date Reported Comments Source Chronic obstructive pulmonary disease wi Active 05/30/2021 [facility] Acute hypoxemic respiratory failure Active 2021 05/31/[address] [facility] Community acquired pneumonia Active 2021 05/31/[address] [place] [address] Medications Medication Details Route Status Patient Instructions Ordering Provider Order Date Source predniSONE 20 mg oral tablet = 3 Tab, ORAL, DAILY, Take in the morning starting 05/31/2021. Take with food or milk., # 9 Tab, 0 Refill(s), Acute, Pharmacy: [facility], 187.6, cm, 05/29/21 12:21:00 PST, Height/Length (cm), 73.48, kg, 05/29/21 8:38:00 PST, Dose calcu... Active [address] [place] [address] azithromycin 250 mg oral tablet = 2 Tab, ORAL, [id number], Take 2 tabs PO daily at 3PM., # 4 Tab, Indication= COPD exacerbation, 0 Refill(s), Acute, Pharmacy: [facility], 187.6, cm, 05/29/21 12:21:00 PST, Height/Length (cm), 73.48, kg, 05/29/21 8:38:00 PST, Dose c... Active [address] [place] [address] Tamsulosin hydrochloride 0.4 MG Oral Capsule [Flomax] = 1 Cap, ORAL, DAILY, 0 Refill(s), Maintenance Active [address] [place] [address] Albuterol 2 Puff, INH, Q6H, PRN Shortness of breath/wheezin g, 0 Refill(s), Maintenance Active [address] [place] [address] Paroxetine 30 MG Oral Tablet [Paxil] = 1 Tab, ORAL, DAILY, 0 Refill(s), Maintenance Active [facility] lisinopril 10 mg oral tablet = 1 Tab, ORAL, DAILY, 0 Refill(s), Maintenance Active [facility] Trelegy Ellipta 200 mcg-62.5 mcg-25 mcg/inh inhalation powder 1 Puff, INH, DAILY, 0 Refill(s), Maintenance Active 05 [facility] terazosin 2 mg oral capsule = 1 Cap, ORAL, QBedtime, 0 Refill(s), Maintenance Active [facility] Buprenorphine 8 MG / Naloxone 2 MG Oral Strip [Suboxone] 1 film, SUBLING, BID, 0 Refill(s), Maintenance Active [facility] Results Order Name Results Value Reference Range Date Interpretation Comments Source AutoDiff* Auto Neutrophil Percent 71.0 % 05/30 [facility] AutoDiff* Auto Neutrophil Absolute 5.3 K/MM3 2.0 - 7.3 05/30 [facility] AutoDiff* Auto Lymphocyte Percent 16.4 % 05/30 [facility] AutoDiff* Auto Lymphocyte Absolute 1.2 K/MM3 0.9 - 4.8 05/30 [facility] AutoDiff* Auto Monocyte Percent 12.5 % 05/30 [facility] AutoDiff* Auto Monocyte Absolute 0.9 K/MM3 0.2 - 1.0 05/30 [facility] AutoDiff* Auto Eosinophil Percent 0.0 % 05/30 [facility] AutoDiff* Auto Eosinophil Absolute 0.0 K/MM3 0.0 - 0.4 05/30 [facility] AutoDiff* Auto Basophil Percent 0.1 % 05/30 [facility] AutoDiff* Auto Basophil Absolute 0.0 K/MM3 0.0 - 0.1 05/30 [facility] AutoDiff* Sex assigned at Male 05/30 [facility] Sodium Level 141 mmol/L 136 - 144 05/30 NA [facility] Potassium Level 4.5 mmol/L 3.6 - 5.1 05/[address] [facility] Chloride Level 102 mmol/L 101 - 111 05/[address] [facility] CO2/Carbon Dioxide 30 mmol/L 22 - 32 05/[address] [facility] Anion Gap 9 mmol/L 5 - 17 05/[address] [facility] Glucose, Random 118 MG/DL 74 - 118 05/[address] [facility] BUN 22 MG/DL 7 - 25 05/[address] [facility] Creatinine 0.8 MG/DL 0.9 - 1.3 05/30 [facility] BUN/Creat Ratio 27.5 05/[address] [facility] Osmolality, Calculated 296 mOsm/L 05/[address] [facility] Calcium Level 9.3 MG/DL 8.6 - 10.3 05/[address] [facility] GFR - Non 103 mL/min/1.7 3m2 >=60 [...] to persons under [address] [facility] BMP GFR - 125 mL/min/1.7 3m2 >=60 05/[address] [facility] Sex assigned at Male 05/30 [facility] CBC WBC 7.5 K/MM3 4.5 - 10.0 05/30 [facility] CBC RBC 3.59 M/MM3 4.40 - 6.00 05/[address] [facility] CBC HGB 11.2 G/DL 13.4 - 17.4 05/30 [facility] CBC HCT 32.7 % 38.9 - 51.5 05/30 [facility] CBC MCV 91 uM^3 80 - 100 05/30 [facility] CBC MCH 31.1 pg 26.0 - 34.0 05/30 [facility] CBC MCHC 34.2 ZZ 31.0 - 36.0 05/30 [facility] CBC RDW 14.4 % 11.6 - 14.6 05/30 [facility] CBC PLT 198 K/MM3 150 - 400 05/30 [facility] CBC MPV 8.6 uM^3 7.2 - 11.1 05/30 [facility] CBC Sex assigned at Male 05/30 [facility] PCT Procalcitonin Level <0.05 NG/ML [...] in few hours if suspectbacter ial infection. [facility] PCT Sex assigned at Male 05/30 [facility] Trop Troponin I <0.03 NG/ML [...] may be indicative of acute myocardial injury. [facility] Trop Sex assigned at Male 05/30 [facility] [id number] SARS-CoV-2 Source Melodylisa longoria 05/29 [facility] [id number] Patient From [facility]? No 05/29 [facility] [id number] Health Care Worker? No 05/29 [facility] [id number] SARS-CoV-2 Molecular Negative Negative 05/29 Negative results [...] independent review of this validation is pending. [facility] [id number] Symptomatic per CDC? Symptomati c/PUI 05/[address] Serial Retesting? Unknown 05/[address] SARS-CoV-2 First test? Unknown 05/[address] SARS-CoV-2 Is the Patient Hospitalized? Unknown 05/[address] SARS-CoV-2 Is the Patient in ICU? Unknown 05/[address] SARS-CoV-2 Is the Patient ? Unknown 05/[address] Sex assigned at Male 05/29 [facility] BGVenLab VBG - pH 7.40 7.32 - 7.43 05/29 [facility]GVenLab VBG - pCO2 51 mmHg 41 - 51 05/29 [facility]en[facility] VBG - pO2 49 mmHg 38 - 42 05/[address] [facility] BGVenLab VBG - HCO3 31.6 mmol/L 05/[address] [facility] BGVenLab VBG - BE 5.6 mmol/L 05/29 [facility] VBG - Oxyhemoglobin 80.1 % >=75.0 05/29 [facility] VBG - O2 Sat 82.3 % >=75.0 05/29 [facility] VBG - Methemoglobin 0.0 % 05/29 [facility] VBG - Total Hemoglobin 12.3 G/DL 13.5 - 18.0 05/[address] [facility]GVenLab VBG - O2 Content 13.8 mL/dL 05/29 [facility] BG - Modified Glenn Test N/A 05/29 [facility] BG - Site Vein 05/29 [facility] BG - Pt Temp 37.0 DegF 05/29 [facility] Sex assigned at Male 05/29 [facility] AutoDiff* Auto Neutrophil Percent 67.0 % 05/29 [facility] AutoDiff* Auto Neutrophil Absolute 5.3 K/MM3 2.0 - 7.3 05/29 [facility] AutoDiff* Auto Lymphocyte Percent 17.1 % 05/29 [facility] AutoDiff* Auto Lymphocyte Absolute 1.3 K/MM3 0.9 - 4.8 05/29 [facility] AutoDiff* Auto Monocyte Percent 14.5 % 05/29 [facility] AutoDiff* Auto Monocyte Absolute 1.1 K/MM3 0.2 - 1.0 05/[address] [facility] AutoDiff* Auto Eosinophil Percent 0.9 % 05/29 [facility] AutoDiff* Auto Eosinophil Absolute 0.1 K/MM3 0.0 - 0.4 05/29 [facility] AutoDiff* Auto Basophil Percent 0.5 % 05/29 [facility] AutoDiff* Auto Basophil Absolute 0.0 K/MM3 0.0 - 0.1 05/29 [facility] AutoDiff* Sex assigned at Male 05/29 [facility] BNPep BNP B-Natriuretic Peptide 48 pg/mL 0 - 46 05/[address] [facility] BNPep Sex assigned at Male 05/29 [facility] CBC WBC 7.9 K/MM3 4.5 - 10.0 05/29 [facility] CBC RBC 4.00 M/MM3 4.40 - 6.00 05/29 [facility] CBC HGB 12.3 G/DL 13.4 - 17.4 05/29 [facility] CBC HCT 36.5 % 38.9 - 51.5 05/29 [facility] CBC MCV 91 uM^3 80 - 100 05/29 [facility] CBC MCH 30.8 pg 26.0 - 34.0 05/29 [facility] CBC MCHC 33.7 ZZ 31.0 - 36.0 05/29 [facility] CBC RDW 14.6 % 11.6 - 14.6 05/29 [facility] CBC PLT 218 K/MM3 150 - 400 05/29 [facility] CBC MPV 8.3 uM^3 7.2 - 11.1 05/29 [facility] CBC Sex assigned at Male 05/29 [facility] CMP Sodium Level 137 mmol/L 136 - 144 05/29 [facility] CMP Potassium Level 3.7 mmol/L 3.6 - 5.1 05/29 [facility] CMP Chloride Level 98 mmol/L 101 - 111 05/29 [facility] CMP CO2/Carbon Dioxide 31 mmol/L 22 - 32 05/29 [facility] CMP Anion Gap 8 mmol/L 5 - 17 05/29 [facility] CMP Glucose, Random 99 MG/DL 74 - 118 05/29 [facility] CMP BUN 27 MG/DL 7 - 25 05/[address] [facility] CMP Creatinine 1.3 MG/DL 0.9 - 1.3 05/29 [facility] CMP BUN/Creat Ratio 20.8 05/29 [facility] CMP Osmolality, Calculated 289 mOsm/L 05/29 [facility] CMP Calcium Level 9.9 MG/DL 8.6 - 10.3 05/29 [facility] CMP Total Protein 7.5 G/DL 6.0 - 8.0 05/29 [facility] CMP Albumin Level 4.1 G/DL 3.5 - 5.0 05/29 [facility] CMP Globulin Level 3.4 G/DL 2.1 - 3.9 05/29 [facility] CMP A/G Ratio 1.21 1.00 - 2.50 05/29 [facility] CMP ALP 78 Units/L 38 - 126 05/29 [facility] CMP ALT 18 Units/L 8 - 40 05/29 [facility] CMP AST 27 Units/L 15 - 41 05/29 [facility] CMP Bilirubin, Total 0.4 MG/DL 0.3 - 1.2 05/29 [facility] CMP GFR - Non 59 [...] to persons under [address] [facility] CMP GFR - 71 mL/min/1.7 3m2 >=60 05/29 [facility] CMP Sex assigned at Male 05/29 [facility] Trop Troponin I <0.03 NG/ML [...] may be indicative of acute myocardial injury. [facility] Trop Sex assigned at Male 05/[address] [facility] Diagnostic Reports Report Value Date [...] Underlying centrilobular emphysema, and chronic bronchitis. 2021 [facility] Chest 1 Vw Portable PROCEDURE: [...] for pneumonia. Small right pleural effusion. 2021 [facility] Consultation Notes Results Value Date Source Progress Note Patient: DARRIAN ALAMO Age: 66 years Legal Sex: Male : 1955 Author: MD Nicolas, Maurice Carias Discharge summary dictated with dictation number [id number] Male 05/31/2021 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 Treatment response: Improved. Performed by: self. Notes: This time excludes time spent performing procedures but includes time spent on direct patient care, history retrieval, review of the chart, and discussions with patient, family, and skin care consultant(s). . [id number] [facility] ED Physician Notes Patient: GIOVANY [...] male reported history of COPD traveling from [place] to [place] presents from the airport with shortness of breath. Patient reports he developed difficulty breathing earlier this morning which continued on the plane flight from [place]. Has associated wheezing. Denies any cough, fever, [...] No records identified on chart review at [facility] Patient reports being from [place] with a known history of COPD DARRIAN [...] Oxygen provided for acute hypoxemia The hospitalist senior telecommunications engineer was consulted and agreed to accept patient [...] Condition Stable Disposition Admit MSEI Information JUSTICEI /DIRECTOR OF ROOMS/PA Time Patient Seen face to face: Date [...] Peptide 48 pg/mL (HIGH) 05/29/21 07:43 PST [id number] [facility] Discharge Summaries Results Value Date Source Discharge Summary DATE OF ADMISSION: 2021 DATE OF DISCHARGE: 05/30/2021 PRIMARY CARE PROVIDER: Zion Atkins DNP, CREDIT RISK OFFICER-BC, ANDREW-BC, of the [facility], phone number is [phone], fax number is [phone]. ATTENDING PROVIDERS: 1. Nico Capone MD 2. [...] who was traveling from his home in [place] to [place], with onset of shortness of breath during [...] the time of discharge. MD Lynne Bowden [facility],05/30/2021 21:02:17 PST. Conf # [id number] ,05/30/2021 21:31:26 PST. Dictation ID [id number] Male 05/31/2021 [facility] History and Physicals Results Value Date Source History and Physical Examination 2021 [facility] History and Physical Admit Date: [...] respiratory illness specifically previously. He is from [place], [place] and was traveling through [place] on his way to [place] as today is his birthday. This is the first leg in an extended trip. He was a bit more dyspneic last night and this morning, but had spent the last day and a half plowing and then snow blowing quite a bit and prepping his residence for an extended stay without a tobacco warehouse agent in the winter in [place]. He acknowledges being pretty significantly fatigued yesterday [...] He was on his way to visit [place] briefly, but then a few other parts of the country to visit his grandsons and granddaughters, all the way in [place] for example, so he has extended duration [...] rounds of Mohs surgery and finally a [id number] graft. 7. Degenerative disease of the cervical [...] D DML, 2021 15:06:41 PST. Conf # [id number] , 2021 16:30:17 PST. Dictation ID [id number] [facility] Vital Signs Vital Sign Value Date Comments Source Oxygen delivery Room air (05/30/21 3:41 PM) 05/30/[address] [facility] Temperature (F) 98.3 [degF] [facility] Peripheral Pulse Rate 95 bpm 05/30/[address] [facility] Peripheral pulse site Non-invasive BP device (05/30/21 3:41 PM) 05/30/[address] [facility] Respiratory rate 14 br/min 05/30/2021 05 [facility] Systolic BP 120 mm[Hg] 05/30/[address] [facility] Diastolic BP 67 mm[Hg] 05/30/[address] [facility] Blood Pressure Method Automatic (05/30/21 3:41 PM) 05/30/[address] [facility] Pulse Oximetry 95 % 05/30/2021 05 [facility] Oxygen delivery Room air (05/30/21 11:33 AM) 05/30/[address] [facility] Temperature (F) 98.4 [degF] 05/30/2021 [facility] Peripheral Pulse Rate 82 bpm 05/30/[address] [facility] Peripheral pulse site Non-invasive BP device (05/30/21 11:33 AM) 05/30/[address] [facility] Respiratory rate 16 br/min 05/30/2021 05 [facility] Systolic BP 114 mm[Hg] 05/30/[address] [facility] Diastolic BP 53 mm[Hg] 05/30/[address] [facility] Blood Pressure Method Automatic (05/30/21 11:33 AM) 05/30/[address] [facility] Pulse Oximetry 92 % 05/30/2021 05 [facility] Respiratory rate 21 br/min 05/30/2021 05 [facility] Peripheral Pulse Rate 78 bpm 05/30/[address] [facility] Pulse Oximetry 92 % 05/30/2021 05 [facility] Oxygen delivery Room air (05/30/21 9:00 AM) 05/30/[address] [facility] Neurological norm WDL (05/30/21 9:00 AM) 05/30/[address] [facility] Temperature (F) 98.1 [degF] 05/30/2021 05 [facility] Peripheral pulse site Non-invasive BP device (05/30/21 8:07 AM) 05/30/[address] [facility] Systolic BP 134 mm[Hg] 05/30/[address] [facility] Diastolic BP 62 mm[Hg] 05/30/[address] [facility] Blood Pressure Method Automatic (05/30/21 8:07 AM) 05/30/[address] [facility] Neurological norm No change from previous assessment (05/30/21 3:29 AM) 05/30/[address] [facility] Neurological norm No change from previous assessment (05/30/21 12:46 AM) 05/30/[address] [facility] Oxygen FiO2 21 % 05/30/[address] [facility] HeightLength (cm) 187.6 cm 2021 05 [facility] HeightLength method Stated (05/29/21 12:2 0 PM) [address] [facility] Weight measured method Standing scale (05/29/21 12:20 PM) [address] [facility] Body Mass Index 0 kg/m2 2021 05 [facility] Weight (kg) 72.[address] [facility] Heart Rate Monitored 98 bpm 2021 05 [facility] Mean BP 106 mm[Hg] 2021 05 [facility] Heart Rate Monitored 87 bpm 2021 05 [facility] Mean BP 95 mm[Hg] 2021 05 [facility] Oxygen flow 0 L/min [address] [facility] Oxygen flow 0 L/min [address] [facility] Heart Rate Monitored 98 bpm 2021 05 [facility] Mean BP 85 mm[Hg] 2021 05 [facility] Oxygen flow 1 L/min [address] [facility] Weight (kg) 73.[address] [facility] Dose calculation weight (kg) 73.48 kg [address] [facility] Encounters Location Location Details Encounter Type Encounter Number Reason For Visit Attending Provider ADM Date DC Date Status Source 08 15 [facility] Observation [id number] Acute Hypoxemi c Respirat ory Failure, Communit y Acquired Pneumoni a Nico Capone 05/29 Active [facility] Social History Social History Date Source Social History TypeResponse Smoking Status Is there a smoker in the household? No; *Do you have concerns about tobacco use in household? No; Former smoker, quit more than 30 days ago; Never; *Are you ready to quit? Yes entered on: 05/29/21 Sex Male [address] [place] [address] Social History TypeResponse Smoking Status Is there a smoker in the household? No; *Do you have concerns about tobacco use in household? No; Former smoker, quit more than 30 days ago; Never; *Are you ready to quit? Yes entered on: 05/29/[address] [facility] Social History TypeResponse Smoking Status Is there a smoker in the household? No; *Do you have concerns about tobacco use in household? No; Former smoker, quit more than 30 days ago; Never; *Are you ready to quit? Yes entered on: 05/29/21 Sex Male [address] [place] [address]
--- OUTSIDE RECORDS SUMMARY | 2024-06-24 14:39 | XMS_ITS | Data Portability ---
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 3 To 5 Times A Week Information not available 11/11/2022 Stress Is When Someone Feels Tense, Nervous, Anxious, Or Can? t Sleep At Night Because Their Mind Is Troubled. How Stressed Are You? A Little Bit Information no t available 11/11/2022 In The Past Year, Have You Spent More Than 2 Nights In A Row In A Group Home, Care Home, Fdc Center, Or Juvenile Correctional Facility? No Information [...] Use Any Illicit Or Recreational Drugs? No [email or web address] Information not available 11/26/2022 Have You Used [...] an orphan age, marrie d 3 times. Dor[place]a; JOCELYNN; at 55 of [place]. Not available 03/11/2022 23:34:43 Notes:Mother - Family Histor y of Heart Disease Comments: Mother: grew up in an orphanage, 3 times. Sandee CABEZAS; at 54 of [place]. - Entered On: 04/18/2015 Father: 7 times. at 62 of CVA Mother: of [place] in her 50s One biological sister: of [place] at 50 (2009) 7 step siblings 2 suicide, youngest: MVA with head injury; suicide, Oldest: Drug-related suicide Children: 3 2 sons: Youngest: lives in [place] Oldest lives in [place]: granddaughter Shira he cared for he found out that girl was not biological child of his son (tried to adopt her but couldn't). Adriane Zuniga born 10/24 after son new girl Granddaughter Nic born 03/30 Eldest: arrested for making meth.; going to [facility]. on 03/05/12 was sentenced to 6 years in halfway Entered On: 02/07/2022 Mother - Family History of Heart Disease Comments: Mother: grew up in an orphanage, 3 times. Polio; DV; at 54 of [place]. - Entered On: 04/18/2015 Father: 7 times. at 62 of CVA Mother: of [place] in her 50s One biological sister: of [place] at 50 (2009) 7 step siblings 2 suicide, youngest: MVA with head injury; suicide, Oldest: Drug-related suicide Children: 3 2 sons: Youngest: lives in [place] Oldest lives in [place]: granddaughter Shira he cared for he found out that girl was not biological child of his son (tried to adopt her but couldn't). Adriane Zuniga born 10/24 after son new girl Granddaughter Nic born 03/30 Eldest: arrested for making meth.; going to [employer]. on 03/05/12 was sentenced to 6 years in halfway Entered On: 03/18/2022 Medical History No medical history recorded. Immunizations Vaccine Type Date Status Note Provider Nam e and Address Organization Details Recorded Time pneumococcal polysaccharide PPV23 6 completed Not Available [facility] 09/10/2022 20:09:12 pneumococcal polysaccharide PPV23 1 completed Not Available [facility] 09/10/2022 20:09:12 Hep A, unspecified formulation 8 completed Not Available [facility] 09/10/2022 20:09:13 Hep A, unspecified formulation 8 completed Not Available [facility] 09/10/2022 20:09:13 influenza, unspecified formulation 9 completed Not Available [facility] 09/10/2022 20:09:12 influenza, unspecified formulation 6 completed Not Available [facility] 09/10/2022 20:09:12 influenza, unspecified formulation 0 completed Not Available [facility] 09/10/2022 20:09:12 influenza, unspecified formulation 2 completed Not Available [facility] 09/10/2022 20:09:12 Influenza, split virus, trivalent, preservative 4 completed Not Available [facility] 09/10/2022 20:09:12 Influenza, split virus, trivalent, preservative 4 completed Not Available [facility] 09/10/2022 20:09:13 Influenza, split virus, trivalent, preservative 5 completed Not Available [facility] 09/10/2022 20:09:12 Tdap 6 completed Not Available [facility] 09/10/2022 20:09:12 Td(adult) unspecified formulation 1 completed Not Available [facility] 09/10/2022 20:09:12 Td(adult) unspecified formulation 4 completed Not Available [facility] 09/10/2022 20:09:12 pneumococcal polysaccharide PPV23 7 completed Not Available [facility] 09/10/2022 20:09:12 Influenza, split virus, quadrivalent, PF 7 completed Not Available [facility] 09/10/2022 20:09:13 Influenza, MDCK, trivalent, PF 9 completed Not Available [facility] 09/10/2022 20:09:13 Pneumococcal conjugate PCV 13 0 completed Not Available [facility] 09/10/2022 20:09:12 Influenza, high-dose, quadrivalent, PF 0 completed Not Available [facility] 09/10/2022 20:09:12 influenza, unspecified formulation 8 completed Not Available [facility] 09/10/2022 20:09:12 Influenza, adjuvanted, quadrivalent, PF 1 completed Not Available [facility] 09/10/2022 20:09:12 COVID-19, mRNA, LNP-S, PF, 100 mcg/0.5mL dose or 50 mcg/0.25mL dose 1 completed Not Available [facility] 09/10/2022 20:09:12 COVID-19, mRNA, LNP-S, PF, 100 mcg/0.5mL dose or 50 mcg/0.25mL dose 1 completed Not Available [facility] 09/10/2022 20:09:12 COVID-19, mRNA, LNP-S, PF, 100 mcg/0.5mL dose or 50 mcg/0.25mL dose 2 completed Not Available [facility] 09/10/2022 20:09:12 COVID-19, mRNA, LNP-S, PF, 100 mcg/0.5mL dose or 50 mcg/0.25mL dose 1 completed Not Available [facility] 09/10/2022 20:09:12 Influenza, high-dose, quadrivalent, PF 2 completed Not Available [facility] 09/10/2022 20:09:12 COVID-19, mRNA, LNP-S, bivalent, PF, 50 mcg/0.5 mL or 25mcg/0.25 mL dose 2 completed Not Available [facility] 09/10/2022 20:09:12 Tdap 4 completed Not Available [facility] 11/12/2022 16:52:24 Novel iuiqxseyo-Z1M3-21 0 completed Not Available [facility] 11/12/2022 16:52:24 Pneumococcal conjugate PCV15, polysaccharide NUL886 conjugate, adjuvant, PF 3 completed Not Available [facility] 01/07/2023 18:32:30 Past Encounters Encounter ID Performer Location Encounter Start Date Encounter Closed Date Diagnosis/Indication Diagnosis SNOMED-CT Code Diagnosis ICD10 Code Diagnosis Note [id number] TIM Bautista [facility] [id number] [facility] [place] [address] 06/11/2022 16:55:03 06/11/2022 17:30:00 Hypertensive disorder 17802041 I10 Orders placed for labs and scheduled for f/u with PCP Mild recur rent major depression 20372809 F33.0 Doing well on zyprexa call for refill Disorder in remission 76 3295906 F11.91 30 min spent with Juwan. Continue suboxone at 16mg daily f/u in 3 months. Alcohol abuse 70903674 F 10. [id number] TIM Bautista [place] [address] [place] [address] 06/20/2022 13:47:52 06/20/2022 14:10:49 Hypertensive disorder 73013930 I10 Orders placed for labs and scheduled for f/u with PCP Alcohol abuse 51196527 F 10.99 [id number] Dario Cabral PA-C [place] [address] [place] [address] 07/04/2022 16:52:10 07/04/2022 17:35:20 Chronic obstructive pulmonary disease 93639623 J44.9 consider eval for portable O2. Revisit in two weeks. Encouraged to do nebs on twice daily basis. Insomnia 597215070 G47.0 0 pt looks good overall when [...] t may think about adding SSRI Alcoholism 9166774 F10.2 0 pt restarted drinking after almost 20 years of sobriety. HE admits to drinking up to 6 beers/nigh t. We discussed this and do recommend to reduce etoh use and will revisit in near future [id number] Dario Cabral PA-C [place] [address] [place] [address] 07/18/2022 16:59:49 07/18/2022 19:12:55 Chronic obstructive pulmonary disease 01466971 J44.9 continue trelegy and home nebs.with hallway test and attached pulse oximeter pt quickly becomes SOB and desats to 85% on room air. Plan is to place order for portable O2 [id number] STEFFEN [place] [address] [place] [address] 07/29/2022 12:55:51 07/29/2022 16:17:16 Chronic insomnia 412107243 F51.04 pt is having good relief of insomnia with olanzapine . rtc when back in one month for review Essential hypertension 52305511 I10 not at goal. BP decreased after second reading, plan will be to have pt do home BP readings and discussed goals. Pt states he has lower readings at home Chronic ob structive pulmonary disease 37721824 J44.9 inogen will be placing a request to our clinic for getting a portable E9gusfe ox at rest 89%pulse ox walking 80%pulse ox walking with O2 93% at 1.5 lpm [id number] Zion Smyth, TIM [facility] [address] [place] [address] 11/11/2022 15:23:25 11/11/2022 15:58:43 Opioid dependence in remission 066216181 F11.21 Has tapered down from 16mg to 4mg and would like to hold at this dose for the time being. Chronic insomnia 5479894 04 F51.04 Doing very well on 5mg olanzapine will call for refill. Moderate r ecurrent major depression 25711885 F33.1 Currently in remission did well with an acute event. [id number] Dario Cabral PA-C [place] [address] [place] [address] 11/12/2022 16:51:13 11/12/2022 17:32:53 History of aortic valve replacement 1020567531 100 Z95.4 Insomnia 132707389 G47.0 0 pt looks good overall when [...] may think about adding SSRI Essential hypertension 05770629 I10 not at goal. BP decreased after second reading, plan will be to have pt do home BP readings and discussed goals. Plan is to increase to 50mg beta blockade [id number] Dario Cabral PA-C [place] [address] [place] [address] 11/26/2022 17:13:17 11/26/2022 18:01:06 Essential hypertension 72512935 I10 still not at goal. Plan is to now increase lisinopril to 20mg daily [id number] STEFFEN Pate [address] [place] [address] 01/07/2023 18:29:24 01/07/2023 20:58:29 Acute exacerbation of chronic obstructive pulmonary disease 134470557 J44.1 pt is going to begin looking at trying to relocate back east to live with family. he is currently living with friend in [place]. Alcoholism 7290779 F10.2 0 he states he occasional ly will drink etoh. He is living with a friend who does not drink and he is finding he is not drinking often. He feels he is in control of his drinking [id number] Zion Smyth, TIM [facility] [address] [facility] [place] [address] 03/24/2023 18:27:43 03/24/2023 19:05:13 Moderate recurrent major depression 98162977 F33.1 Lars anxiety is much worse with [...] and get his property dealt with in [place] so he can be with family in [place]. Patient has verbally consented to this visit via telehealth . Patient is located at home. This visit was performed using HIPAA compliant video via [employer] . Provider [facility]. 20 min. [id number] STEFFEN Pate [address] [address] [place] [address] 03/27/2023 13:06:40 03/27/2023 15:28:10 Chronic insomnia 970448791 F51.04 pt had jittery feeling of olanzapine (?dystonia ). Has tried benzo clonazepam with no relief. I will have pt try low dose seroquel to se if we can improve sleep hygiene without giving dystonia. . Reviewed side effects of med and will need to have him make appt in one month for recheck via telehealth . Mixed anxi ety and depressive disorder 264049468 F41.8 pt historical ly been on SSRI [...] untreated insomnia Chronic ob structive pulmonary disease 77703242 J44.9 pt on home O2. Pulmnologi st wants pt to return to pulmonolgy in [place]. This is currently unlikley due to pt has sever compromise in pulmonary function. Started Breztri with fareed alarcon of chronic condition. [id number] Zion Smyth, ANP [facility] [address] [facility] [place] [address] 04/22/2023 14:55:54 04/22/2023 15:44:38 Moderate recurrent major depression 14312117 F33.1 Juwan is doing well on clonazepam [...] was performed using HIPAA compliant video via [employer] . [facility] wlw, 16 min. Acute exac erbation of chronic obstructive pulmonary disease 783124799 J44.1 [id number] Dario Cabral PA-C [place] [address] [place] [address] 05/05/2023 13:01:56 05/05/2023 13:53:14 Chronic obstructive pulmonary disease 78026114 J44.9 has establishe d with pulmonolog y and is working on getting pcp.We discussed that if not feeling better. should have low thresh hold to get eval in the ER. Essential hypertension 29394382 I10 still not at goal. 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 Pt has very slow gait and will easily SOB. pt is back to [place] and is again considerin g on moving back where he has family and more access to specialty care. He is encouraged to use portable concentrat or on regular basis.Revi ewed CT chest results and was recommende d to get vasculatur e surgeon consult. Coronary arteriosclerosis 37289631 I25.10 gives hx of connecting with cardiology and was unable to get referral to vascular surgeon. He was started on statin by cardiology . reviewed that best option for specialty care would be [place] with family. Hypertensive disorder 38 326699 I10 seen by cardiology and had amlodipine to regimen at recent cardiology visit one week agoroderick alarcon notes from consult. Severe chr onic obstructive pulmonary disease 772722156 J44.9 pt is resistant to use 100% O2. He is encouraged to use all the time and even when sleeping.n o smoking encouraged . Coronary atherosclerosis 344089935 I25.10 have not received cardiology consult. We discussed that he is likely to have better options and more available specialty care in larger [place] like [facility] where family is located.Un sure of his surgical candidacy due to sever COPD Chronic al coholism in remission 876703332 F10.21 pt elects to continue to drink etoh and we discussed vulnerabil ity to fall out of remission. recommend to stop etoh. pt is precontemp lative. Depressive disorder 6847 1414 F32.A this is ongoing and complicate d [...] Date Sequence Insurance Name Policy Number Policy Il Covered Member ID Li Member ID Guarantor Name 03/24/2023 2 [place]: [employer] [place] [id number] [employer] [place] 03/27/2023 2 [place] [employer] [place] [id number] Freedom R [place]a 04/22/2023 2 [place]: [employer] [place] [id number] Freedom R [place]a 05/05/2023 2 [place] [employer] [place] [id number] Freedom R Halla 08/27/2023 1 [employer] NATIONAL - MEDICARE-[place] - PART A - [facility] (MEDICARE) Freedom Will[place]a [id number] 7 Freedom R Demetrisa Notes Date Note Type Note Provider Name and Address Organization Details Recorded Time 03/24/2023 text/html Juwan presents fo r suboxone management. His breathing has gotten bad d/t needing her oxygen, he is currently at his sisters house and is working on moving to [place] and is working on getting a specialist in [place] before his move and has already set [...] with them and jittery. Zion Smyth, ANP [address] [place], [address], [facility] [place] 03/24/2023 19:10:18 03/27/2023 text/html Patient has verbally consented to this visit via telehealth. Patient is located at home. This visit was performed using HIPAA compliant video via [employer].recupe rating from aortic valve repair on September 02, 2022. Living in [facility], (Anitha Hogan have there names on chart to discuss pt health status).pt is currently living with sister. Currently on home O2.[facility] pharmacy fax [phone] [facility] on [facility].Had a telehealth appt with Libra LOUIS, was placed on clonazepam with no relief of insomnia current etoh use is limited to two beers/day. HE has been advised to stop by regulatory affairs internship Dario Cabral PA-C [address], [place], [address], [facility] [place] 03/27/2023 13:59:21 04/22/2023 text/html Juwan [...] the loop as well. Zion Smyth, TIM [address], [place], [address], [facility] [place] 04/22/2023 16:42:23 05/05/2023 text/html Patient has verbally consented to this visit via telehealth. Patient is located at home. This visit was performed using HIPAA compliant video via [employer]. Venita BOURNE needs refill of medication , has been having more [place] and SOB. Is fine when on nasal cannula with pulse ox at 96% but quickly desats when doing any walking. Needs refill of BP meds Dario Cabral PA-C [address], [place], [address], [facility] [place] 05/11/2023 14:57:24 08/27/2023 text/html [place] retur[place] d to [place] nd [place] cardiology in [place] on CT chest follow up for pulmonary nodules being monitored. He understood that he had blockages and was to be seen next by vasculature surgeon. HE was seen by gas meter installer helper and was placed on amlodipine and crestor. [...] most support when he moves back to [facility] where he spent his winter.when asked on [...] live with his brother. Dario Cabral PA-C [address], [place], [address], [facility] [place] 08/28/2023 11:10:55
--- OUTSIDE RECORDS SUMMARY | 2024-06-24 14:40 | XMS_ITS ---
Author Organization [facility] Address [address] [facility] [place] [address] Care Team Providers Care Dispenser Operator Name Role Phone PILIJuly Unavailable [phone] REASON FOR VISIT PAD Encounters Encounter Location Date Provider Diagnosis [facility] [address] [place] [address] 09/09/2023 MARGARET ALEJANDRE Plan Of Treatment No Information Progress Notes * DARRIAN ALAMODOB:1955 (69 yo M)Acc No.[id number]:09/09/2023 Aorta Iliac Duplex Patient:?DARRIAN ALAMO Provider:?MARGARET ALEJANDRE MD :1955???Age:68 Y???Sex:Male Louie e:09/09/2023 Address: [address], [place] [facility] Subjective: * Chief Complaints: * ???1. PAD. * Medical History:? Objective: * Vitals:? Assessment: Plan: * Treatment: * * Electronic signature of JUANJO ALEJANDRE MD on 06/24/2024 at 10:39 AM AKDT Sign off status: Pending * Provider:?MARGARET ALEJANDRE MD Date:?08/12 Generated for Luc sam/Leoncio/eTransmitting on:?06/24/2024 10:39 AM AKDT
--- OUTSIDE RECORDS SUMMARY | 2024-06-24 14:40 | XMS_ITS ---
Author Organization [facility] Address [address] [address] Care Team Providers Care Automation Engineering Manager Name Role Phone PILIJuly Unavailable [phone] DAYSI ARREDONDO Unavailable [phone] Allergies No Known Allergies REASON FOR VISIT [...] Status Risk Notes Problem Peripheral vascular disease (827634502) Peripheral vascular disease, unspecified (I73.9) Active confirmed Problem Atherosclerotic heart disease of [place] coronary artery without angina pectoris (024942816370595) Atherosclerotic heart disease of [place] coronary artery without angina pectoris (I25.10) Active confirmed Problem History of heart valve repair with prosthesis (951135689048182) 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) Active confirmed Problem Inflammatory disease of liver (804850658) Unspecified hepatitis (573.3) Active confirmed Problem Major depression, single episode (65990845) Major depressive disorder, single episode, unspecified (F32.9) Active confirmed Problem Essential hypertension (63221162) Essential (primary) hypertension (I10) Active confirmed Problem Sleep apnea (14321501) Sleep apnea, unspecified (G47.30) Active confirmed Problem Chronic obstructive pulmonary disease (50125069) Chronic obstructive pulmonary disease, unspecified (J44.9) Active confirmed Problem Dyspnea (728918858) Dyspnea, unspecified (R06.00) Active confirmed Problem Abnormal findings on diagnostic imaging of heart and coronary circulation (051486841) Abnormal findings on diagnostic imaging of heart and coronary circulation (R93.1) Active confirmed Vital Signs Blood pressure systolic 146 mm Hg 09/09/19 24 Blood pressure diastolic 76 mm Hg 024 Heart Rate 95 /min 09/09/2023 Oximetry 90 % 09/09/2023 Weight-kg 80.75 kg 09/09/2023 Encounters Encounter Location Date Provider Diagnosis [facility] [address] [place] [address] 09/09/2023 DAYSI ARREDONDO PAD (peripheral artery disease) [...] Notes * SAROJ ALAMO:1955 (68 yo M)Acc No.[id number]:09/09/2023 Patient:?DARRIAN ALAMO Provider:?DAYSI ARREDONDO PA-C :1955???Age:68 Y???Sex:Male Louie e:09/09/2023 [address]:[place] [address], [place] [facility] Subjective: * Chief Complaints: * ???PAD * HPI: ???Consult:? 68-year-old male being referred to our office by [facility] for consultation and evaluation of peripheral arterial disease. Patient has a past medical history CAD, aortic valve replacement (last year per patient), HTN, COPD, dyspnea. He was recently seen at [facility] 08/25/2023 where he was found to have [...] PA-C Date: ?09/09/2023 Generated for Luc sam/Leoncio/eTruddysmitting on:?06/24/2024 10:39 AM AKDT History and Physical Notes * Examination Category [...]
--- OUTSIDE RECORDS SUMMARY | 2024-06-24 14:40 | XMS_ITS | Patient Health Record ---
Author Organization [facility] Address [address] [address] Care Team Providers Care Room Service Bellhop Name Role Phone PILIJuly Unavailable [phone] DAYSI ARREDONDO Unavailable [phone] BRAULIO FITZGERALD Unavailable [phone] Allergies No Known Allergies Results Component Value [...] index evaluation. Previous: 08/18/23 CTA ABD/PELV ([facility]) Bilateral: Bilateral lower extremity arterial [...] evaluation. FINDINGS Previous: 08/18/23 CTA ABD/PELV ([facility]) FINDINGS Bilateral: Bilateral lower extremity [...] obtained. Previous: 08/18/23 CTA ABD PELVIS ([facility]) Aorta: Limited visualization of the [...] FINDINGS Previous: 08/18/23 CTA ABD PELVIS ([facility]) FINDINGS Aorta: Limited visua lization of the abdominal aorta due to heavy bowel gas FINDINGS See Below For Report FINDINGS See Below For Report FINDINGS Conclusions: Aortoil iac atherosclerosis. Reason For Referral Reason Severe PAD Diagnosis 1 PAD (peripheral adria ry disease) (I73.9) Referral Organization [facility] TUTE Kori GRADY Referring Provider First Name LESLI Referring Provider Last Name ART Referring Provider Speciality Cardiology Referred Organization [facility] A Referred Provider July Referred Address [address] [facility] [facility],[place], [place],[address], Referred Provider Specialty Vascular Isabel rene General Notes CHRISTOPHER MCGHEE 08/27 03:29:52 PM >requested CTA images, WILY SANTANA 08/31/2023 07:18:04 AM > no images yetRome Katy 08/31/2023 10:39:34 AM > Patient verified Demos and [facility]31[facility]23 12:10:48 PM > The patient called and wondered if we had everything that we needed in order to schedule him at [facility]. He is anxious to get an appointment because his referring provider stated that this was an urgent matter.ESTHER KAYLIN R 08/31/2023 12:28:50 PM > not sure on getting these images stat can someone review since pt is worried?, WILY SANTANA 09/01/2023 11:23:30 AM > PT IS VERY WORRIED AND DOES NOT WANT TO WAIT FOR LIA. [facility]. HE IS [...] Peripheral vascular disease, unspecified (I73.9) [facility] Referring Provider First Name JULY Referring Provider Last Name PILI Referring Provider Speciality [facility]ascular [facility] Referred Organization [facility] Referred Address [address],[place], [place],[address], Referred Provider Specialty Gastroentero logy Referral Priority [...] Risk Notes Problem Inflammatory disease of liver (946868992) Unspecified hepatitis (573.3) Active confirmed Problem Major depression, single episode (94832703) Major depressive disorder, single episode, unspecified (F32.9) Active confirmed Problem Sleep apnea (98441289) Sleep apnea, unspecified (G47.30) Active confirmed Problem Essential hypertension (06893233) Essential (primary) hypertension (I10) Active confirmed Problem Atherosclerotic heart disease of [place] coronary artery without angina pectoris (857894185930740) Atherosclerotic heart disease of [place] coronary artery without angina pectoris (I25.10) Active confirmed Problem Peripheral vascular disease (592247942) Peripheral vascular disease, unspecified (I73.9) Active confirmed Problem Chronic obstructive pulmonary disease (02746162) Chronic obstructive pulmonary disease, unspecified (J44.9) Active confirmed Problem Dyspnea (611567743) Dyspnea, unspecified (R06.00) Active confirmed Problem Abnormal findings on diagnostic imaging of heart and coronary circulation (653531918) Abnormal findings on diagnostic imaging of heart and coronary circulation (R93.1) Active confirmed Problem History of heart valve repair with prosthesis (037097769764206) 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) Active confirmed Problem Peripheral vascular disease (735495330) PAD (peripheral artery disease) (I73.9) Active confirmed Vital Signs Heart Rate 95 /min 09/09/2023 Oximetry 90 % 09/09/2023 Blood pressure diastolic 76 mm Hg 09/09/2023 Weight-kg 80.75 kg 09/09/2023 Blood pressure systolic 146 mm Hg 09/09/2023 Encounters Encounter Location Date Provider Diagnosis [facility] [address] [place] [address] 09/07/2023July PIL[facility] [address] [place] [address] 09/09/2023 DAYSI ARREDONDO PAD (peripheral artery disease) I73.9 ; Presence of prosthetic heart valve Z95.2 ; Dyspnea, unspecified R06.00 and Chronic obstructive pulmonary disease, unspecified J44.9 [facility] [address] [place] [address] 09/04/2023 BRAULIO LIA [facility] [address] [place] [address] 09/09/2023July PILI Assessments Encounter Date Diagnosis (ICD Code) [...] OF [place] [address] [phone] [id number] INGRIDAbel DARRIAN Self - patient is the insured Medical (General) History Medical History History ICD Code Peripheral vascular disease, unspecified I73.9 Atherosclerotic heart diseas e of [place] coronary artery without angina pectoris I25.10 Presence [...]
--- OUTSIDE RECORDS SUMMARY | 2024-06-24 14:40 | XMS_ITS ---
Author Organization [facility] Address [address] [facility] [address] [place] [address] Care Team Providers Care Food Service Helper Name Role Phone PILI, JULY Unavailable [phone] REASON FOR VISIT Update [employer] Demographics Encounters Encounter Location Date Provider Diagnosis [facility] [address] [place] [address] 09/07/2023July PILI Plan Of Treatment No Information Progress Notes * INGRIDDARRIAN RomanDOB:1955 (68 yo M)Acc No.[id number]:09/07/2023 Patient:?DARRIAN ALAMO :1955???Age:68 Y???Sex:Male Address:[address], [place] [address] * true * Date:? Generated for Gersoni cecy/Leoncio/eTransmitting on:?06/24/2024 10:39 AM DANA
== END 2024-06-24 13:42 | disposition home or self-care (01) ==
LOC: HO.HPSW 13:06
PROVIDERS: PCP Physician Assistant Medical; Visit Provider Nurse Practitioner Family
DX: J44.9 Chronic obstructive pulmonary disease, unspecified (principal); R91.8 Other nonspecific abnormal finding of lung field; Z87.891 Personal history of nicotine dependence; G47.34 Idiopathic sleep related nonobstructive alveolar hypoventilation
CPT/HCPCS: 99214; G2211

== ENCOUNTER 2024-06-24 13:50 | Outpatient (REF) | payer MEDICARE, SELFPAY ==
--- OUTSIDE RECORDS SUMMARY | 2024-06-24 15:36 | XMS_ITS | Continuity of Care Document ---
Author Name [facility] Care Team Providers Care Bilingual Recruiter Name Role Phone [facility] Unavailable Unavailable Problems Problem Status Onset Date Classification Date Reported Comments Source Chronic obstructive pulmonary disease wi Active 05/30/2021 [facility] Acute hypoxemic respiratory failure Active 2021 05/31/2021 05 [facility] Community acquired pneumonia Active 2021 05/31/[address] [place] [address] Medications Medication Details Route Status Patient Instructions Ordering Provider Order Date Source predniSONE 20 mg oral tablet = 3 Tab, ORAL, DAILY, Take in the morning starting 05/31/2021. Take with food or milk., # 9 Tab, 0 Refill(s), Acute, Pharmacy: [facility], 187.6, cm, 05/29/21 12:21:00 PST, Height/Length (cm), 73.48, kg, 05/29/21 8:38:00 PST, Dose calcu... Active [address] [place] [address] azithromycin 250 mg oral tablet = 2 Tab, ORAL, [id number], Take 2 tabs PO daily at 3PM., # 4 Tab, Indication= COPD exacerbation, 0 Refill(s), Acute, Pharmacy: [facility], 187.6, cm, 05/29/21 12:21:00 PST, Height/Length (cm), 73.48, kg, 05/29/21 8:38:00 PST, Dose c... Active [address] [place] [address] Tamsulosin hydrochloride 0.4 MG Oral Capsule [Flomax] = 1 Cap, ORAL, DAILY, 0 Refill(s), Maintenance Active [address] [place] [address] Albuterol 2 Puff, INH, Q6H, PRN Shortness of breath/wheezin g, 0 Refill(s), Maintenance Active [address] [place] [address] Paroxetine 30 MG Oral Tablet [Paxil] = 1 Tab, ORAL, DAILY, 0 Refill(s), Maintenance Active [facility] lisinopril 10 mg oral tablet = 1 Tab, ORAL, DAILY, 0 Refill(s), Maintenance Active [facility] Trelegy Ellipta 200 mcg-62.5 mcg-25 mcg/inh inhalation powder 1 Puff, INH, DAILY, 0 Refill(s), Maintenance Active 05 [facility] terazosin 2 mg oral capsule = 1 Cap, ORAL, QBedtime, 0 Refill(s), Maintenance Active [facility] Buprenorphine 8 MG / Naloxone 2 MG Oral Strip [Suboxone] 1 film, SUBLING, BID, 0 Refill(s), Maintenance Active [facility] Results Order Name Results Value Reference Range Date Interpretation Comments Source AutoDiff* Auto Neutrophil Percent 71.0 % 05/30 [facility] AutoDiff* Auto Neutrophil Absolute 5.3 K/MM3 2.0 - 7.3 05/30 [facility] AutoDiff* Auto Lymphocyte Percent 16.4 % 05/30 [facility] AutoDiff* Auto Lymphocyte Absolute 1.2 K/MM3 0.9 - 4.8 05/30 [facility] AutoDiff* Auto Monocyte Percent 12.5 % 05/30 [facility] AutoDiff* Auto Monocyte Absolute 0.9 K/MM3 0.2 - 1.0 05/30 [facility] AutoDiff* Auto Eosinophil Percent 0.0 % 05/30 [facility] AutoDiff* Auto Eosinophil Absolute 0.0 K/MM3 0.0 - 0.4 05/30 [facility] AutoDiff* Auto Basophil Percent 0.1 % 05/30 [facility] AutoDiff* Auto Basophil Absolute 0.0 K/MM3 0.0 - 0.1 05/30 [facility] AutoDiff* Sex assigned at Male 05/30 [facility] Sodium Level 141 mmol/L 136 - 144 05/30 NA [facility] Potassium Level 4.5 mmol/L 3.6 - 5.1 05/30 [facility] Chloride Level 102 mmol/L 101 - 111 05/30 [facility] CO2/Carbon Dioxide 30 mmol/L 22 - 32 05/30 [facility] Anion Gap 9 mmol/L 5 - 17 05/30 [facility] Glucose, Random 118 MG/DL 74 - 118 05/30 [facility] BUN 22 MG/DL 7 - 25 05/30 [facility] Creatinine 0.8 MG/DL 0.9 - 1.3 05/30 [facility] BUN/Creat Ratio 27.5 05/30 [facility] Osmolality, Calculated 296 mOsm/L 05/30 [facility] Calcium Level 9.3 MG/DL 8.6 - 10.3 05/30 [facility] GFR - Non 103 mL/min/1.7 3m2 [...] to persons under 18 years of age. [facility] BMP GFR - 125 mL/min/1.7 3m2 >=60 05/30 [facility] Sex assigned at Male 05/30 [facility] CBC WBC 7.5 K/MM3 4.5 - 10.0 05/30 [facility] CBC RBC 3.59 M/MM3 4.40 - 6.00 05/30 L [facility] CBC HGB 11.2 G/DL 13.4 - 17.4 05/30 [facility] CBC HCT 32.7 % 38.9 - 51.5 05/30 [facility] CBC MCV 91 uM^3 80 - 100 05/30 [facility] CBC MCH 31.1 pg 26.0 - 34.0 05/30 [facility] CBC MCHC 34.2 ZZ 31.0 - 36.0 05/30 [facility] CBC RDW 14.4 % 11.6 - 14.6 05/30 [facility] CBC PLT 198 K/MM3 150 - 400 05/30 [facility] CBC MPV 8.6 uM^3 7.2 - 11.1 05/30 [facility] CBC Sex assigned at Male 05/30 [facility] PCT Procalcitonin Level <0.05 NG/ML 0.05 [...] in few hours if suspectbacter ial infection. [facility] PCT Sex assigned at Male 05/30 [facility] Trop Troponin I <0.03 NG/ML 0.00 [...] may be indicative of acute myocardial injury. [facility] Trop Sex assigned at Male 05/30 [facility] [id number] SARS-CoV-2 Source Melodylisa longoria 05/29 [facility] [id number] Patient From [facility]? No 05/29 [facility] [id number] Health Care Worker? No 05/29 [facility] [id number] SARS-CoV-2 Molecular Negative Negative 05/29 Negative results [...] independent review of this validation is pending. [facility] [id number] Symptomatic per CDC? Symptomati c/PUI 05/[address] Serial Retesting? Unknown 05/[address] SARS-CoV-2 First test? Unknown 05/[address] SARS-CoV-2 Is the Patient Hospitalized? Unknown 05/[address] SARS-CoV-2 Is the Patient in ICU? Unknown 05/[address] SARS-CoV-2 Is the Patient ? Unknown 05/[address] Sex assigned at Male 05/29 [facility] BGVenLab VBG - pH 7.40 7.32 - 7.43 05/29 [facility] BGVenLab VBG - pCO2 51 mmHg 41 - 51 05/29 [facility] BGVenLab VBG - pO2 49 mmHg 38 - 42 05/29 H [facility] BGVenLab VBG - HCO3 31.6 mmol/L 05/29 NA [facility] BGVenLab VBG - BE 5.6 mmol/L 05/29 [facility] BGVenLab VBG - Oxyhemoglobin 80.1 % >=75.0 05/29 [facility] BGVenLab VBG - O2 Sat 82.3 % >=75.0 05/29 [facility] BGVenLab VBG - Methemoglobin 0.0 % 05/29 [facility] BGVenLab VBG - Total Hemoglobin 12.3 G/DL 13.5 - 18.0 05/29 L [facility] BGVenLab VBG - O2 Content 13.8 mL/dL 05/29 [facility] BGVenLab BG - Modified Glenn Test N/A 05/29 [facility] BG - Site Vein 05/29 [facility] BG - Pt Temp 37.0 DegF 05/29 [facility]enLab Sex assigned at Male 05/29 [facility] AutoDiff* Auto Neutrophil Percent 67.0 % 05/29 [facility] AutoDiff* Auto Neutrophil Absolute 5.3 K/MM3 2.0 - 7.3 05/29 [facility] AutoDiff* Auto Lymphocyte Percent 17.1 % 05/29 [facility] AutoDiff* Auto Lymphocyte Absolute 1.3 K/MM3 0.9 - 4.8 05/29 [facility] AutoDiff* Auto Monocyte Percent 14.5 % 05/29 [facility] AutoDiff* Auto Monocyte Absolute 1.1 K/MM3 0.2 - 1.0 05/29 H [facility] AutoDiff* Auto Eosinophil Percent 0.9 % 05/29 [facility] AutoDiff* Auto Eosinophil Absolute 0.1 K/MM3 0.0 - 0.4 05/29 [facility] AutoDiff* Auto Basophil Percent 0.5 % 05/29 [facility] AutoDiff* Auto Basophil Absolute 0.0 K/MM3 0.0 - 0.1 05/29 [facility] AutoDiff* Sex assigned at Male 05/29 [facility] BNPep BNP B-Natriuretic Peptide 48 pg/mL 0 - 46 05/29 H [facility] BNPep Sex assigned at Male 05/29 [facility] CBC WBC 7.9 K/MM3 4.5 - 10.0 05/29 [facility] CBC RBC 4.00 M/MM3 4.40 - 6.00 05/29 [facility] CBC HGB 12.3 G/DL 13.4 - 17.4 05/29 [facility] CBC HCT 36.5 % 38.9 - 51.5 05/29 [facility] CBC MCV 91 uM^3 80 - 100 05/29 [facility] CBC MCH 30.8 pg 26.0 - 34.0 05/29 [facility] CBC MCHC 33.7 ZZ 31.0 - 36.0 05/29 [facility] CBC RDW 14.6 % 11.6 - 14.6 05/29 [facility] CBC PLT 218 K/MM3 150 - 400 05/29 [facility] CBC MPV 8.3 uM^3 7.2 - 11.1 05/29 [facility] CBC Sex assigned at Male 05/29 [facility] CMP Sodium Level 137 mmol/L 136 - 144 05/29 [facility] CMP Potassium Level 3.7 mmol/L 3.6 - 5.1 05/29 [facility] CMP Chloride Level 98 mmol/L 101 - 111 05/29 [facility] CMP CO2/Carbon Dioxide 31 mmol/L 22 - 32 05/29 [facility] CMP Anion Gap 8 mmol/L 5 - 17 05/29 [facility] CMP Glucose, Random 99 MG/DL 74 - 118 05/29 [facility] CMP BUN 27 MG/DL 7 - 25 05/29 H [facility] CMP Creatinine 1.3 MG/DL 0.9 - 1.3 05/29 [facility] CMP BUN/Creat Ratio 20.8 05/29 [facility] CMP Osmolality, Calculated 289 mOsm/L 05/29 [facility] CMP Calcium Level 9.9 MG/DL 8.6 - 10.3 05/29 [facility] CMP Total Protein 7.5 G/DL 6.0 - 8.0 05/29 [facility] CMP Albumin Level 4.1 G/DL 3.5 - 5.0 05/29 [facility] CMP Globulin Level 3.4 G/DL 2.1 - 3.9 05/29 [facility] CMP A/G Ratio 1.21 1.00 - 2.50 05/29 [facility] CMP ALP 78 Units/L 38 - 126 05/29 [facility] CMP ALT 18 Units/L 8 - 40 05/29 [facility] CMP AST 27 Units/L 15 - 41 05/29 [facility] CMP Bilirubin, Total 0.4 MG/DL 0.3 - 1.2 05/29 [facility] CMP GFR - Non 59 mL/min/1.7 [...] to persons under 18 years of age. [facility] CMP GFR - 71 mL/min/1.7 3m2 >=60 05/29 [facility] CMP Sex assigned at Male 05/29 [facility] Trop Troponin I <0.03 NG/ML 0.00 [...] may be indicative of acute myocardial injury. [facility] Trop Sex assigned at Male 05/29 NA [facility] Diagnostic Reports Report Value Date Source CT [...] Underlying centrilobular emphysema, and chronic bronchitis. 2021 [facility] Chest 1 Vw Portable PROCEDURE: CHEST RAD [...] for pneumonia. Small right pleural effusion. 2021 [facility] Consultation Notes Results Value Date Source Progress Note Patient: DARRIAN ALAMO Age: 66 years Legal Sex: Male : 1955 Author: MD Nicolas, Maurice Carias Discharge summary dictated with dictation number [id number] Male 05/31/2021 [facility] ED Physician Notes Patient: DARRIAN ALAMO Age: [...] access, Antibiotics, IV fluid, Oxygen), Case review (bilingual medical assistant, nursing), Alternate history emergency medical services. Treatment response: Improved. Performed by: self. Notes: This time excludes time spent performing procedures but includes time spent on direct patient care, history retrieval, review of the chart, and discussions with patient, family, and product safety consultant(s). . [id number] Male 2021 [facility] ED Physician Notes Patient: GIOVANY ALAMO Age: [...] history of COPD traveling from [place] to [place] presents from the airport with shortness of [...] No records identified on chart review at [facility] Patient reports being from [place] with a [...] Oxygen provided for acute hypoxemia The hospitalist production underwriter was consulted and agreed to accept patient [...] Condition Stable Disposition Admit MSEI Information JUSTICEI /HOG SCRAPER/PA Time Patient Seen face to face: Date [...] Peptide 48 pg/mL (HIGH) 05/29/21 07:43 PST [id number] Male 2021 [facility] Discharge Summaries Results Value Date Source Discharge Summary DATE OF ADMISSION: 2021 DATE OF DISCHARGE: 05/30/2021 PRIMARY CARE PROVIDER: Zion Atkins DNP, WEB PRESS OPERATOR HELPER OFFSET-BC, ANDREW-BC, of the [facility], phone number is [phone], fax number is [phone]. ATTENDING PROVIDERS: 1. Nico Capone MD 2. [...] traveling from his home in [place] to [place], with onset of shortness of breath during [...] the time of discharge. MD Lynne Bowden [facility],05/30/2021 21:02:17 PST. Conf # [id number] ,05/30/2021 21:31:26 PST. Dictation ID [id number] Male 05/31/2021 [facility] History and Physicals Results Value Date Source History and Physical Examination 2021 [facility] History and Physical Admit Date: 022 DATE [...] respiratory illness specifically previously. He is from [place], [place] and was traveling through [place] on his way to [place] as today is his birthday. This is the first leg in an extended trip. He was a bit more dyspneic last night and this morning, but had spent the last day and a half plowing and then snow blowing quite a bit and prepping his residence for an extended stay without a warehouseman in the winter in [place]. He acknowledges [...] He was on his way to visit [place] briefly, but then a few other parts of the country to visit his grandsons and granddaughters, all the way in [place] for example, so he has extended duration [...] rounds of Mohs surgery and finally a [id number] graft. 7. Degenerative disease of the cervical [...] D DML, 2021 15:06:41 PST. Conf # [id number] , 2021 16:30:17 PST. Dictation ID [id number] Male 2021 [facility] Vital Signs Vital Sign Value Date Comments Source Oxygen delivery Room air (05/30/21 3:41 PM) 05/30/2021 05 [facility] Temperature (F) 98.3 [degF] 05/30/2021 05 [facility] Peripheral Pulse Rate 95 bpm 05/30/2021 05 [facility] Peripheral pulse site Non-invasive BP device (05/30/21 3:41 PM) 05/30/2021 05 [facility] Respiratory rate 14 br/min 05/30/2021 05 [facility] Systolic BP 120 mm[Hg] 05/30/2021 05 [facility] Diastolic BP 67 mm[Hg] 05/30/2021 05 [facility] Blood Pressure Method Automatic (05/30/21 3:41 PM) 05/30/2021 05 [facility] Pulse Oximetry 95 % 05/30/2021 05 [facility] Oxygen delivery Room air (05/30/21 11:33 AM) 05/30/2021 05 [facility] Temperature (F) 98.4 [degF] 05/30/2021 05 [facility] Peripheral Pulse Rate 82 bpm 05/30/2021 05 [facility] Peripheral pulse site Non-invasive BP device (05/30/21 11:33 AM) 05/30/2021 05 [facility] Respiratory rate 16 br/min 05/30/2021 05 [facility] Systolic BP 114 mm[Hg] 05/30/2021 05 [facility] Diastolic BP 53 mm[Hg] 05/30/2021 05 [facility] Blood Pressure Method Automatic (05/30/21 11:33 AM) 05/30/2021 05 [facility] Pulse Oximetry 92 % 05/30/2021 05 [facility] Respiratory rate 21 br/min 05/30/2021 05 [facility] Peripheral Pulse Rate 78 bpm 05/30/2021 05 [facility] Pulse Oximetry 92 % 05/30/2021 05 [facility] Oxygen delivery Room air (05/30/21 9:00 AM) 05/30/2021 05 [facility] Neurological norm WDL (05/30/21 9:00 AM) 05/30/2021 05 [facility] Temperature (F) 98.1 [degF] 05/30/2021 05 [facility] Peripheral pulse site Non-invasive BP device (05/30/21 8:07 AM) 05/30/2021 05 [facility] Systolic BP 134 mm[Hg] 05/30/2021 05 [facility] Diastolic BP 62 mm[Hg] 05/30/2021 05 [facility] Blood Pressure Method Automatic (05/30/21 8:07 AM) 05/30/2021 05 [facility] Neurological norm No change from previous assessment (05/30/21 3:29 AM) 05/30/2021 05 [facility] Neurological norm No change from previous assessment (05/30/21 12:46 AM) 05/30/2021 05 [facility] Oxygen FiO2 21 % 05/30/2021 05 [facility] HeightLength (cm) 187.6 cm 2021 05 [facility] HeightLength method Stated (05/29/21 12:2 0 PM) 2021 05 [facility] Weight measured method Standing scale (05/29/21 12:20 PM) 2021 05 [facility] Body Mass Index 0 kg/m2 2021 05 [facility] Weight (kg) 72.57 kg 2021 05 [facility] Heart Rate Monitored 98 bpm 2021 05 [facility] Mean BP 106 mm[Hg] 2021 05 [facility] Heart Rate Monitored 87 bpm 2021 05 [facility] Mean BP 95 mm[Hg] 2021 05 [facility] Oxygen flow 0 L/min 2021 05 [facility] Oxygen flow 0 L/min 2021 05 [facility] Heart Rate Monitored 98 bpm 2021 05 [facility] Mean BP 85 mm[Hg] 2021 05 [facility] Oxygen flow 1 L/min 2021 05 [facility] Weight (kg) 73.48 kg 2021 05 [facility] Dose calculation weight (kg) 73.48 kg 2021 05 [facility] Encounters Location Location Details Encounter Type Encounter Number Reason For Visit Attending Provider ADM Date DC Date Status Source 08 15 [facility] Observation [id number] Acute Hypoxemi c Respirat ory Failure, Communit y Acquired Pneumoni a Nico Capone 05/29 Active [facility] Social History Social History Date Source Social History TypeResponse Smoking Status Is there a smoker in the household? No; *Do you have concerns about tobacco use in household? No; Former smoker, quit more than 30 days ago; Never; *Are you ready to quit? Yes entered on: 05/29/21 Sex Male [address] [place] [address] Social History TypeResponse Smoking Status Is there a smoker in the household? No; *Do you have concerns about tobacco use in household? No; Former smoker, quit more than 30 days ago; Never; *Are you ready to quit? Yes entered on: 05/29/21 Sex Male 05 [facility] Social History TypeResponse Smoking Status Is there a smoker in the household? No; *Do you have concerns about tobacco use in household? No; Former smoker, quit more than 30 days ago; Never; *Are you ready to quit? Yes entered on: 05/29/21 Sex Male [address] [place] [address]
[2024-06-24 18:10] LABS: Alanine Aminotransferase 82 U/L (0-40); Albumin Level 3.9 g/dL (3.5-5.0); Alkaline Phosphatase 73 U/L (39-117); Aspartate Amino Transferase 38 U/L (5-37); Bilirubin Direct 0.2 mg/dL (0.0-0.5); Bilirubin Total 0.4 mg/dL (0.0-1.0); Blood Urea Nitrogen 34 mg/dL (9-16); Estimated Glomerular Filt Rate > 60; Total Protein 7.6 g/dL (6.5-8.0)
== END 2024-06-24 13:51 | disposition home or self-care (01) ==
LOC: HO.WFDLDS 13:50
PROVIDERS: Visit Provider Nurse Practitioner Family
DX: Z01.818 Encounter for other preprocedural examination (principal); R05.9 Cough, unspecified; J44.9 Chronic obstructive pulmonary disease, unspecified; R91.8 Other nonspecific abnormal finding of lung field; Z87.891 Personal history of nicotine dependence
CPT/HCPCS: 36415; 80076; 82565; 84520; 99212

== ENCOUNTER 2024-08-09 14:51 | Outpatient (AMB) | payer MEDICARE, SELFPAY ==
--- NOTE | 2024-08-09 14:55 | MHC.OFFVIS ---
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 Required: No Cathode Builder: Cathode Builder offered & declined Accompanied by: Self / Same As Patient Allergies No Known Allergies Allergy (Verified 08/09/24 14:59) Medication List - Last Reconciled 08/09/24 by Raysa Ramirez LPN albuterol sulfate 90 mcg/actuation 2 puffs inhalation Q6H PRN ydznezpdoz-ywjkspib-armcynbalx 160-9-4.8 mcg/actuation (Breztri Aerosphere) 2 inhalations inhalation BID buprenorphine-naloxone 4-1 mg 5 mg sublingual DAILY clonazepam 0.25 mg PO BID bpeflhhifew-zxidbbqrg-owbbvquh 200-62.5-25 mcg (Trelegy Ellipta) 1 inh inhalation DAILY inhalational spacing device (Aerochamber MV spacer) As directed ipratropium-albuterol 0.5 mg-3 mg(2.5 mg base)/3 mL 3 mL inhalation BID PRN lisinopril 20 mg PO DAILY metoprolol succinate ER 50 mg PO DAILY quetiapine 25 mg PO BEDTIME HPI HPI F/U: Details: Freedom is a pleasant 69-year-old male, former smoker with 40pyh, quit 3 years ago, with underlying severe COPD, HTN, s/p aortic valve replacement 2022 and h/o hepatitis C. He has had multiple hospital admissions at [facility] and out of state over the last few months with acute respiratory failure with hypoxia secondary to COPD exacerbations as well as pneumonias. Last admission was 06/13-06/20. It was recommended he use BiPAP therapy outpatient however he continues to decline. He has been using Breztri, DuoNeb, and albuterol MDI, with moderate effect however does admit to not using DuoNeb/Acapella valve frequently. Prior chest CT noted multiple pulmonary nodules, largest measuring 9-10 mm of the right upper lobe and has been stable since 2022. He has been using 2L supplemental oxygen with exertion, occasionally takes off O2 when resting as he notes is oxygen saturation at rest is >92%. At the last visit, he was sent for repeat CXR to assess for resolution of PNA. Reviewed CXR 08/04 which revealed resolution of LLL infiltrate but unfortunately developing RLL infiltrate suggestive of pneumonia. Over the last few days he has developed pleuritic discomfort in the projection of the RLL with intermittent chest congestion, productive cough with white sputum however feels his dyspnea is at baseline and has not had an increase in oxygen demand. He denies any fatigue, fevers, chills, sick contacts or wheezing. ON LICENSE OF [facility] Medical History Basal cell carcinoma Vitamin D deficiency Major depressive disorder Alcohol dependence Mixed hyperlipidemia Emphysema/COPD Dupuytren's contracture of both hands Chest pain BPH (benign prostatic hyperplasia) Chronic pain syndrome Asbestos exposure Hepatitis C Sleep apnea Insomnia Hemoptysis Marijuana use Hypertension Osteoarthritis of right shoulder Nocturnal hypoxemia Multiple pulmonary nodules COPD (chronic obstructive pulmonary disease) Surgical History H/O colonoscopy (~2017) History of back surgery (~2007) History of appendectomy History of aortic valve replacement (~08/2022) Family History Sister Skin cancer Mother Arthritis Polio Other Family history of cerebrovascular accident Social History Alcohol intake: current Alcohol intake frequency: a few times a week Patient Tobacco Use Status: Former Tobacco user Tobacco use type: Cigarette Cigarette Packs Per Day: 1 Years Smoked: 40 Review of Systems Const Denies chills, Denies excessive sweating, Denies headache(s) and Denies night sweats Eyes Denies dry eyes, Denies irritation and Denies itchy eyes ENT Reports Normal hearing present, Denies headache(s), Denies nasal congestion, Denies nasal discharge, Denies post nasal drip and Denies sore throat Card Denies claudication, Denies leg edema, Reports dyspnea, Reports dyspnea on exertion, Denies orthopnea and Denies paroxysmal nocturnal dyspnea Resp Reports chest congestion, Reports cough, Denies hemoptysis, Denies excessive phlegm production, Reports pain on inspiration, Reports pain with cough, Reports dyspnea, Reports dyspnea on exertion, Denies stridor and Denies wheezing Musc Denies myalgias Neuro Reports Normal hearing present and Denies headache(s) Endo Denies excessive sweating [place]/Lymph Denies lymphadenopathy Aller/Immun Denies itchy eyes, Denies seasonal rhinorrhea and Denies wheezing Physical Exam Vital Signs: Last Vital Signs Pulse 83 08/09/24 14:57 BP 118/60 08/09/24 14:57 Pulse Ox 95 08/09/24 14:57 Oxygen Delivery Method Nasal Cannula 08/09/24 14:57 Oxygen Flow Rate 2 08/09/24 14:57 BMI result Body Mass Index 23.7 Const General: cooperative, comfortable, no acute distress, well developed and alert Orientation/consciousness: patient oriented x3 Limitations: no limitations HEENT Head: Yes normal to inspection, Yes normocephalic and Yes atraumatic Ears: hearing grossly normal bilaterally and external ears normal Eyes General: appearance normal, both eyes and all related structures Eyelids: Yes eyelids normal Sclerae: sclerae normal EOM: EOMs intact bilaterally Neck Neck: Yes normal visual inspection and Yes no lymphadenopathy Lymphatic: no lymphadenopathy noted Chest Chest palpation & inspection: normal inspection of the chest Resp Effort & Inspection: normal respiratory effort, able to speak in complete sentences, no cough, no stridor, not tachypneic, no tripod positioning and no use of accessory muscles Auscultation: no crackles, no rales, no rhonchi, wheezes and diminished lung sounds Cardio Jugular venous distension: no JVD Rate: regular rate Rhythm: regular rhythm Skin Other: warm, dry General skin exam: no rashes or lesions noted Neuro General: patient oriented x3 Cranial nerves: Yes Normal hearing present Cognition (Neuro): normal cognition Gait exam (Neuro): Normal gait present Extrem General: Yes normal to inspection, Yes capillary refill normal, Yes no clubbing, cyanosis or edema and Yes no pedal edema Psych Appearance: grossly normal and well kempt Speech and movement: Normal speech and movement present and Clear speech present Affect: normal affect Attitude: cooperative Thought process: Normal thought process present Thought content: Normal thought content present Insight: Good insight present (Psych) Judgement: Good judgement present (Psych) Assessment & Plan Assessment & Plan (1) COPD (chronic obstructive pulmonary disease): Code(s): J44.9 - Chronic obstructive pulmonary disease, unspecified Category: Medical (2) Multiple pulmonary nodules: Code(s): R91.8 - Other nonspecific abnormal finding of lung field Category: Medical (3) Personal history of tobacco use: Code(s): Z87.891 - Personal history of nicotine dependence Category: Social Hx (4) Nocturnal hypoxemia: Code(s): G47.34 - Idiopathic sleep related nonobstructive alveolar hypoventilation Category: Medical Plan Reviewed repeat CXR to assess for resolution of LLL PNA, which has resolved unfortunately revealed developing RLL infiltrate and patient newly reporting pleuritic discomfort on the right. Will treat for pneumonia with Vantin and prednisone. Patient aware to call if symptoms do not improve or seek emergent care for worsening symptoms. He has a PFT scheduled on 08/19 to assess severity of COPD. At this time, he feels symptoms are moderately controlled on current regimen, encouraged increased use of DuoNeb/flutter valve. He did note that he will be going back to [place] on 08/20 unsure of return. We discussed importance of close follow up with his PCP in [place] and obtaining CXR to assess for resolution of RLL infiltrate. If no improvement should have a sputum culture to assess for atypical infection. Order previously placed for overnight oximetry which he is awaiting, unsure if this will be performed prior to departure. Advised to continue to use 2L supplemental oxygen with exertion to maintain <92%. All questions were answered and patient is in agreement of plan. Will follow-up when patient returns from [place]. Medications: New prednisone 40 mg (2 x 20 mg) PO DAILY 10 tabs 0RF cefpodoxime must administer with a meal/food 200 mg PO BID 20 tabs 0RF Coding Level of Care Code Est Pt Level 4 (18475) Diagnoses COPD (chronic obstructive pulmonary disease) J44.9 Multiple pulmonary nodules R91.8 Personal history of tobacco use Z87.891 Nocturnal hypoxemia G47.34
[2024-08-09 14:57] VITALS: BP 118/60; PULSE 83; O2SAT 95; BMI 23.7
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
--- OUTSIDE RECORDS SUMMARY | 2024-08-09 18:07 | XMS_ITS | Data Portability ---
Author Organization [facility] [place], [facility] Address [address] [place] [address] Care Team Providers Care [employer] Member Name Role Phone [facility] ahmadi Care Provider [...] calculator an estimated 10 year risk of NV or stroke of 14.5%, the patient should be taking a statin. He is already taking a baby aspirin. Suggest: 1. Agree with baby aspirin. 2. Begin atorvastatin 80 mg daily. 3. Patient will monitor and record blood pressures at home for the next 2 weeks. [facility] will [facility] with [facility] blood pressure log and [...] recorded. Surgeries None recorded. Imaging electrocar diogram 2022 023 [email or web address] In-Office Order, Internal Use Only DO Not Attach Compendium DO Not Attach Compendium, Do Not Delete/merge, [id number] 3 18:04:32 electrocar diogram 2019 020 [email or web address], [address], [address], [place], [address], 3 14:40:32 Medication Orders atorvastat in 80 mg tablet 2019 020 [facility] [id number], [address] [facility], [place], [address], 3 17:10:51 Patient TargetsNo targets recorded. Patient Instructions Encounter Date Encounter Id Patient Instructions Last Modified By Organization Details Last Modified Time 04/15/2019 [id number] high blood pressure: care instructions Not available 04/15/2019 18:17:12 learning about high blood pressure Not available 04/15/2019 18:17:12 high cholesterol : care instructions Not available 04/15/2019 18:17:12 12/16/2022 [id number] high blood pressure: care instructions [email or web address] Not [...] Abnormal Flag Note LastModifiedBy Organization Detail LastModifiedTime 04/14/19 20 04/20/2018 pulmo nary funct ion test* No observ ation record ed. BARCODE Not Available 2019 14:41:52 04/18/19 20 04/15/2019 elect rocsiomara divinagr am No observ ation record ed. BAR[facility] [address], [place], [address], 04/18/2019 14:45:29 12/09/19 23 11/05/2021 elect rocar diogr am No observ ation record ed. Not Available 2022 17:20:53 12/09/19 23 11/05/2021 elect rocar diogr am No observ ation record ed. Not Available 2022 17:22:10 12/17/19 23 12/16/2022 elect rocar diogr am No observ ation record ed. [place] In-Office Order Internal Use Only DO Not Attach Compendium DO Not Attach Compendium, Do Not Delete/merge, [id number] 12/17/2022 18:10:26 12/17/19 elect rocar diogr am No observ ation record ed. [place] In-Office Order Internal Use Only DO Not Attach Compendium DO Not Attach Compendium, Do Not Delete/merge, [id number] 12/16/2022 17:29:39 02/18/20 23 12/16/2022 CT, chest , w/o contr ast No observ ation record ed. [email or web address] Not Available 2022 14:21:24 02/18/20 23 12/21/2022 XR, chest No observ ation record ed. [email or web address] Not Available 2022 14:22:08 02/18/20 23 12/21/2022 elect rocar diogr am No observ ation record ed. [email or web address] Not Available 2022 14:32:36 11/05/19 24 10/28/2023 , [facility] ardio gram No observ ation record ed. [email or web address] Not Available 2023 14:01:54 Result Notes None recorded. Problems Name Problem SNOMED Code Status Onset Date Resolution Date Notes Provider Name and Address Organization Details Recorded Time Chronic obstructive pulmonary disease 62662528 Active 2022 MD Lenin Rodriguez [address], [place], [address] , [facility] 3 17:30:00 Essential hypertension 55587692 Active 2022 Walt Young MD [address], [place], [address], [facility] 3 17:30:11 Hyperlipidemia 96031324 Active 2022 Walt Young MD [address], [place], [address], [facility] 3 17:30:17 Notes:Some problems listed i n Document: #[id number] could not be added to this patient's chart. Please review this document and add these problems to the patient's chart manually as needed. Problem Notes None recorded. Procedures Surgical History Date Name Laterality Status Provider Name and Address Organization Details Recorded Time 09/03/19 23 Replacement of aortic valve completed Lynnette Carranza [facility] 12/08/2022 17:14:50 04/13/19 09 excision of lumbar intervertebral disc completed Lynnette Carranza [facility] 12/08/2022 17:15:11 Appendectomy completed Flaca Barrett NP [address], [place], [address], [facility] 04/14/2019 19:12:57 excision of basal cell carcinoma completed Lynnette Carranza [facility] 12/08/2022 17:15:25 Tonsillectomy completed Lynnette Carranza [facility] 12/08/2022 17:15:34 Imaging Results Imaging Date Name Status LastModified by Organization Details LastModified Time 04/20/2018 pulmonary function test* completed [facility] Information not available 04/14/2019 14:41:52 04/15/2019 electrocardiogram completed BAR[facility] [address], [place], [address], 04/18/2019 14:45:29 11/05/2021 electrocardiogram completed Informa tion not available 12/08/2022 17:20:53 11/05/2021 electrocardiogram completed Informa tion not available 12/08/2022 17:22:10 12/16/2022 electrocardiogram completed [place] In-Offi ce Order Internal Use Only DO Not Attach Compendium DO Not Attach Compendium, Do Not Delete/merge, [id number] 12/17/2022 18:10:26 12/16/2022 electrocardiogram completed [place] In-Offi ce Order Internal Use Only DO Not Attach Compendium DO Not Attach Compendium, Do Not Delete/merge, [id number] 12/16/2022 17:29:39 12/16/2022 CT, chest, w/o contrast [...] Updated DateTime 0 187.96 cm 25 kg/m2 52359.5 1 g 71 /min 18 /min 95 % 95 % 162 mm[Hg] 78 mm[Hg] Brad Ceballos RN [facility] 0 17:30:59 Date Recorded Body weight Body mass index (BMI) Body height Body temperature Oxygen saturation Oxygen saturation in Arterial blood by Pulse oximetry Heart rate Systolic blood pressure Diastolic blood pressure Provider Name and Address Organization Details Last Updated DateTime 3 18496.8 8 g 23.5 kg/m2 185.42 cm 98.2 [degF] 92 % 92 % 92 /min 148 mm[Hg] 84 mm[Hg] Lynnette Carranza CMA [facility] 3 17:01:21 Social History Question Answer Notes LastModified by Organizat ion Details LastModified Time Tobacco Smoking Status Former Smoker Lynnette Carranza CMA null, [facility] 12/16/2022 17:03:04 Do You Have An Advance [...] Live Alone Or With Others? With Others [email or web address] Information not available 04/14/2019 Marital Status Informatio n not available 04/14/2019 What Was [...] LastModified Time Father Cerebrovascu lar accident 62 [email or web address] Not available 05/2019 19:09:44 Mother Myocardial infarction 50 [email or web address] Not available 04/14 19:10:29 Sister Myocardial infarction Not available 12/16 17:02:33 Medical History Condition Response SLEEP DISORDER/SLEEP APNEA Y ONCOLOGY Y CARDIO/VASCULAR DISEASE Y BEHAVIORAL HEALTH/PSYCH Y PULMONARY Y ORTHOPEDIC/MUSCUOLSKELETAL Y Immunizations Vaccine Type Date Status Note Provider Nam e and Address Organization Details Recorded Time Influenza, high-dose, quadrivalent, PF 2 completed Ling John CMA null, [facility] 12/16/2022 12:46:42 Influenza, high-dose, quadrivalent, PF 0 completed Ling John CMA null, [facility] 12/16/2022 12:46:42 Influenza, adjuvanted, quadrivalent, PF 1 completed Ling John CMA null, [facility] 12/16/2022 12:46:42 COVID-19, mRNA, LNP-S, PF, 100 mcg/0.5mL dose or 50 mcg/0.25mL dose 1 completed Ling John CMA null, [facility] 12/16/2022 12:46:42 COVID-19, mRNA, LNP-S, PF, 100 mcg/0.5mL dose or 50 mcg/0.25mL dose 1 completed Ling John [employer] null, [place] [facility] 12/16/2022 12:46:42 COVID-19, mRNA, LNP-S, PF, 100 mcg/0.5mL dose or 50 mcg/0.25mL dose 2 completed Ling John [employer] MOTOR ANALYST null, [place] [facility] 12/16/2022 12:46:42 COVID-19, mRNA, LNP-S, PF, 100 mcg/0.5mL dose or 50 mcg/0.25mL dose 1 completed Ling John ELECTR[employer] MOTOR ANALYST null, [place] [facility] 12/16/2022 12:46:42 COVID-19, mRNA, LNP-S, bivalent, PF, 50 mcg/0.5 mL or 25mcg/0.25 mL dose 2 completed Ling John ELECTR[employer] MOTOR ANALYST null, [place] [facility] 12/16/2022 12:46:42 pneumococcal polysaccharide PPV23 7 completed Ling John [employer] MOTOR ANALYST null, [place] [facility] 12/16/2022 12:46:42 pneumococcal polysaccharide PPV23 1 completed Ling John E[employer] MOTOR ANALYST null, [place] [facility] 12/16/2022 12:46:43 pneumococcal polysaccharide PPV23 6 completed Ling John ELECTR[employer] MOTOR ANALYST null, [place] [facility] 12/16/2022 12:46:43 influenza, unspecified formulation 8 completed Ling John E[employer] MOTOR ANALYST null, [place] [facility] 12/16/2022 12:46:43 influenza, unspecified formulation 0 completed Ling John E[employer]RIC MOTOR ANALYST [place], [place] [facility] 12/16/2022 12:46:43 influenza, unspecified formulation 9 completed Ling John ELECTRIC MOTOR ANALYST [place], [place] [facility] 12/16/2022 12:46:43 influenza, unspecified formulation 2 completed Ling John ELECTRIC MOTOR ANALYST null, [place] [facility] 12/16/2022 12:46:43 influenza, unspecified formulation 6 completed Ling John ELECTRIC MOTOR ANALYST null, [place] [facility] 12/16/2022 12:46:43 Td(adult) unspecified formulation 1 completed Ling John E[employer] MOTOR ANALYST null, [place] [facility] 12/16/2022 12:46:43 Td(adult) unspecified formulation 4 completed Ling John ELECTR[employer] MOTOR ANALYST null, [place] [facility] 12/16/2022 12:46:43 Tdap 4 completed Ling John ELECTRIC MOTOR ANALYST [place], [place] [facility] 12/16/2022 12:46:43 Tdap 6 completed Ling John ELECTRIC MOTOR ANALYST null, [place] [facility] 12/16/2022 12:46:43 Pneumococcal conjugate PCV 13 0 completed Ling John ELECTRIC MOTOR ANALYST [place], [place] [facility] 12/16/2022 12:46:43 Influenza, split virus, trivalent, preservative 4 completed Ling John ELECTRIC MOTOR ANALYST null, [place] [facility] 12/16/2022 12:46:43 Influenza, split virus, trivalent, preservative 5 completed Ling John ELECTRIC MOTOR ANALYST [place], [place] [facility] 12/16/2022 12:46:43 Influenza, split virus, trivalent, preservative 4 completed Ling John ELECTRIC MOTOR ANALYST [place], [place] [facility] 12/16/2022 12:46:43 Novel pthyboldj-T4T2-82 0 completed Ling John E[employer] MOTOR ANALYST null, [place] [facility] 12/16/2022 12:46:43 Influenza, split virus, quadrivalent, PF 7 completed Ling Bennetts, E[employer] MOTOR ANALYST null, [place] [facility] 12/16/2022 12:46:43 Hep A, unspecified formulation 8 completed Ling John, ELECT[employer] MOTOR ANALYST null, [place] [facility] 12/16/2022 12:46:43 Hep A, unspecified formulation 8 completed Ling John, ELECTRIC MOTOR ANALYST null, [place] - [facility] 12/16/2022 12:46:43 Influenza, MDCK, trivalent, PF 9 completed Ling John, E[employer] MOTOR ANALYST null, [place] [facility] 12/16/2022 12:46:43 Past Encounters Encounter ID Performer Location Encounter Start Date Encounter Closed Date Diagnosis/Indication Diagnosis SNOMED-CT Code Diagnosis ICD10 Code Diagnosis Note [id number] Gerri Lawson MD [facility] [address] [place] [address] 04/15/2019 17:19:34 04/18/2019 14:16:36 Hyperlipidemia 27251291 E78.5 Essential hypertension 53167817 I10 [id number] Walt Young MD [facility] [address] [place] [address] 12/16/2022 16:27:03 12/16/2022 17:41:50 History of aortic valve replacement 0813498742 100 Z95.4 STATUS POST SURGICAL AVR IN JULY 2022. HEMODYNAMI SHAHNAZ STABLE BUT PRESENTS WITH SYMPTOMS SUGGESTING PNEUMONIA AND/OR COPD EXCESSIVE AGENT. HE IS SENT TO THE ER FOR FURTHER WORKUP. Chronic ob structive pulmonary disease 03565692 J44.9 SYMPTOMS SUGGESTING PNEUMONIA AND/OR COPD EXCESSIVE AGENT. HE IS SENT TO THE ER FOR FURTHER WORKUP. Essential hypertension 33632788 I10 Hyperlipidemia 21907190 E78.5 Health Concerns Section Related Observation LastModified by Organization Detai ls LastModified Time None Recorded Concern Status LastModified by Organization Details LastModified Time None Recorded Advance Directives Directive Y: Payers Encounter Date Sequence Insurance Name Policy Number Policy Li Covered Member ID Li Member ID Guarantor Name 04/15/2019 1 [place] [facility] OF HEALTH & CLIENT SERVICE MANAGER Freedom Paz [id number] Freedom Paz 12/16/2022 1 [place] [employer] Freedom Paz [id number] Freedom Paz Notes Date Note Type Note [...] disease including a sister who of an NV at 50, mother who of an NV at 54, and father who of a [...] calculator, the patient's 10 year risk of NV or stroke is at least 14.5%. Gerri Lawson MD [facility] 04/15/2019 18:17:43 12/16/2022 text/html With medical his tory /clinical course as listed below; here for follow-up after aortic valve replacement in July 2022 in [place], [place]. Complains dyspnea, cough and phlegm. Have [...] disease including a sister who of an NV at 50, mother who of an NV at 54, and father who of a [...] acute changes PACs noted. Walt Young MD [facility] [address], [place], [address], [facility] 12/16/2022 17:31:10
--- OUTSIDE RECORDS SUMMARY | 2024-08-09 18:07 | XMS_ITS | Continuity of Care Document ---
Author Name [facility] Care Team Providers Care Fence Builder Name Role Phone [facility] Unavailable Unavailable Problems Problem Status Onset Date Classification Date Reported Comments Source Chronic obstructive pulmonary disease wi Active 05/30/2021 [facility] Acute hypoxemic respiratory failure Active 2021 05/31/2021 05 [facility] Community acquired pneumonia Active 2021 05/31/[address] [place] [address] Medications Medication Details Route Status Patient Instructions Ordering Provider Order Date Source predniSONE 20 mg oral tablet = 3 Tab, ORAL, DAILY, Take in the morning starting 05/31/2021. Take with food or milk., # 9 Tab, 0 Refill(s), Acute, Pharmacy: [facility], 187.6, cm, 05/29/21 12:21:00 PST, Height/Length (cm), 73.48, kg, 05/29/21 8:38:00 PST, Dose calcu... Active [address] [place] [address] azithromycin 250 mg oral tablet = 2 Tab, ORAL, [id number], Take 2 tabs PO daily at 3PM., # 4 Tab, Indication= COPD exacerbation, 0 Refill(s), Acute, Pharmacy: [facility], 187.6, cm, 05/29/21 12:21:00 PST, Height/Length (cm), 73.48, kg, 05/29/21 8:38:00 PST, Dose c... Active [address] [place] [address] Tamsulosin hydrochloride 0.4 MG Oral Capsule [Flomax] = 1 Cap, ORAL, DAILY, 0 Refill(s), Maintenance Active [address] [place] [address] Albuterol 2 Puff, INH, Q6H, PRN Shortness of breath/wheezin g, 0 Refill(s), Maintenance Active [address] [place] [address] Paroxetine 30 MG Oral Tablet [Paxil] = 1 Tab, ORAL, DAILY, 0 Refill(s), Maintenance Active [facility] lisinopril 10 mg oral tablet = 1 Tab, ORAL, DAILY, 0 Refill(s), Maintenance Active [facility] Trelegy Ellipta 200 mcg-62.5 mcg-25 mcg/inh inhalation powder 1 Puff, INH, DAILY, 0 Refill(s), Maintenance Active 05 [facility] terazosin 2 mg oral capsule = 1 Cap, ORAL, QBedtime, 0 Refill(s), Maintenance Active [facility] Buprenorphine 8 MG / Naloxone 2 MG Oral Strip [Suboxone] 1 film, SUBLING, BID, 0 Refill(s), Maintenance Active [facility] Results Order Name Results Value Reference Range Date Interpretation Comments Source AutoDiff* Auto Neutrophil Percent 71.0 % 05/30 [facility] AutoDiff* Auto Neutrophil Absolute 5.3 K/MM3 2.0 - 7.3 05/30 [facility] AutoDiff* Auto Lymphocyte Percent 16.4 % 05/30 [facility] AutoDiff* Auto Lymphocyte Absolute 1.2 K/MM3 0.9 - 4.8 05/30 [facility] AutoDiff* Auto Monocyte Percent 12.5 % 05/30 [facility] AutoDiff* Auto Monocyte Absolute 0.9 K/MM3 0.2 - 1.0 05/30 [facility] AutoDiff* Auto Eosinophil Percent 0.0 % 05/30 [facility] AutoDiff* Auto Eosinophil Absolute 0.0 K/MM3 0.0 - 0.4 05/30 [facility] AutoDiff* Auto Basophil Percent 0.1 % 05/30 [facility] AutoDiff* Auto Basophil Absolute 0.0 K/MM3 0.0 - 0.1 05/30 [facility] AutoDiff* Sex assigned at Male 05/30 [facility] Sodium Level 141 mmol/L 136 - 144 05/30 NA [facility] Potassium Level 4.5 mmol/L 3.6 - 5.1 05/30 [facility] Chloride Level 102 mmol/L 101 - 111 05/30 [facility] CO2/Carbon Dioxide 30 mmol/L 22 - 32 05/30 [facility] Anion Gap 9 mmol/L 5 - 17 05/30 [facility] Glucose, Random 118 MG/DL 74 - 118 05/30 [facility] BUN 22 MG/DL 7 - 25 05/30 [facility] Creatinine 0.8 MG/DL 0.9 - 1.3 05/30 [facility] BUN/Creat Ratio 27.5 05/30 [facility] Osmolality, Calculated 296 mOsm/L 05/30 [facility] Calcium Level 9.3 MG/DL 8.6 - 10.3 05/30 [facility] GFR - Non 103 mL/min/1.7 3m2 [...] to persons under 18 years of age. [facility] BMP GFR - 125 mL/min/1.7 3m2 >=60 05/30 [facility] Sex assigned at Male 05/30 [facility] CBC WBC 7.5 K/MM3 4.5 - 10.0 05/30 [facility] CBC RBC 3.59 M/MM3 4.40 - 6.00 05/30 L [facility] CBC HGB 11.2 G/DL 13.4 - 17.4 05/30 [facility] CBC HCT 32.7 % 38.9 - 51.5 05/30 [facility] CBC MCV 91 uM^3 80 - 100 05/30 [facility] CBC MCH 31.1 pg 26.0 - 34.0 05/30 [facility] CBC MCHC 34.2 ZZ 31.0 - 36.0 05/30 [facility] CBC RDW 14.4 % 11.6 - 14.6 05/30 [facility] CBC PLT 198 K/MM3 150 - 400 05/30 [facility] CBC MPV 8.6 uM^3 7.2 - 11.1 05/30 [facility] CBC Sex assigned at Male 05/30 [facility] PCT Procalcitonin Level <0.05 NG/ML 0.05 - [...] in few hours if suspectbacter ial infection. [facility] PCT Sex assigned at Male 05/30 [facility] Trop Troponin I <0.03 NG/ML 0.00 - [...] may be indicative of acute myocardial injury. [facility] Trop Sex assigned at Male 05/30 [facility] [id number] SARS-CoV-2 Source Melodylisa longoria 05/29 [facility] [id number] Patient From [facility]? No 05/29 [facility] [id number] Health Care Worker? No 05/29 [facility] [id number] SARS-CoV-2 Molecular Negative Negative 05/29 Negative results [...] independent review of this validation is pending. [facility] [id number] Symptomatic per CDC? Symptomati c/PUI 05/[address] Serial Retesting? Unknown 05/[address] SARS-CoV-2 First test? Unknown 05/[address] SARS-CoV-2 Is the Patient Hospitalized? Unknown 05/[address] SARS-CoV-2 Is the Patient in ICU? Unknown 05/[address] SARS-CoV-2 Is the Patient ? Unknown 05/[address] Sex assigned at Male 05/29 [facility] BGVenLab VBG - pH 7.40 7.32 - 7.43 05/29 [facility] BGVenLab VBG - pCO2 51 mmHg 41 - 51 05/29 [facility] BGVenLab VBG - pO2 49 mmHg 38 - 42 05/29 H [facility] BGVenLab VBG - HCO3 31.6 mmol/L 05/29 NA [facility] BGVenLab VBG - BE 5.6 mmol/L 05/29 [facility] BGVenLab VBG - Oxyhemoglobin 80.1 % >=75.0 05/29 [facility] VBG - O2 Sat 82.3 % >=75.0 05/29 [facility] VBG - Methemoglobin 0.0 % 05/29 [facility]en[facility] VBG - Total Hemoglobin 12.3 G/DL 13.5 - 18.0 05/29 L [facility] BGVenLab VBG - O2 Content 13.8 mL/dL 05/29 [facility] BG - Modified Glenn Test N/A 05/29 [facility] BG - Site Vein 05/29 [facility] BG - Pt Temp 37.0 DegF 05/29 [facility] Sex assigned at Male 05/29 [facility] AutoDiff* Auto Neutrophil Percent 67.0 % 05/29 [facility] AutoDiff* Auto Neutrophil Absolute 5.3 K/MM3 2.0 - 7.3 05/29 [facility] AutoDiff* Auto Lymphocyte Percent 17.1 % 05/29 [facility] AutoDiff* Auto Lymphocyte Absolute 1.3 K/MM3 0.9 - 4.8 05/29 [facility] AutoDiff* Auto Monocyte Percent 14.5 % 05/29 [facility] AutoDiff* Auto Monocyte Absolute 1.1 K/MM3 0.2 - 1.0 05/29 H [facility] AutoDiff* Auto Eosinophil Percent 0.9 % 05/29 [facility] AutoDiff* Auto Eosinophil Absolute 0.1 K/MM3 0.0 - 0.4 05/29 [facility] AutoDiff* Auto Basophil Percent 0.5 % 05/29 [facility] AutoDiff* Auto Basophil Absolute 0.0 K/MM3 0.0 - 0.1 05/29 [facility] AutoDiff* Sex assigned at Male 05/29 [facility] BNPep BNP B-Natriuretic Peptide 48 pg/mL 0 - 46 05/29 H [facility] BNPep Sex assigned at Male 05/29 [facility] CBC WBC 7.9 K/MM3 4.5 - 10.0 05/29 [facility] CBC RBC 4.00 M/MM3 4.40 - 6.00 05/29 [facility] CBC HGB 12.3 G/DL 13.4 - 17.4 05/29 [facility] CBC HCT 36.5 % 38.9 - 51.5 05/29 [facility] CBC MCV 91 uM^3 80 - 100 05/29 [facility] CBC MCH 30.8 pg 26.0 - 34.0 05/29 [facility] CBC MCHC 33.7 ZZ 31.0 - 36.0 05/29 [facility] CBC RDW 14.6 % 11.6 - 14.6 05/29 [facility] CBC PLT 218 K/MM3 150 - 400 05/29 [facility] CBC MPV 8.3 uM^3 7.2 - 11.1 05/29 [facility] CBC Sex assigned at Male 05/29 [facility] CMP Sodium Level 137 mmol/L 136 - 144 05/29 [facility] CMP Potassium Level 3.7 mmol/L 3.6 - 5.1 05/29 [facility] CMP Chloride Level 98 mmol/L 101 - 111 05/29 [facility] CMP CO2/Carbon Dioxide 31 mmol/L 22 - 32 05/29 [facility] CMP Anion Gap 8 mmol/L 5 - 17 05/29 [facility] CMP Glucose, Random 99 MG/DL 74 - 118 05/29 [facility] CMP BUN 27 MG/DL 7 - 25 05/29 H [facility] CMP Creatinine 1.3 MG/DL 0.9 - 1.3 05/29 [facility] CMP BUN/Creat Ratio 20.8 05/29 [facility] CMP Osmolality, Calculated 289 mOsm/L 05/29 [facility] CMP Calcium Level 9.9 MG/DL 8.6 - 10.3 05/29 [facility] CMP Total Protein 7.5 G/DL 6.0 - 8.0 05/29 [facility] CMP Albumin Level 4.1 G/DL 3.5 - 5.0 05/29 [facility] CMP Globulin Level 3.4 G/DL 2.1 - 3.9 05/29 [facility] CMP A/G Ratio 1.21 1.00 - 2.50 05/29 [facility] CMP ALP 78 Units/L 38 - 126 05/29 [facility] CMP ALT 18 Units/L 8 - 40 05/29 [facility] CMP AST 27 Units/L 15 - 41 05/29 [facility] CMP Bilirubin, Total 0.4 MG/DL 0.3 - 1.2 05/29 [facility] CMP GFR - Non 59 mL/min/1.7 3m2 [...] to persons under 18 years of age. [facility] CMP GFR - 71 mL/min/1.7 3m2 >=60 05/29 [facility] CMP Sex assigned at Male 05/29 [facility] Trop Troponin I <0.03 NG/ML 0.00 - [...] may be indicative of acute myocardial injury. [facility] Trop Sex assigned at Male 05/29 NA [facility] Diagnostic Reports Report Value Date Source CT [...] Underlying centrilobular emphysema, and chronic bronchitis. 2021 [facility] Chest 1 Vw Portable PROCEDURE: CHEST RAD [...] for pneumonia. Small right pleural effusion. 2021 [facility] Consultation Notes Results Value Date Source Progress Note Patient: DARRIAN ALAMO Age: 66 years Legal Sex: Male : 1955 Author: MD Nicolas, Maurice Carias Discharge summary dictated with dictation number 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 Treatment response: Improved. Performed by: self. Notes: This time excludes time spent performing procedures but includes time spent on direct patient care, history retrieval, review of the chart, and discussions with patient, family, and wine consultant(s). . [id number] Male 2021 [facility] ED Physician Notes Patient: GIOVANY ALAMO Age: [...] male reported history of COPD traveling from [place] to [place] presents from the airport with shortness of breath. Patient reports he developed difficulty breathing earlier this morning which continued on the plane flight from [place]. Has associated wheezing. Denies any cough, fever, [...] No records identified on chart review at [facility] Patient reports being from [place] with a known history of COPD DARRIAN [...] Oxygen provided for acute hypoxemia The hospitalist director of business applications was consulted and agreed to accept patient [...] Condition Stable Disposition Admit MSEI Information JUSTICEI /DOUGH RAISER/PA Time Patient Seen face to face: Date [...] Peptide 48 pg/mL (HIGH) 05/29/21 07:43 PST [id number] Male 2021 [facility] Discharge Summaries Results Value Date Source Discharge Summary DATE OF ADMISSION: 2021 DATE OF DISCHARGE: 05/30/2021 PRIMARY CARE PROVIDER: Zion Atkins DNP, RESEARCH & INSIGHTS EXECUTIVE-BC, ANDREW-BC, of the [facility], phone number is [phone], fax number is [phone]. ATTENDING PROVIDERS: 1. Nico Capone MD 2. [...] who was traveling from his home in [place] to [place], with onset of shortness of breath during [...] the time of discharge. MD Lynne Bowden [facility],05/30/2021 21:02:17 PST. Conf # [id number] ,05/30/2021 21:31:26 PST. Dictation ID [id number] Male 05/31/2021 [facility] History and Physicals Results Value Date Source History and Physical Examination 2021 [facility] History and Physical Admit Date: 022 DATE [...] respiratory illness specifically previously. He is from [place], [place] and was traveling through [place] on his way to [place] as today is his birthday. This is the first leg in an extended trip. He was a bit more dyspneic last night and this morning, but had spent the last day and a half plowing and then snow blowing quite a bit and prepping his residence for an extended stay without a malt house supervisor in the winter in [place]. He acknowledges being pretty significantly fatigued yesterday [...] He was on his way to visit [place] briefly, but then a few other parts of the country to visit his grandsons and granddaughters, all the way in [place] for example, so he has extended duration [...] rounds of Mohs surgery and finally a [id number]-roal graft. 7. Degenerative disease of the cervical [...] D DML, 2021 15:06:41 PST. Conf # [id number] , 2021 16:30:17 PST. Dictation ID [id number] Male 2021 [facility] Vital Signs Vital Sign Value Date Comments Source Oxygen delivery Room air (05/30/21 3:41 PM) 05/30/2021 05 [facility] Temperature (F) 98.3 [degF] 05/30/2021 [facility] Peripheral Pulse Rate 95 bpm 05/30/2021 05 [facility] Peripheral pulse site Non-invasive BP device (05/30/21 3:41 PM) 05/30/2021 05 [facility] Respiratory rate 14 br/min 05/30/[address] [facility] Systolic BP 120 mm[Hg] 05/30/2021 05 [facility] Diastolic BP 67 mm[Hg] 05/30/2021 05 [facility] Blood Pressure Method Automatic (05/30/21 3:41 PM) 05/30/2021 05 [facility] Pulse Oximetry 95 % 05/30/2021 05 [facility] Oxygen delivery Room air (05/30/21 11:33 AM) 05/30/2021 05 [facility] Temperature (F) 98.4 [degF] 05/30/2021 05 [facility] Peripheral Pulse Rate 82 bpm 05/30/2021 05 [facility] Peripheral pulse site Non-invasive BP device (05/30/21 11:33 AM) 05/30/2021 05 [facility] Respiratory rate 16 br/min 05/30/[address] [facility] Systolic BP 114 mm[Hg] 05/30/2021 05 [facility] Diastolic BP 53 mm[Hg] 05/30/2021 05 [facility] Blood Pressure Method Automatic (05/30/21 11:33 AM) 05/30/2021 05 [facility] Pulse Oximetry 92 % 05/30/2021 05 [facility] Respiratory rate 21 br/min 05/30/[address] [facility] Peripheral Pulse Rate 78 bpm 05/30/2021 05 [facility] Pulse Oximetry 92 % 05/30/2021 05 [facility] Oxygen delivery Room air (05/30/21 9:00 AM) 05/30/2021 05 [facility] Neurological norm WDL (05/30/21 9:00 AM) 05/30/2021 05 [facility] Temperature (F) 98.1 [degF] 05/30/[address] [facility] Peripheral pulse site Non-invasive BP device (05/30/21 8:07 AM) 05/30/2021 05 [facility] Systolic BP 134 mm[Hg] 05/30/2021 05 [facility] Diastolic BP 62 mm[Hg] 05/30/2021 05 [facility] Blood Pressure Method Automatic (05/30/21 8:07 AM) 05/30/2021 05 [facility] Neurological norm No change from previous assessment (05/30/21 3:29 AM) 05/30/2021 05 [facility] Neurological norm No change from previous assessment (05/30/21 12:46 AM) 05/30/2021 05 [facility] Oxygen FiO2 21 % 05/30/2021 05 [facility] HeightLength (cm) 187.6 cm 2021 05 [facility] HeightLength method Stated (05/29/21 12:2 0 PM) 2021 05 [facility] Weight measured method Standing scale (05/29/21 12:20 PM) 2021 05 [facility] Body Mass Index 0 kg/m2 2021 05 [facility] Weight (kg) 72.57 kg 2021 05 [facility] Heart Rate Monitored 98 bpm 2021 05 [facility] Mean BP 106 mm[Hg] 2021 05 [facility] Heart Rate Monitored 87 bpm 2021 05 A [facility] Mean BP 95 mm[Hg] 2021 05 [facility] Oxygen flow 0 L/min 2021 05 [facility] Oxygen flow 0 L/min 2021 05 [facility] Heart Rate Monitored 98 bpm 2021 05 A [facility] Mean BP 85 mm[Hg] 2021 05 [facility] Oxygen flow 1 L/min 2021 05 [facility] Weight (kg) 73.48 kg 2021 05 [facility] Dose calculation weight (kg) 73.48 kg [address] [facility] Encounters Location Location Details Encounter Type Encounter Number Reason For Visit Attending Provider ADM Date DC Date Status Source 08 15 [facility] Observation [id number] Acute Hypoxemi c Respirat ory Failure, Communit y Acquired Pneumoni a Nico Capone 05/29 Active [facility] Social History Social History Date Source Social History TypeResponse Smoking Status Is there a smoker in the household? No; *Do you have concerns about tobacco use in household? No; Former smoker, quit more than 30 days ago; Never; *Are you ready to quit? Yes entered on: 05/29/21 Sex Male [address] [place] [address] Social History TypeResponse Smoking Status Is there a smoker in the household? No; *Do you have concerns about tobacco use in household? No; Former smoker, quit more than 30 days ago; Never; *Are you ready to quit? Yes entered on: 05/29/21 Sex Male 05 [facility] Social History TypeResponse Smoking Status Is there a smoker in the household? No; *Do you have concerns about tobacco use in household? No; Former smoker, quit more than 30 days ago; Never; *Are you ready to quit? Yes entered on: 05/29/21 Sex Male [address] [place] [address]
== END 2024-08-09 15:42 | disposition home or self-care (01) ==
LOC: HO.HPSW 14:52
PROVIDERS: PCP Physician Assistant Medical; Visit Provider Nurse Practitioner Family
DX: J44.9 Chronic obstructive pulmonary disease, unspecified (principal); R91.8 Other nonspecific abnormal finding of lung field; Z87.891 Personal history of nicotine dependence; G47.34 Idiopathic sleep related nonobstructive alveolar hypoventilation
CPT/HCPCS: 99214

== ENCOUNTER → 2024-08-09 14:51 | Outpatient (BNVA) | payer MEDICARE, SELFPAY | PROVIDERS: PCP Physician Assistant Medical; Visit Provider Nurse Practitioner Family | DX: J44.9 Chronic obstructive pulmonary disease, unspecified (principal); R91.8 Other nonspecific abnormal finding of lung field; G47.34 Idiopathic sleep related nonobstructive alveolar hypoventilation; Z87.891 Personal history of nicotine dependence | CPT/HCPCS: 99212 ==

== ENCOUNTER 2024-08-19 13:44 | Outpatient (REF) | payer MEDICARE, SELFPAY ==
--- OUTSIDE RECORDS SUMMARY | 2024-08-19 13:47 | XMS_ITS ---
Author Organization [facility] Address [address] [place] [address] Care Team Providers Care Medical Transcriber Name Role Phone PILIJuly Unavailable [phone] REASON FOR VISIT PAD Encounters Encounter Location Date Provider Diagnosis [facility] [address] [place] [address] 09/09/2023 MARGARET ALEJANDRE Plan Of Treatment No Information Progress Notes * DARRIAN ALAMODOB:1955 (69 yo M)Acc No.[id number]:09/09/2023 Aorta Iliac Duplex Patient:?DARRIAN ALAMO Provider:?MARGARET ALEJANDRE MD :1955???Age:68 Y???Sex:Male Louie e:09/09/2023 Address: [address], [place] [id number] Subjective: * Chief Complaints: * ???1. PAD. * Medical History:? Objective: * Vitals:? Assessment: Plan: * Treatment: * * Electronic signature of JUANJO ALEJANDRE MD on 08/19/2024 at 09:47 AM AKDT Sign off status: Pending * Provider:?MARGARET ALEJANDRE MD Date:?08/12 Generated for Luc sam/Leoncio/eTransmitting on:?08/19/2024 09:47 AM AKDT
--- OUTSIDE RECORDS SUMMARY | 2024-08-19 13:47 | XMS_ITS ---
Author Organization [facility] Address [address] [address] Care Team Providers Care Cuffing Machine Operator Name Role Phone July Unavailable [phone] DAYSI ARREDONDO Unavailable [phone] Allergies No Known Allergies REASON FOR VISIT [...] Status Risk Notes Problem Peripheral vascular disease (561217665) Peripheral vascular disease, unspecified (I73.9) Active confirmed Problem Atherosclerotic heart disease of [place] coronary artery without angina pectoris (537217593735704) Atherosclerotic heart disease of [place] coronary artery without angina pectoris (I25.10) Active confirmed Problem History of heart valve repair with prosthesis (865268821757185) 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) Active confirmed Problem Inflammatory disease of liver (176227344) Unspecified hepatitis (573.3) Active confirmed Problem Major depression, single episode (43835494) Major depressive disorder, single episode, unspecified (F32.9) Active confirmed Problem Essential hypertension (80060937) Essential (primary) hypertension (I10) Active confirmed Problem Sleep apnea (50395136) Sleep apnea, unspecified (G47.30) Active confirmed Problem Chronic obstructive pulmonary disease (53937378) Chronic obstructive pulmonary disease, unspecified (J44.9) Active confirmed Problem Dyspnea (968097402) Dyspnea, unspecified (R06.00) Active confirmed Problem Abnormal findings on diagnostic imaging of heart and coronary circulation (627851591) Abnormal findings on diagnostic imaging of heart and coronary circulation (R93.1) Active confirmed Vital Signs Blood pressure systolic 146 mm Hg 09/09/19 24 Blood pressure diastolic 76 mm Hg 024 Heart Rate 95 /min 09/09/2023 Oximetry 90 % 09/09/2023 Weight-kg 80.75 kg 09/09/2023 Encounters Encounter Location Date Provider Diagnosis [facility] [address] [place] [address] 09/09/2023 DAYSI ARREDONDO PAD (peripheral artery disease) [...] Notes * SAROJ ALAMO:1955 (68 yo M)Acc No.[id number]:09/09/2023 Patient:?DARRIAN ALAMO Provider:?DAYSI ARREDONDO PA-C :1955???Age:68 Y???Sex:Male Louie e:09/09/2023 Address:[place] [address], [place] [facility] Subjective: * Chief Complaints: * ???PAD * HPI: ???Consult:? 68-year-old male being referred to our office by [facility] for consultation and evaluation of peripheral arterial disease. Patient has a past medical history CAD, aortic valve replacement (last year per patient), HTN, COPD, dyspnea. He was recently seen at [facility] 08/25/2023 where he was found to [...] PA-C Date: ?09/09/2023 Generated for Luc sam/Leoncio/Leesmitting on:?08/19/2024 09:47 AM AKDT History and Physical Notes * [...]
--- OUTSIDE RECORDS SUMMARY | 2024-08-19 13:47 | XMS_ITS | Patient Health Record ---
Author Organization [facility] Address [address] [address] Care Team Providers Care Security Engineer Name Role Phone July Unavailable [phone] DAYSI ARREDONDO Unavailable [phone] BRAULIO FITZGERALD Unavailable [phone] Allergies No Known Allergies Results Component Value [...] brachial index evaluation. Previous: 08/18/23 CTA ABD/PELV ([facility]) Bilateral: Bilateral lower extremity arterial stenoses likely [...] index evaluation. FINDINGS Previous: 08/18/23 CTA ABD/PELV ([facility]) FINDINGS Bilateral: Bilateral lower extremity arterial stenoses [...] are obtained. Previous: 08/18/23 CTA ABD PELVIS ([facility]) Aorta: Limited visualization of the abdominal aorta [...] obtained. FINDINGS Previous: 08/18/23 CTA ABD PELVIS ([facility]) FINDINGS Aorta: Limited visua lization of the abdominal aorta due to heavy bowel gas FINDINGS See Below For Report FINDINGS See Below For Report FINDINGS Conclusions: Aortoil iac atherosclerosis. Reason For Referral Reason Severe PAD Diagnosis 1 PAD (peripheral adria ry disease) (I73.9) Referral Organization [facility] TUTE Kori GRADY Referring Provider First Name LESLI Referring Provider Last Name ART Referring Provider Speciality Cardiology Referred Organization [facility] Referred Provider July Referred Address [address] [facility],[place], [place],[address], Referred Provider Specialty Vascular Isabel rene General Notes CHRISTOPHER MCGHEE 08/27 03:29:52 PM >requested CTA images, WILY SANTANA 08/31/2023 07:18:04 AM > no images yetRome Katy 08/31/2023 10:39:34 AM > Patient verified Demos and [facility] 12:10:48 PM > The patient called and wondered if we had everything that we needed in order to schedule him at [facility]. He is anxious to get an appointment because his referring provider stated that this was an urgent matter.ESTHER KAYLIN R 08/31/2023 12:28:50 PM > not sure on getting these images stat can someone review since pt is worried?, WILY SANTANA 09/01/2023 11:23:30 AM > PT IS VERY WORRIED AND DOES NOT WANT TO WAIT FOR LIA. THERE WAS AN OPEN SPOT [facility] 09/08. [...] Peripheral vascular disease, unspecified (I73.9) [facility] Referring Provider First Name JULY Referring Provider Last Name PILI Referring Provider [facility]ity [facility] Referred Organization [facility] Referred Address [address] [facility],[place], [place],[address], Referred Provider Specialty Gastroentero logy Referral Priority [...] Risk Notes Problem Inflammatory disease of liver (730797557) Unspecified hepatitis (573.3) Active confirmed Problem Major depression, single episode (55206384) Major depressive disorder, single episode, unspecified (F32.9) Active confirmed Problem Sleep apnea (55633406) Sleep apnea, unspecified (G47.30) Active confirmed Problem Essential hypertension (63206362) Essential (primary) hypertension (I10) Active confirmed Problem Atherosclerotic heart disease of [place] coronary artery without angina pectoris (206052307096589) Atherosclerotic heart disease of [place] coronary artery without angina pectoris (I25.10) Active confirmed Problem Peripheral vascular disease (215414021) Peripheral vascular disease, unspecified (I73.9) Active confirmed Problem Chronic obstructive pulmonary disease (37943629) Chronic obstructive pulmonary disease, unspecified (J44.9) Active confirmed Problem Dyspnea (684553350) Dyspnea, unspecified (R06.00) Active confirmed Problem Abnormal findings on diagnostic imaging of heart and coronary circulation (684749502) Abnormal findings on diagnostic imaging of heart and coronary circulation (R93.1) Active confirmed Problem History of heart valve repair with prosthesis (636261410663348) 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) Active confirmed Problem Peripheral vascular disease (126597851) PAD (peripheral artery disease) (I73.9) Active confirmed Vital Signs Heart Rate 95 /min 09/09/2023 Oximetry 90 % 09/09/2023 Blood pressure diastolic 76 mm Hg 09/09/2023 Weight-kg 80.75 kg 09/09/2023 Blood pressure systolic 146 mm Hg 09/09/2023 Encounters Encounter Location Date Provider Diagnosis [facility] [address] [place] [address] 09/04/2023 [facility] [address] [place] [address] 09/09/2023 [facility] [address] [place] [address] 09/09/2023 DAYSI ARREDONDO PAD (peripheral artery disease) I73.9 ; Presence of prosthetic heart valve Z95.2 ; Dyspnea, unspecified R06.00 and Chronic obstructive pulmonary disease, unspecified J44.9 [facility] [address] [place] [address] 09/07/2023July PILI Assessments Encounter Date Diagnosis (ICD [...] OF [place] [address] [id number] INGRIDAbel DARRIAN Self - patient is the insured Medical (General) History Medical History History ICD Code Peripheral vascular disease, unspecified I73.9 Atherosclerotic heart diseas e of [place] coronary artery without angina pectoris I25.10 Presence [...]
--- OUTSIDE RECORDS SUMMARY | 2024-08-19 13:47 | XMS_ITS | Continuity of Care Document ---
Author Name [facility] Care Team Providers Care Sheep Farmer Name Role Phone [facility] Unavailable Unavailable Problems Problem Status Onset Date Classification Date Reported Comments Source Chronic obstructive pulmonary disease wi Active 05/30/2021 [facility] Acute hypoxemic respiratory failure Active 2021 05/31/2021 05 [facility] Community acquired pneumonia Active 2021 05/31/[address] [place] [address] Medications Medication Details Route Status Patient Instructions Ordering Provider Order Date Source predniSONE 20 mg oral tablet = 3 Tab, ORAL, DAILY, Take in the morning starting 05/31/2021. Take with food or milk., # 9 Tab, 0 Refill(s), Acute, Pharmacy: [facility], 187.6, cm, 05/29/21 12:21:00 PST, Height/Length (cm), 73.48, kg, 05/29/21 8:38:00 PST, Dose calcu... Active [address] [place] [address] azithromycin 250 mg oral tablet = 2 Tab, ORAL, [id number], Take 2 tabs PO daily at 3PM., # 4 Tab, Indication= COPD exacerbation, 0 Refill(s), Acute, Pharmacy: [facility], 187.6, cm, 05/29/21 12:21:00 PST, Height/Length (cm), 73.48, kg, 05/29/21 8:38:00 PST, Dose c... Active [address] [place] [address] Tamsulosin hydrochloride 0.4 MG Oral Capsule [Flomax] = 1 Cap, ORAL, DAILY, 0 Refill(s), Maintenance Active [address] [place] [address] Albuterol 2 Puff, INH, Q6H, PRN Shortness of breath/wheezin g, 0 Refill(s), Maintenance Active [address] [place] [address] Paroxetine 30 MG Oral Tablet [Paxil] = 1 Tab, ORAL, DAILY, 0 Refill(s), Maintenance Active [facility] lisinopril 10 mg oral tablet = 1 Tab, ORAL, DAILY, 0 Refill(s), Maintenance Active [facility] Trelegy Ellipta 200 mcg-62.5 mcg-25 mcg/inh inhalation powder 1 Puff, INH, DAILY, 0 Refill(s), Maintenance Active 05 [facility] terazosin 2 mg oral capsule = 1 Cap, ORAL, QBedtime, 0 Refill(s), Maintenance Active [facility] Buprenorphine 8 MG / Naloxone 2 MG Oral Strip [Suboxone] 1 film, SUBLING, BID, 0 Refill(s), Maintenance Active [facility] Results Order Name Results Value Reference Range Date Interpretation Comments Source AutoDiff* Auto Neutrophil Percent 71.0 % 05/30 [facility] AutoDiff* Auto Neutrophil Absolute 5.3 K/MM3 2.0 - 7.3 05/30 [facility] AutoDiff* Auto Lymphocyte Percent 16.4 % 05/30 [facility] AutoDiff* Auto Lymphocyte Absolute 1.2 K/MM3 0.9 - 4.8 05/30 [facility] AutoDiff* Auto Monocyte Percent 12.5 % 05/30 [facility] AutoDiff* Auto Monocyte Absolute 0.9 K/MM3 0.2 - 1.0 05/30 [facility] AutoDiff* Auto Eosinophil Percent 0.0 % 05/30 [facility] AutoDiff* Auto Eosinophil Absolute 0.0 K/MM3 0.0 - 0.4 05/30 [facility] AutoDiff* Auto Basophil Percent 0.1 % 05/30 [facility] AutoDiff* Auto Basophil Absolute 0.0 K/MM3 0.0 - 0.1 05/30 [facility] AutoDiff* Sex assigned at Male 05/30 [facility] Sodium Level 141 mmol/L 136 - 144 05/30 NA [facility] Potassium Level 4.5 mmol/L 3.6 - 5.1 05/30 [facility] Chloride Level 102 mmol/L 101 - 111 05/30 [facility] CO2/Carbon Dioxide 30 mmol/L 22 - 32 05/30 [facility] Anion Gap 9 mmol/L 5 - 17 05/30 [facility] Glucose, Random 118 MG/DL 74 - 118 05/30 [facility] BUN 22 MG/DL 7 - 25 05/30 [facility] Creatinine 0.8 MG/DL 0.9 - 1.3 05/30 [facility] BUN/Creat Ratio 27.5 05/30 [facility] Osmolality, Calculated 296 mOsm/L 05/30 [facility] Calcium Level 9.3 MG/DL 8.6 - 10.3 05/30 [facility] GFR - Non 103 mL/min/1.7 3m2 >=60 [...] to persons under 18 years of age. [facility] BMP GFR - 125 mL/min/1.7 3m2 >=60 05/30 [facility] Sex assigned at Male 05/30 [facility] CBC WBC 7.5 K/MM3 4.5 - 10.0 05/30 [facility] CBC RBC 3.59 M/MM3 4.40 - 6.00 05/30 L [facility] CBC HGB 11.2 G/DL 13.4 - 17.4 05/30 [facility] CBC HCT 32.7 % 38.9 - 51.5 05/30 [facility] CBC MCV 91 uM^3 80 - 100 05/30 [facility] CBC MCH 31.1 pg 26.0 - 34.0 05/30 [facility] CBC MCHC 34.2 ZZ 31.0 - 36.0 05/30 [facility] CBC RDW 14.4 % 11.6 - 14.6 05/30 [facility] CBC PLT 198 K/MM3 150 - 400 05/30 [facility] CBC MPV 8.6 uM^3 7.2 - 11.1 05/30 [facility] CBC Sex assigned at Male 05/30 [facility] PCT Procalcitonin Level <0.05 NG/ML 0.05 - [...] in few hours if suspectbacter ial infection. [facility] PCT Sex assigned at Male 05/30 [facility] Trop Troponin I <0.03 NG/ML 0.00 - [...] may be indicative of acute myocardial injury. [facility] Trop Sex assigned at Male 05/30 [facility] [id number] SARS-CoV-2 Source Melodylisa longoria 05/29 [facility] [id number] Patient From [facility]? No 05/29 [facility] [id number] Health Care Worker? No 05/29 [facility] [id number] SARS-CoV-2 Molecular Negative Negative 05/29 Negative results [...] independent review of this validation is pending. [facility] [id number] Symptomatic per CDC? Symptomati c/PUI 05/[address] Serial Retesting? Unknown 05/[address] SARS-CoV-2 First test? Unknown 05/[address] SARS-CoV-2 Is the Patient Hospitalized? Unknown 05/[address] SARS-CoV-2 Is the Patient in ICU? Unknown 05/[address] SARS-CoV-2 Is the Patient ? Unknown 05/[address] Sex assigned at Male 05/29 [facility] BGVenLab VBG - pH 7.40 7.32 - 7.43 05/29 [facility]GVen[facility] VBG - pCO2 51 mmHg 41 - 51 05/29 [facility] VBG - pO2 49 mmHg 38 - 42 05/29 H [facility] BGVenLab VBG - HCO3 31.6 mmol/L 05/29 NA [facility] BGVenLab VBG - BE 5.6 mmol/L 05/29 [facility]GVenLab VBG - Oxyhemoglobin 80.1 % >=75.0 05/29 [facility] VBG - O2 Sat 82.3 % >=75.0 05/29 [facility] VBG - Methemoglobin 0.0 % 05/29 [facility] VBG - Total Hemoglobin 12.3 G/DL 13.5 - 18.0 05/29 L [facility] BGVenLab VBG - O2 Content 13.8 mL/dL 05/29 [facility] BG - Modified Glenn Test N/A 05/29 [facility] BG - Site Vein 05/29 [facility] BG - Pt Temp 37.0 DegF 05/29 [facility] Sex assigned at Male 05/29 [facility] AutoDiff* Auto Neutrophil Percent 67.0 % 05/29 [facility] AutoDiff* Auto Neutrophil Absolute 5.3 K/MM3 2.0 - 7.3 05/29 [facility] AutoDiff* Auto Lymphocyte Percent 17.1 % 05/29 [facility] AutoDiff* Auto Lymphocyte Absolute 1.3 K/MM3 0.9 - 4.8 05/29 [facility] AutoDiff* Auto Monocyte Percent 14.5 % 05/29 [facility] AutoDiff* Auto Monocyte Absolute 1.1 K/MM3 0.2 - 1.0 05/29 H [facility] AutoDiff* Auto Eosinophil Percent 0.9 % 05/29 [facility] AutoDiff* Auto Eosinophil Absolute 0.1 K/MM3 0.0 - 0.4 05/29 [facility] AutoDiff* Auto Basophil Percent 0.5 % 05/29 [facility] AutoDiff* Auto Basophil Absolute 0.0 K/MM3 0.0 - 0.1 05/29 [facility] AutoDiff* Sex assigned at Male 05/29 [facility] BNPep BNP B-Natriuretic Peptide 48 pg/mL 0 - 46 05/29 H [facility] BNPep Sex assigned at Male 05/29 [facility] CBC WBC 7.9 K/MM3 4.5 - 10.0 05/29 [facility] CBC RBC 4.00 M/MM3 4.40 - 6.00 05/29 [facility] CBC HGB 12.3 G/DL 13.4 - 17.4 05/29 [facility] CBC HCT 36.5 % 38.9 - 51.5 05/29 [facility] CBC MCV 91 uM^3 80 - 100 05/29 [facility] CBC MCH 30.8 pg 26.0 - 34.0 05/29 [facility] CBC MCHC 33.7 ZZ 31.0 - 36.0 05/29 [facility] CBC RDW 14.6 % 11.6 - 14.6 05/29 [facility] CBC PLT 218 K/MM3 150 - 400 05/29 [facility] CBC MPV 8.3 uM^3 7.2 - 11.1 05/29 [facility] CBC Sex assigned at Male 05/29 [facility] CMP Sodium Level 137 mmol/L 136 - 144 05/29 [facility] CMP Potassium Level 3.7 mmol/L 3.6 - 5.1 05/29 [facility] CMP Chloride Level 98 mmol/L 101 - 111 05/29 [facility] CMP CO2/Carbon Dioxide 31 mmol/L 22 - 32 05/29 [facility] CMP Anion Gap 8 mmol/L 5 - 17 05/29 [facility] CMP Glucose, Random 99 MG/DL 74 - 118 05/29 [facility] CMP BUN 27 MG/DL 7 - 25 05/29 H [facility] CMP Creatinine 1.3 MG/DL 0.9 - 1.3 05/29 [facility] CMP BUN/Creat Ratio 20.8 05/29 [facility] CMP Osmolality, Calculated 289 mOsm/L 05/29 [facility] CMP Calcium Level 9.9 MG/DL 8.6 - 10.3 05/29 [facility] CMP Total Protein 7.5 G/DL 6.0 - 8.0 05/29 [facility] CMP Albumin Level 4.1 G/DL 3.5 - 5.0 05/29 [facility] CMP Globulin Level 3.4 G/DL 2.1 - 3.9 05/29 [facility] CMP A/G Ratio 1.21 1.00 - 2.50 05/29 [facility] CMP ALP 78 Units/L 38 - 126 05/29 [facility] CMP ALT 18 Units/L 8 - 40 05/29 [facility] CMP AST 27 Units/L 15 - 41 05/29 [facility] CMP Bilirubin, Total 0.4 MG/DL 0.3 - 1.2 05/29 [facility] CMP GFR - Non 59 mL/min/1.7 3m2 [...] to persons under 18 years of age. [facility] CMP GFR - 71 mL/min/1.7 3m2 >=60 05/29 [facility] CMP Sex assigned at Male 05/29 [facility] Trop Troponin I <0.03 NG/ML 0.00 - [...] may be indicative of acute myocardial injury. [facility] Trop Sex assigned at Male 05/29 NA [facility] Diagnostic Reports Report Value Date Source [...] Underlying centrilobular emphysema, and chronic bronchitis. 2021 [facility] Chest 1 Vw Portable PROCEDURE: CHEST [...] for pneumonia. Small right pleural effusion. 2021 [facility] Consultation Notes Results Value Date Source Progress Note Patient: DARRIAN ALAMO Age: 66 years Legal Sex: Male : 1955 Author: MD Nicolas, Maurice Carias Discharge summary dictated with dictation number 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 Treatment response: Improved. Performed by: self. Notes: This time excludes time spent performing procedures but includes time spent on direct patient care, history retrieval, review of the chart, and discussions with patient, family, and residential sales consultant(s). . [id number] Male 2021 [facility] ED Physician Notes Patient: GIOVANY ALAMO [...] male reported history of COPD traveling from [place] to [place] presents from the airport with shortness of breath. Patient reports he developed difficulty breathing earlier this morning which continued on the plane flight from [place]. Has associated wheezing. 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 ATTENDING PROVIDERS: 1. Nico Capone MD 2. [...] who was traveling from his home in [place] to [place], with onset of shortness of breath during [...] the time of discharge. MD Lynne Bowden [facility],05/30/2021 21:02:17 PST. Conf # [id number] ,05/30/2021 21:31:26 PST. Dictation ID [id number] Male 05/31/2021 [facility] History and Physicals Results Value Date Source History and Physical Examination 2021 [facility] History and Physical Admit Date: 022 [...] respiratory illness specifically previously. He is from [place], [place] and was traveling through [place] on his way to [place] as today is his birthday. This is the first leg in an extended trip. He was a bit more dyspneic last night and this morning, but had spent the last day and a half plowing and then snow blowing quite a bit and prepping his residence for an extended stay without a warehouse associate in the winter in [place]. He acknowledges being pretty significantly fatigued yesterday [...] He was on his way to visit [place] briefly, but then a few other parts of the country to visit his grandsons and granddaughters, all the way in [place] for example, so he has extended duration [...] rounds of Mohs surgery and finally a [id number] graft. 7. Degenerative disease of the cervical [...] D DML, 2021 15:06:41 PST. Conf # [id number] , 2021 16:30:17 PST. Dictation ID [id number] Male 2021 [facility] Vital Signs Vital Sign Value Date Comments Source Oxygen delivery Room air (05/30/21 3:41 PM) 05/30/2021 05 [facility] Temperature (F) 98.3 [degF] 05/30/2021 05 [facility] Peripheral Pulse Rate 95 bpm 05/30/2021 05 [facility] Peripheral pulse site Non-invasive BP device (05/30/21 3:41 PM) 05/30/2021 05 [facility] Respiratory rate 14 br/min 05/30/2021 05 [facility] Systolic BP 120 mm[Hg] 05/30/2021 05 [facility] Diastolic BP 67 mm[Hg] 05/30/2021 05 [facility] Blood Pressure Method Automatic (05/30/21 3:41 PM) 05/30/2021 05 [facility] Pulse Oximetry 95 % 05/30/2021 05 [facility] Oxygen delivery Room air (05/30/21 11:33 AM) 05/30/2021 05 [facility] Temperature (F) 98.4 [degF] 05/30/2021 05 [facility] Peripheral Pulse Rate 82 bpm 05/30/2021 05 [facility] Peripheral pulse site Non-invasive BP device (05/30/21 11:33 AM) 05/30/2021 05 [facility] Respiratory rate 16 br/min 05/30/2021 05 [facility] Systolic BP 114 mm[Hg] 05/30/2021 05 [facility] Diastolic BP 53 mm[Hg] 05/30/2021 05 [facility] Blood Pressure Method Automatic (05/30/21 11:33 AM) 05/30/2021 05 [facility] Pulse Oximetry 92 % 05/30/2021 05 [facility] Respiratory rate 21 br/min 05/30/2021 05 [facility] Peripheral Pulse Rate 78 bpm 05/30/2021 05 [facility] Pulse Oximetry 92 % 05/30/2021 05 [facility] Oxygen delivery Room air (05/30/21 9:00 AM) 05/30/2021 05 [facility] Neurological norm WDL (05/30/21 9:00 AM) 05/30/2021 05 [facility] Temperature (F) 98.1 [degF] 05/30/2021 05 [facility] Peripheral pulse site Non-invasive BP device (05/30/21 8:07 AM) 05/30/2021 05 [facility] Systolic BP 134 mm[Hg] 05/30/2021 05 [facility] Diastolic BP 62 mm[Hg] 05/30/2021 05 [facility] Blood Pressure Method Automatic (05/30/21 8:07 AM) 05/30/2021 05 [facility] Neurological norm No change from previous assessment (05/30/21 3:29 AM) 05/30/2021 05 [facility] Neurological norm No change from previous assessment (05/30/21 12:46 AM) 05/30/2021 05 [facility] Oxygen FiO2 21 % 05/30/2021 05 [facility] HeightLength (cm) 187.6 cm 2021 05 [facility] HeightLength method Stated (05/29/21 12:2 0 PM) 2021 05 [facility] Weight measured method Standing scale (05/29/21 12:20 PM) 2021 05 [facility] Body Mass Index 0 kg/m2 2021 05 [facility] Weight (kg) 72.57 kg 2021 05 [facility] Heart Rate Monitored 98 bpm 2021 05 [facility] Mean BP 106 mm[Hg] 2021 05 [facility] Heart Rate Monitored 87 bpm 2021 05 [facility] Mean BP 95 mm[Hg] 2021 05 [facility] Oxygen flow 0 L/min 2021 05 [facility] Oxygen flow 0 L/min 2021 05 [facility] Heart Rate Monitored 98 bpm 2021 05 [facility] Mean BP 85 mm[Hg] 2021 05 [facility] Oxygen flow 1 L/min 2021 05 [facility] Weight (kg) 73.48 kg 2021 05 [facility] Dose calculation weight (kg) 73.48 kg 2021 05 [facility] Encounters Location Location Details Encounter Type Encounter Number Reason For Visit Attending Provider ADM Date DC Date Status Source 08 15 [facility] Observation [id number] Acute Hypoxemi c Respirat ory Failure, Communit y Acquired Pneumoni a Nico Capone 05/29 Active [facility] Social History Social History Date Source Social History TypeResponse Smoking Status Is there a smoker in the household? No; *Do you have concerns about tobacco use in household? No; Former smoker, quit more than 30 days ago; Never; *Are you ready to quit? Yes entered on: 05/29/21 Sex Male [address] [place] [address] Social History TypeResponse Smoking Status Is there a smoker in the household? No; *Do you have concerns about tobacco use in household? No; Former smoker, quit more than 30 days ago; Never; *Are you ready to quit? Yes entered on: 05/29/21 Sex Male 05 [facility] Social History TypeResponse Smoking Status Is there a smoker in the household? No; *Do you have concerns about tobacco use in household? No; Former smoker, quit more than 30 days ago; Never; *Are you ready to quit? Yes entered on: 05/29/21 Sex Male [address] [place] [address]
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
--- OUTSIDE RECORDS SUMMARY | 2024-08-19 13:48 | XMS_ITS ---
Author Organization [facility] Address [address] [place] [address] Care Team Providers Care Communications Professor Name Role Phone PILIJuly Unavailable [phone] REASON FOR VISIT Update Kios[employer] Demographics Encounters Encounter Location Date Provider Diagnosis [facility] [address] [place] [address] 09/07/2023July PILI Plan Of Treatment No Information Progress Notes * CALLY DARRIANDOB:1955 (68 yo M)Acc No.[id number]:09/07/2023 Patient:?DARRIAN ALAMO :1955???Age:68 Y???Sex:Male Address:[address], [place] [address] * true * Date:? Generated for Gersoni cecy/Leoncio/eTransmitting on:?08/19/2024 09:47 AM DANA
--- OUTSIDE RECORDS SUMMARY | 2024-08-19 13:48 | XMS_ITS | Data Portability ---
Author Organization [facility], [facility] Address [address] [address] [place] [address] Care Team Providers Care Environmental Epidemiologist Name Role Phone [facility] ahmadi Care Provider Assessment Encounter [...] calculator an estimated 10 year risk of TX or stroke of 14.5%, the patient should be taking a statin. He is already taking a baby aspirin. Suggest: 1. Agree with baby aspirin. 2. Begin atorvastatin 80 mg daily. 3. Patient will monitor and record blood pressures at home for the next 2 weeks. He will come back to the [facility] with his blood pressure log and [...] DO Not Attach Compendium, Do Not Delete/merge, [id number] 3 18:04:32 electrocar diogram 2019 020 [email or web address], [address], [address], [place], [address], 3 14:40:32 Medication Orders atorvastat in 80 mg tablet 2019 020 [facility] [id number], [address] [address], [place], [address], 3 17:10:51 Patient TargetsNo targets recorded. Patient Instructions Encounter Date Encounter Id Patient Instructions Last Modified By Organization Details Last Modified Time 04/15/2019 [id number] high blood pressure: care instructions Not available 04/15/2019 18:17:12 learning about high blood pressure Not available 04/15/2019 18:17:12 high cholesterol : care instructions Not available 04/15/2019 18:17:12 12/16/2022 [id number] high blood pressure: care instructions [email or web address] Not [...] record ed. [facility] [address], [place], [address], 04/18/2019 14:45:29 12/09/19 23 11/05/2021 elect rocar diogr am No observ ation record ed. Not Available 2022 17:20:53 12/09/19 23 11/05/2021 elect rocar diogr am No observ ation record ed. Not Available 2022 17:22:10 12/17/19 23 12/16/2022 elect rocar diogr am No observ ation record ed. [place] In-Office Order Internal Use Only DO Not Attach Compendium DO Not Attach Compendium, Do Not Delete/merge, [id number] 12/17/2022 18:10:26 12/17/19 elect rocar diogr am No observ ation record ed. [place] In-Office Order Internal Use Only DO Not Attach Compendium DO Not Attach Compendium, Do Not Delete/merge, [id number] 12/16/2022 17:29:39 02/18/20 23 12/16/2022 CT, chest , w/o contr ast No observ ation record ed. [email or web address] Not Available 2022 14:21:24 02/18/20 23 12/21/2022 XR, chest No observ ation record ed. [email or web address] Not Available 2022 14:22:08 02/18/20 23 12/21/2022 elect rocar diogr am No observ ation record ed. [email or web address] Not Available 2022 14:32:36 11/05/19 24 10/28/2023 , [facility] ardio gram No observ ation record ed. [email or web address] Not Available 2023 14:01:54 Result Notes None recorded. Problems Name Problem SNOMED Code Status Onset Date Resolution Date Notes Provider Name and Address Organization Details Recorded Time Chronic obstructive pulmonary disease 29421819 Active 2022 MD Lenin Rodriguez [address], [place], [address] , [facility] 3 17:30:00 Essential hypertension 37888603 Active 2022 Walt Young MD [address], [place], [address], [facility] 3 17:30:11 Hyperlipidemia 20479677 Active 2022 Walt Young MD [address], [place], [address], [facility] 3 17:30:17 Notes:Some problems listed i n Document: #[id number] could not be added to this patient's chart. Please review this document and add these problems to the patient's chart manually as needed. Problem Notes None recorded. Procedures Surgical History Date Name Laterality Status Provider Name and Address Organization Details Recorded Time 09/03/19 23 Replacement of aortic valve completed Lynnette Carranza [facility] 12/08/2022 17:14:50 04/13/19 09 excision of lumbar intervertebral disc completed Lynnette Carranza [facility] 12/08/2022 17:15:11 Appendectomy completed Flaca Barrett NP [address], [place], [address], [facility] 04/14/2019 19:12:57 excision of basal cell carcinoma completed Lynnette Carranza [facility] 12/08/2022 17:15:25 Tonsillectomy completed Lynnette Carranza [facility] 12/08/2022 17:15:34 Imaging Results Imaging Date Name Status LastModified by Organization Details LastModified Time 04/20/2018 pulmonary function test* completed [facility] Information not available 04/14/2019 14:41:52 04/15/2019 electrocardiogram completed BAR[facility] [address], [place], [address], 04/18/2019 14:45:29 11/05/2021 electrocardiogram completed Informa tion not available 12/08/2022 17:20:53 11/05/2021 electrocardiogram completed Informa tion not available 12/08/2022 17:22:10 12/16/2022 electrocardiogram completed [place] In-Offi ce Order Internal Use Only DO Not Attach Compendium DO Not Attach Compendium, Do Not Delete/merge, [id number] 12/17/2022 18:10:26 12/16/2022 electrocardiogram completed [place] In-Offi ce Order Internal Use Only DO Not Attach Compendium DO Not Attach Compendium, Do Not Delete/merge, [id number] 12/16/2022 17:29:39 12/16/2022 CT, chest, w/o contrast [...] Updated DateTime 0 187.96 cm 25 kg/m2 57385.5 1 g 71 /min 18 /min 95 % 95 % 162 mm[Hg] 78 mm[Hg] Brad Ceballos RN [facility] 0 17:30:59 Date Recorded Body weight Body mass index (BMI) Body height Body temperature Oxygen saturation Oxygen saturation in Arterial blood by Pulse oximetry Heart rate Systolic blood pressure Diastolic blood pressure Provider Name and Address Organization Details Last Updated DateTime 3 10353.8 8 g 23.5 kg/m2 185.42 cm 98.2 [degF] 92 % 92 % 92 /min 148 mm[Hg] 84 mm[Hg] Lynnette Carranza CMA [facility] 3 17:01:21 Social History Question Answer Notes LastModified by Organizat ion Details LastModified Time Tobacco Smoking Status Former Smoker Lynnette Carranza CMA null, [facility] 12/16/2022 17:03:04 Do You Have An [...] Live Alone Or With Others? With Others [email or web address] Information not available 04/14/2019 Marital Status [email or web address] Informatio n not available 04/14/2019 What Was [...] LastModified Time Father Cerebrovascu lar accident 62 [email or web address] Not available 05/2019 19:09:44 Mother Myocardial infarction 50 [email or web address] Not available 04/14 19:10:29 Sister Myocardial infarction Not available 12/16 17:02:33 Medical History Condition Response CARDIO/VASCULAR DISEASE Y SLEEP DISORDER/SLEEP APNEA Y ONCOLOGY Y BEHAVIORAL HEALTH/PSYCH Y PULMONARY Y ORTHOPEDIC/MUSCUOLSKELETAL Y Immunizations Vaccine Type Date Status Note Provider Nam e and Address Organization Details Recorded Time Influenza, high-dose, quadrivalent, PF 2 completed Ling John CMA null, [facility] 12/16/2022 12:46:42 Influenza, high-dose, quadrivalent, PF 0 completed Ling John CMA null, [facility] 12/16/2022 12:46:42 Influenza, adjuvanted, quadrivalent, PF 1 completed Ling John CMA null, [facility] 12/16/2022 12:46:42 COVID-19, mRNA, LNP-S, PF, 100 mcg/0.5mL dose or 50 mcg/0.25mL dose 1 completed Ling John CMA null, [facility] 12/16/2022 12:46:42 COVID-19, mRNA, LNP-S, PF, 100 mcg/0.5mL dose or 50 mcg/0.25mL dose 1 completed Ling John [employer] null, [place] [facility] 12/16/2022 12:46:42 COVID-19, mRNA, LNP-S, PF, 100 mcg/0.5mL dose or 50 mcg/0.25mL dose 2 completed Ling John [employer]PER[employer] null, [place] [facility] 12/16/2022 12:46:42 COVID-19, mRNA, LNP-S, PF, 100 mcg/0.5mL dose or 50 mcg/0.25mL dose 1 completed Ling John [employer] SUPER[employer] null, [place] [facility] 12/16/2022 12:46:42 COVID-19, mRNA, LNP-S, bivalent, PF, 50 mcg/0.5 mL or 25mcg/0.25 mL dose 2 completed Ling John [employer] SUPER[employer] null, [place] [facility] 12/16/2022 12:46:42 pneumococcal polysaccharide PPV23 7 completed Ling John [employer] SUPER[employer] null, [place] [facility] 12/16/2022 12:46:42 pneumococcal polysaccharide PPV23 1 completed Ling John [employer] SUPER[employer] null, [place] [facility] 12/16/2022 12:46:43 pneumococcal polysaccharide PPV23 6 completed Ling John [employer] SUPER[employer] null, [place] [facility] 12/16/2022 12:46:43 influenza, unspecified formulation 8 completed Ling John [employer]PER[employer] null, [place] [facility] 12/16/2022 12:46:43 influenza, unspecified formulation 0 completed Ling John [employer] SUPER[employer] null, [place] [facility] 12/16/2022 12:46:43 influenza, unspecified formulation 9 completed Ling John [employer]PER[employer] [place], [place] [facility] 12/16/2022 12:46:43 influenza, unspecified formulation 2 completed Ling John [employer]PER[employer] null, [place] [facility] 12/16/2022 12:46:43 influenza, unspecified formulation 6 completed Ling John [employer]PER[employer] null, [place] [facility] 12/16/2022 12:46:43 Td(adult) unspecified formulation 1 completed Ling John [employer]PER[employer] null, [place] [facility] 12/16/2022 12:46:43 Td(adult) unspecified formulation 4 completed Ling John [employer] SUPER[employer] null, [place] [facility] 12/16/2022 12:46:43 Tdap 4 completed Ling John [employer] SUPER[employer] null, [place] [facility] 12/16/2022 12:46:43 Tdap 6 completed Ling John [employer] SUPER[employer] null, [place] [facility] 12/16/2022 12:46:43 Pneumococcal conjugate PCV 13 0 completed Ling John [employer] SUPER[employer] null, [place] [facility] 12/16/2022 12:46:43 Influenza, split virus, trivalent, preservative 4 completed Ling John [employer] SUPER[employer] [place], [place] [facility] 12/16/2022 12:46:43 Influenza, split virus, trivalent, preservative 5 completed Ling John [employer] SUPER[employer]OR null, [place] [facility] 12/16/2022 12:46:43 Influenza, split virus, trivalent, preservative 4 completed Ling John [employer] SUPER[employer]OR null, [place] [facility] 12/16/2022 12:46:43 Novel [id number] completed Ling John [employer] SUPER[employer] null, [place] [facility] 12/16/2022 12:46:43 Influenza, split virus, quadrivalent, PF 7 completed Ling [place], [employer] null, [place] [facility] 12/16/2022 12:46:43 Hep A, unspecified formulation 8 completed Ling John, [employer] null, [place] [facility] 12/16/2022 12:46:43 Hep A, unspecified formulation 8 completed Ling John, [employer]PER[employer]OR null, [place] - [facility] 12/16/2022 12:46:43 Influenza, MDCK, trivalent, PF 9 completed Ling John, [employer] null, [place] [facility] 12/16/2022 12:46:43 Past Encounters Encounter ID Performer Location Encounter Start Date Encounter Closed Date Diagnosis/Indication Diagnosis SNOMED-CT Code Diagnosis ICD10 Code Diagnosis Note [id number] Gerri Lawson MD [facility] [address] [place] [address] 04/15/2019 17:19:34 04/18/2019 14:16:36 Hyperlipidemia 00404033 E78.5 Essential hypertension 49764544 I10 [id number] Walt Young MD [facility] [address] [place] [address] 12/16/2022 16:27:03 12/16/2022 17:41:50 History of aortic valve replacement 1365600054 100 Z95.4 STATUS POST SURGICAL AVR IN JULY 2022. HEMODYNAMI SHAHNAZ STABLE BUT PRESENTS WITH SYMPTOMS SUGGESTING PNEUMONIA AND/OR COPD EXCESSIVE AGENT. HE IS SENT TO THE ER FOR FURTHER WORKUP. Chronic ob structive pulmonary disease 25403016 J44.9 SYMPTOMS SUGGESTING PNEUMONIA AND/OR COPD EXCESSIVE AGENT. HE IS SENT TO THE ER FOR FURTHER WORKUP. Essential hypertension 65410265 I10 Hyperlipidemia 10107253 E78.5 Health Concerns Section Related Observation LastModified by Organization Detai ls LastModified Time None Recorded Concern Status LastModified by Organization Details LastModified Time None Recorded Advance Directives Directive Y: Payers Insurance Date Sequence Insurance Name Policy Number Policy Li Covered Member ID Li Member ID Guarantor Name 12/16/2022 1 [place] [facility] [employer] [employer]ERSON [employer] [id number] [employer] 11/05/2023 1 [place] [employer] Freedom Paz [id number] [employer] Notes Date Note Type [...] disease including a sister who of an TX at 50, mother who of an TX at 54, and father who of a [...] calculator, the patient's 10 year risk of TX or stroke is at least 14.5%. Gerri Lawson MD [facility], [facility] 04/15/2019 18:17:43 12/16/2022 text/html With medical his tory /clinical course as listed below; here for follow-up after aortic valve replacement in July 2022 in [place], [place]. Complains dyspnea, cough and phlegm. Have [...] disease including a sister who of an TX at 50, mother who of an TX at 54, and father who of a [...] acute changes PACs noted. Walt Young MD [facility] [address], [place], [address], [facility] 12/16/2022 17:31:10
--- NOTE | 2024-08-19 13:51 | PFT_ITS ---
Indication: COPD Spirometry [FEV1 to FVC 31%; FEV1 0.89 L; FVC 2.9 L. There was a significant response to bronchodilators noted.] Lung Volumes [Total lung capacity 75% predicted; residual volume 116% predicted] Diffusion Capacity [DLCO 37% predicted] Comparisons [none] Interpretation [There is a obstructive ventilatory defect consistent with very severe COPD. There is a significant response to bronchodilators noted. Patient also has a trial of air trapping due to the COPD. In addition, there is a restrictive ventilatory defect consistent mild restrictive lung disease. Need to consider underlying parenchymal lung conditions and or neuromuscular disease. The patient does have a severe diffusion impairment due to his advanced disease. Clinical correlation warranted.] MTDD
[2024-08-19 14:43] VITALS: PULSE 89; O2SAT 96
== END 2024-08-19 13:45 | disposition home or self-care (01) ==
LOC: HO.RESP 13:44
PROVIDERS: PCP Physician Assistant Medical; Visit Provider Nurse Practitioner Family
DX: J44.9 Chronic obstructive pulmonary disease, unspecified (principal)
CPT/HCPCS: 94010; 94640; 94727; 94729

== ENCOUNTER → 2024-08-19 13:51 | Outpatient (BNV) | payer MEDICARE, SELFPAY | PROVIDERS: PCP Physician Assistant Medical; Visit Provider Hospitalist | DX: J44.9 Chronic obstructive pulmonary disease, unspecified (principal) | CPT/HCPCS: 94060; 94727; 94729 ==